=== PATIENT | female | born 1965 | race Caucasian/White ===

== ENCOUNTER 2022-12-24 08:22 | Inpatient (IN) | payer BC, SELFPAY ==
[2022-12-24] VITALS (47 sets, daily range): BP systolic 47–209; BP diastolic 25–117; PULSE 84–132; RESP 16–38; TEMP 36.2–37.5; O2SAT 40–100; BMI 24.2
--- NOTE | ~2022-12-24 | XR_ITS ---
EXAMINATION: XR chest ET placement INDICATION: Respiratory failure TECHNIQUE: Portable AP chest at 1445 hours COMPARISON: 0902 hours FINDINGS: The endotracheal tube ends approximately 3.6 cm above the jerod. A nasogastric tube has be en inserted which is followed as far as the stomach. Its tip is beyond the inferior margin of the rad iograph. Patchy opacities persist throughout all lung zones with slight improvement. No pleural effus ion or pneumothorax. IMPRESSION: 1. Diffuse lung disease with interval improvement, consistent with pneumonia and/or atelectasis and/o r pulmonary edema. 2. Nasogastric tube insertion. Reviewed, dictated and finalized at location A. IMPRESSION: 1. Diffuse lung disease with interval improvement, consistent with pneumonia an d/or atelectasis and/or pulmonary edema. 2. Nasogastric tube insertion.
--- NOTE | ~2022-12-24 | XR_ITS ---
EXAMINATION: XR abdomen/kub 1V DATE: 12/31/2022 08:38 INDICATION: Constipation TECHNIQUE: A supine view of the abdomen on 2 radiographs was obtained. COMPARISON: KUB dated 12/26/[address] dated 12/24/2022 FINDINGS: Left femoral vein central venous catheter with distal tip at the left common iliac vein. Temperature probe projects of the central lower pelvis likely within a Nova catheter. Small amount of gas scatte red throughout the colon and small amount of stool distally at the sigmoid colon. No dilated loops of gas-filled bowel to suggest obstruction. /Portions of the lung bases are clear. Heart size is normal . IMPRESSION: 1. Small amount of stool at the sigmoid colon. No obstruction. Reviewed, dictated and finalized at location A.
--- NOTE | ~2022-12-24 | XR_ITS ---
XR_KUBGTUBINS_CR INDICATION: Evaluate NG tube position. TECHNIQUE: Limited KUB perform for evaluating NG tube . COMPARISON: No prior studies for comparison. FINDINGS: NG tube tip in the stomach. Visualized bowel gas pattern is unremarkable.Right basilar air space disease may represent edema or pneumonia. IMPRESSION: 1: NG tube tip in the stomach. Reviewed, dictated and finalized at location L.
--- NOTE | ~2022-12-24 | XR_ITS ---
EXAMINATION: XR chest ET placement INDICATION: Respiratory failure TECHNIQUE: Portable AP chest at 0902 hours COMPARISON: None available FINDINGS: The endotracheal tube is 2.8 cm above the jerod. There is a diffuse interstitial pattern o f the lungs. No pleural effusion or pneumothorax. The cardiomediastinal silhouette is normal. IMPRESSION: 1. Endotracheal tube 2.8 cm above the jerod. 2. Diffuse interstitial pattern of the lungs, consistent with pulmonary edema and/or pneumonia. Reviewed, dictated and finalized at location A. IMPRESSION: 1. Endotracheal tube 2.8 cm above the jerod. 2. Diffuse interstitial pattern of the lungs, consistent with pulmonary edema a nd/or pneumonia.
--- NOTE | ~2022-12-24 | XR_ITS ---
MODIFIED ESOPHAGRAM HISTORY: Dysphagia. TECHNIQUE: Modified barium esophagram was performed on 12/31/2022. I administered fluoroscopy and perf ormed the exam with speech pathologist. Patient was seated for lateral fluoroscopic imaging for juancho stion of thin liquids, pudding, solids and quantified amounts, followed by thin liquids in uncontroll ed amounts. This was recorded on tape. A single fluoroscopic spot image was also recorded. The DAP fo r this procedure was 1.399 Gycm2. The amount of fluoroscopy time used during this procedure was 1.6 m inutes. FINDINGS: Oral stage: Adequate function. Pharyngeal stage: Single episode of flash laryngeal penetration likely trace amount of contrast with thin liquids which immediately cleared. No aspiration.. Cervical/esophageal stage: Adequate function. IMPRESSION: Single episode of flash laryngeal penetration with trace amount of thin liquid contrast. Otherwise unremarkable study. Please correlate with speech pathologist findings and specific feeding recommendations. Reviewed, dictated and finalized at location A. IMPRESSION: Single episode of flash laryngeal penetration with trace amount of thin liquid contrast. Otherwise unremarkable study. Please correlate with specesario ch pathologist findings and specific feeding recommendations.
--- NOTE | ~2022-12-24 | CT_ITS ---
EXAMINATION: CT brain wo con DATE: 12/24/2022 10:36 INDICATION: Altered mental status TECHNIQUE: Computed tomography (CT) of the abdomen and pelvis was performed without intravenous contr ast. The dose-length product was 756.67 mGy-cm. Automated exposure control and iterative reconstructi on technique were employed. COMPARISON: CT dated 03/31/2015. FINDINGS: Study is extremely limited due to artifact. No ventriculomegaly or midline shift. Normal br ain parenchymal volume. No gross infarction, hemorrhage or mass. Paranasal sinuses and mastoids are p neumatized. No depressed skull fractures. IMPRESSION: 1. Extremely limited study. Cannot exclude subtle intracranial hemorrhage. Consider repeat examinatio n following sedation. Reviewed, dictated and finalized at location L. IMPRESSION: 1. Extremely limited study. Cannot exclude subtle intracranial hemorrhage. Cons ider repeat examination following sedation.
--- NOTE | ~2022-12-24 | CT_ITS ---
EXAMINATION: CTA chest abdomen pelvis DATE: 12/24/2022 11:05 CDT INDICATION: Evaluate dissection. TECHNIQUE: Computed tomographic angiography (CTA) of the chest, abdomen, and pelvis was performed wit hout and with 100 mL Omnipaque-350 intravenous contrast. The dose-length product was 1382.52 mGy-cm. Maximum intensity projection 3D-reconstructions of the aorta and other arteries were constructed by yung almodovar technologist on a separate workstation. COMPARISON: CT dated 06/02/2005. FINDINGS: CHEST CTA: There is atherosclerosis of the aorta and coronary arteries. No evidence for aortic aneurysm or disse ction. Study is technically adequate without evidence for pulmonary embolism. There are moderate pleu ral effusions. Heart size normal. There is extensive patchy bilateral airspace consolidation, consist ent with pneumonia. There is an endotracheal tube tip just above the jerod. There is mild thoracic a nd lumbar spondylosis. No acute osseous abnormality. There is grade 1 degenerative spondylolisthesis at L4-5. ABDOMEN AND PELVIS CTA: There is hepatomegaly. The spleen, pancreas, adrenal glands are unremarkable. There is a 4 mm nonobst ructing left renal stone. There are left renal cysts. No significant hydronephrosis. Gallbladder is p resent. Nonobstructive bowel gas pattern. There is Nova catheter present in the bladder lumen. No fr ee air or free fluid. There is mild mesenteric and retroperitoneal lymphadenopathy, likely reactive. IMPRESSION: 1. Extensive bilateral airspace consolidation, consistent with pneumonia. 2: Moderate pleural effusions. 3: Hepatomegaly. 4: Nonobstructing left nephrolithiasis. Reviewed, dictated and finalized at location L.
--- NOTE | ~2022-12-24 | XR_ITS ---
EXAMINATION: XR chest 1V portable DATE: 12/25/2022 05:42 INDICATION: Pneumonia. TECHNIQUE: A single frontal view of the chest was obtained. COMPARISON: Chest 1 view 12/24/2022, chest CT 12/24/2022 FINDINGS: There are mild airspace opacities in all lung zones bilaterally. No pleural effusion or pne umothorax. The heart size is normal. The endotracheal tube tip is 1.5 cm above the jerod. The nasoga stric tube tip is beyond the inferior margin of the radiograph, but at least to the stomach. IMPRESSION: 1. Diffuse lung disease with interval improvement, consistent with pneumonia. Reviewed, dictated and finalized at location A.
--- NOTE | ~2022-12-24 | US_ITS ---
EXAMINATION: US abdomen limited DATE: 12/28/2022 13:51 INDICATION: Increasing liver function tests TECHNIQUE: Multiple grayscale and Doppler ultrasound images of the abdomen were obtained. COMPARISON: 12/24/2022 FINDINGS: The pancreatic head and body are normal in appearance. The pancreatic tail is not visualized. Visual ized proximal to mid inferior vena cava is normal. Liver has normal echogenicity and contour, with a smooth surface. No liver lesion identified. No intrahepatic biliary duct dilation suspected. Portal v enous flow was seen in the hepatopetal, normal direction and has normal Doppler waveform. There is ed ematous gallbladder wall thickening and trace amount of pericholecystic fluid. There is a small amoun t of echogenic debris within the gallbladder. No shadowing cholelithiasis. Sonographic Farr sign wa s reported as negative by the payroll human resources assistant.Common bile duct measures 4 mm diameter which is normal. Vi sual is portions of the right kidney demonstrates normal contour and echogenicity with no hydronephro sis. There is a right pleural effusion. IMPRESSION: 1. Edematous gallbladder wall thickening and trace amount of pericholecystic fluid but without eviden t cholelithiasis or sonographic Farr's on to suggest acute cholecystitis and differential would als o include sequela of liver disease, congestive heart failure, renal failure or other generalized alisha a forming states. If there is specific elevated clinical concern for acute cholecystitis could consid er HIDA scan for further evaluation. 2. Right pleural effusion. Reviewed, dictated and finalized at location A. IMPRESSION: 1. Edematous gallbladder wall thickening and trace amount of pericholecystic fl uid but without evident cholelithiasis or sonographic Farr's on to suggest ac hughes cholecystitis and differential would also include sequela of liver disease, congestive heart failure, renal failure or other generalized edema forming sta shoshana. If there is specific elevated clinical concern for acute cholecystitis cou ld consider HIDA scan for further evaluation. 2. Right pleural effusion.
--- NOTE | ~2022-12-24 | XR_ITS ---
Portable chest x-ray Comparison: 12/30/2022 Clinical History: Respiratory failure Findings: There is mild right basilar haziness. Left lung essentially clear. Cardiomediastinal silh ouette is stable. Bones and soft tissues are unremarkable. Impression: Mild haziness right lung base. Correlate for pulmonary edema or infection. Reviewed, dictated and finalized at [facility]. Impression: Mild haziness right lung base. Correlate for pulmonary edema or infection.
--- NOTE | ~2022-12-24 | XR_ITS ---
Portable chest x-ray Comparison: 12/29/2022 Clinical History: Tube placement Findings: Endotracheal tube and NG tube are in satisfactory positions. There is minimal bibasilar sloan ziness. Cardiomediastinal silhouette is stable. Bones and soft tissues are unremarkable. Impression: Minimal bibasilar pulmonary edema versus pneumonia. Support tubes, as above. Reviewed, dictated and finalized at location . Impression: Minimal bibasilar pulmonary edema versus pneumonia. Support tubes, as above.
--- NOTE | ~2022-12-24 | XR_ITS ---
XR chest 1V portable DATE: 12/27/2022 05:50 INDICATION: Pneumonia TECHNIQUE: Portable AP chest on 12/27/2022 at 0507 hours COMPARISON: Portable AP chest on 12/26/2022 at 0441 hours FINDINGS: ET and NG tubes in satisfactory position. No central lines. Heart size appears normal. Is aortic calcification. There is a patchy groundglass infiltrate of the lungs, greater on the right, but there has been seria l improvement particularly since 12/20/2022. IMPRESSION: Little interval change since 12/26/2022 Reviewed, dictated and finalized at location A.
--- NOTE | ~2022-12-24 | XR_ITS ---
EXAMINATION: XR chest 1V portable DATE: 12/26/2022 05:22 INDICATION: Pneumonia TECHNIQUE: frontal view of the chest was obtained. COMPARISON: Chest radiograph dated 12/25/2022. And 12/24/2022 FINDINGS: No significant change attending for differences in technique in diffuse subtle patchy airspace opacit ies throughout both lungs which have improved since 12/24/2022. No pleural effusion or pneumothorax. T he cardiomediastinal silhouette is normal. Visualized bones and soft tissues are unremarkable. IMPRESSION: 1. Diffuse bilateral lung disease consistent with pneumonia with no change since 1 day prior but with improvement since the previous day. Reviewed, dictated and finalized at location A. IMPRESSION: 1. Diffuse bilateral lung disease consistent with pneumonia with no change sinc e 1 day prior but with improvement since the previous day.
--- NOTE | ~2022-12-24 | US_ITS ---
EXAMINATION: US venous doppler E DATE: 12/31/2022 15:17 INDICATION: Left upper limb swelling. TECHNIQUE: Grayscale ultrasound images without and with compression and Doppler ultrasound images of the left upper extremity veins were obtained. COMPARISON: None. FINDINGS: The visualized portions of the left internal jugular vein, subclavian vein, axillary vein, brachial v eins, basilic vein, radial vein, and ulnar vein are patent. The cephalic vein was not visualized. IMPRESSION: 1. No deep venous thrombosis. Reviewed, dictated and finalized at location E.
--- NOTE | ~2022-12-24 | CT_ITS ---
EXAMINATION: CT brain wo con INDICATION: Altered mental status COMPARISON: None TECHNIQUE: Standard unenhanced head CT. The dose-length product (DLP) was 605.33 mGy-cm. The mA was a djusted according to patient size. Iterative reconstruction technique was employed. FINDINGS: No intracranial hemorrhage, acute infarction, or abnormal mass lesion. The ventricles are n ormal. No abnormal mass effect or midline shift. The wasserman-white matter differentiation is normal. The basal cisterns are patent. A small amount of intracranial contrast is seen from prior contrast-enhan caity CT. The orbits are normal. There is mild mucosal thickening of the paranasal sinuses. IMPRESSION: 1. No acute intracranial abnormality. Reviewed, dictated and finalized at location A.
--- NOTE | ~2022-12-24 | US_ITS ---
EXAMINATION: US venous doppler UE RT DATE: 12/25/2022 09:38 INDICATION: Swollen right upper extremity veins TECHNIQUE: Hanna scale images with and without compression and Doppler images of the right upper extre mity veins were obtained. COMPARISON: None. FINDINGS: The right internal jugular vein, subclavian vein, axillary vein, brachial veins, basilic vein, radial vein, and ulnar vein are patent. Right cephalic vein not visualized due to arm edema. IMPRESSION: 1. Patent right upper extremity veins. No evidence of deep venous thrombosis. Reviewed, dictated and finalized at location B.
--- NOTE | ~2022-12-24 | XR_ITS ---
Portable chest x-ray Comparison: 12/27/2022 Clinical History: Pneumonia Findings: Endotracheal tube and NG tube are in satisfactory positions. There is perihilar airspace c onsolidation bilaterally. There is more hazy airspace disease and bilateral lower lobes and right mid lung. Cardiomediastinal silhouette is stable. Bones and soft tissues are unremarkable. Impression: Support tubes, as above. Bibasilar and perihilar airspace disease. Correlate for pulmonary edema versus pneumonia. Reviewed, dictated and finalized at location . Impression: Support tubes, as above. Bibasilar and perihilar airspace disease. Correlate for pulmonary edema versus pneumonia.
--- NOTE | ~2022-12-24 | XR_ITS ---
EXAMINATION: XR abdomen/kub 1V DATE: 12/26/2022 11:04 INDICATION: Increased tube feed residuals TECHNIQUE: A supine view of the abdomen on 2 radiographs was obtained. COMPARISON: CT dated 12/24/2022 FINDINGS: Nasogastric tube tip in proximal side port in the body of the stomach. Left femoral central venous ca theter with distal tip in the region of the left common iliac vein. Temperature probe extends through a Nova catheter with distal tip projecting over the expected location of the bladder and the lower pelvis. The tip of the Nova catheter itself appears likely external to the patient. Small amount of gas and stool scattered throughout the colon. No dilated loops of gas-filled bowel to suggest obstruc tion. Visualized portion of the lung bases are clear. IMPRESSION: 1. Nasogastric tube in stomach. 2. Nova catheter appears withdrawn external to the patient but with the tip of the temperature probe likely still within the bladder. Reviewed, dictated and finalized at location A.
--- NOTE | ~2022-12-24 | XR_ITS ---
Portable chest x-ray Comparison: 12/28/2022 Clinical History: Pneumonia Findings: Endotracheal tube and NG tube are in satisfactory positions. There is mild haziness bilate rally, similar to prior exam. No pleural effusion or pneumothorax. Cardiomediastinal silhouette is s table. Bones and soft tissues are unremarkable. Impression: Mild bilateral pulmonary haziness. Correlate for pulmonary edema or infection. Support tubes, as above. Reviewed, dictated and finalized at location . Impression: Mild bilateral pulmonary haziness. Correlate for pulmonary edema or infection. Support tubes, as above.
[2022-12-24] MEDS: ETOMIDATE 20 MG/10 ML AMPUL 30 MG IV PUSH (08:43)
[2022-12-24] MEDS: ROCURONIUM BROMIDE 50 MG/5 ML VIAL 100 MG IV PUSH (08:44)
--- NOTE | 2022-12-24 08:52 | ECG_ITS ---
Measurements Intervals [place] Rate: 129 P: 130 SC: 157 QRS: 97 QRSD: 106 T: -61 QT: 282 QTc: 414 Interpretive Statements SINUS TACHYCARDIA ARM LEADS REVERSED [INVERTED P AND QRS IN I] ABNORMAL RHYTHM ECG NO PREVIOUS ECG AVAILABLE FOR COMPARISON Electronically Signed On 12-24-2022 11:01:15 CDT by Nehemiah Martin M.D.
--- NOTE | 2022-12-24 09:00 | ED.CHESTPAIN ---
HPI - Chest Pain General Chief Complaint: Chest Pain Stated Complaint: stemi Time Seen by Provider: 12/24/22 08:52 Source: patient and EMS Mode of arrival: EMS Limitations: clinical condition History of Present Illness HPI narrative: Patient is a 57-year-old female presented to the emergency department by EMS for chest pain. Patient primarily answering questions with yes or no answers secondary to pain and difficulty breathing. EMS reports patient developed chest pain while driving and pulled over on the side of the road and called EMS, upon EMS arrival patient was experiencing chest pain and appeared diaphoretic and was having tachypnea, they performed an EKG that revealed anterior ST elevation with reciprocal changes in a code STEMI was activated. Patient denies any allergies to medications. Patient admits to a history of Hodgkin's lymphoma, hypertension. Related Data Home Medications Medication Instructions Recorded Confirmed No Home Medications 12/24/22 12/24/22 Allergies Allergy/AdvReac Type Severity Reaction Status Date / Time No Known Allergies Allergy Unverified 06/19/16 10:20 Review of Systems Review of Systems: ROS unobtainable: Yes unobtainable due to medical condition PMFSH Past Medical History Medical History Chest pain Depression Hodgkin lymphoma In the 1990s. Hypothyroidism Surgical History Surgical History No significant past surgical history Family History Family History Other Family history unknown Social History Social History Social History: Surrogate medical decision maker: Jac Pacheco, spouse. Code status: Full code. Smoking status: Unknown if ever smoked Alcohol intake: unknown Substance use: unknown Additional living arrangements comments: however she and her live in separate homes. They have 1 grown daughter who lives in [place]. Daughter is healthy. She has 2 sisters who are healthy. Both parents are from old age. 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 Spiritual care concerns: No Comments At time of signature, I have reviewed and agree with nursing past medical, surgical, social and family history unless otherwise noted. Please see nursing chart for further information. There is no relevant family history pertinent to the presenting complaint. Exam Const: General: alert, diaphoretic and ill appearing HENMT: Head: normal to inspection Mouth: Yes dry mucous membranes Eyes: Conjunctivae: conjunctivae normal Pupils: Equal, round and reactive pupils present Neck: Neck: no meningeal signs Other: No JVD Chest: Chest palpation & inspection: normal inspection of the chest Resp: Effort & Inspection: labored, tachypneic and uses accessory muscles Auscultation: rales diffuse and no wheezes Other: Able to speak in 1-2 word responses Cardio: Rate: tachycardic Rhythm: regular rhythm Heart sounds: no murmurs Peripheral pulses: radial pulses present bilateral 1+ and dorsalis pedis present bilateral 1+ GI: Inspection: non-distended GI Palp: Yes Soft to palpation, No Tenderness to palpation present (GI) and No Pulsatile mass present Skin: General skin exam: no jaundice Rashes: no rashes Neuro: General: moves all extremities Extrem: General: no pedal edema Other: Capillary refill is 3 seconds in all 4 distal extremities. Course Vital Signs Vital signs: Vital Signs Pulse Rate 129 H 12/24/22 08:23 Respiratory Rate 38 H 12/24/22 08:23 Blood Pressure 158/85 H 12/24/22 08:23 Pulse Oximetry 78 L 12/24/22 08:23 Oxygen Delivery Nasal Cannula 12/24/22 08:23 Oxygen Flow Rate 3 12/24/22 08:23 Temperature 98.2 F
[2022-12-24 09:02] LABS: Basophils Absolute Auto 0.1 K/mm3 (0.0-0.1); Eosinophils Absolute Auto 0.6 K/mm3 (0-0.3); Eosinophils Percent Auto 4.9 % (0-4.4); Hematocrit 44.9 % (37.0-47.0); Hemoglobin 14.1 g/dL (12.0-15.0); Immature Granulocyte Absolute 0.08 K/mm3 (0.00-0.031); Immature Granulocyte Percent A 0.7 % (0-0.5); Lymphocytes Absolute Auto 2.63 K/mm3 (0.9-3.2); Lymphocytes Percent Auto 21.5 % (18.3-44.2); Mean Corpuscular HGB Conc 31.4 g/dl (32-36); Mean Corpuscular Hemoglobin 29.1 pg (26-34); Mean Corpuscular Volume 92.8 fl (80-100); Monocytes Absolute Auto 0.8 K/mm3 (0.1-0.6); Monocytes Percent Auto 6.9 % (2.6-8.5); Neutrophils Absolute Auto 7.9 K/mm3 (1.3-6.7); Platelet Count Result 253 k/mm3 (150-375); Red Blood Count 4.84 M/mm3 (4.2-5.4); Red Cell Distribution Width 12.9 % (11.5-14.5); White Blood Count 12.2 K/mm3 (4.5-10.0)
[2022-12-24 09:09] LABS: Lactic Acid Reflex 3.2 mmol/L (0.7-2.0)
[2022-12-24 09:13] LABS: Alanine Aminotransferase 30 U/L (6-35); Albumin Level 3.8 g/dL (3.5-5.1); Alkaline Phosphatase 129 U/L (38-126); Anion Gap 7 mmol/L (8-16); Aspartate Amino Transferase 46 U/L (14-36); Bilirubin,Total 0.5 mg/dL (0.2-1.3); Blood Urea Nitrogen 24 mg/dL (7-17); Calcium 7.8 mg/dL (8.4-10.2); Carbon Dioxide 26 mmol/L (22-30); Chloride 105 mmol/L (98-107); Estimated Glomerular Filt Rate > 60; Glucose 377 mg/dL (65-110); Lipase 142 U/L (23-300); Magnesium 1.8 mg/dL (1.6-2.3); Potassium 3.5 mmol/L (3.4-5.0); Sodium 138 mmol/L (137-145); Troponin I 0.018 ng/mL (0.000-0.034)
[2022-12-24 09:17] LABS: Ethanol < 10 mg/dL (<10)
[2022-12-24 09:23] LABS: NT Pro B Type Natriuretic Pept 1690 pg/mL (19.9-100)
[2022-12-24 09:46] LABS: Alveolar/Arterial O2 Gradient 403.4 mmHg; Base Excess ABG -6.1 mEq/l (+/-2.0); Fractional Inspired Oxygen 100 %; HCO3 ABG 21.2 mEq/l (22.0-26.0); Oxygen Content ABG 19.6 %vol (16.0-22.0); Oxygen Saturation ABG 99.5 % (95.0-100.0); Oxyhemoglobin 97.9 % THb (90.0-100.0); PCO2 ABG 48.9 mmHg (35.0-45.0); PO2 ABG 260.7 mmHg (80.0-100.0); PO2 FiO2 Ratio Arterial Blood 2.61 %; Total Hemoglobin 13.8 g/dL (12.0-18.0)
[2022-12-24 09:47] LABS: Site Drawn RIGHT RADIAL; pH ABG 7.255 (7.350-7.450)
[2022-12-24 09:48] LABS: Arterial Blood Gas Vent Mode CMV; Arterial Blood Gas Ventilator rate 16 /MIN; Device VENTILATOR; Modified Allen's Test Pass
[2022-12-24 09:49] LABS: Arterial Blood Gas PEEP 5 cmH2O; Arterial Blood Gas Tidal Volume 450 ml
[2022-12-24] MEDS: NITROGLYCERIN OINTMENT 1 INCH DOSE TRANSDERM (09:58)
[2022-12-24] MEDS: FUROSEMIDE INJ 40 MG/4 ML VIAL IV PUSH (09:59)
--- NOTE | 2022-12-24 10:55 | PC.NURSE ---
0823-PATIENT ARRIVED VIA EMS. FLORES IN COLOR. HANDS MOTTLED. COOL TO TOUCH. DIAPHORETIC. EMS REPORTS PATIENT WITH ACUTE ONSET OF LEFT CHEST PAIN AND SOB. PATIENT ABLE TO ANSWER ONE WORD QUESTIONS. FOUR BABY ASPIRIN GIVEN ENROUTE. PATIENT NOTED TO HAVE DELAYED CAPILLARY REFILL. 0837-DR. LEACH PREPARING TO INTUBATE PATIENT. DEFIB/PACER PADS APPLIED. 0840-NORMAL SALINE INFUSING AT WIDE OPEN RATE TO LEFT HAND. WAS NOTIFIED BY SIDE LASTER STAPLE.
--- NOTE | 2022-12-24 11:04 | ECG_ITS ---
Measurements Intervals [place] Rate: 130 P: 69 AK: 138 QRS: 80 QRSD: 107 T: -63 QT: 314 QTc: 462 Interpretive Statements SINUS TACHYCARDIA Poor R-wave progression, cannot rule out an old aNTERIOR MYOCARDIAL INFARCTION MODERATE T-WAVE ABNORMALITY, CONSIDER LVH or ischemia COMPARED TO ECG 12/24/2022 08:26:53 NO SIGNIFICANT CHANGES Electronically Signed On 12-24-2022 11:27:03 CDT by Lucretia Grimm M.D.
[2022-12-24 11:05] LABS: Free T4 Free Thyroxine Reflex 1.11 ng/dL (0.78-2.19)
[2022-12-24] MEDS: FENTANYL 2,500MCG/NS250ML(*CRX 2,500 MCG/250 ML BAG IV CONT (11:10)
--- NOTE | 2022-12-24 11:10 | PC.NURSE ---
assuming care of pt. received report from NEERAJ Diego.
--- NOTE | 2022-12-24 11:16 | PC.NURSE ---
0845-7.[address]UBE INSERTED BY DR. LEACH. #22 AT THE LIP. BILATERAL BREATH SOUNDS PRESENT PER DR. LEACH. GOOD CO2 CHANGE ON MONITOR. 0853-VENTILATOR INITIATED BY RESPIRATORY CARE. VENTILATOR SETTINGS: CMV; RATE-16; TIDAL VOLUME-450; FiO2-100%; PEEP-5 #16 PULIDO WITH TEMPERATURE PROBE INSERTED WITH SCANT AMOUNT OF URINE IN PULIDO TUBING.
[2022-12-24 11:21] LABS: CRP < 0.5 mg/dL (<1.0)
--- NOTE | 2022-12-24 11:21 | PC.NURSE ---
0855-PULIDO TEMPERATURE PROBE READING 92.0. WARM BLANKETS X 2 APPLIED. 0900-PORTABLE CHEST X-RAY COMPLETED 905-PULIDO TEMPERATURE PROBE READING 96.3.
--- NOTE | 2022-12-24 11:27 | PC.NURSE ---
0934-ABGS BEING DRAWN.
--- NOTE | 2022-12-24 11:28 | PC.NURSE ---
0952-VENTILATOR SETTINGS CHANGED BY RESPIRATORY CARE. RATE INCREASED TO 18; TIDAL VOLUME DECREASED TO 400; FiO2 DECREASED TO 60% 1008-TO CT SCAN WITH RN AND RESPIRATORY CARE. PATIENT RECEIVED ONE LITER OF NORMAL SALINE. #20 RIGHT AC INFILTRATED DURING CT ADMINISTRATION OF CONTRAST DYE. IV D/C'D BY CT SCAN. HOT MCKINLEY APPLIED TO SITE BY CT SCAN.
--- NOTE | 2022-12-24 11:39 | PC.NURSE ---
1024-PATIENT REMAINS IN CT SCAN. BAGGING CONTINUES. PATIENT NOTED TO HAVE RATTLING RESPIRATIONS WITH BAGGING. 1028-PERIPHERAL IV ATTEMPTED X [address] SCAN WITHOUT SUCCESS. APPROXIMATELY 10 CC OF CLEAR YELLOW URINE IN PULIDO TUBING. 1033-PERIPHERAL IV ACCESS ATTEMPTED FOR THIRD TIME WITHOUT SUCCESS. 1040-#20 ANGIOCATH TO LEFT FOREARM PER NEERAJ HANNAH. 1041-CT IN PROGRESS 1048-RETURN FROM CT SCAN. 1057-SOFT RESTRAINTS APPLIED TO BILATERAL WRISTS.
--- NOTE | 2022-12-24 11:50 | PC.NURSE ---
pt still agitated after titrating Fentanyl drip to 75mcg/hr. EDP Barone made aware. per EDP gave 2mg of Versed IV push. VORB.
[2022-12-24] MEDS: MIDAZOLAM HCL (*CRX) 2 MG/2 ML VIAL IV PUSH ×2 (11:51→14:00)
--- NOTE | 2022-12-24 11:55 | PC.NURSE ---
multiple attempts by multiple RN's to obtain blood cultures, lactic acid, and 3 hour troponin without success. Antibiotics not started yet due to not being able to obtain blood cultures at this time.
[2022-12-24] MEDS: SODIUM CHLORIDE 0.9% IV 1,000 ML 999 ML IV CONT ×2 (12:05→13:15)
[2022-12-24 12:08] LABS: Reflex Lactic Acid Yes or No Add Lactic
[2022-12-24 12:09] LABS: Total Triiodothyronine (T3) 1.13 NG/ML (0.97-1.69)
[2022-12-24 12:13] LABS: Appearance Urine Clear (Clear); Bacteria Urine None Seen /hpf; Bilirubin Urine Negative (Negative); Blood Urine Trace (Negative); Color Urine Yellow (Yellow); Glucose Urine UA Negative (Negative); Ketones Urine Negative (Negative); Leukocyte Esterase Ur 2+ LEU/UL (Negative); Nitrate Urine Negative (Negative); Protein Urine Negative (Negative); RBC Urine 0-2 /hpf (0-2); Specific Grav Ur 1.018 (1.001-1.035); Squamous Epithelial Cell Urine None seen /hpf (Few); Urobilinogen Urine 0.2 mg/dL (<2.0)
[2022-12-24 12:14] LABS: Add Urine Microscopic? YES
--- NOTE | 2022-12-24 12:15 | PC.NURSE ---
after giving the 2mg of Versed pt's BP dropped to 47/25. EDP Abisai made aware. started 1L of normal saline bolus per Dr. Barone. Dr. Barone also administered a push dose of epinephrine IV. pt's BP back up to 107/78.
[2022-12-24 12:24] LABS: Alveolar/Arterial O2 Gradient 244.2 mmHg; Base Excess ABG -2.7 mEq/l (+/-2.0); Carboxyhemoglobin 0.8 % THb (0-2.0); Fractional Inspired Oxygen 60 %; HCO3 ABG 24.4 mEq/l (22.0-26.0); Methemoglobin ABG 0.3 %THb (0-1.5); Oxygen Saturation ABG 98.2 % (95.0-100.0); Oxyhemoglobin 96.8 % THb (90.0-100.0); PCO2 ABG 51.1 mmHg (35.0-45.0); PO2 ABG 127.4 mmHg (80.0-100.0); PO2 FiO2 Ratio Arterial Blood 2.12 %; Reduced Hemoglobin 2.1 %THb (0-5.0); Total Hemoglobin 13.8 g/dL (12.0-18.0)
[2022-12-24 12:26] LABS: Amphetamine Screen Urine Negative (Negative); Barbiturate Screen Urine Negative (Negative); Benzodiazepines Screen Urine Negative (Negative); Cannabinoid Screen Urine Negative (Negative); Cocaine Screen Urine Negative (Negative); Methadone Screen Urine Negative (Negative); Opiate Screen Urine Negative (Negative); Phencyclidine Screen Urine Negative (Negative)
[2022-12-24 12:26] LABS: Device VENTILATOR; Site Drawn LEFT BRACHIAL; pH ABG 7.296 (7.350-7.450)
[2022-12-24 13:11] LABS: Influenza A QL RT-PCR Negative (Negative); Influenza B QL RT-PCR Negative (Negative); SARS-CoV-2 RNA PCR Negative (Negative)
--- NOTE | 2022-12-24 13:15 | PC.NURSE ---
ICU Director Of Medical Staff Services Dr. Mendoza at bedside to assess pt. pt's BP starting to drop again at 60/38. per Dr. Mendoza to give 1L of NS bolus.
--- NOTE | 2022-12-24 13:39 | PC.NURSE ---
ICU oracle application architect at bedside for central line placement.
[2022-12-24 13:51] LABS: Arterial Blood Gas PEEP 5 cmH2O; Arterial Blood Gas Tidal Volume 400 ml; Arterial Blood Gas Vent Mode CMV; Arterial Blood Gas Ventilator rate 18 /MIN
--- NOTE | 2022-12-24 14:00 | PC.NURSE ---
while Dr. Mendoza was attempting central line access pt became agitated. gave another 2mg of Versed per Dr. Mendoza. VORB.
--- NOTE | 2022-12-24 14:04 | PM.IMHP ---
H&P: HPI History of Present Illness Date/Time: 12/24/22 13:30 Chief Complaint: Chest pain and shortness a breath. Narrative: This is a 57-year-old female with hypothyroidism and a remote history of Hodgkin lymphoma who presented to the emergency department via EMS for evaluation of chest pain and shortness of breath. She is intubated and sedated and is unable to provide any history and as such the following is obtained via a review of her EMR and triage nurse and ED physician notes. Her Jac provides additional information. They are and live in different homes. The patient stated with juvenal on Wednesday night and during the middle the night she was awakened from sleep with racing heart which lasted approximately 1.5 hours before she was able to fall back asleep. Aside from sensations of racing heart, she did not complain of any other symptoms to him. He has not seen her since that time and received a phone call from the ED today that she was brought in via EMS. It is my understanding that she was driving to work this morning and called 911 with complaints of severe left-sided chest pain shortness a breath. On EMS arrival she was wasserman, cold to touch, and diaphoretic. On arrival to the ED her vital signs were as follows: blood pressure 158/85, pulse 129, respiratory rate 38, SpO2 78% on 3 L, and temperature 97.1?. ABG showed a pH of 7.255, pCO2 40.9, PO2 260.7, bicarb 21.2. She was speaking in 1 word sentences and she was intubated. CTA of the chest, abdomen, and pelvis showed extensive bilateral airspace consolidation consistent with pneumonia, moderate pleural effusions, hepatomegaly, and nonobstructing left nephrolithiasis. Brain CT showed no acute intracranial abnormality. Labs were significant for a WBC count of 12.2, normal electrolytes, BUN 24, creatinine 0.70, glucose 377, lactic acid 3.2, proBNP 1690. She tested negative for influenza and SARS-CoV-2 by PCR. Urine drug screen was negative. EKG showed sinus tachycardia with poor R-wave progression, cannot rule out old anterior MO, and moderate T-wave abnormalities consider LVH or ischemia. In the ED she received 4 baby aspirin, 1 inch nitroglycerin paste, furosemide 40 mg IV, 2 L lactated Ringer's, 1750 mg vancomycin, 2 g ceftriaxone, and 500 mg azithromycin. She is being admitted to the ICU in this setting for further treatment of septic shock in the setting of pneumonia. Review of Systems Review of Systems: Unable to obtain at this time given clinical condition as above. [facility] Past Medical History Medical History Chest pain Depression Hodgkin lymphoma In the . Hypothyroidism Surgical History Surgical History No significant past surgical history Family History Family History Other Family history unknown Social History Social History Social History: Surrogate medical decision maker: Jac Pacheco, spouse. Code status: Full code. Smoking status: Unknown if ever smoked Alcohol intake: unknown Substance use: unknown Additional living arrangements comments: however she and her live in separate homes. They have 1 grown daughter who lives in [place]. Daughter is healthy. She has 2 sisters who are healthy. Both parents are from old age. 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 Spiritual care concerns: No Meds Home Medications and Allergies Home Medications Medication Instructions Recorded Confirmed Type No Home Medications 12/24/22 12/24/22 History Allergies Allergy/AdvReac Type Severity Reaction Status Date / Time No Known Allergies Allergy Unverified 06/19/16 10:20 Vital Signs Vital Signs - 24 hr 12/24/22 08:23 08
--- NOTE | 2022-12-24 14:05 | ADMGEN ---
This patient, Jose David Pacheco, was admitted to Intensive Care Unit-7. Patient/family oriented to hospital policies and general routines including ID bracelet, bed and alarms, visiting hours, pain management, procedures, bathroom and other care routines, personal items, smoking policy, room service/diet, and visiting hours. Information on how to activate the Rapid Response Team has been discussed. Patient/Family are encouraged to report perceived risks to care and to ask questions if they do not understand what they are told or what they should do.
[2022-12-24] MEDS: MIDAZOLAM 100MG/NS 100ML(*CRX) 100 MG/100 ML BAG IV CONT (14:20)
--- NOTE | 2022-12-24 14:30 | PM.CNCAR ---
Assessment and Plan Assessment and plan (1) Septic shock: Code(s): A41.9 - Sepsis, unspecified organism; R65.21 - Severe sepsis with septic shock Status: Acute Assessment and Plan: Shock with concern for sepsis. Management as per ICU team. Will obtain echocardiogram as well. (2) Acute respiratory failure with hypoxia and hypercarbia: Code(s): J96.01 - Acute respiratory failure with hypoxia; J96.02 - Acute respiratory failure with hypercapnia Status: Acute Assessment and Plan: Currently intubated. CTA of C/A/P shows extensive bilateral airspace consolidation, consistent with pneumonia. No PE. Moderate pleural effusions. On antibiotics per the primary team. Has received IV Lasix with good urine output. Management of ventilator as per ICU team. Would continue with IV Lasix as needed. (3) Chest pain: Code(s): R07.9 - Chest pain, unspecified Status: Acute Assessment and Plan: Reports of chest pain prior to presentation. Noted to be hypertensive initially as well with SBP as high as 200s. No concern for STEMI on EKGs, therefore, STEMI alert canceled. 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 Initial troponin negative. CTA negative for PE and aortic dissection; does show atherosclerosis of the aorta and coronary arteries. Recommend to continue to trend troponins. Will obtain an echocardiogram. Will start ASA 81mg once daily and high intensity statin. If troponins become positive, recommend starting Heparin drip. Plan Recommendations discussed with Drug Abuse Program Coordinator and Hospitalist. History of Present Illness History of Present Illness Consult date/time: 12/24/22 14:30 Requesting physician: Logan Barone DO Consult reason: chest pain Reason For Visit: SEPTIC SHOCK Narrative: This is a 57 year old female who was initially called out as a STEMI in the field. History is limited as patient is intubated and no family at bedside. Patient reported having chest pain earlier this morning. Initial concern for STEMI per EMS, therefore, brought to [place] with catholic priest team on standby. On arrival to the ER here, patient was noted to be quite hypoxic and medical staff report that her skin color was noted to be blue. Upon my arrival to the ER, EKG obtained which I personally reviewed which showed sinus tachycardia, no STEMI. Therefore, STEMI alert was canceled. Patient was intubated as her oxygen saturations were dropping into the 60s. Patient initially was hypertensive, with SBP as high as 200. Later on in the day, prior to patient coming to the ICU, patient dropped her blood pressures. ER workup showed WBC count 12.2. Initial pH of 7.255, pCO2 of 48.9, HCO3 21.2. Lactic acid 3.2. Initial troponin negative at 0.018. BNP elevated at 1690. UDS negative. Alcohol level negative. Influenza panel and COVID panel negative. Head CT negative for acute findings. CXR with diffuse interstitial pattern of the lungs, consistent with pulmonary edema and/or pneumonia. CTA of C/A/P shows extensive bilateral airspace consolidation, consistent with pneumonia. No evidence for aortic aneurysm or dissection. No PE. Moderate pleural effusions. Mild mesenteric and retroperitoneal lymphadenopathy, likely reactive. Review of Systems Review of Systems: ROS unobtainable: Yes unobtainable due to endotracheal tube and unobtainable due to medical condition PMFSH Past Medical History Medical History Chest pain Depression Hodgkin lymphoma In the . Hypothyroidism Surgical History Surgical History No significant past surgical history Family History Family History Other Family history unknown Social History Social History Social History: Surrogate medical decision maker: Jac Vargas
[2022-12-24] MEDS: NOREPINEPHRINE 8 MG/D5W 250 ML 8 MG/250 ML BAG 9.38 MG IV CONT (14:35)
[2022-12-24] MEDS: AZITHROMYCIN 500 MG/NS 250 ML 500 MG/250 ML BAG 250 MG IVPB (14:35)
[2022-12-24] MEDS: cefTRIAXone 2 GM/NS 100 ML 2 GM/100 ML BAG IVPB (14:40)
--- NOTE | 2022-12-24 14:40 | WPDCNINT ---
Assessment and Plan Assessment and plan (1) Acute respiratory failure with hypoxia and hypercarbia: Code(s): J96.01 - Acute respiratory failure with hypoxia; J96.02 - Acute respiratory failure with hypercapnia Status: Acute Assessment and Plan: 12/24: Patient presented with chest pain, shortness of breath was found to be cyanotic and hypoxic, was intubated in the ER on the day of admission. -on CMV mode of ventilation, 60% FiO2 peep of 8 -repeat ABGs pending -continue bronchodilators -sedated with fentanyl and Versed infusion maintain RASS of 0 to -2 -daily sedation vacation -12/24: CTA Chest abdomen and pelvis 1. Extensive bilateral airspace consolidation, consistent with pneumonia. 2: Moderate pleural effusions. 3: Hepatomegaly. 4:? Nonobstructing left nephrolithiasis. (2) Septic shock: Code(s): A41.9 - Sepsis, unspecified organism; R65.21 - Severe sepsis with septic shock Status: Acute Assessment and Plan: Patient dropped her blood pressures ER, be given total of 3 L of IV fluid bolus, started on Levophed in the ICU -likely source pneumonia -will maintain MAP > 65 mmHg for adequate end organ perfusion -elevated lactic acid will repeat -check CRP -urine Legionella and pneumococcal antigens have been ordered and pending -mycoplasma IgM antibody pending -patient was started on azithromycin, ceftriaxone and vancomycin -12/24: Blood culture pending -12/24: Urine culture pending -12/24: MRSA culture pending (3) Multifocal pneumonia: Code(s): J18.9 - Pneumonia, unspecified organism Status: Acute Assessment and Plan: Treatment as above (4) Hyperglycemia: Code(s): R73.9 - Hyperglycemia, unspecified Status: Acute Assessment and Plan: Sliding scale insulin and Accu-Chek -will obtain hemoglobin A1c in the morning (5) Hypothyroidism: Code(s): E03.9 - Hypothyroidism, unspecified Status: Acute Assessment and Plan: TSH is elevated, -check T3 and T4 levels (6) Chest pain: Code(s): R07.9 - Chest pain, unspecified Status: Acute Assessment and Plan: Patient initially presented with chest pain, EKG did not show any ST-elevation FL -troponin x1 negative -cardiology is following the patient -if repeat troponins are negative will start on heparin infusion -patient did receive aspirin in the ER, nitropaste was removed due to but low blood pressures -echocardiogram has been ordered Plan DVT prophylaxis: Lovenox Stress ulcer prophylaxis: Protonix Nutrition: NPO for now Code Status: Full code Critical Care Time Spent: 51 minutes Due to a high probability of clinically significant, life threatening deterioration, the patient required my highest level of preparedness to intervene emergently and I personally spent this critical care time directly and personally managing the patient. This critical care time included obtaining a history; examining the patient; pulse oximetry; ordering and review of studies; arranging urgent treatment with development of a management plan; evaluation of patient's response to treatment; frequent reassessment; and discussions with other providers. It was exclusive of separately billable procedures and treating other patients and teaching time. Please see Assessment and Plan section and the rest of the note for further information on patient assessment and treatment This dictation may have been done utilizing a voice recognition system. Attempts have been made to correct errors. However, there may be uncorrected grammatical, spelling, and recognitions errors present. Real Estate Administrative Assistant Consult Note Consult date: 12/24/22 Reason for consult: Pneumonia, acute respiratory failure, septic shock, lactic acidosis, chest pain, shortness for breath HPI: Jose David Pacheco is a 57 year old female past medical has of Hodgkin's lymphoma around 30 years ago presented the ED on 12/24/2022 with complains of shortne
--- NOTE | 2022-12-24 15:03 | P.PCNBED_ITS ---
Procedures Central Line Placement Left Femoral: Central Line Date: 12/24/22 Central Line Time: 15:03 Consent: I have discussed with the patient and/or surrogate, the non-emergent placement of a central venous catheter, including its clinical necessity/indication and associated potential risks and complications. The patient and/or surrogate understand(s) and acknowledge(s) the need to proceed with central venous catheter insertion as an important element of the patient's clinical management. Time Out Performed: Yes Patient Position: supine Patient placed on monitor/pulse ox: Yes Provider Prep: mask, sterile gown, sterile gloves, Max. sterile barrier precautions, cap and hand hygiene with conventional soap/water or alcohol based hand rub Central line prep: 2% Chlorhexidine scrub Local anesthesia used: lidocaine 1% Amount of anesthesia used (ml): 3 Sterile US Technique with sterile gel/sterile probe covers: Yes Central line lumen inserted: triple Ukrainian: 12 Length (cm): 20 Depth of Insertion (cm): 20 Post Procedure: sutured in place, good blood return, all ports aspirated, flushed, capped, transparent dressing, hemostatic product, antimicrobial product, securement product and aseptic technique maintained throughout procedure Post procedure x-ray: other (Not indicated) Patient tolerated procedure: well and no complications
[2022-12-24 15:15] LABS: Basophils Percent Auto 0.2 % (0.2-1.2); Eosinophils Percent Auto 0.2 % (0-4.4); Hematocrit 41.1 % (37.0-47.0); Hemoglobin 13.2 g/dL (12.0-15.0); Immature Granulocyte Absolute 0.09 K/mm3 (0.00-0.031); Immature Granulocyte Percent A 0.5 % (0-0.5); Lymphocytes Absolute Auto 0.56 K/mm3 (0.9-3.2); Lymphocytes Percent Auto 3.3 % (18.3-44.2); Mean Corpuscular HGB Conc 32.1 g/dl (32-36); Mean Corpuscular Hemoglobin 28.8 pg (26-34); Mean Corpuscular Volume 89.5 fl (80-100); Mean Platelet Volume 10.6 fl (7.4-10.4); Monocytes Absolute Auto 1.1 K/mm3 (0.1-0.6); Monocytes Percent Auto 6.6 % (2.6-8.5); Neutrophils Absolute Auto 15.1 K/mm3 (1.3-6.7); Neutrophils Percent Auto 89.2 % (45.5-73.1); Platelet Count Result 192 k/mm3 (150-375); Red Blood Count 4.59 M/mm3 (4.2-5.4); Red Cell Distribution Width 13.1 % (11.5-14.5)
[2022-12-24 15:26] LABS: Alanine Aminotransferase 30 U/L (6-35); Albumin Level 3.5 g/dL (3.5-5.1); Alkaline Phosphatase 105 U/L (38-126); Anion Gap 5 mmol/L (8-16); Aspartate Amino Transferase 48 U/L (14-36); Bilirubin,Total 0.6 mg/dL (0.2-1.3); Blood Urea Nitrogen 20 mg/dL (7-17); Calcium 7.3 mg/dL (8.4-10.2); Carbon Dioxide 27 mmol/L (22-30); Chloride 107 mmol/L (98-107); Estimated CRCL calculation 62 ml/min; Estimated Glomerular Filt Rate > 60; Glucose 101 mg/dL (65-110); Magnesium 1.4 mg/dL (1.6-2.3); Potassium 3.6 mmol/L (3.4-5.0); Sodium 139 mmol/L (137-145)
[2022-12-24 15:40] LABS: Troponin I 0.489 ng/mL (0.000-0.034)
[2022-12-24 17:18] LABS: Glucose Point of Care 82 mg/dl (65-105)
[2022-12-24] MEDS: HEPARIN SODIUM 5,000 UNITS/ML VIAL 4000 UNITS IV PUSH (17:24)
[2022-12-24] MEDS: MAGNESIUM SULF 2 GM/WATER 50ML 2 GM/50 ML BAG IVPB (17:24)
[2022-12-24] MEDS: CALCIUM GLUC 2,000 MG/NS 100ML 2,000 MG/100 ML BAG 100 MG IVPB (17:25)
[2022-12-24] MEDS: HEPARIN SOD/D5W 100 UNITS/ML 25,000 UNITS/250 ML BAG 8 UNITS IV CONT (17:29)
[2022-12-24] MEDS: CENTRAL LINE FLUSH 10 ML IV PUSH ×2 (17:30→20:34)
[2022-12-24 17:53] LABS: Hemoglobin A1C 5.5 % (<5.7)
[2022-12-24] MEDS: MINERAL OIL/WHITE PETROLATUM OINTMENT 1 APPLIC EACH EYE (20:33)
[2022-12-24] MEDS: LEVALBUTEROL NEB 1.25 MG/3 ML INHALATION (21:45)
[2022-12-24] MEDS: IPRATROPIUM BR 0.02% INH SOLN 0.5 MG/2.5 ML VIAL INHALATION (21:45)
[2022-12-25] VITALS (54 sets, daily range): BP systolic 77–172; BP diastolic 36–90; PULSE 88–110; RESP 17–21; TEMP 36.9–37.9; O2SAT 93–100; BMI 28.9
--- NOTE | 2022-12-25 | ECHO_ITS ---
Patient Info Name: Jose David Pacheco Age: 57 years : 1965 Gender: Female Ht: 66 in Wt: 150 lbs BSA: 1.79 m2 HR: 78 bpm BP: 109 / 56 mmHg Technical Quality: Fair Exam Date: 12/25/2022 2:47 PM Exam Location: [facility] Pulmonary Exam Room: ICU7 Patient Status: Inpatient Admit Date: 12/24/2022 Staff Ordering Physician: Nehemiah Martin MD (chrystal/andrew) Vehicle And Equipment Cleaner: Estrellita Yuen RDCS Attending Provider: Dylan Beasley MD Referring Physician: Mario MORALES; Exam Type: CA echo doppler color flow Study Info Indications - SHOCK RESPIRATORY FAILURS Complete two-dimensional, color flow and Doppler transthoracic echocardiogram is performed. Summary 1. Complete two-dimensional, color flow and Doppler transthoracic echocardiogram is performed. 2. Left ventricular systolic function is normal, estimated at 60-65%. 3. There is mildly increased left ventricular wall thickness. 4. The left ventricular diastolic function is grade II diastolic dysfunction. 5. The aortic valve is trileaflet. 6. There is moderate aortic valve calcification. 7. There is mild aortic valve regurgitation. 8. The mitral valve has calcified annulus. 9. There is mild tricuspid valve regurgitation. 10. No pulmonary hypertension, estimated pulmonary arterial systolic pressure is 47 mmHg. Left Ventricle Left ventricular chamber dimension is normal. Left ventricular systolic function is normal, estimated at 60-65%. There is mildly increased left ventricular wall thickness. Left ventricular septal wall motion is normal. The left ventricular diastolic function is grade II diastolic dysfunction. Right Ventricle Right ventricular chamber dimension is normal. Right ventricular systolic function is normal. Left Atria Left atrial chamber dimension is normal. Right Atria Right atrial chamber dimension is normal. Atrial Septum Intact interatrial septum visualized by color flow imaging. Aortic Valve The aortic valve is trileaflet. There is no aortic valve sclerosis. There is moderate to severe aortic valve stenosis with a peak velocity of 334 cm/s, mean gradient of 29 mmHg, and aortic valve area of 1.0 cm2. There is mild aortic valve regurgitation. There is moderate aortic valve calcification. Pulmonic Valve The pulmonic valve is normal. There is no pulmonic valve stenosis. There is no pulmonic regurgitation. Mitral Valve The mitral valve has calcified annulus. There is no mitral valve stenosis. There is no mitral valve regurgitation. Tricuspid Valve The tricuspid valve leaflets are normal. There is no significant tricuspid valve stenosis. There is mild tricuspid valve regurgitation. No pulmonary hypertension, estimated pulmonary arterial systolic pressure is 47 mmHg. Pericardium/Pleural The pericardium appears normal. There is no pericardial effusion. Inferior Vena Cava Dilated inferior vena cava with <50% collapse upon inspiration consistent with normal right atrial pressure, 15 mmHg. Aorta The aortic root size at the sinus of Valsalva is normal. The prox ascending aorta size is normal. Left Ventricular Outflow Tract Name Value Normal LVOT 2D LVOT Diameter 2.0 cm LVOT Doppler LVOT Peak Gradient
[2022-12-25] MEDS: DEXTROSE 50% 25 GM/50 ML SYRINGE IV PUSH ×6 (00:10→16:36)
[2022-12-25 00:59] LABS: Partial Thromboplastin Time 58.5 SECONDS (22.3-36.8)
[2022-12-25] MEDS: DEXTROSE 10% 1,000 ML 50 ML IV CONT (01:17)
[2022-12-25] MEDS: HEPARIN SODIUM 5,000 UNITS/ML VIAL 2500 UNITS IV PUSH (01:21)
[2022-12-25 01:37] LABS: Glucose Point of Care 86 mg/dl (65-105)
[2022-12-25 01:37] LABS: Glucose Point of Care 66 mg/dl (65-105)
[2022-12-25 01:37] LABS: Glucose Point of Care 48 mg/dl (65-105)
[2022-12-25 01:58] LABS: Glucose Point of Care 147 mg/dl (65-105)
[2022-12-25] MEDS: IPRATROPIUM BR 0.02% INH SOLN 0.5 MG/2.5 ML VIAL INHALATION ×4 (02:15→20:44)
[2022-12-25] MEDS: LEVALBUTEROL NEB 1.25 MG/3 ML INHALATION ×4 (02:15→20:44)
[2022-12-25 03:27] LABS: Glucose Point of Care 128 mg/dl (65-105)
[2022-12-25 04:17] LABS: Glucose Point of Care 130 mg/dl (65-105)
[2022-12-25 05:36] LABS: Alveolar/Arterial O2 Gradient 63.5 mmHg; Base Excess ABG 0.2 mEq/l (+/-2.0); Device VENTILATOR; Fractional Inspired Oxygen 30 %; HCO3 ABG 24.2 mEq/l (22.0-26.0); Modified Allen's Test Unable to perform; Oxygen Content ABG 18.1 %vol (16.0-22.0); Oxyhemoglobin 96.8 % THb (90.0-100.0); PCO2 ABG 37.3 mmHg (35.0-45.0); PO2 ABG 106.6 mmHg (80.0-100.0); PO2 FiO2 Ratio Arterial Blood 3.55 %; Site Drawn LEFT RADIAL; Total Hemoglobin 13.2 g/dL (12.0-18.0)
[2022-12-25 05:37] LABS: Arterial Blood Gas PEEP 8 cmH2O; Arterial Blood Gas Tidal Volume 400 ml; Arterial Blood Gas Vent Mode CMV; Arterial Blood Gas Ventilator rate 20 /MIN
[2022-12-25] MEDS: CENTRAL LINE FLUSH 10 ML IV PUSH ×4 (05:56→22:25)
[2022-12-25 06:05] LABS: Glucose Point of Care 100 mg/dl (65-105)
[2022-12-25 06:10] LABS: Basophils Percent Auto 0.2 % (0.2-1.2); Eosinophils Absolute Auto 0.1 K/mm3 (0-0.3); Eosinophils Percent Auto 0.7 % (0-4.4); Hematocrit 37.1 % (37.0-47.0); Hemoglobin 11.8 g/dL (12.0-15.0); Immature Granulocyte Absolute 0.05 K/mm3 (0.00-0.031); Immature Granulocyte Percent A 0.4 % (0-0.5); Lymphocytes Absolute Auto 0.65 K/mm3 (0.9-3.2); Lymphocytes Percent Auto 4.9 % (18.3-44.2); Mean Corpuscular HGB Conc 31.8 g/dl (32-36); Mean Corpuscular Hemoglobin 28.8 pg (26-34); Mean Corpuscular Volume 90.5 fl (80-100); Mean Platelet Volume 10.8 fl (7.4-10.4); Monocytes Absolute Auto 1.1 K/mm3 (0.1-0.6); Monocytes Percent Auto 8.6 % (2.6-8.5); Neutrophils Absolute Auto 11.3 K/mm3 (1.3-6.7); Neutrophils Percent Auto 85.2 % (45.5-73.1); Platelet Count Result 187 k/mm3 (150-375); Red Cell Distribution Width 13.2 % (11.5-14.5); White Blood Count 13.2 K/mm3 (4.5-10.0)
[2022-12-25 06:21] LABS: Lactic Acid Reflex 1.8 mmol/L (0.7-2.0)
[2022-12-25 06:25] LABS: Alanine Aminotransferase 24 U/L (6-35); Albumin Level 3.1 g/dL (3.5-5.1); Alkaline Phosphatase 77 U/L (38-126); Anion Gap 4 mmol/L (8-16); Aspartate Amino Transferase 28 U/L (14-36); Bilirubin,Total 0.7 mg/dL (0.2-1.3); Blood Urea Nitrogen 20 mg/dL (7-17); CRP 1.6 mg/dL (<1.0); Calcium 7.9 mg/dL (8.4-10.2); Carbon Dioxide 26 mmol/L (22-30); Chloride 104 mmol/L (98-107); Estimated CRCL calculation 53 ml/min; Estimated Glomerular Filt Rate 51; Glucose 132 mg/dL (65-110); Magnesium 1.9 mg/dL (1.6-2.3); Phosphorus 3.5 mg/dL (2.5-4.5); Sodium 134 mmol/L (137-145)
[2022-12-25 06:39] LABS: Creatine Kinase 83 U/L (30-135)
[2022-12-25 08:03] LABS: Troponin I 0.301 ng/mL (0.000-0.034)
--- NOTE | 2022-12-25 08:22 | WPDINTPN ---
Progress Note: A&P Assessment and Plan (1) Acute respiratory failure with hypoxia and hypercarbia: Code(s): J96.01 - Acute respiratory failure with hypoxia; J96.02 - Acute respiratory failure with hypercapnia Status: Acute Assessment and Plan: 12/24: Patient presented with chest pain, shortness of breath was found to be cyanotic and hypoxic, was intubated in the ER on the day of admission. -chest x-ray this morning: Diffuse lung disease with interval improvement, consistent with pneumonia. -ABGs look good, will decrease PEEP to 5. Patient already on 30% FiO2 -continue bronchodilators -sedated with fentanyl and Versed infusion maintain RASS of 0 to -2 -daily sedation vacation -12/24: CTA Chest abdomen and pelvis 1. Extensive bilateral airspace consolidation, consistent with pneumonia. 2: Moderate pleural effusions. 3: Hepatomegaly. 4:? Nonobstructing left nephrolithiasis. (2) Septic shock: Code(s): A41.9 - Sepsis, unspecified organism; R65.21 - Severe sepsis with septic shock Status: Acute Assessment and Plan: Patient dropped her blood pressures ER, be given total of 3 L of IV fluid bolus, started on Levophed in the ICU -likely source pneumonia -patient has been on and off Levophed -will maintain MAP > 65 mmHg for adequate end organ perfusion -lactic acid has normalized -CRP of 1.6 -continue azithromycin, ceftriaxone and vancomycin (12/24) -12/24: Blood culture pending -12/24: Urine culture pending -12/24: MRSA culture pending (3) Multifocal pneumonia: Code(s): J18.9 - Pneumonia, unspecified organism Status: Acute Assessment and Plan: Antibiotics as above -12/24: urine Legionella and pneumococcal antigens have been ordered and pending -12/24: mycoplasma IgM antibody pending (4) Hyperglycemia: Code(s): R73.9 - Hyperglycemia, unspecified Status: Acute Assessment and Plan: Sliding scale insulin and Accu-Chek -patient has been hypoglycemic required 2 amps of D50 overnight, was started on D10 infusion at 50 mL/hour -start tube feeds today (5) Hypothyroidism: Code(s): E03.9 - Hypothyroidism, unspecified Status: Acute Assessment and Plan: TSH is elevated, -T3 and T4 levels are normal (6) Chest pain: Code(s): R07.9 - Chest pain, unspecified Status: Acute Assessment and Plan: Patient initially presented with chest pain, EKG did not show any ST-elevation KS -troponin 0.018-->0.0489-->0.301 -could be related to ACS and or ischemic demand due to severe pneumonia and hypoxia on arrival to the ED -cardiology is following the patient -started patient on heparin infusion -echocardiogram has been ordered Plan DVT prophylaxis: Lovenox Stress ulcer prophylaxis: Protonix Nutrition: Will start tube feeds Code Status: Full code Critical Care Time Spent: 35 minutes Discussed with patient's spouse, updated with patient's condition and plan of care. I answered all questions Due to a high probability of clinically significant, life threatening deterioration, the patient required my highest level of preparedness to intervene emergently and I personally spent this critical care time directly and personally managing the patient. This critical care time included obtaining a history; examining the patient; pulse oximetry; ordering and review of studies; arranging urgent treatment with development of a management plan; evaluation of patient's response to treatment; frequent reassessment; and discussions with other providers. It was exclusive of separately billable procedures and treating other patients and teaching time. Please see Assessment and Plan section and the rest of the note for further information on patient assessment and treatment This dictation may have been done utilizing a voice recognition system. Attempts have been made to correct errors. However, there may be uncorrected grammatical, spelling, and recogniti
[2022-12-25] MEDS: ATORVASTATIN 40 MG TABLET 80 MG PO (09:04)
[2022-12-25] MEDS: POTASSIUM CHLORIDE 20 MEQ PACKET (FOR LIQUID) 40 MEQ FEED TUBE (09:05)
[2022-12-25] MEDS: PANTOPRAZOLE SODIUM IV 40 MG VIAL IV PUSH (09:05)
[2022-12-25] MEDS: ASPIRIN 81 MG ENTERIC TABLET PO (09:05)
[2022-12-25] MEDS: cefTRIAXone 2 GM/NS 100 ML 2 GM/100 ML BAG IVPB (09:06)
[2022-12-25] MEDS: AZITHROMYCIN 500 MG/NS 250 ML 500 MG/250 ML BAG 250 MG IVPB (09:06)
[2022-12-25] MEDS: KCL 40 MEQ/WATER 100 ML 100 ML 25 ML IVPB (09:11)
[2022-12-25] MEDS: MAGNESIUM SULF 2 GM/WATER 50ML 2 GM/50 ML BAG IVPB (09:11)
[2022-12-25] MEDS: VANCOMYCIN 1,000 MG/NS 250 ML 1,000 MG/250 ML BAG 250 MG IVPB (09:12)
--- NOTE | 2022-12-25 09:13 | PM.PNCARD ---
Progress Note: A&P Assessment and Plan (1) Septic shock: Code(s): A41.9 - Sepsis, unspecified organism; R65.21 - Severe sepsis with septic shock Status: Acute Assessment and Plan: Shock with concern for sepsis. Management as per ICU team. Echo ordered. (2) Acute respiratory failure with hypoxia and hypercarbia: Code(s): J96.01 - Acute respiratory failure with hypoxia; J96.02 - Acute respiratory failure with hypercapnia Status: Acute Assessment and Plan: Currently intubated. CTA of C/A/P showed extensive bilateral airspace consolidation, consistent with pneumonia. No PE. Moderate pleural effusions. On antibiotics per the primary team. Has received IV Lasix with good urine output. Management of ventilator as per ICU team. Would continue with IV Lasix as needed. (3) Chest pain: Code(s): R07.9 - Chest pain, unspecified Status: Acute Assessment and Plan: Reports of chest pain prior to presentation. Noted to be hypertensive initially as well with SBP as high as 200s. No concern for STEMI on EKGs, therefore, STEMI alert canceled. 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 Initial troponin negative. CTA negative for PE and aortic dissection; does show atherosclerosis of the aorta and coronary arteries. Recommend to continue to trend troponins. Echo is pending. Started ASA 81mg once daily and high intensity statin. Troponins became positive yesterday afternoon, so heparin drip started. Would continue for 48 hours. Denies any chest pain today. Subjective Date/time seen: 12/25/22 09:13 Interval history: Cardiology follow up for chest pain, CHF Remains intubated but is responsive and able to answer yes and no questions. Denies any chest pain. Review of Systems Review of Systems: ROS unobtainable: Yes unobtainable due to endotracheal tube and unobtainable due to medical condition Exam Const: Other: Intubated HENMT: Other: OETT in place, NG tube in place Resp: Auscultation: diminished lung sounds Other: On mechanical ventilation via OETT Cardio: Rate: tachycardic Rhythm: regular rhythm Heart sounds: Murmur heart sound present systolic Skin: General skin exam: normal color Neuro: Other: Unable to assess due to sedation Psych: Other: Difficult to assess because she is intubated. Answers yes and no questions appropriately Objective Data Vital Signs Vital Signs: Vital Signs - 24 hr 12/24/22 10:48 12/24/22 10:53 12/24/22 09:16 Temperature 36.2 C L Pulse Rate 127 H 123 H Respiratory Rate 18 16 Blood Pressure 209/117 H 199/117 H Pulse Oximetry 100 100 100 Oxygen Delivery Mechanical Ventilation Fraction of Inspired Oxygen 12/24/22 09:44 12/24/22 10:33 12/24/22 11:30 Temperature Pulse Rate 114 H 117 H 109 H Respiratory Rate 16 16 16 Blood Pressure 186/104 H 174/96 H Pulse Oximetry 99 100 96 Oxygen Delivery Fraction of Inspired Oxygen 12/24/22 11:49 12/24/22 09:50 12/24/22 11:00 Temperature 36.6 C Pulse Rate 118 H 132 H Respiratory Rate 24 H Blood Pressure 161/98 H Pulse Oximetry 100 97 Oxygen Delivery Mechanical Ventilation Mechanical Ventilation Fraction of Inspired Oxygen 60 60 12/24/22 11:10 12/24/22 11:30 12/24/22 11:45 Temperature Pulse Rate 95 88 92 Respiratory Rate 20 19 20 Blood Pressure Pulse Oximetry Oxygen Delivery Fraction of Inspired Oxygen 12/24/22 14:20 12/24/22 12:00 12/24/22 12:15 Temperature 36.7 C Pulse Rate 99 101 H 103 H Respiratory Rate 18 20 Blood Pressure 47/25 L 107/78 Pulse Oximetry 100 99 99 Oxygen Delivery Mechanical Ventilation Fraction of Inspired Oxygen 50 12/24/22 13:00 12/24/22 13:30 12/24/22 13:16 Temperature 36.6 C 36.6 C Pulse Rate 99 99 84 Respiratory Rate 20 22 H 20 Blood Pressure 103/60 138/82 60/38 L Pulse Oximetry 100 100 100 Oxygen Delivery Fractio
[2022-12-25] MEDS: MINERAL OIL/WHITE PETROLATUM OINTMENT 1 APPLIC EACH EYE ×2 (09:14→20:13)
[2022-12-25 11:31] LABS: Glucose Point of Care 56 mg/dl (65-105)
[2022-12-25 11:43] LABS: Partial Thromboplastin Time 77.1 SECONDS (22.3-36.8)
[2022-12-25 11:55] LABS: Glucose Point of Care 88 mg/dl (65-105)
[2022-12-25 16:36] LABS: Glucose Point of Care 54 mg/dl (65-105)
[2022-12-25 17:09] LABS: Glucose Point of Care 93 mg/dl (65-105)
[2022-12-25] MEDS: FENTANYL 2,500MCG/NS250ML(*CRX 2,500 MCG/250 ML BAG 7.5 MCG IV CONT (20:04)
[2022-12-25] MEDS: MIDAZOLAM 100MG/NS 100ML(*CRX) 100 MG/100 ML BAG IV CONT (20:08)
[2022-12-25 20:26] LABS: Glucose Point of Care 94 mg/dl (65-105)
[2022-12-25] MEDS: HEPARIN SOD/D5W 100 UNITS/ML 25,000 UNITS/250 ML BAG 9 UNITS IV CONT (22:24)
[2022-12-25] MEDS: GLUCAGON FOR INJ 1 MG VIAL IM (23:50)
[2022-12-26] VITALS (53 sets, daily range): BP systolic 78–168; BP diastolic 39–135; PULSE 84–136; RESP 18–24; TEMP 36.6–37.3; O2SAT 95–99
[2022-12-26 00:06] LABS: Glucose Point of Care 79 mg/dl (65-105)
[2022-12-26 00:46] LABS: Glucose Point of Care 75 mg/dl (65-105)
[2022-12-26] MEDS: DEXTROSE 50% 25 GM/50 ML SYRINGE IV PUSH (01:11)
[2022-12-26 02:10] LABS: Glucose Point of Care 147 mg/dl (65-105)
[2022-12-26] MEDS: IPRATROPIUM BR 0.02% INH SOLN 0.5 MG/2.5 ML VIAL INHALATION ×4 (02:30→20:09)
[2022-12-26] MEDS: LEVALBUTEROL NEB 1.25 MG/3 ML INHALATION ×4 (02:30→20:09)
[2022-12-26 03:08] LABS: Vancomycin Trough 9.4 ug/mL (10.0-20.0)
[2022-12-26 03:31] LABS: Glucose Point of Care 160 mg/dl (65-105)
[2022-12-26] MEDS: VANCOMYCIN 1,250 MG/NS 250 ML 1,250 MG/250 ML BAG 166.67 MG IVPB (03:40)
[2022-12-26 05:07] LABS: Alveolar/Arterial O2 Gradient 59.8 mmHg; Base Excess ABG -1.4 mEq/l (+/-2.0); Fractional Inspired Oxygen 30 %; HCO3 ABG 23.6 mEq/l (22.0-26.0); Oxygen Content ABG 16.4 %vol (16.0-22.0); Oxygen Saturation ABG 97.8 % (95.0-100.0); Oxyhemoglobin 96.6 % THb (90.0-100.0); PCO2 ABG 40.5 mmHg (35.0-45.0); PO2 ABG 106.5 mmHg (80.0-100.0); PO2 FiO2 Ratio Arterial Blood 3.55 %; pH ABG 7.383 (7.350-7.450)
[2022-12-26 05:10] LABS: Arterial Blood Gas Ventilator rate 20 /MIN; Device VENTILATOR; Modified Allen's Test Pass; Site Drawn LEFT RADIAL
[2022-12-26 05:11] LABS: Arterial Blood Gas PEEP 5 cmH2O; Arterial Blood Gas Tidal Volume 400 ml; Arterial Blood Gas Vent Mode CMV
[2022-12-26] MEDS: CENTRAL LINE FLUSH 10 ML IV PUSH ×4 (05:21→22:17)
[2022-12-26 05:31] LABS: Glucose Point of Care 118 mg/dl (65-105)
[2022-12-26 05:39] LABS: Basophils Percent Auto 0.3 % (0.2-1.2); Eosinophils Absolute Auto 0.3 K/mm3 (0-0.3); Hematocrit 34.4 % (37.0-47.0); Immature Granulocyte Absolute 0.04 K/mm3 (0.00-0.031); Immature Granulocyte Percent A 0.3 % (0-0.5); Lymphocytes Percent Auto 7.5 % (18.3-44.2); Mean Corpuscular Hemoglobin 29.2 pg (26-34); Mean Corpuscular Volume 91.2 fl (80-100); Mean Platelet Volume 10.8 fl (7.4-10.4); Monocytes Absolute Auto 1.3 K/mm3 (0.1-0.6); Monocytes Percent Auto 9.4 % (2.6-8.5); Neutrophils Absolute Auto 10.8 K/mm3 (1.3-6.7); Neutrophils Percent Auto 80.5 % (45.5-73.1); Platelet Count Result 153 k/mm3 (150-375); Red Blood Count 3.77 M/mm3 (4.2-5.4); Red Cell Distribution Width 13.3 % (11.5-14.5); White Blood Count 13.4 K/mm3 (4.5-10.0)
[2022-12-26 05:55] LABS: Alanine Aminotransferase 19 U/L (6-35); Alkaline Phosphatase 71 U/L (38-126); Anion Gap -1 mmol/L (8-16); Aspartate Amino Transferase 21 U/L (14-36); Bilirubin,Total 0.5 mg/dL (0.2-1.3); Blood Urea Nitrogen 21 mg/dL (7-17); Calcium 7.8 mg/dL (8.4-10.2); Carbon Dioxide 25 mmol/L (22-30); Chloride 104 mmol/L (98-107); Estimated CRCL calculation 93 ml/min; Estimated Glomerular Filt Rate > 60; Glucose 126 mg/dL (65-110); Phosphorus 2.9 mg/dL (2.5-4.5); Potassium 3.4 mmol/L (3.4-5.0); Sodium 128 mmol/L (137-145)
[2022-12-26 05:58] LABS: Lactic Acid Reflex 0.7 mmol/L (0.7-2.0)
[2022-12-26] MEDS: HEPARIN SODIUM 5,000 UNITS/ML VIAL 2500 UNITS IV PUSH ×2 (06:10→20:59)
[2022-12-26 06:41] LABS: Cortisol Random 6.56 ug/dL
[2022-12-26] MEDS: PANTOPRAZOLE SODIUM IV 40 MG VIAL IV PUSH (08:42)
[2022-12-26] MEDS: SODIUM CHLORIDE 1 GM TABLET PO ×2 (08:42→16:36)
[2022-12-26] MEDS: ATORVASTATIN 40 MG TABLET 80 MG PO (08:42)
[2022-12-26] MEDS: MINERAL OIL/WHITE PETROLATUM OINTMENT 1 APPLIC EACH EYE ×2 (08:42→20:23)
[2022-12-26] MEDS: HYDROCORTISONE SODIUM SUCCINATE 100 MG/2 ML VIAL IV PUSH ×3 (08:43→23:54)
[2022-12-26] MEDS: KCL 40 MEQ/WATER 100 ML 100 ML 25 ML IVPB (08:43)
[2022-12-26] MEDS: POTASSIUM CHLORIDE 20 MEQ PACKET (FOR LIQUID) 40 MEQ FEED TUBE (08:43)
[2022-12-26] MEDS: ASPIRIN 81 MG ENTERIC TABLET PO (08:43)
--- NOTE | 2022-12-26 09:40 | P.PNIM_ITS ---
Progress Note: A&P Assessment and Plan (1) Acute respiratory failure with hypoxia and hypercarbia: Code(s): J96.01 - Acute respiratory failure with hypoxia; J96.02 - Acute respiratory failure with hypercapnia Status: Acute Assessment and Plan: 12/24: Patient presented with chest pain, shortness of breath was found to be cyanotic and hypoxic, was intubated in the ER on the day of admission. -chest x-ray this morning: Diffuse lung disease with interval improvement, consistent with pneumonia. -ABGs look good, will decrease PEEP to 5. Patient already on 30% FiO2 -continue bronchodilators -sedated with fentanyl and Versed infusion maintain RASS of 0 to -2 -daily sedation vacation -12/24: CTA Chest abdomen and pelvis 1. Extensive bilateral airspace consolidation, consistent with pneumonia. 2: Moderate pleural effusions. 3: Hepatomegaly. 4:? Nonobstructing left nephrolithiasis. (2) Septic shock: Code(s): A41.9 - Sepsis, unspecified organism; R65.21 - Severe sepsis with septic shock Status: Acute Assessment and Plan: Patient dropped her blood pressures ER, be given total of 3 L of IV fluid bolus, started on Levophed in the ICU -likely source pneumonia -patient has been on and off Levophed -will maintain MAP > 65 mmHg for adequate end organ perfusion -lactic acid has normalized -CRP of 1.6 -continue azithromycin, ceftriaxone and vancomycin (12/24) -12/24: Blood culture pending -12/24: Urine culture pending -12/24: MRSA culture pending (3) Multifocal pneumonia: Code(s): J18.9 - Pneumonia, unspecified organism Status: Acute Assessment and Plan: Antibiotics as above -12/24: urine Legionella and pneumococcal antigens have been ordered and pending -12/24: mycoplasma IgM antibody pending (4) Hyperglycemia: Code(s): R73.9 - Hyperglycemia, unspecified Status: Acute Assessment and Plan: Sliding scale insulin and Accu-Chek -patient has been hypoglycemic required 2 amps of D50 overnight, was started on D10 infusion at 50 mL/hour -start tube feeds today (5) Hypothyroidism: Code(s): E03.9 - Hypothyroidism, unspecified Status: Acute Assessment and Plan: TSH is elevated, -T3 and T4 levels are normal (6) Chest pain: Code(s): R07.9 - Chest pain, unspecified Status: Acute Assessment and Plan: Patient initially presented with chest pain, EKG did not show any ST-elevation [place] -troponin 0.018-->0.0489-->0.301 -could be related to ACS and or ischemic demand due to severe pneumonia and hypoxia on arrival to the ED -cardiology is following the patient -started patient on heparin infusion -echocardiogram has been ordered Plan DVT prophylaxis: Lovenox Stress ulcer prophylaxis: Protonix Nutrition: Will start tube feeds Code Status: Full code Critical Care Time Spent: 35 minutes Discussed with patient's spouse, updated with patient's condition and plan of care. I answered all questions Due to a high probability of clinically significant, life threatening deterioration, the patient required my highest level of preparedness to inte rvene emergently and I personally spent this critical care time directly and personally managing the patient. This critical care time included obtaining a history; examining the patient; pulse oximetry; ordering and review of studies; arranging urgent treatment with development of a management plan; evaluation of patient's response to treatment; frequent reassessment; and discussions with other providers. It was exclusive
--- NOTE | 2022-12-26 10:13 | PM.PNCARD ---
Progress Note: A&P Assessment and Plan (1) Septic shock: Code(s): A41.9 - Sepsis, unspecified organism; R65.21 - Severe sepsis with septic shock Status: Acute Assessment and Plan: Shock with concern for sepsis. Management as per ICU team. Echo ordered. White cell count is elevated. On antibiotics (2) Acute respiratory failure with hypoxia and hypercarbia: Code(s): J96.01 - Acute respiratory failure with hypoxia; J96.02 - Acute respiratory failure with hypercapnia Status: Acute Assessment and Plan: Currently intubated. CTA of C/A/P showed extensive bilateral airspace consolidation, consistent with pneumonia. No PE. Moderate pleural effusions. On antibiotics per the primary team. Has received IV Lasix with good urine output. Management of ventilator as per ICU team. Would continue with IV Lasix as needed.3 Chest x-ray that was done today revealed analyze myself shows stable bilateral consolidation. (3) Chest pain: Code(s): R07.9 - Chest pain, unspecified Status: Acute Assessment and Plan: Reports of chest pain prior to presentation. Noted to be hypertensive initially as well with SBP as high as 200s. No concern for STEMI on EKGs, therefore, STEMI alert canceled. 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 Initial troponin negative. CTA negative for PE and aortic dissection; does show atherosclerosis of the aorta and coronary arteries. Recommend to continue to trend troponins. Echo is pending. Started ASA 81mg once daily and high intensity statin. Troponins became positive yesterday afternoon, so heparin drip started. Would continue for 48 hours. Denies any chest pain today. Stable on the heparin drip. Physical examination there is systolic murmur with some degree possibly of aortic stenosis. Will await the echo. Subjective Date/time seen: Date of service 12/26/22 10:13 Interval history: Cardiology follow up for chest pain, CHF Remains intubated but is responsive and able to answer yes and no questions. Denies any chest pain. 12/26/2022-remains intubated, ventilated. No significant arrhythmias overnight. Review of Systems Review of Systems: ROS unobtainable: Yes unobtainable due to endotracheal tube and unobtainable due to medical condition Exam Const: Other: Intubated HENMT: Other: OETT in place, NG tube in place Resp: Auscultation: diminished lung sounds Other: On mechanical ventilation via OETT Cardio: Rate: tachycardic Rhythm: regular rhythm Heart sounds: Murmur heart sound present systolic Skin: General skin exam: normal color Neuro: Other: Unable to assess due to sedation Psych: Other: Difficult to assess because she is intubated. Answers yes and no questions appropriately Objective Data Vital Signs Vital Signs: Vital Signs - 24 hr 12/25/22 12:00 12/25/22 12:00 12/25/22 12:00 Temperature Pulse Rate 101 H 101 H 101 H Respiratory Rate 20 17 Blood Pressure Pulse Oximetry Oxygen Delivery Fraction of Inspired Oxygen 12/25/22 12:00 12/25/22 12:00 12/25/22 12:00 Temperature 36.9 C Pulse Rate 101 H 101 H Respiratory Rate 17 17 Blood Pressure 122/66 Pulse Oximetry 100 100 Oxygen Delivery Mechanical Ventilation Fraction of Inspired Oxygen 30 30 12/25/22 12:21 12/25/22 13:49 12/25/22 13:49 Temperature Pulse Rate 102 H 93 93 Respiratory Rate 20 Blood Pressure Pulse Oximetry 100 94 Oxygen Delivery Mechanical Ventilation Mechanical Ventilation Fraction of Inspired Oxygen 30 30 12/25/22 14:00 12/25/22 14:00 12/25/22 14:00 Temperature 37.1 C Pulse Rate 93 93 94 Respiratory Rate 20 20 Blood Pressure 106/53 L Pulse Oximetry 94 Oxygen Delivery Fraction of Inspired Oxygen 12/25/22 14:10 12/25/22 16:00 12/25/22 16:00 Temperature Pulse Rate 92 91 91 Respiratory Rate 20 20 Blood Pressure Pulse
--- NOTE | 2022-12-26 11:25 | WPDINTPN ---
Progress Note: A&P Assessment and Plan (1) Acute respiratory failure with hypoxia and hypercarbia: Code(s): J96.01 - Acute respiratory failure with hypoxia; J96.02 - Acute respiratory failure with hypercapnia Status: Acute Assessment and Plan: 12/24: Patient presented with chest pain, shortness of breath was found to be cyanotic and hypoxic, was intubated in the ER on the day of admission. -chest x-ray this morning: Diffuse bilateral lung disease consistent with pneumonia with no change since 1 day prior but with improvement since the previous day.. -ABGs look good, currently on CMV mode of ventilation, peep of 5 in 30% FiO2 -continue bronchodilators -sedated with fentanyl and Versed infusion maintain RASS of 0 to -2 -daily sedation vacation -12/24: CTA Chest abdomen and pelvis 1. Extensive bilateral airspace consolidation, consistent with pneumonia. 2: Moderate pleural effusions. 3: Hepatomegaly. 4:? Nonobstructing left nephrolithiasis. (2) Septic shock: Code(s): A41.9 - Sepsis, unspecified organism; R65.21 - Severe sepsis with septic shock Status: Acute Assessment and Plan: Patient dropped her blood pressures ER, be given total of 3 L of IV fluid bolus, started on Levophed in the ICU -likely source pneumonia -patient has been on and off Levophed -OFF LEVOPHED, will maintain MAP > 65 mmHg at all times for adequate end organ perfusion -lactic acid has normalized -CRP of 1.6 -continue azithromycin, ceftriaxone and vancomycin (12/24) -12/24: Blood culture no growth x2 -12/24: Urine growing Proteus mirabilis (pansensitive -12/24: MRSA culture negative 12/24: Sputum culture: Oropharyngeal peggy (3) Multifocal pneumonia: Code(s): J18.9 - Pneumonia, unspecified organism Status: Acute Assessment and Plan: Antibiotics as above -12/24: urine Legionella and pneumococcal antigens have been ordered and pending -12/24: mycoplasma IgM antibody pending (4) Hyperglycemia: Code(s): R73.9 - Hyperglycemia, unspecified Status: Acute Assessment and Plan: Sliding scale insulin and Accu-Chek -patient has been hypoglycemic , currently on D20 infusion at 50 mL/hour -low cortisols level, started stress dose steroids -patient was not tolerating tube feeds -KUB did not show any obstruction, ileus, OG tube in place (5) Hypothyroidism: Code(s): E03.9 - Hypothyroidism, unspecified Status: Acute Assessment and Plan: TSH is elevated, -T3 and T4 levels are normal (6) Chest pain: Code(s): R07.9 - Chest pain, unspecified Status: Acute Assessment and Plan: Patient initially presented with chest pain, EKG did not show any ST-elevation [place] -troponin 0.018-->0.0489-->0.301 -could be related to ACS and or ischemic demand due to severe pneumonia and hypoxia on arrival to the ED -cardiology is following the patient -continue heparin infusion for 48 hours -aspirin 81 mg and atorvastatin -12/24: echocardiogram: EF 60-65%, grade 2 diastolic dysfunction, moderate aortic valve calcification, mild aortic valve regurgitation, mild tricuspid valve regurgitation, no pulmonary hypertension Plan DVT prophylaxis: Lovenox Stress ulcer prophylaxis: Protonix Nutrition: Continue tube feeds Code Status: Full code Critical Care Time Spent: 33 minutes Discussed with patient's spouse, updated with patient's condition and plan of care. I answered all questions Due to a high probability of clinically significant, life threatening deterioration, the patient required my highest level of preparedness to intervene emergently and I personally spent this critical care time directly and personally managing the patient. This critical care time included obtaining a history; examining the patient; pulse oximetry; ordering and review of studies; arranging urgent treatment with development of a management plan; evaluation of patient's response to treatment; frequen
[2022-12-26] MEDS: AZITHROMYCIN 500 MG/NS 250 ML 500 MG/250 ML BAG 250 MG IVPB (11:28)
[2022-12-26] MEDS: cefTRIAXone 2 GM/NS 100 ML 2 GM/100 ML BAG IVPB (11:28)
[2022-12-26 11:54] LABS: Glucose Point of Care 155 mg/dl (65-105)
[2022-12-26 11:56] LABS: Partial Thromboplastin Time 79.8 SECONDS (22.3-36.8)
[2022-12-26] MEDS: VANCOMYCIN 1,250 MG/NS 250 ML 1,250 MG/250 ML BAG 166 MG IVPB (16:36)
[2022-12-26 17:32] LABS: Glucose Point of Care 124 mg/dl (65-105)
[2022-12-26 19:21] LABS: Partial Thromboplastin Time 41.1 SECONDS (22.3-36.8)
[2022-12-26 20:38] LABS: Partial Thromboplastin Time 57.9 SECONDS (22.3-36.8)
[2022-12-26 21:11] LABS: Glucose Point of Care 152 mg/dl (65-105)
[2022-12-26] MEDS: FENTANYL 2,500MCG/NS250ML(*CRX 2,500 MCG/250 ML BAG 10 MCG IV CONT (22:35)
[2022-12-26] MEDS: MIDAZOLAM 100MG/NS 100ML(*CRX) 100 MG/100 ML BAG IV CONT (22:44)
[2022-12-27] VITALS (49 sets, daily range): BP systolic 90–131; BP diastolic 50–78; PULSE 76–142; RESP 18–20; TEMP 36.1–37.7; O2SAT 90–98
[2022-12-27] MEDS: HEPARIN SOD/D5W 100 UNITS/ML 25,000 UNITS/250 ML BAG 11 UNITS IV CONT (00:48)
[2022-12-27 00:56] LABS: Glucose Point of Care 175 mg/dl (65-105)
[2022-12-27] MEDS: IPRATROPIUM BR 0.02% INH SOLN 0.5 MG/2.5 ML VIAL INHALATION ×4 (02:03→19:32)
[2022-12-27] MEDS: LEVALBUTEROL NEB 1.25 MG/3 ML INHALATION ×4 (02:03→19:33)
[2022-12-27] MEDS: VANCOMYCIN 1,250 MG/NS 250 ML 1,250 MG/250 ML BAG 166 MG IVPB ×2 (05:10→16:34)
[2022-12-27] MEDS: CENTRAL LINE FLUSH 10 ML IV PUSH ×3 (05:17→21:09)
[2022-12-27 05:29] LABS: Glucose Point of Care 154 mg/dl (65-105)
[2022-12-27 05:34] LABS: Hematocrit 30.9 % (37.0-47.0); Hemoglobin 10.1 g/dL (12.0-15.0); Immature Granulocyte Absolute 0.05 K/mm3 (0.00-0.031); Immature Granulocyte Percent A 0.6 % (0-0.5); Lymphocytes Absolute Auto 0.36 K/mm3 (0.9-3.2); Lymphocytes Percent Auto 4.2 % (18.3-44.2); Mean Corpuscular HGB Conc 32.7 g/dl (32-36); Mean Corpuscular Hemoglobin 29.2 pg (26-34); Mean Corpuscular Volume 89.3 fl (80-100); Mean Platelet Volume 10.7 fl (7.4-10.4); Monocytes Absolute Auto 0.2 K/mm3 (0.1-0.6); Monocytes Percent Auto 2.7 % (2.6-8.5); Neutrophils Percent Auto 92.5 % (45.5-73.1); Platelet Count Result 123 k/mm3 (150-375); Red Blood Count 3.46 M/mm3 (4.2-5.4); Red Cell Distribution Width 12.8 % (11.5-14.5); White Blood Count 8.6 K/mm3 (4.5-10.0)
[2022-12-27 05:42] LABS: Base Excess ABG 0.8 mEq/l (+/-2.0); Fractional Inspired Oxygen 30 %; HCO3 ABG 23.7 mEq/l (22.0-26.0); Oxygen Content ABG 15.2 %vol (16.0-22.0); Oxygen Saturation ABG 96.4 % (95.0-100.0); Oxyhemoglobin 95.4 % THb (90.0-100.0); PCO2 ABG 32.1 mmHg (35.0-45.0); PO2 ABG 77.2 mmHg (80.0-100.0); PO2 FiO2 Ratio Arterial Blood 2.57 %; Total Hemoglobin 11.3 g/dL (12.0-18.0); pH ABG 7.486 (7.350-7.450)
[2022-12-27 05:44] LABS: Alanine Aminotransferase 20 U/L (6-35); Albumin Level 2.9 g/dL (3.5-5.1); Alkaline Phosphatase 67 U/L (38-126); Anion Gap 5 mmol/L (8-16); Aspartate Amino Transferase 19 U/L (14-36); Bilirubin,Total 0.4 mg/dL (0.2-1.3); Blood Urea Nitrogen 18 mg/dL (7-17); Calcium 8.1 mg/dL (8.4-10.2); Carbon Dioxide 25 mmol/L (22-30); Chloride 105 mmol/L (98-107); Estimated CRCL calculation 112 ml/min; Estimated Glomerular Filt Rate > 60; Glucose 193 mg/dL (65-110); Magnesium 1.9 mg/dL (1.6-2.3); Potassium 3.7 mmol/L (3.4-5.0); Sodium 135 mmol/L (137-145)
[2022-12-27 05:45] LABS: Lactic Acid Reflex 1.9 mmol/L (0.7-2.0)
[2022-12-27 05:45] LABS: Arterial Blood Gas PEEP 5 cmH2O; Arterial Blood Gas Vent Mode CMV; Arterial Blood Gas Ventilator rate 20 /MIN; Device VENTILATOR; Modified Allen's Test Pass; Site Drawn LEFT RADIAL
[2022-12-27 05:46] LABS: Arterial Blood Gas Tidal Volume 400 ml
[2022-12-27 05:48] LABS: Partial Thromboplastin Time 85.7 SECONDS (22.3-36.8)
--- NOTE | 2022-12-27 07:16 | PM.IMPN ---
Progress Note: A&P Assessment and Plan (1) Acute respiratory failure with hypoxia and hypercarbia: Code(s): J96.01 - Acute respiratory failure with hypoxia; J96.02 - Acute respiratory failure with hypercapnia Status: Acute Assessment and Plan: 12/24: Patient presented with chest pain, shortness of breath was found to be cyanotic and hypoxic, was intubated in the ER on the day of admission. -chest x-ray this morning: There is a patchy ground glass infiltrate of the lungs, greater on the right, but there has been serial improvement particularly since 12/20/2022 -ABGs look good, currently on CMV mode of ventilation, peep of 5 in 30% FiO2 will decrease respiratory rate -continue bronchodilators -sedated with fentanyl and Versed infusion maintain RASS of 0 to -2 -daily sedation vacation (2) Septic shock: Code(s): A41.9 - Sepsis, unspecified organism; R65.21 - Severe sepsis with septic shock Status: Acute Assessment and Plan: Patient dropped her blood pressures in the ER ER, was given a total of 3 L of IV fluid bolus, started on Levophed in the ICU -likely source pneumonia -currently off Levophed -continue to maintain MAP > 65 mmHg at all times for adequate end organ perfusion -lactic acid has normalized -CRP of 1.6 -continue azithromycin, ceftriaxone and vancomycin (12/24) -12/24: Blood culture no growth x2 -12/24: Urine growing Proteus mirabilis (pansensitive) -12/24: MRSA culture negative 12/24: Sputum culture: Oropharyngeal peggy (3) Multifocal pneumonia: Code(s): J18.9 - Pneumonia, unspecified organism Status: Acute Assessment and Plan: Antibiotics as above -12/24: urine Legionella and pneumococcal antigens have been ordered and pending -12/24: mycoplasma IgM antibody pending (4) Hyperglycemia: Code(s): R73.9 - Hyperglycemia, unspecified Status: Acute Assessment and Plan: Sliding scale insulin and Accu-Chek -patient has been hypoglycemic , currently on D20 infusion at 50 mL/hour -blood sugars have improved as patient tolerating her tube feeds an on stress dose steroids -will decrease and discontinue D20 infusion -low cortisols level, continue stress dose steroids -12/26: KUB did not show any bowel obstruction or ileus, OG tube in place (5) Hypothyroidism: Code(s): E03.9 - Hypothyroidism, unspecified Status: Acute Assessment and Plan: TSH is elevated, -T3 and T4 levels are normal (6) Chest pain: Code(s): R07.9 - Chest pain, unspecified Status: Acute Assessment and Plan: Patient initially presented with chest pain, EKG did not show any ST-elevation [place] -troponin 0.018-->0.0489-->0.301 -could be related to ACS and or ischemic demand due to severe pneumonia and hypoxia on arrival to the ED -cardiology is following the patient -continue heparin infusion for 48 hours -continue aspirin 81 mg and atorvastatin -12/24: echocardiogram: EF 60-65%, grade 2 diastolic dysfunction, moderate aortic valve calcification, mild aortic valve regurgitation, mild tricuspid valve regurgitation, no pulmonary hypertension Plan DVT prophylaxis: Heparin Stress ulcer prophylaxis: Protonix Nutrition: Continue tube feeds Code Status: Full code Subjective Date/time seen: 12/27/22 07:16 Interval history: 57-year-old female with history of hypothyroidism, lymphoma presenting with chest pain and shortness of breath, acute respiratory failure requiring intubation on 12/24, pneumonia, septic shock, lactic acidosis, elevated troponin. Remains intubated/sedated. Patient does open her eyes, follows simple commands in all extremities and nods to questions.? Remains off Levophed.? Patient has been tolerating the tube feeds, blood sugars have improved and D 20% infusion was decreased.? Urine output has been good.?No fevers or overnight events noted. Review of Systems Review of Systems: ROS unobtainable: Yes [place]
--- NOTE | 2022-12-27 08:16 | WPDINTPN ---
Progress Note: A&P Assessment and Plan (1) Acute respiratory failure with hypoxia and hypercarbia: Code(s): J96.01 - Acute respiratory failure with hypoxia; J96.02 - Acute respiratory failure with hypercapnia Status: Acute Assessment and Plan: 12/24: Patient presented with chest pain, shortness of breath was found to be cyanotic and hypoxic, was intubated in the ER on the day of admission. -chest x-ray this morning: There is a patchy ground glass infiltrate of the lungs, greater on the right, but there has been serial improvement particularly since 12/20/2022 -ABGs look good, currently on CMV mode of ventilation, peep of 5 in 30% FiO2 will decrease respiratory rate -continue bronchodilators -sedated with fentanyl and Versed infusion maintain RASS of 0 to -2 -daily sedation vacation -12/24: CTA Chest abdomen and pelvis 1. Extensive bilateral airspace consolidation, consistent with pneumonia. 2: Moderate pleural effusions. 3: Hepatomegaly. 4:? Nonobstructing left nephrolithiasis. (2) Septic shock: Code(s): A41.9 - Sepsis, unspecified organism; R65.21 - Severe sepsis with septic shock Status: Acute Assessment and Plan: Patient dropped her blood pressures in the ER ER, was given a total of 3 L of IV fluid bolus, started on Levophed in the ICU -likely source pneumonia -currently off Levophed -continue to maintain MAP > 65 mmHg at all times for adequate end organ perfusion -lactic acid has normalized -CRP of 1.6 -continue azithromycin, ceftriaxone and vancomycin (12/24) -12/24: Blood culture no growth x2 -12/24: Urine growing Proteus mirabilis (pansensitive) -12/24: MRSA culture negative 12/24: Sputum culture: Oropharyngeal peggy (3) Multifocal pneumonia: Code(s): J18.9 - Pneumonia, unspecified organism Status: Acute Assessment and Plan: Antibiotics as above -12/24: urine Legionella and pneumococcal antigens have been ordered and pending -12/24: mycoplasma IgM antibody pending (4) Hyperglycemia: Code(s): R73.9 - Hyperglycemia, unspecified Status: Acute Assessment and Plan: Sliding scale insulin and Accu-Chek -patient has been hypoglycemic , currently on D20 infusion at 50 mL/hour -blood sugars have improved as patient tolerating her tube feeds an on stress dose steroids -will decrease and discontinue D20 infusion -low cortisols level, continue stress dose steroids -12/26: KUB did not show any bowel obstruction or ileus, OG tube in place (5) Hypothyroidism: Code(s): E03.9 - Hypothyroidism, unspecified Status: Acute Assessment and Plan: TSH is elevated, -T3 and T4 levels are normal (6) Chest pain: Code(s): R07.9 - Chest pain, unspecified Status: Acute Assessment and Plan: Patient initially presented with chest pain, EKG did not show any ST-elevation [place] -troponin 0.018-->0.0489-->0.301 -could be related to ACS and or ischemic demand due to severe pneumonia and hypoxia on arrival to the ED -cardiology is following the patient -continue heparin infusion for 48 hours -continue aspirin 81 mg and atorvastatin -12/24: echocardiogram: EF 60-65%, grade 2 diastolic dysfunction, moderate aortic valve calcification, mild aortic valve regurgitation, mild tricuspid valve regurgitation, no pulmonary hypertension Plan DVT prophylaxis: Heparin infusion Stress ulcer prophylaxis: Protonix Nutrition: Continue tube feeds Code Status: Full code Critical Care Time Spent: 34 minutes Discussed with patient's spouse, updated with patient's condition and plan of care. I answered all questions Due to a high probability of clinically significant, life threatening deterioration, the patient required my highest level of preparedness to intervene emergently and I personally spent this critical care time directly and personally managing the patient. This critical care time included obtaining a history; examining the patient; pul
[2022-12-27] MEDS: ASPIRIN 81 MG ENTERIC TABLET PO (08:41)
[2022-12-27] MEDS: SODIUM CHLORIDE 1 GM TABLET PO ×2 (08:41→16:35)
[2022-12-27] MEDS: MINERAL OIL/WHITE PETROLATUM OINTMENT 1 APPLIC EACH EYE ×2 (08:41→20:01)
[2022-12-27] MEDS: ALBUMIN HUMAN 25% 25 GM/100 ML 100 ML IVPB ×3 (08:41→17:23)
[2022-12-27] MEDS: ATORVASTATIN 40 MG TABLET 80 MG PO (08:41)
[2022-12-27] MEDS: PANTOPRAZOLE SODIUM IV 40 MG VIAL IV PUSH (08:42)
[2022-12-27] MEDS: HYDROCORTISONE SODIUM SUCCINATE 100 MG/2 ML VIAL IV PUSH ×2 (09:00→16:27)
[2022-12-27] MEDS: cefTRIAXone 2 GM/NS 100 ML 2 GM/100 ML BAG IVPB (09:22)
[2022-12-27] MEDS: AZITHROMYCIN 500 MG/NS 250 ML 500 MG/250 ML BAG 250 MG IVPB (09:28)
[2022-12-27 09:36] LABS: Glucose Point of Care 158 mg/dl (65-105)
--- NOTE | 2022-12-27 09:53 | PM.PNCARD ---
Progress Note: A&P Assessment and Plan (1) Septic shock: Code(s): A41.9 - Sepsis, unspecified organism; R65.21 - Severe sepsis with septic shock Status: Acute Assessment and Plan: Shock with concern for sepsis. Management as per ICU team. Echo ordered. White cell count normalized to 6.6 today. On antibiotics (2) Acute respiratory failure with hypoxia and hypercarbia: Code(s): J96.01 - Acute respiratory failure with hypoxia; J96.02 - Acute respiratory failure with hypercapnia Status: Acute Assessment and Plan: Currently intubated. CTA of C/A/P showed extensive bilateral airspace consolidation, consistent with pneumonia. No PE. Moderate pleural effusions. On antibiotics per the primary team. Has received IV Lasix with good urine output. Management of ventilator as per ICU team. Would continue with IV Lasix as needed.3 Chest x-ray that was done today revealed analyze myself shows stable bilateral consolidation. (3) Chest pain: Code(s): R07.9 - Chest pain, unspecified Status: Acute Assessment and Plan: Reports of chest pain prior to presentation. Noted to be hypertensive initially as well with SBP as high as 200s. No concern for STEMI on EKGs, therefore, STEMI alert canceled. 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 Initial troponin negative. CTA negative for PE and aortic dissection; does show atherosclerosis of the aorta and coronary arteries. Recommend to continue to trend troponins. Echo is pending. Started ASA 81mg once daily and high intensity statin. Troponins became yesterday afternoon, so heparin drip started. Denies any chest pain today. Echocardiogram shows moderate to severe aortic valve stenosis. Suspect chest pain and troponin elevation secondary to demand ischemia from underlying severe . Platelet counts are dropping and therefore I would recommend to discontinue IV heparin. Continue aspirin alone. Subjective Date/time seen: Date of service 12/27/22 09:53 Interval history: Cardiology follow up for chest pain, CHF Remains intubated but is responsive and able to answer yes and no questions. Denies any chest pain. 12/26/2022-remains intubated, ventilated. No significant arrhythmias overnight. 12/27/2022-remains intubated. Echo yesterday shows moderate to severe aortic stenosis . no significant events overnight. Exam Const: Other: Intubated HENMT: Other: OETT in place, NG tube in place Resp: Auscultation: diminished lung sounds Other: On mechanical ventilation via OETT Cardio: Rate: tachycardic Rhythm: regular rhythm Heart sounds: Murmur heart sound present systolic Skin: General skin exam: normal color Neuro: Other: Unable to assess due to sedation Psych: Other: Difficult to assess because she is intubated. Answers yes and no questions appropriately Objective Data Vital Signs Vital Signs: Vital Signs - 24 hr 12/26/22 10:20 12/26/22 13:11 12/26/22 13:17 Temperature Pulse Rate 104 H 120 H 92 Respiratory Rate 22 H Blood Pressure 78/48 L Pulse Oximetry 98 Oxygen Delivery Mechanical Ventilation Fraction of Inspired Oxygen 30 12/26/22 10:00 12/26/22 13:00 12/26/22 13:00 Temperature 37.2 C Pulse Rate 99 101 H 101 H Respiratory Rate 20 20 Blood Pressure 110/57 L Pulse Oximetry 98 98 Oxygen Delivery Mechanical Ventilation Fraction of Inspired Oxygen 30 12/26/22 13:10 12/26/22 10:00 12/26/22 12:00 Temperature Pulse Rate 103 H 99 106 H Respiratory Rate 20 Blood Pressure Pulse Oximetry Oxygen Delivery Fraction of Inspired Oxygen 12/26/22 14:00 12/26/22 12:00 12/26/22 14:00 Temperature 37.3 C 37.1 C Pulse Rate 86 132 H 86 Respiratory Rate 22 H 20 Blood Pressure 101/52 L 120/58 L Pulse Oximetry 97 97 Oxygen Delivery Fraction of Inspired Oxygen 12/26/22 12:00 12/26/22 12:00 12/26/22 16:00
[2022-12-27 11:56] LABS: Glucose Point of Care 144 mg/dl (65-105)
[2022-12-27 15:39] LABS: Pneumococcal Antigen Urine Not Detected (Not Detected)
[2022-12-27 15:43] LABS: Vancomycin Trough 17.1 ug/mL (10.0-20.0)
[2022-12-27 17:45] LABS: Glucose Point of Care 138 mg/dl (65-105)
[2022-12-27] MEDS: DORNASE ALFA INH SOLN 1 MG/ML 2.5 ML AMP 2.5 MG INHALATION (20:57)
[2022-12-27] MEDS: hetaSTARCH 6%/NACL 500 ML 250 ML IV CONT (21:01)
[2022-12-27] MEDS: MIDAZOLAM 100MG/NS 100ML(*CRX) 100 MG/100 ML BAG IV CONT (22:18)
[2022-12-27] MEDS: FENTANYL 2,500MCG/NS250ML(*CRX 2,500 MCG/250 ML BAG 12.5 MCG IV CONT (22:26)
[2022-12-28] VITALS (41 sets, daily range): BP systolic 101–157; BP diastolic 59–82; PULSE 87–137; RESP 18; TEMP 36.5–37.7; O2SAT 96–98
[2022-12-28] MEDS: HYDROCORTISONE SODIUM SUCCINATE 100 MG/2 ML VIAL IV PUSH (00:23)
[2022-12-28] MEDS: ALBUMIN HUMAN 25% 25 GM/100 ML 100 ML IVPB (00:27)
[2022-12-28 00:41] LABS: Glucose Point of Care 156 mg/dl (65-105)
[2022-12-28] MEDS: LEVALBUTEROL NEB 1.25 MG/3 ML INHALATION ×4 (01:34→20:12)
[2022-12-28] MEDS: IPRATROPIUM BR 0.02% INH SOLN 0.5 MG/2.5 ML VIAL INHALATION ×4 (01:34→20:12)
[2022-12-28 04:42] LABS: Alveolar/Arterial O2 Gradient 196.4 mmHg; Base Excess ABG -0.1 mEq/l (+/-2.0); Fractional Inspired Oxygen 40 %; HCO3 ABG 24.4 mEq/l (22.0-26.0); Oxygen Content ABG 11.6 %vol (16.0-22.0); PCO2 ABG 39.4 mmHg (35.0-45.0); PO2 FiO2 Ratio Arterial Blood 1.09 %; Total Hemoglobin 10.3 g/dL (12.0-18.0)
[2022-12-28] MEDS: VANCOMYCIN 1,250 MG/NS 250 ML 1,250 MG/250 ML BAG 166 MG IVPB ×2 (04:51→16:31)
[2022-12-28 04:54] LABS: Alveolar/Arterial O2 Gradient 156.3 mmHg; Base Excess ABG -1.1 mEq/l (+/-2.0); Fractional Inspired Oxygen 40 %; HCO3 ABG 22.9 mEq/l (22.0-26.0); Oxygen Content ABG 13.8 %vol (16.0-22.0); Oxyhemoglobin 95.3 % THb (90.0-100.0); PCO2 ABG 35.5 mmHg (35.0-45.0); PO2 ABG 88.1 mmHg (80.0-100.0); Total Hemoglobin 10.2 g/dL (12.0-18.0); pH ABG 7.427 (7.350-7.450)
[2022-12-28 04:56] LABS: Arterial Blood Gas Ventilator rate 18 /MIN; Device VENTILATOR; Modified Allen's Test Pass; Site Drawn LEFT RADIAL
[2022-12-28 04:57] LABS: Arterial Blood Gas PEEP 8 cmH2O; Arterial Blood Gas Tidal Volume 400 ml; Arterial Blood Gas Vent Mode CMV
[2022-12-28 05:07] LABS: Hematocrit 28.9 % (37.0-47.0); Hemoglobin 9.4 g/dL (12.0-15.0); Immature Granulocyte Absolute 0.06 K/mm3 (0.00-0.031); Immature Granulocyte Percent A 0.8 % (0-0.5); Lymphocytes Absolute Auto 0.34 K/mm3 (0.9-3.2); Lymphocytes Percent Auto 4.4 % (18.3-44.2); Mean Corpuscular HGB Conc 32.5 g/dl (32-36); Mean Corpuscular Hemoglobin 29.7 pg (26-34); Mean Corpuscular Volume 91.5 fl (80-100); Mean Platelet Volume 11.1 fl (7.4-10.4); Monocytes Absolute Auto 0.3 K/mm3 (0.1-0.6); Monocytes Percent Auto 3.5 % (2.6-8.5); Neutrophils Absolute Auto 7.1 K/mm3 (1.3-6.7); Neutrophils Percent Auto 91.3 % (45.5-73.1); Platelet Count Result 125 k/mm3 (150-375); Red Blood Count 3.16 M/mm3 (4.2-5.4); Red Cell Distribution Width 13.4 % (11.5-14.5); White Blood Count 7.8 K/mm3 (4.5-10.0)
[2022-12-28] MEDS: CENTRAL LINE FLUSH 10 ML IV PUSH ×4 (05:14→20:48)
[2022-12-28 05:21] LABS: Alanine Aminotransferase 91 U/L (6-35); Albumin Level 3.5 g/dL (3.5-5.1); Alkaline Phosphatase 66 U/L (38-126); Anion Gap 7 mmol/L (8-16); Aspartate Amino Transferase 134 U/L (14-36); Bilirubin,Total 0.4 mg/dL (0.2-1.3); Blood Urea Nitrogen 32 mg/dL (7-17); Calcium 8.4 mg/dL (8.4-10.2); Carbon Dioxide 24 mmol/L (22-30); Chloride 106 mmol/L (98-107); Estimated CRCL calculation 97 ml/min; Estimated Glomerular Filt Rate > 60; Glucose 139 mg/dL (65-110); Magnesium 1.9 mg/dL (1.6-2.3); Phosphorus 2.9 mg/dL (2.5-4.5); Potassium 4.1 mmol/L (3.4-5.0); Sodium 137 mmol/L (137-145)
[2022-12-28 07:21] LABS: Glucose Point of Care 143 mg/dl (65-105)
--- NOTE | 2022-12-28 07:41 | WPDINTPN ---
Progress Note: A&P Assessment and Plan (1) Acute respiratory failure with hypoxia and hypercarbia: Code(s): J96.01 - Acute respiratory failure with hypoxia; J96.02 - Acute respiratory failure with hypercapnia Status: Acute Assessment and Plan: 12/24: Patient presented with chest pain, shortness of breath was found to be cyanotic and hypoxic, was intubated in the ER on the day of admission. -chest x-ray this morning: Bibasilar and perihilar airspace disease. Correlate for pulmonary edema versus pneumonia. -12/27: Patient dropped her O2 sats between 88-91%. Rescue cath was done and large mucus plug was suctioned out. Peep was increased to 8 and FiO2 to 40%. -currently on CMV mode of ventilation, peep of 8 and 40% FiO2 with good O2 sats -continue bronchodilators -continue Pulmozyme -sedated with fentanyl and Versed infusion maintain RASS of 0 to -2 -daily sedation vacation -12/24: CTA Chest abdomen and pelvis 1. Extensive bilateral airspace consolidation, consistent with pneumonia. No evidence of pulmonary embolism 2: Moderate pleural effusions. 3: Hepatomegaly. 4:? Nonobstructing left nephrolithiasis. (2) Septic shock: Code(s): A41.9 - Sepsis, unspecified organism; R65.21 - Severe sepsis with septic shock Status: Acute Assessment and Plan: Patient dropped her blood pressures in the ER ER, was given a total of 3 L of IV fluid bolus, started on Levophed in the ICU -likely source pneumonia -currently off Levophed -continue to maintain MAP > 65 mmHg at all times for adequate end organ perfusion -lactic acid has normalized -CRP of 1.6 -continue azithromycin, ceftriaxone and vancomycin (12/24) -12/24: Blood culture no growth x2 -12/24: Urine growing Proteus mirabilis (pansensitive) -12/24: MRSA culture negative 12/24: Sputum culture: Oropharyngeal peggy (3) Multifocal pneumonia: Code(s): J18.9 - Pneumonia, unspecified organism Status: Acute Assessment and Plan: Antibiotics as above -12/24: urine Legionella continue pending -12/24: Urine pneumococcal antigens negative -12/24: mycoplasma IgM antibody pending (4) Hyperglycemia: Code(s): R73.9 - Hyperglycemia, unspecified Status: Acute Assessment and Plan: Sliding scale insulin and Accu-Chek -patient has been hypoglycemic , status post D20 infusion -blood sugars have improved as patient tolerating her tube feeds -low cortisols level, weaning stress dose steroids -12/26: KUB did not show any bowel obstruction or ileus, OG tube in place (5) Hypothyroidism: Code(s): E03.9 - Hypothyroidism, unspecified Status: Acute Assessment and Plan: TSH is elevated, -T3 and T4 levels are normal (6) Chest pain: Code(s): R07.9 - Chest pain, unspecified Status: Acute Assessment and Plan: Patient initially presented with chest pain, EKG did not show any ST-elevation [place] -troponin 0.018-->0.0489-->0.301 -could be related to ACS and or ischemic demand due to severe pneumonia and hypoxia on arrival to the ED -cardiology is following the patient -continue heparin infusion for 48 hours -continue aspirin 81 mg and atorvastatin -12/24: echocardiogram: EF 60-65%, grade 2 diastolic dysfunction, moderate aortic valve calcification, moderate to severe aortic stenosis, mean gradient of 29 mmHg and aortic valve area of 1.0 cm2, mild aortic valve regurgitation, mild tricuspid valve regurgitation, no pulmonary hypertension (7) Aortic stenosis: Code(s): I35.0 - Nonrheumatic aortic (valve) stenosis Status: Acute Assessment and Plan: 12/25/2022 echocardiogram revealed moderate- severe aortic valve stenosis with mean gradient of 29 mmHg and aortic valve area of 1.0 cm2 -cardiology following the patient, elevation in likely related to ischemic demand from underlying moderate to severe - (8) Anemia: Code(s): D64.9 - Anemia, unspecified Status: Acute
--- NOTE | 2022-12-28 07:58 | PM.IMPN ---
Progress Note: A&P Assessment and Plan (1) Acute respiratory failure with hypoxia and hypercarbia: Code(s): J96.01 - Acute respiratory failure with hypoxia; J96.02 - Acute respiratory failure with hypercapnia Status: Acute Assessment and Plan: 12/24: Patient presented with chest pain, shortness of breath was found to be cyanotic and hypoxic, was intubated in the ER on the day of admission. -chest x-ray this morning: Bibasilar and perihilar airspace disease. Correlate for pulmonary edema versus pneumonia. -12/27: Patient dropped her O2 sats between 88-91%. Rescue cath was done and large mucus plug was suctioned out. Peep was increased to 8 and FiO2 to 40%. -currently on CMV mode of ventilation, peep of 8 and 40% FiO2 with good O2 sats -continue bronchodilators -continue Pulmozyme -sedated with fentanyl and Versed infusion maintain RASS of 0 to -2 -daily sedation vacation -12/24: CTA Chest abdomen and pelvis 1. Extensive bilateral airspace consolidation, consistent with pneumonia. No evidence of pulmonary embolism 2: Moderate pleural effusions. 3: Hepatomegaly. 4:? Nonobstructing left nephrolithiasis. 12/28: pulmozyme added overnight for mucus plugging (2) Septic shock: Code(s): A41.9 - Sepsis, unspecified organism; R65.21 - Severe sepsis with septic shock Status: Acute Assessment and Plan: Patient dropped her blood pressures in the ER ER, was given a total of 3 L of IV fluid bolus, started on Levophed in the ICU -likely source pneumonia -currently off Levophed -continue to maintain MAP > 65 mmHg at all times for adequate end organ perfusion -lactic acid has normalized -CRP of 1.6 -continue azithromycin, ceftriaxone and vancomycin (12/24) -12/24: Blood culture no growth x2 -12/24: Urine growing Proteus mirabilis (pansensitive) -12/24: MRSA culture negative 12/24: Sputum culture: Oropharyngeal peggy (3) Multifocal pneumonia: Code(s): J18.9 - Pneumonia, unspecified organism Status: Acute Assessment and Plan: Antibiotics as above -12/24: urine Legionella continue pending -12/24: Urine pneumococcal antigens negative -12/24: mycoplasma IgM antibody pending (4) Hyperglycemia: Code(s): R73.9 - Hyperglycemia, unspecified Status: Acute Assessment and Plan: Sliding scale insulin and Accu-Chek -patient has been hypoglycemic , status post D20 infusion -blood sugars have improved as patient tolerating her tube feeds -low cortisols level, weaning stress dose steroids -12/26: KUB did not show any bowel obstruction or ileus, OG tube in place (5) Hypothyroidism: Code(s): E03.9 - Hypothyroidism, unspecified Status: Acute Assessment and Plan: TSH is elevated, -T3 and T4 levels are normal (6) Chest pain: Code(s): R07.9 - Chest pain, unspecified Status: Acute Assessment and Plan: Patient initially presented with chest pain, EKG did not show any ST-elevation [place] -troponin 0.018-->0.0489-->0.301 -could be related to ACS and or ischemic demand due to severe pneumonia and hypoxia on arrival to the ED -cardiology is following the patient -continue heparin infusion for 48 hours -continue aspirin 81 mg and atorvastatin -12/24: echocardiogram: EF 60-65%, grade 2 diastolic dysfunction, moderate aortic valve calcification, moderate to severe aortic stenosis, mean gradient of 29 mmHg and aortic valve area of 1.0 cm2, mild aortic valve regurgitation, mild tricuspid valve regurgitation, no pulmonary hypertension (7) Aortic stenosis: Code(s): I35.0 - Nonrheumatic aortic (valve) stenosis Status: Acute Assessment and Plan: 12/25/2022 echocardiogram revealed moderate- severe aortic valve stenosis with mean gradient of 29 mmHg and aortic valve area of 1.0 cm2 -cardiology following the patient, elevation in likely related to ischemic demand from underlying moderate to severe (8) Anemia:
[2022-12-28 08:29] LABS: Hepatitis B Surface Antigen Negative (Negative)
[2022-12-28] MEDS: HYDROCORTISONE SODIUM SUCCINATE 100 MG/2 ML VIAL 50 MG IV PUSH ×2 (08:29→20:20)
[2022-12-28] MEDS: ATORVASTATIN 40 MG TABLET 80 MG PO (08:30)
[2022-12-28] MEDS: MINERAL OIL/WHITE PETROLATUM OINTMENT 1 APPLIC EACH EYE ×2 (08:30→20:24)
[2022-12-28] MEDS: ASPIRIN 81 MG ENTERIC TABLET PO (08:30)
[2022-12-28] MEDS: ENOXAPARIN 40 MG/0.4 ML SYRINGE SUB-Q (08:30)
[2022-12-28] MEDS: PANTOPRAZOLE SODIUM IV 40 MG VIAL IV PUSH ×2 (08:32→20:23)
[2022-12-28 08:35] LABS: HAV RESULT Negative (Negative); Hepatitis B Core IgM Result Negative (Negative)
[2022-12-28] MEDS: DORNASE ALFA INH SOLN 1 MG/ML 2.5 ML AMP 2.5 MG INHALATION ×2 (08:38→20:11)
[2022-12-28 08:44] LABS: Iron 65 ug/dL (37-170)
[2022-12-28 08:47] LABS: Hepatitis C Virus Antibody Negative (Negative)
[2022-12-28 08:55] LABS: Percent Iron Saturation 30 % (20-50)
[2022-12-28] MEDS: cefTRIAXone 2 GM/NS 100 ML 2 GM/100 ML BAG IVPB (10:39)
[2022-12-28] MEDS: AZITHROMYCIN 500 MG/NS 250 ML 500 MG/250 ML BAG 250 MG IVPB (10:39)
[2022-12-28 10:53] LABS: Glucose Point of Care 125 mg/dl (65-105)
--- NOTE | 2022-12-28 10:58 | PCFNICU ---
ICU Rounding Note: Pt current nutrition is Vital AF 1.2 at 50 ml/hr. Last recorded weight is 88 kg, up from 81.4 kg on admit. Bowel Motility:No BM reported-Miralax added today. Labs Reviewed:Glu 139, Cr 0.6,BUN 32 Meds Noted:Miralax, Versed, Fentanyl, Vancomycin, Rocephin. Skin: WNL Additional Notes: Patient remains on mechanical vent and tube feedings of Vital AF 1.2. Tube feedings on hold at this time for procedure with plans to restart. Tube feedings are being tolerated. Protein Modular given BID for additional protein needs due to tube feedings at 70% of caloric needs. Will advance goal rate after day 5. Flush 30 ml q 4 hours. Agree with diet orders. Following daily in ICU rounds. Reassess Wednesday and Fridays.
[2022-12-28 13:32] LABS: Glucose Point of Care 122 mg/dl (65-105)
[2022-12-28 16:50] LABS: Glucose Point of Care 120 mg/dl (65-105)
[2022-12-28] MEDS: FENTANYL 2,500MCG/NS250ML(*CRX 2,500 MCG/250 ML BAG 10 MCG IV CONT (21:54)
[2022-12-29] VITALS (47 sets, daily range): BP systolic 140–179; BP diastolic 67–93; PULSE 88–147; RESP 14–25; TEMP 37.3–37.8; O2SAT 96–99
[2022-12-29 00:26] LABS: Glucose Point of Care 142 mg/dl (65-105)
[2022-12-29] MEDS: IPRATROPIUM BR 0.02% INH SOLN 0.5 MG/2.5 ML VIAL INHALATION ×4 (02:21→19:27)
[2022-12-29] MEDS: LEVALBUTEROL NEB 1.25 MG/3 ML INHALATION ×4 (02:21→19:27)
[2022-12-29] MEDS: MIDAZOLAM 100MG/NS 100ML(*CRX) 100 MG/100 ML BAG IV CONT (03:54)
[2022-12-29] MEDS: VANCOMYCIN 1,250 MG/NS 250 ML 1,250 MG/250 ML BAG 166 MG IVPB (03:59)
[2022-12-29 04:55] LABS: Basophils Percent Auto 0.2 % (0.2-1.2); Eosinophils Percent Auto 0.1 % (0-4.4); Hemoglobin 11.2 g/dL (12.0-15.0); Immature Granulocyte Absolute 0.12 K/mm3 (0.00-0.031); Lymphocytes Absolute Auto 0.65 K/mm3 (0.9-3.2); Lymphocytes Percent Auto 5.2 % (18.3-44.2); Mean Corpuscular Hemoglobin 29.1 pg (26-34); Mean Corpuscular Volume 90.9 fl (80-100); Mean Platelet Volume 10.7 fl (7.4-10.4); Monocytes Absolute Auto 0.9 K/mm3 (0.1-0.6); Monocytes Percent Auto 7.2 % (2.6-8.5); Neutrophils Absolute Auto 10.7 K/mm3 (1.3-6.7); Neutrophils Percent Auto 86.3 % (45.5-73.1); Platelet Count Result 185 k/mm3 (150-375); Red Blood Count 3.85 M/mm3 (4.2-5.4); Red Cell Distribution Width 13.8 % (11.5-14.5); White Blood Count 12.4 K/mm3 (4.5-10.0)
[2022-12-29 05:11] LABS: Base Excess ABG -1.1 mEq/l (+/-2.0); Carboxyhemoglobin 0.2 % THb (0-2.0); Fractional Inspired Oxygen 40 %; HCO3 ABG 22.7 mEq/l (22.0-26.0); Methemoglobin ABG 0.3 %THb (0-1.5); Oxygen Saturation ABG 98.1 % (95.0-100.0); Oxyhemoglobin 96.7 % THb (90.0-100.0); PCO2 ABG 35.3 mmHg (35.0-45.0); PO2 ABG 108.6 mmHg (80.0-100.0); PO2 FiO2 Ratio Arterial Blood 2.71 %; Reduced Hemoglobin 2.8 %THb (0-5.0); Total Hemoglobin 12.4 g/dL (12.0-18.0); pH ABG 7.427 (7.350-7.450)
[2022-12-29 05:12] LABS: Arterial Blood Gas PEEP 8 cmH2O; Arterial Blood Gas Tidal Volume 400 ml; Arterial Blood Gas Vent Mode CMV; Arterial Blood Gas Ventilator rate 18 /MIN; Device VENTILATOR; Modified Allen's Test Pass; Site Drawn RIGHT RADIAL
[2022-12-29 05:16] LABS: Alanine Aminotransferase 85 U/L (6-35); Albumin Level 3.4 g/dL (3.5-5.1); Alkaline Phosphatase 87 U/L (38-126); Anion Gap 7 mmol/L (8-16); Aspartate Amino Transferase 72 U/L (14-36); Bilirubin,Total 0.4 mg/dL (0.2-1.3); Blood Urea Nitrogen 43 mg/dL (7-17); Calcium 8.4 mg/dL (8.4-10.2); Carbon Dioxide 27 mmol/L (22-30); Chloride 107 mmol/L (98-107); Estimated CRCL calculation 74 ml/min; Estimated Glomerular Filt Rate > 60; Glucose 121 mg/dL (65-110); Phosphorus 2.9 mg/dL (2.5-4.5); Potassium 3.9 mmol/L (3.4-5.0); Sodium 141 mmol/L (137-145)
[2022-12-29] MEDS: CENTRAL LINE FLUSH 10 ML IV PUSH ×4 (05:46→20:11)
--- NOTE | 2022-12-29 07:46 | PM.IMPN ---
Progress Note: A&P Assessment and Plan (1) Acute respiratory failure with hypoxia and hypercarbia: Code(s): J96.01 - Acute respiratory failure with hypoxia; J96.02 - Acute respiratory failure with hypercapnia Status: Acute Assessment and Plan: 12/24: Patient presented with chest pain, shortness of breath was found to be cyanotic and hypoxic, was intubated in the ER on the day of admission. -chest x-ray this morning: Bibasilar and perihilar airspace disease. Correlate for pulmonary edema versus pneumonia. -12/27: Patient dropped her O2 sats between 88-91%. Rescue cath was done and large mucus plug was suctioned out. Peep was increased to 8 and FiO2 to 40%. -currently on CMV mode of ventilation, peep of 8 and 40% FiO2 with good O2 sats -continue bronchodilators -continue Pulmozyme -sedated with fentanyl and Versed infusion maintain RASS of 0 to -2 -daily sedation vacation -12/24: CTA Chest abdomen and pelvis 1. Extensive bilateral airspace consolidation, consistent with pneumonia. No evidence of pulmonary embolism 2: Moderate pleural effusions. 3: Hepatomegaly. 4:?Nonobstructing left nephrolithiasis. 12/28: pulmozyme added overnight for mucus plugging 12/29: still febrile overnight (2) Septic shock: Code(s): A41.9 - Sepsis, unspecified organism; R65.21 - Severe sepsis with septic shock Status: Acute Assessment and Plan: Patient dropped her blood pressures in the ER ER, was given a total of 3 L of IV fluid bolus, started on Levophed in the ICU -likely source pneumonia -currently off Levophed -continue to maintain MAP > 65 mmHg at all times for adequate end organ perfusion -lactic acid has normalized -CRP of 1.6 -continue azithromycin, ceftriaxone and vancomycin (12/24) -12/24: Blood culture no growth x2 -12/24: Urine growing Proteus mirabilis (pansensitive) -12/24: MRSA culture negative 12/24: Sputum culture: Oropharyngeal peggy (3) Multifocal pneumonia: Code(s): J18.9 - Pneumonia, unspecified organism Status: Acute Assessment and Plan: Antibiotics as above -12/24: urine Legionella continue pending -12/24: Urine pneumococcal antigens negative -12/24: mycoplasma IgM antibody pending (4) Hyperglycemia: Code(s): R73.9 - Hyperglycemia, unspecified Status: Acute Assessment and Plan: Sliding scale insulin and Accu-Chek -patient has been hypoglycemic , status post D20 infusion -blood sugars have improved as patient tolerating her tube feeds -low cortisols level, weaning stress dose steroids -12/26: KUB did not show any bowel obstruction or ileus, OG tube in place (5) Hypothyroidism: Code(s): E03.9 - Hypothyroidism, unspecified Status: Acute Assessment and Plan: TSH is elevated, -T3 and T4 levels are normal (6) Chest pain: Code(s): R07.9 - Chest pain, unspecified Status: Acute Assessment and Plan: Patient initially presented with chest pain, EKG did not show any ST-elevation [place] -troponin 0.018-->0.0489-->0.301 -could be related to ACS and or ischemic demand due to severe pneumonia and hypoxia on arrival to the ED -cardiology is following the patient -continue heparin infusion for 48 hours -continue aspirin 81 mg and atorvastatin -12/24: echocardiogram: EF 60-65%, grade 2 diastolic dysfunction, moderate aortic valve calcification, moderate to severe aortic stenosis, mean gradient of 29 mmHg and aortic valve area of 1.0 cm2, mild aortic valve regurgitation, mild tricuspid valve regurgitation, no pulmonary hypertension (7) Aortic stenosis: Code(s): I35.0 - Nonrheumatic aortic (valve) stenosis Status: Acute Assessment and Plan: 12/25/2022 echocardiogram revealed moderate- severe aortic valve stenosis with mean gradient of 29 mmHg and aortic valve area of 1.0 cm2 -cardiology following the patient, elevation in likely related to ischemic demand from underlying moderate
--- NOTE | 2022-12-29 07:48 | WPDINTPN ---
Progress Note: A&P Assessment and Plan (1) Acute respiratory failure with hypoxia and hypercarbia: Code(s): J96.01 - Acute respiratory failure with hypoxia; J96.02 - Acute respiratory failure with hypercapnia Status: Acute Assessment and Plan: 12/24: Patient presented with chest pain, shortness of breath was found to be cyanotic and hypoxic, was intubated in the ER on the day of admission. -12/27: Patient dropped her O2 sats between 88-91%. Rescue cath was done and large mucus plug was suctioned out. Peep was increased to 8 and FiO2 to 40%. -currently on CMV mode of ventilation, peep of 8 and 40% FiO2 with good O2 sats -chest x-ray and ABG reviewed -continue bronchodilators -Lasix IV today -sedated with fentanyl and Versed infusion maintain RASS of 0 to -2 -will perform sedation vacation and evaluate for weaning trial -12/24: CTA Chest abdomen and pelvis 1. Extensive bilateral airspace consolidation, consistent with pneumonia. No evidence of pulmonary embolism 2: Moderate pleural effusions. 3: Hepatomegaly. 4:? Nonobstructing left nephrolithiasis. (2) Septic shock: Code(s): A41.9 - Sepsis, unspecified organism; R65.21 - Severe sepsis with septic shock Status: Acute Assessment and Plan: Patient dropped her blood pressures in the ER ER, was given a total of 3 L of IV fluid bolus, started on Levophed in the ICU -likely source pneumonia -currently off Levophed -continue to maintain MAP > 65 mmHg at all times for adequate end organ perfusion -lactic acid has normalized -12/24: Blood culture no growth x2 -12/24: Urine growing Proteus mirabilis (pansensitive) -12/24: MRSA culture negative 12/24: Sputum culture: Oropharyngeal peggy -continue azithromycin, ceftriaxone (12/24) -DC vancomycin -DC hydrocortisone (3) Multifocal pneumonia: Code(s): J18.9 - Pneumonia, unspecified organism Status: Acute Assessment and Plan: Antibiotics as above -12/24: urine Legionella continue pending -12/24: Urine pneumococcal antigens negative -12/24: mycoplasma IgM antibody pending (4) Hyperglycemia: Code(s): R73.9 - Hyperglycemia, unspecified Status: Acute Assessment and Plan: Sliding scale insulin and Accu-Chek -patient was initially hypoglycemic and was on D20 infusion but now off -blood sugars have improved as patient tolerating her tube feeds -low cortisols level, weaning stress dose steroids -12/26: KUB did not show any bowel obstruction or ileus, OG tube in place (5) Hypothyroidism: Code(s): E03.9 - Hypothyroidism, unspecified Status: Acute Assessment and Plan: TSH is elevated, -T3 and T4 levels are normal -subclinical hypothyroidism versus euthyroid sick syndrome (6) Chest pain: Code(s): R07.9 - Chest pain, unspecified Status: Acute Assessment and Plan: Patient initially presented with chest pain, EKG did not show any ST-elevation [place] -troponin 0.018-->0.0489-->0.301 -could be related to ACS and or ischemic demand due to severe pneumonia and hypoxia on arrival to the ED -cardiology is following the patient -off heparin infusion now -continue aspirin 81 mg and atorvastatin -12/24: echocardiogram: EF 60-65%, grade 2 diastolic dysfunction, moderate aortic valve calcification, moderate to severe aortic stenosis, mean gradient of 29 mmHg and aortic valve area of 1.0 cm2, mild aortic valve regurgitation, mild tricuspid valve regurgitation, no pulmonary hypertension (7) Aortic stenosis: Code(s): I35.0 - Nonrheumatic aortic (valve) stenosis Status: Acute Assessment and Plan: 12/25/2022 echocardiogram revealed moderate- severe aortic valve stenosis with mean gradient of 29 mmHg and aortic valve area of 1.0 cm2 -cardiology following the patient, elevation in likely related to ischemic demand from underlying moderate to severe (8) Anemia: Code(s): D64.9 - Anemia, unspecified Status: A
[2022-12-29] MEDS: ENOXAPARIN 40 MG/0.4 ML SYRINGE SUB-Q (08:00)
[2022-12-29] MEDS: polyethylene glycoL 3350 17 GM POWD.PACK PO (08:00)
[2022-12-29] MEDS: PANTOPRAZOLE SODIUM IV 40 MG VIAL IV PUSH ×2 (08:00→20:11)
[2022-12-29] MEDS: MINERAL OIL/WHITE PETROLATUM OINTMENT 1 APPLIC EACH EYE ×2 (08:04→20:07)
[2022-12-29] MEDS: ATORVASTATIN 40 MG TABLET 80 MG PO (08:04)
[2022-12-29] MEDS: ASPIRIN 81 MG ENTERIC TABLET PO (08:04)
[2022-12-29] MEDS: FUROSEMIDE INJ 40 MG/4 ML VIAL IV PUSH ×2 (08:10→20:11)
[2022-12-29] MEDS: PROPOFOL IV EMULSION 100 ML 2.6 MG IV CONT (08:15)
[2022-12-29] MEDS: cefTRIAXone 2 GM/NS 100 ML 2 GM/100 ML BAG IVPB (09:12)
[2022-12-29 12:06] LABS: Glucose Point of Care 102 mg/dl (65-105)
--- NOTE | 2022-12-29 12:06 | PCNFU ---
Nutrition Follow-Up Complete: Inadequate energy needs related to sepsis, mechanical ventilation as evidenced by need for full tube feeding plus protein modulars. Goal: Meet estimated protein energy needs tolerate tube feedings at goal Patient will remain with current goal. Approaching goal. Pt current nutrition is Vital AF 1.2. Last recorded weight is 86.8 kg, up from 81.4 kg on admit Bowel Motility:No BM reported. Labs Reviewed:Glu 121, BUN 43, ALb 3.4,Hgb 11.2, Hct 35.0 Meds Noted:Protonix, Miralax, Propofol at 30 dxcg=832 kcals, Fentanyl Skin: WNL Additional Notes: Patient remains on mechanical vent. Tube feedings being tolerated of Vital AF 1.2 at 50 ml/hr. Protein Modular of [employer] of additional 160 kcals and 40 gms protein. Propofol at 30 mcgs providing an additional 412 kcals. Total Nutrition at this time: 1947 kcals at 24 kcal/kg 123 gms protein at 1.4-1.6 gm/kg and 892 ml water. Flush 30 ml q 4 hours. Agree with diet orders at this time. Following daily in ICU rounds. Reassess Wednesday and Fridays.
[2022-12-29] MEDS: PROPOFOL IV EMULSION 100 ML 15.62 MG IV CONT (15:12)
[2022-12-29 15:24] LABS: Anion Gap 4 mmol/L (8-16); Blood Urea Nitrogen 48 mg/dL (7-17); Calcium 8.4 mg/dL (8.4-10.2); Carbon Dioxide 30 mmol/L (22-30); Chloride 106 mmol/L (98-107); Estimated CRCL calculation 74 ml/min; Estimated Glomerular Filt Rate > 60; Glucose 106 mg/dL (65-110); Potassium 3.2 mmol/L (3.4-5.0); Sodium 140 mmol/L (137-145)
[2022-12-29] MEDS: KCL 40 MEQ/WATER 100 ML 100 ML 25 ML IVPB (16:34)
[2022-12-29] MEDS: POTASSIUM CHLORIDE 20 MEQ PACKET (FOR LIQUID) 40 MEQ FEED TUBE (16:34)
[2022-12-29 18:24] LABS: Glucose Point of Care 84 mg/dl (65-105)
[2022-12-29] MEDS: PROPOFOL IV EMULSION 100 ML 26.04 MG IV CONT (21:45)
[2022-12-29 23:11] LABS: Glucose Point of Care 94 mg/dl (65-105)
[2022-12-29] MEDS: FENTANYL 2,500MCG/NS250ML(*CRX 2,500 MCG/250 ML BAG IV CONT (23:24)
[2022-12-30] VITALS (37 sets, daily range): BP systolic 73–169; BP diastolic 50–94; PULSE 92–129; RESP 12–23; TEMP 37.1–38.1; O2SAT 94–98
[2022-12-30] MEDS: LABETALOL HCL INJ 100 MG/20 ML VIAL 20 MG IV PUSH (01:13)
[2022-12-30] MEDS: PROPOFOL IV EMULSION 100 ML 13.02 MG IV CONT (01:54)
[2022-12-30] MEDS: IPRATROPIUM BR 0.02% INH SOLN 0.5 MG/2.5 ML VIAL INHALATION ×4 (02:06→20:24)
[2022-12-30] MEDS: LEVALBUTEROL NEB 1.25 MG/3 ML INHALATION ×4 (02:06→20:24)
[2022-12-30 04:24] LABS: Legionella pneumophila Ag Ur Not Detected (Not Detected)
[2022-12-30] MEDS: CENTRAL LINE FLUSH 10 ML IV PUSH ×4 (05:06→20:38)
[2022-12-30 05:27] LABS: Hematocrit 32.5 % (37.0-47.0); Hemoglobin 10.3 g/dL (12.0-15.0); Mean Corpuscular HGB Conc 31.7 g/dl (32-36); Mean Corpuscular Hemoglobin 28.8 pg (26-34); Mean Corpuscular Volume 90.8 fl (80-100); Mean Platelet Volume 10.8 fl (7.4-10.4); Platelet Count Result 173 k/mm3 (150-375); Red Blood Count 3.58 M/mm3 (4.2-5.4); Red Cell Distribution Width 13.9 % (11.5-14.5); White Blood Count 9.5 K/mm3 (4.5-10.0)
[2022-12-30 05:36] LABS: Alanine Aminotransferase 61 U/L (6-35); Alkaline Phosphatase 74 U/L (38-126); Anion Gap 5 mmol/L (8-16); Aspartate Amino Transferase 40 U/L (14-36); Bilirubin,Total 0.4 mg/dL (0.2-1.3); Blood Urea Nitrogen 53 mg/dL (7-17); Calcium 8.3 mg/dL (8.4-10.2); Carbon Dioxide 31 mmol/L (22-30); Chloride 104 mmol/L (98-107); Estimated CRCL calculation 67 ml/min; Estimated Glomerular Filt Rate > 60; Glucose 112 mg/dL (65-110); Potassium 3.7 mmol/L (3.4-5.0); Sodium 140 mmol/L (137-145)
--- NOTE | 2022-12-30 08:24 | WPDINTPN ---
Progress Note: A&P Assessment and Plan (1) Acute respiratory failure with hypoxia and hypercarbia: Code(s): J96.01 - Acute respiratory failure with hypoxia; J96.02 - Acute respiratory failure with hypercapnia Status: Acute Assessment and Plan: 12/24: Patient presented with chest pain, shortness of breath was found to be cyanotic and hypoxic, was intubated in the ER on the day of admission. -12/27: Patient dropped her O2 sats between 88-91%. Rescue cath was done and large mucus plug was suctioned out. Peep was increased to 8 and FiO2 to 40%. - 12/29 failed PSV weaning trial due to tachycardia and tachypnea -currently on CMV mode of ventilation, peep of 8 and 30% FiO2 with good O2 sats -chest x-ray reviewed and shows improvement - ABG reviewed -continue bronchodilators --good response to Lasix. Will continue today -sedated with propofol and fentanyl infusion maintain RASS of 0 to -2 -will perform sedation vacation and evaluate for weaning trial again today -12/24: CTA Chest abdomen and pelvis 1. Extensive bilateral airspace consolidation, consistent with pneumonia. No evidence of pulmonary embolism 2: Moderate pleural effusions. 3: Hepatomegaly. 4:? Nonobstructing left nephrolithiasis. (2) Septic shock: Code(s): A41.9 - Sepsis, unspecified organism; R65.21 - Severe sepsis with septic shock Status: Acute Assessment and Plan: Patient dropped her blood pressures in the ER ER, was given a total of 3 L of IV fluid bolus, started on Levophed in the ICU -likely source pneumonia -currently off Levophed -continue to maintain MAP > 65 mmHg at all times for adequate end organ perfusion -lactic acid has normalized -12/24: Blood culture no growth x2 -12/24: Urine growing Proteus mirabilis (pansensitive) -12/24: MRSA culture negative 12/24: Sputum culture: Oropharyngeal peggy -continue ceftriaxone (12/24). Completed course of azithromycin -12/29 DC vancomycin -DC hydrocortisone - 12/30 low-grade fevers, normal WBC. Replace Nova. If persist, will repeat cultures (3) Multifocal pneumonia: Code(s): J18.9 - Pneumonia, unspecified organism Status: Acute Assessment and Plan: Antibiotics as above -12/24: urine Legionella negative -12/24: Urine pneumococcal antigens negative -12/24: mycoplasma IgM antibody pending (4) Hyperglycemia: Code(s): R73.9 - Hyperglycemia, unspecified Status: Acute Assessment and Plan: Sliding scale insulin and Accu-Chek -patient was initially hypoglycemic and was on D20 infusion but now off -blood sugars have improved as patient tolerating her tube feeds -low cortisols level, weaning stress dose steroids -12/26: KUB did not show any bowel obstruction or ileus, OG tube in place (5) Hypothyroidism: Code(s): E03.9 - Hypothyroidism, unspecified Status: Acute Assessment and Plan: TSH is elevated, -T3 and T4 levels are normal -subclinical hypothyroidism versus euthyroid sick syndrome (6) Chest pain: Code(s): R07.9 - Chest pain, unspecified Status: Acute Assessment and Plan: Patient initially presented with chest pain, EKG did not show any ST-elevation [place] -troponin 0.018-->0.0489-->0.301 -could be related to ACS and or ischemic demand due to severe pneumonia and hypoxia on arrival to the ED -cardiology is following the patient -off heparin infusion now -continue aspirin 81 mg and atorvastatin -12/24: echocardiogram: EF 60-65%, grade 2 diastolic dysfunction, moderate aortic valve calcification, moderate to severe aortic stenosis, mean gradient of 29 mmHg and aortic valve area of 1.0 cm2, mild aortic valve regurgitation, mild tricuspid valve regurgitation, no pulmonary hypertension (7) Aortic stenosis: Code(s): I35.0 - Nonrheumatic aortic (valve) stenosis Status: Acute Assessment and Plan: 12/25/2022 echocardiogram revealed moderate- severe aortic valve stenosis with mean gr
[2022-12-30] MEDS: POTASSIUM CHLORIDE 20 MEQ PACKET (FOR LIQUID) 40 MEQ FEED TUBE (08:28)
[2022-12-30] MEDS: polyethylene glycoL 3350 17 GM POWD.PACK PO (08:28)
[2022-12-30] MEDS: PANTOPRAZOLE SODIUM IV 40 MG VIAL IV PUSH ×2 (08:28→20:37)
[2022-12-30] MEDS: ATORVASTATIN 40 MG TABLET 80 MG PO (08:28)
[2022-12-30] MEDS: ENOXAPARIN 40 MG/0.4 ML SYRINGE SUB-Q (08:28)
[2022-12-30] MEDS: FUROSEMIDE INJ 40 MG/4 ML VIAL IV PUSH (08:28)
[2022-12-30] MEDS: ASPIRIN 81 MG ENTERIC TABLET PO (08:28)
[2022-12-30] MEDS: MINERAL OIL/WHITE PETROLATUM OINTMENT 1 APPLIC EACH EYE (08:29)
[2022-12-30] MEDS: ALBUMIN HUMAN 25% 25 GM/100 ML 100 ML IVPB (08:36)
--- NOTE | 2022-12-30 09:06 | PM.PNCARD ---
Progress Note: A&P Assessment and Plan (1) Septic shock: Code(s): A41.9 - Sepsis, unspecified organism; R65.21 - Severe sepsis with septic shock Status: Acute Assessment and Plan: Shock with concern for sepsis from pneumonia. Management as per ICU team. White cell count normalized to 6.6 today. On antibiotics (2) Acute respiratory failure with hypoxia and hypercarbia: Code(s): J96.01 - Acute respiratory failure with hypoxia; J96.02 - Acute respiratory failure with hypercapnia Status: Acute Assessment and Plan: Currently intubated. CTA of C/A/P showed extensive bilateral airspace consolidation, consistent with pneumonia. No PE. Moderate pleural effusions. On antibiotics per the primary team. Management of ventilator as per ICU team. (3) Chest pain: Code(s): R07.9 - Chest pain, unspecified Status: Acute Assessment and Plan: None at present (4) Aortic stenosis: Code(s): I35.0 - Nonrheumatic aortic (valve) stenosis Status: Acute Assessment and Plan: Moderate to severe. Will need outpatient follow-up. Subjective Date/time seen: 12/30/22 09:06 Interval history: Cardiology follow up for chest pain, CHF Remains intubated but is responsive and able to answer yes and no questions. Denies any chest pain. 12/26/2022-remains intubated, ventilated. No significant arrhythmias overnight. 12/27/2022-remains intubated. Echo yesterday shows moderate to severe aortic stenosis . no significant events overnight. Date of service 12/30/2022: Still intubated but undergoing trials at present. BP is labile. No complaints of chest pain Review of Systems Constitutional: Constitutional: Denies body ache(s) Cardiovascular: Cardiovascular: Denies chest pain Respiratory: Respiratory: Denies hemoptysis Exam Const: Other: Intubated HENMT: Other: OETT in place, NG tube in place Resp: Auscultation: diminished lung sounds Other: On mechanical ventilation via OETT Cardio: Rate: regular rate and tachycardic Rhythm: regular rhythm Heart sounds: Murmur heart sound present systolic GI: Inspection: non-distended Skin: General skin exam: normal color Neuro: Other: Unable to assess due to sedation Psych: Other: Difficult to assess because she is intubated. Answers yes and no questions appropriately Objective Data Vital Signs Vital Signs: Vital Signs - 24 hr 12/29/22 11:09 12/29/22 10:00 12/29/22 12:01 Temperature Pulse Rate 131 H 116 H 140 H Respiratory Rate 18 22 H Blood Pressure Pulse Oximetry 98 Oxygen Delivery Mechanical Ventilation Fraction of Inspired Oxygen 40 12/29/22 11:00 12/29/22 12:00 12/29/22 10:00 Temperature Pulse Rate 125 H 107 H 116 H Respiratory Rate 18 18 Blood Pressure Pulse Oximetry 98 Oxygen Delivery Mechanical Ventilation Fraction of Inspired Oxygen 40 12/29/22 10:00 12/29/22 12:00 12/29/22 12:00 Temperature 37.3 C 37.4 C Pulse Rate 116 H 107 H 107 H Respiratory Rate 18 18 Blood Pressure 140/67 171/91 H Pulse Oximetry 98 98 Oxygen Delivery Fraction of Inspired Oxygen 12/29/22 12:00 12/29/22 13:53 12/29/22 13:53 Temperature Pulse Rate 118 H 118 H Respiratory Rate 18 Blood Pressure Pulse Oximetry 98 Oxygen Delivery Mechanical Ventilation Fraction of Inspired Oxygen 40 40 12/29/22 14:05 12/29/22 14:00 12/29/22 14:00 Temperature 37.6 C Pulse Rate 111 H 113 H 113 H Respiratory Rate 18 18 Blood Pressure 149/75 H Pulse Oximetry 98 Oxygen Delivery Fraction of Inspired Oxygen 12/29/22 16:20 12/29/22 16:00 12/29/22 16:00 Temperature Pulse Rate 128 H 127 H Respiratory Rate Blood Pressure Pulse Oximetry 97 Oxygen Delivery Mechanical Ventilation Fraction of Inspired Oxygen 30 40 12/29/22 16:00 12/29/22 16:00 12/29/22 18:00 Temperature 37.3 C Pulse Rate 127
[2022-12-30] MEDS: cefTRIAXone 2 GM/NS 100 ML 2 GM/100 ML BAG IVPB (09:36)
[2022-12-30 11:31] LABS: Alveolar/Arterial O2 Gradient 63.7 mmHg; Base Excess ABG 5.7 mEq/l (+/-2.0); Fractional Inspired Oxygen 30 %; HCO3 ABG 30.4 mEq/l (22.0-26.0); Oxygen Content ABG 16.4 %vol (16.0-22.0); Oxygen Saturation ABG 97.6 % (95.0-100.0); Oxyhemoglobin 96.2 % THb (90.0-100.0); PCO2 ABG 44.7 mmHg (35.0-45.0); PO2 ABG 97.7 mmHg (80.0-100.0); PO2 FiO2 Ratio Arterial Blood 3.26 %
[2022-12-30 11:32] LABS: Device VENTILATOR; Modified Allen's Test Pass; Site Drawn LEFT RADIAL
[2022-12-30 11:40] LABS: Arterial Blood Gas PEEP 8 cmH2O; Arterial Blood Gas Vent Mode SPONTANEOUS
[2022-12-30 11:41] LABS: Arterial Blood Gas Pressure Support 5 cmH2O
--- NOTE | 2022-12-30 12:02 | PCFNICU ---
ICU Rounding Note: Pt current nutrition is Vital AF 1.2 at 50 ml/hr. Nutrition recommendation: will continue with current recommendations. Last recorded weight is 88 kg, up from 81.4 kg on admit. Bowel Motility: No BM, spoke with Beam Doffer today Dulcolax Suppository ordered. Labs Reviewed:Glu 112, BUN 53, Alb 3.0,Hct 32.5,Hgb 10.3 Meds Noted:Dulcolax Suppository, Miralax, Rocephin, Lovenox, Atrovent. Skin: WNL Additional Notes: Patient is currently off of Propofol and Fentanyl at this time. Patient failed breathing trail yesterday. Tolerating tube feedings of Vital AF 1.2 at 50 ml/hr with Prosource BID. Will continue with currently tube feedings rate today. Following daily in ICU rounds. Reassess Wednesday and Fridays.
[2022-12-30 12:10] LABS: Glucose Point of Care 124 mg/dl (65-105)
--- NOTE | 2022-12-30 12:33 | PM.IMPN ---
Progress Note: A&P Assessment and Plan (1) Acute respiratory failure with hypoxia and hypercarbia: Code(s): J96.01 - Acute respiratory failure with hypoxia; J96.02 - Acute respiratory failure with hypercapnia Status: Acute Assessment and Plan: 12/24: Patient presented with chest pain, shortness of breath was found to be cyanotic and hypoxic, was intubated in the ER on the day of admission. -12/27: Patient dropped her O2 sats between 88-91%. Rescue cath was done and large mucus plug was suctioned out. Peep was increased to 8 and FiO2 to 40%. - 12/29 failed PSV weaning trial due to tachycardia and tachypnea -currently on CMV mode of ventilation, peep of 8 and 30% FiO2 with good O2 sats (2) Septic shock: Code(s): A41.9 - Sepsis, unspecified organism; R65.21 - Severe sepsis with septic shock Status: Acute Assessment and Plan: Patient dropped her blood pressures in the ER ER, was given a total of 3 L of IV fluid bolus, started on Levophed in the ICU -likely source pneumonia -currently off Levophed -continue to maintain MAP > 65 mmHg at all times for adequate end organ perfusion -lactic acid has normalized (3) Multifocal pneumonia: Code(s): J18.9 - Pneumonia, unspecified organism Status: Acute Assessment and Plan: Antibiotics as above -12/24: urine Legionella negative -12/24: Urine pneumococcal antigens negative -12/24: mycoplasma IgM antibody pending (4) Hyperglycemia: Code(s): R73.9 - Hyperglycemia, unspecified Status: Acute Assessment and Plan: Sliding scale insulin and Accu-Chek -patient was initially hypoglycemic and was on D20 infusion but now off -blood sugars have improved as patient tolerating her tube feeds -low cortisols level, weaning stress dose steroids -12/26: KUB did not show any bowel obstruction or ileus, OG tube in place (5) Hypothyroidism: Code(s): E03.9 - Hypothyroidism, unspecified Status: Acute Assessment and Plan: TSH is elevated, -T3 and T4 levels are normal -subclinical hypothyroidism versus euthyroid sick syndrome (6) Chest pain: Code(s): R07.9 - Chest pain, unspecified Status: Acute Assessment and Plan: Patient initially presented with chest pain, EKG did not show any ST-elevation [place] -troponin 0.018-->0.0489-->0.301 -could be related to ACS and or ischemic demand due to severe pneumonia and hypoxia on arrival to the ED -cardiology is following the patient -off heparin infusion now -continue aspirin 81 mg and atorvastatin -12/24: echocardiogram: EF 60-65%, grade 2 diastolic dysfunction, moderate aortic valve calcification, moderate to severe aortic stenosis, mean gradient of 29 mmHg and aortic valve area of 1.0 cm2, mild aortic valve regurgitation, mild tricuspid valve regurgitation, no pulmonary hypertension (7) Aortic stenosis: Code(s): I35.0 - Nonrheumatic aortic (valve) stenosis Status: Acute Assessment and Plan: 12/25/2022 echocardiogram revealed moderate- severe aortic valve stenosis with mean gradient of 29 mmHg and aortic valve area of 1.0 cm2 -cardiology following the patient, elevation in likely related to ischemic demand from underlying moderate to severe (8) Anemia: Code(s): D64.9 - Anemia, unspecified Status: Acute Assessment and Plan: Hemoglobin stable lately Pending stool for Hemoccult Iron panel suggest anemia of chronic disease. Normal folic acid and vitamin B12 levels -patient currently on Protonix IV q.12 hours (9) Elevated LFTs: Code(s): R79.89 - Other specified abnormal findings of blood chemistry Status: Acute Assessment and Plan: 12/28: Elevated LFTs Hepatitis panel negative RUQ US IMPRESSION: 1. Edematous gallbladder wall thickening and trace amount of pericholecystic fluid but without evident cholelithiasis or sonographic Farr's on to suggest acute cholecystitis and differential would a
[2022-12-30 13:16] LABS: Mycoplasma IgM Antibody Titer 40 U/mL (<770)
[2022-12-30 13:49] LABS: Anion Gap 7 mmol/L (8-16); Blood Urea Nitrogen 51 mg/dL (7-17); Calcium 8.5 mg/dL (8.4-10.2); Carbon Dioxide 35 mmol/L (22-30); Chloride 99 mmol/L (98-107); Estimated CRCL calculation 84 ml/min; Estimated Glomerular Filt Rate > 60; Glucose 103 mg/dL (65-110); Sodium 141 mmol/L (137-145)
[2022-12-30 18:17] LABS: Glucose Point of Care 97 mg/dl (65-105)
[2022-12-30 23:38] LABS: Glucose Point of Care 104 mg/dl (65-105)
[2022-12-31] VITALS (20 sets, daily range): BP systolic 98–146; BP diastolic 59–87; PULSE 96–108; RESP 12–22; TEMP 37.3–38; O2SAT 95–100
[2022-12-31] MEDS: IPRATROPIUM BR 0.02% INH SOLN 0.5 MG/2.5 ML VIAL INHALATION ×4 (02:23→20:16)
[2022-12-31] MEDS: LEVALBUTEROL NEB 1.25 MG/3 ML INHALATION ×4 (02:26→20:16)
[2022-12-31] MEDS: CENTRAL LINE FLUSH 10 ML IV PUSH ×2 (05:14→15:08)
[2022-12-31 05:30] LABS: Alveolar/Arterial O2 Gradient 27.6 mmHg; Base Excess ABG 9.7 mEq/l (+/-2.0); Carboxyhemoglobin 0.3 % THb (0-2.0); Fractional Inspired Oxygen 24 %; HCO3 ABG 35.3 mEq/l (22.0-26.0); Methemoglobin ABG 0.2 %THb (0-1.5); Oxygen Content ABG 15.4 %vol (16.0-22.0); Oxygen Saturation ABG 96.2 % (95.0-100.0); Oxyhemoglobin 94.9 % THb (90.0-100.0); PCO2 ABG 52.6 mmHg (35.0-45.0); PO2 ABG 80.9 mmHg (80.0-100.0); PO2 FiO2 Ratio Arterial Blood 3.37 %; Reduced Hemoglobin 4.6 %THb (0-5.0); Total Hemoglobin 11.5 g/dL (12.0-18.0); pH ABG 7.445 (7.350-7.450)
[2022-12-31 05:31] LABS: Modified Allen's Test Pass; Site Drawn LEFT RADIAL
[2022-12-31 05:32] LABS: Device NASAL CANNULA
[2022-12-31 05:34] LABS: Hematocrit 31.6 % (37.0-47.0); Hemoglobin 10.1 g/dL (12.0-15.0); Mean Corpuscular Hemoglobin 29.5 pg (26-34); Mean Corpuscular Volume 92.4 fl (80-100); Mean Platelet Volume 10.2 fl (7.4-10.4); Platelet Count Result 140 k/mm3 (150-375); Red Blood Count 3.42 M/mm3 (4.2-5.4); Red Cell Distribution Width 13.4 % (11.5-14.5); White Blood Count 8.1 K/mm3 (4.5-10.0)
[2022-12-31 05:50] LABS: Alanine Aminotransferase 49 U/L (6-35); Albumin Level 3.4 g/dL (3.5-5.1); Alkaline Phosphatase 66 U/L (38-126); Anion Gap 3 mmol/L (8-16); Aspartate Amino Transferase 26 U/L (14-36); Bilirubin,Total 0.6 mg/dL (0.2-1.3); Blood Urea Nitrogen 39 mg/dL (7-17); Calcium 8.6 mg/dL (8.4-10.2); Carbon Dioxide 38 mmol/L (22-30); Chloride 100 mmol/L (98-107); Estimated CRCL calculation 81 ml/min; Estimated Glomerular Filt Rate > 60; Glucose 96 mg/dL (65-110); Potassium 3.9 mmol/L (3.4-5.0); Sodium 141 mmol/L (137-145)
[2022-12-31] MEDS: ONDANSETRON INJ 4 MG/2 ML VIAL IV PUSH ×3 (08:07→20:42)
--- NOTE | 2022-12-31 08:39 | WPDINTPN ---
Progress Note: A&P Assessment and Plan (1) Acute respiratory failure with hypoxia and hypercarbia: Code(s): J96.01 - Acute respiratory failure with hypoxia; J96.02 - Acute respiratory failure with hypercapnia Status: Acute Assessment and Plan: 12/24: Patient presented with chest pain, shortness of breath was found to be cyanotic and hypoxic, was intubated in the ER on the day of admission. -12/27: Patient dropped her O2 sats between 88-91%. Rescue cath was done and large mucus plug was suctioned out. Peep was increased to 8 and FiO2 to 40%. - 12/29 failed PSV weaning trial due to tachycardia and tachypnea -12/30 extubated after a successful weaning trial 12/31 on 1 L nasal cannula. Add incentive spirometry -chest x-ray reviewed -continue bronchodilators -hold diuretics today -12/24: CTA Chest abdomen and pelvis 1. Extensive bilateral airspace consolidation, consistent with pneumonia. No evidence of pulmonary embolism 2: Moderate pleural effusions. 3: Hepatomegaly. 4:? Nonobstructing left nephrolithiasis. (2) Septic shock: Code(s): A41.9 - Sepsis, unspecified organism; R65.21 - Severe sepsis with septic shock Status: Acute Assessment and Plan: Patient dropped her blood pressures in the ER ER, was given a total of 3 L of IV fluid bolus, started on Levophed in the ICU -likely source pneumonia -currently off Levophed -continue to maintain MAP > 65 mmHg at all times for adequate end organ perfusion -lactic acid has normalized -12/24: Blood culture no growth x2 -12/24: Urine growing Proteus mirabilis (pansensitive) -12/24: MRSA culture negative 12/24: Sputum culture: Oropharyngeal peggy -continue ceftriaxone (12/24) for 10 days. Completed course of azithromycin -12/29 DC vancomycin -DC hydrocortisone - 12/30 low-grade fevers, normal WBC. Replaced Nova. Afebrile and clinically improving (3) Multifocal pneumonia: Code(s): J18.9 - Pneumonia, unspecified organism Status: Acute Assessment and Plan: Antibiotics as above -12/24: urine Legionella negative -12/24: Urine pneumococcal antigens negative -12/24: mycoplasma IgM antibody low (4) Hyperglycemia: Code(s): R73.9 - Hyperglycemia, unspecified Status: Acute Assessment and Plan: Sliding scale insulin and Accu-Chek -patient was initially hypoglycemic and was on D20 infusion but now off -blood sugars have improved as patient tolerating her tube feeds -low cortisols level, weaning stress dose steroids -12/26: KUB did not show any bowel obstruction or ileus, OG tube in place (5) Hypothyroidism: Code(s): E03.9 - Hypothyroidism, unspecified Status: Acute Assessment and Plan: TSH is elevated, -T3 and T4 levels are normal -subclinical hypothyroidism versus euthyroid sick syndrome (6) Chest pain: Code(s): R07.9 - Chest pain, unspecified Status: Acute Assessment and Plan: Patient initially presented with chest pain, EKG did not show any ST-elevation [place] -troponin 0.018-->0.0489-->0.301 -could be related to ACS and or ischemic demand due to severe pneumonia and hypoxia on arrival to the ED -cardiology is following the patient -off heparin infusion now -continue aspirin 81 mg and atorvastatin -12/24: echocardiogram: EF 60-65%, grade 2 diastolic dysfunction, moderate aortic valve calcification, moderate to severe aortic stenosis, mean gradient of 29 mmHg and aortic valve area of 1.0 cm2, mild aortic valve regurgitation, mild tricuspid valve regurgitation, no pulmonary hypertension (7) Aortic stenosis: Code(s): I35.0 - Nonrheumatic aortic (valve) stenosis Status: Acute Assessment and Plan: 12/25/2022 echocardiogram revealed moderate- severe aortic valve stenosis with mean gradient of 29 mmHg and aortic valve area of 1.0 cm2 -cardiology following the patient, elevation in likely related to ischemic demand from underlying moderate to severe (8)
[2022-12-31] MEDS: ENOXAPARIN 40 MG/0.4 ML SYRINGE SUB-Q (09:18)
[2022-12-31] MEDS: PANTOPRAZOLE SODIUM IV 40 MG VIAL IV PUSH ×2 (09:18→20:42)
--- NOTE | 2022-12-31 09:50 | PM.IMPN ---
Progress Note: A&P Assessment and Plan (1) Acute respiratory failure with hypoxia and hypercarbia: Code(s): J96.01 - Acute respiratory failure with hypoxia; J96.02 - Acute respiratory failure with hypercapnia Status: Acute Assessment and Plan: -12/30 extubated after a successful weaning trial 12/31 on 1 L nasal cannula. Add incentive spirometry -chest x-ray reviewed -continue bronchodilators -hold diuretics today -12/24: CTA Chest abdomen and pelvis 1. Extensive bilateral airspace consolidation, consistent with pneumonia. No evidence of pulmonary embolism 2: Moderate pleural effusions. 3: Hepatomegaly. 4:? Nonobstructing left nephrolithiasis. (2) Septic shock: Code(s): A41.9 - Sepsis, unspecified organism; R65.21 - Severe sepsis with septic shock Status: Acute Assessment and Plan: Off pressors now -12/24: Blood culture no growth x2 -12/24: Urine growing Proteus mirabilis (pansensitive) -12/24: MRSA culture negative 12/24: Sputum culture: Oropharyngeal peggy -continue ceftriaxone (12/24) for 10 days. Completed course of azithromycin -12/29 DC vancomycin -DC hydrocortisone - 12/30 low-grade fevers, normal WBC. Replaced Nova. Afebrile and clinically improving (3) Multifocal pneumonia: Code(s): J18.9 - Pneumonia, unspecified organism Status: Acute Assessment and Plan: Antibiotics as above -12/24: urine Legionella negative -12/24: Urine pneumococcal antigens negative -12/24: mycoplasma IgM antibody low (4) Hypothyroidism: Code(s): E03.9 - Hypothyroidism, unspecified Status: Acute Assessment and Plan: TSH is elevated, -T3 and T4 levels are normal -subclinical hypothyroidism versus euthyroid sick syndrome (5) Chest pain: Code(s): R07.9 - Chest pain, unspecified Status: Acute Assessment and Plan: Patient initially presented with chest pain, EKG did not show any ST-elevation [place] -troponin 0.018-->0.0489-->0.301 -could be related to ACS and or ischemic demand due to severe pneumonia and hypoxia on arrival to the ED -cardiology is following the patient -off heparin infusion now -continue aspirin 81 mg and atorvastatin -12/24: echocardiogram: EF 60-65%, grade 2 diastolic dysfunction, moderate aortic valve calcification, moderate to severe aortic stenosis, mean gradient of 29 mmHg and aortic valve area of 1.0 cm2, mild aortic valve regurgitation, mild tricuspid valve regurgitation, no pulmonary hypertension (6) Aortic stenosis: Code(s): I35.0 - Nonrheumatic aortic (valve) stenosis Status: Acute Assessment and Plan: 12/25/2022 echocardiogram revealed moderate- severe aortic valve stenosis with mean gradient of 29 mmHg and aortic valve area of 1.0 cm2 (7) Anemia: Code(s): D64.9 - Anemia, unspecified Status: Acute Assessment and Plan: Hemoglobin stable lately Pending stool for Hemoccult Iron panel suggest anemia of chronic disease. Normal folic acid and vitamin B12 levels -patient currently on Protonix IV q.12 hours (8) Elevated LFTs: Code(s): R79.89 - Other specified abnormal findings of blood chemistry Status: Acute Assessment and Plan: 12/28: Elevated LFTs Hepatitis panel negative RUQ US IMPRESSION: 1. Edematous gallbladder wall thickening and trace amount of pericholecystic fluid but without evident cholelithiasis or sonographic Farr's on to suggest acute cholecystitis and differential would also include sequela of liver disease, congestive heart failure, renal failure or other generalized edema forming states. If there is specific elevated clinical concern for acute cholecystitis could consider HIDA scan for further evaluation. 2. Right pleural effusion. Monitor Subjective Date/time seen: 12/31/22 09:50 Interval history: Patient is extubated. She is on 1 L oxygen by nasal cannula Review of Systems Review of Systems: All systems reviewed & are
[2022-12-31] MEDS: cefTRIAXone 2 GM/NS 100 ML 2 GM/100 ML BAG IVPB (10:14)
[2022-12-31] MEDS: NEOMYCIN/POLYMYXIN/BACITRACIN OINTMENT PACKET 1 PACKET (10:43)
--- NOTE | 2022-12-31 10:43 | PM.PNCARD ---
Progress Note: A&P Assessment and Plan (1) Septic shock: Code(s): A41.9 - Sepsis, unspecified organism; R65.21 - Severe sepsis with septic shock Status: Acute Assessment and Plan: Initially presented with shock with concern for sepsis from pneumonia. Improving. Management per primary team. (2) Acute respiratory failure with hypoxia and hypercarbia: Code(s): J96.01 - Acute respiratory failure with hypoxia; J96.02 - Acute respiratory failure with hypercapnia Status: Acute Assessment and Plan: Extubated. CTA of C/A/P showed extensive bilateral airspace consolidation, consistent with pneumonia. No PE. Moderate pleural effusions. On antibiotics per the primary team. (3) Chest pain: Code(s): R07.9 - Chest pain, unspecified Status: Acute Assessment and Plan: None at present (4) Aortic stenosis: Code(s): I35.0 - Nonrheumatic aortic (valve) stenosis Status: Acute Assessment and Plan: Moderate to severe. Will need outpatient follow-up which will be arranged with Dr. Martin Plan Cardiology will sign off. Please call with questions. Subjective Date/time seen: 12/31/22 10:43 Interval history: Cardiology follow up visit She is extubated and alert but only responds to questions by shaking head yes or no. Denies having any chest pain or shortness of breath. Review of Systems Review of Systems: ROS unobtainable: Yes unobtainable due to endotracheal tube and unobtainable due to medical condition Constitutional: Constitutional: Denies body ache(s) Cardiovascular: Cardiovascular: Denies chest pain Respiratory: Respiratory: Denies hemoptysis Exam Const: General: comfortable and no acute distress HENMT: Head: normal to inspection Eyes: General: appearance normal, both eyes and all related structures Resp: Auscultation: diminished lung sounds Cardio: Rate: regular rate and tachycardic Rhythm: regular rhythm Heart sounds: Murmur heart sound present systolic GI: Inspection: non-distended Skin: General skin exam: normal color Extrem: General: normal to inspection and no edema Objective Data Vital Signs Vital Signs: Vital Signs - 24 hr 12/30/22 11:20 12/30/22 12:00 12/30/22 12:00 Temperature Pulse Rate 96 106 H 106 H Respiratory Rate 16 Blood Pressure Pulse Oximetry 94 98 Oxygen Delivery Mechanical Ventilation Nasal Cannula Oxygen Flow Rate 2 Fraction of Inspired Oxygen 30 12/30/22 12:00 12/30/22 14:00 12/30/22 14:00 Temperature 37.7 C H 37.5 C Pulse Rate 106 H 105 H 105 H Respiratory Rate 16 14 Blood Pressure 117/68 106/65 Pulse Oximetry 98 97 Oxygen Delivery Oxygen Flow Rate Fraction of Inspired Oxygen 12/30/22 12:00 12/30/22 14:34 12/30/22 14:25 Temperature Pulse Rate 105 H 105 H 109 H Respiratory Rate 18 18 Blood Pressure Pulse Oximetry 98 Oxygen Delivery Oxygen Flow Rate Fraction of Inspired Oxygen 12/30/22 16:00 12/30/22 16:00 12/30/22 16:00 Temperature 37.1 C Pulse Rate 108 H 108 H 108 H Respiratory Rate 20 20 Blood Pressure 137/73 Pulse Oximetry 97 97 Oxygen Delivery Nasal Cannula Oxygen Flow Rate 2 Fraction of Inspired Oxygen 12/30/22 18:00 12/30/22 18:00 12/30/22 20:24 Temperature 37.3 C Pulse Rate 107 H 107 H 107 H Respiratory Rate 14 14 Blood Pressure 129/84 Pulse Oximetry 97 Oxygen Delivery Oxygen Flow Rate Fraction of Inspired Oxygen 12/30/22 20:34 12/30/22 20:39 12/30/22 20:00 Temperature 37.3 C Pulse Rate 111 H 111 H 107 H Respiratory Rate 15 14 17 Blood Pressure 156/78 H Pulse Oximetry 98 95 Oxygen Delivery Nasal Cannula Oxygen Flow Rate 1 Fraction of Inspired Oxygen 12/30/22 20:00 12/30/22 20:00 12/30/22 22:00 Temperature Pulse Rate 102 H 105 H Respiratory Rate Blood Pressure Pulse Oximetry 95 Oxygen Delivery Nasal Cannula Oxygen Flow Rate 1 Fr
--- NOTE | 2022-12-31 11:32 | PCFNICU ---
ICU Rounding Note: Pt current nutrition is Minced and Moist, Level 5 with Moderately Thick Liquids, Level 3. Last recorded weight is 81.4 kg, no new weight to report. Bowel Motility:No BM this admit. KUB today showing small amount of stool at the sigmoid colon. Labs Reviewed:Glu 112, BUN 53, Alb 3.0,Hgb 32.5,Hct 10.3 Meds Noted:Protonix, Miralax, Rocephin. Skin:WNL Additional Notes: Patient was extubated on 12/30. Bedside swallow study today recommending diet advancement to Minced and Moist, Level 5 and Moderately, Thick liquids, Level 3. Agree with diet orders. Following daily in ICU rounds. Monitoring tube feeding tolerance, weights, labs, plan of care every 3 days.
--- NOTE | 2022-12-31 11:58 | PCSTNOTE ---
Please refer to the Bedside Swallow Evaluation in the EMR. Please note, silent aspiration cannot be ruled out at bedside.
[2022-12-31 11:59] LABS: Glucose Point of Care 117 mg/dl (65-105)
--- NOTE | 2022-12-31 14:51 | REHSTMBS ---
Assessment and note entered by Teresita Moore, MIL[employer]MENT SPECIALIST Modified Barium Swallow Evaluation Feeding Type Recommended Oral Food Consistency Minced and Moist, Level 5 Liquid Consistency Mildly Thick (2) ST Clinical Summary MODIFIED BARIUM SWALLOW STUDY This 57-year-old patient was seen today for a modified barium swallow study (MBS) on this date. She was admitted 12/24 with diagnoses of acute respiratory failure with hypoxia and hypercarbia, septic shock and pneumonia and was intubated until yesterday. She has a past medical history of non- Hodgkins lymphoma and hypothyroidism. Chest/ abdomen CT scan 12/24 revealed: Extensive bilateral airspace consolidation, consistent with pneumonia and Moderate pleural effusions. She participated in trials of thin liquid via spoon, uncontrolled thin liquid via straw, mixed consistency via spoon, pureed consistency via spoon, and solid hand-fed. Most of her trials were within normal limits, however flash laryngeal penetration was noted one time during uncontrolled thin liquids via straw. Due to the inconsistency of pt's penetration, it is recommended that she be put on a modified of minced and moist food ( level 5) and mildly thick liquids (level 2). No other speech therapy services are recommended at this time. Thank you for this referral.
--- NOTE | 2022-12-31 15:51 | PCSTNOTE ---
Please refer to the Modified Barium Swallow Evaluation in the EMR.
[2022-12-31 23:48] LABS: Glucose Point of Care 94 mg/dl (65-105)
[2023-01-01] VITALS (22 sets, daily range): BP systolic 110–134; BP diastolic 59–73; PULSE 89–105; RESP 11–17; TEMP 36.3–37.8; O2SAT 90–100; BMI 10.0
[2023-01-01] MEDS: LEVALBUTEROL NEB 1.25 MG/3 ML INHALATION ×4 (01:54→21:04)
[2023-01-01] MEDS: IPRATROPIUM BR 0.02% INH SOLN 0.5 MG/2.5 ML VIAL INHALATION ×4 (01:54→21:04)
[2023-01-01 04:44] LABS: Hematocrit 31.5 % (37.0-47.0); Hemoglobin 9.9 g/dL (12.0-15.0); Mean Corpuscular HGB Conc 31.4 g/dl (32-36); Mean Corpuscular Hemoglobin 28.9 pg (26-34); Mean Corpuscular Volume 91.8 fl (80-100); Mean Platelet Volume 10.8 fl (7.4-10.4); Platelet Count Result 157 k/mm3 (150-375); Red Blood Count 3.43 M/mm3 (4.2-5.4); White Blood Count 8.5 K/mm3 (4.5-10.0)
[2023-01-01 05:15] LABS: Alanine Aminotransferase 40 U/L (6-35); Albumin Level 3.4 g/dL (3.5-5.1); Alkaline Phosphatase 61 U/L (38-126); Anion Gap 4 mmol/L (8-16); Aspartate Amino Transferase 24 U/L (14-36); Bilirubin,Total 0.7 mg/dL (0.2-1.3); Blood Urea Nitrogen 36 mg/dL (7-17); Calcium 8.8 mg/dL (8.4-10.2); Carbon Dioxide 38 mmol/L (22-30); Chloride 98 mmol/L (98-107); Estimated CRCL calculation 82 ml/min; Estimated Glomerular Filt Rate > 60; Glucose 89 mg/dL (65-110); Magnesium 2.2 mg/dL (1.6-2.3); Potassium 4.2 mmol/L (3.4-5.0); Sodium 140 mmol/L (137-145)
[2023-01-01] MEDS: ASPIRIN 81 MG ENTERIC TABLET PO (08:57)
[2023-01-01] MEDS: ENOXAPARIN 40 MG/0.4 ML SYRINGE SUB-Q (08:57)
[2023-01-01] MEDS: ATORVASTATIN 40 MG TABLET 80 MG PO (08:57)
[2023-01-01] MEDS: PANTOPRAZOLE SODIUM IV 40 MG VIAL IV PUSH ×2 (08:57→21:05)
[2023-01-01] MEDS: cefTRIAXone 2 GM/NS 100 ML 2 GM/100 ML BAG IVPB (09:00)
--- NOTE | 2023-01-01 10:22 | PM.IMPN ---
Progress Note: A&P Assessment and Plan (1) Acute respiratory failure with hypoxia and hypercarbia: Code(s): J96.01 - Acute respiratory failure with hypoxia; J96.02 - Acute respiratory failure with hypercapnia Status: Acute Assessment and Plan: -12/30 extubated after a successful weaning trial 12/31 on 1 L nasal cannula. Add incentive spirometry -chest x-ray reviewed -continue bronchodilators -continue antibiotics (2) Septic shock: Code(s): A41.9 - Sepsis, unspecified organism; R65.21 - Severe sepsis with septic shock Status: Acute Assessment and Plan: Resolved Afebrile and clinically improving (3) Multifocal pneumonia: Code(s): J18.9 - Pneumonia, unspecified organism Status: Acute Assessment and Plan: Antibiotics as above -12/24: urine Legionella negative -12/24: Urine pneumococcal antigens negative -12/24: mycoplasma IgM antibody low (4) Hypothyroidism: Code(s): E03.9 - Hypothyroidism, unspecified Status: Acute Assessment and Plan: TSH is elevated, -T3 and T4 levels are normal -subclinical hypothyroidism versus euthyroid sick syndrome (5) Chest pain: Code(s): R07.9 - Chest pain, unspecified Status: Acute Assessment and Plan: -could be related to ACS and or ischemic demand due to severe pneumonia and hypoxia on arrival to the ED -cardiology is following the patient -continue aspirin 81 mg and atorvastatin -12/24: echocardiogram: EF 60-65%, grade 2 diastolic dysfunction, moderate aortic valve calcification, moderate to severe aortic stenosis, mean gradient of 29 mmHg and aortic valve area of 1.0 cm2, mild aortic valve regurgitation, mild tricuspid valve regurgitation, no pulmonary hypertension (6) Aortic stenosis: Code(s): I35.0 - Nonrheumatic aortic (valve) stenosis Status: Acute Assessment and Plan: 12/25/2022 echocardiogram revealed moderate- severe aortic valve stenosis with mean gradient of 29 mmHg and aortic valve area of 1.0 cm2 (7) Elevated LFTs: Code(s): R79.89 - Other specified abnormal findings of blood chemistry Status: Acute Assessment and Plan: 12/28: Elevated LFTs Hepatitis panel negative RUQ US IMPRESSION: 1. Edematous gallbladder wall thickening and trace amount of pericholecystic fluid but without evident cholelithiasis or sonographic Farr's on to suggest acute cholecystitis and differential would also include sequela of liver disease, congestive heart failure, renal failure or other generalized edema forming states. If there is specific elevated clinical concern for acute cholecystitis could consider HIDA scan for further evaluation. 2. Right pleural effusion. Monitor Plan PT and OT Subjective Date/time seen: 01/01/23 10:22 Interval history: Patient has significant generalized weakness Review of Systems Review of Systems: All systems reviewed & are unremarkable except as noted in HPI and below (HPI) Exam Narrative: General: Patient is alert awake and in no acute distress HEENT:? Pupils are equal and reactive, sclera is clear, Neck:? Supple, no lymphadenopathy Respiratory:? Bilateral coarse breath sounds, decreased at bases, adequate air entry, no wheezing noted Cardiac:? Sinus tachycardia , S1-S2 is normal, 2/6 ejection systolic murmur of aortic stenosis at the right upper sternal border Abdomen:? Soft, nontender, nondistended, bowel sounds are normal present Extremities:? Left upper extremity edema, bilateral lower extremity has improved, palpable pedal pulses Neuro:? AO x3, follows commands, moves all extremities Skin:? Warm and dry Psych:? Normal speech and affect Objective Data Vital Signs Vital Signs: Vital Signs - 24 hr 12/31/22 12:00 12/31/22 12:00 12/31/22 12:00 Temperature 99.6 F Pulse Rate 103 H 103 H 103 H Respiratory Rate 12 12 Blood Pressure 98/62 L Pulse Oximetry 96 96 Oxygen Delivery Nasal Cannula Oxygen
--- NOTE | 2023-01-01 11:13 | PC.NURSE ---
This patient, Jose David Pacheco, was transferred to [ [phone]] on 01/01/23 at 1100. Personal belongings sent with patient. Report given to [ NEERAJ Fraire @ [phone]]. Appropriate documentation sent with patient.
--- NOTE | 2023-01-01 12:07 | PCNFU ---
Nutrition Follow-Up Complete: Inadequate energy needs related to sepsis, mechanical ventilation as evidenced by need for full tube feeding plus protein modulars. Goal: Meet estimated protein energy needs patient is progressing towards goal.We will continue current goal. Pt current nutrition is Minced and Moist, Level 5 with Mild Thick Level, 2. Nutrition recommendation: Ensure compact BID. Last recorded weight is 84.1 kg. Bowel Motility:+BM reported 12/31 Labs Reviewed:Glu 112, BUN 53, Alb 3.0 Meds Noted:Lipitor, Atrovent, Lovenox Skin:WNL Additional Notes: Patient is transferred from ICU. Tolerating liquids-applesauce and apple juice today. Recommend addition of Ensure Compact BID for additional 220 kcals and 9 gms protein. Agree with diet orders. Monitoring: weights, labs, plan of care every 5 days.
[2023-01-01 17:11] LABS: Glucose Point of Care 85 mg/dl (65-105)
[2023-01-01 21:03] LABS: Glucose Point of Care 84 mg/dl (65-105)
[2023-01-02] VITALS (11 sets, daily range): BP systolic 118–122; BP diastolic 55–66; PULSE 90–102; RESP 16–20; TEMP 36.3–36.9; O2SAT 92–99
[2023-01-02] MEDS: IPRATROPIUM BR 0.02% INH SOLN 0.5 MG/2.5 ML VIAL INHALATION ×3 (02:15→13:05)
[2023-01-02] MEDS: LEVALBUTEROL NEB 1.25 MG/3 ML INHALATION ×3 (02:15→13:05)
[2023-01-02 06:57] LABS: Hematocrit 31.8 % (37.0-47.0); Hemoglobin 9.8 g/dL (12.0-15.0); Mean Corpuscular HGB Conc 30.8 g/dl (32-36); Mean Corpuscular Hemoglobin 28.7 pg (26-34); Mean Platelet Volume 10.6 fl (7.4-10.4); Platelet Count Result 173 k/mm3 (150-375); Red Blood Count 3.42 M/mm3 (4.2-5.4); Red Cell Distribution Width 12.8 % (11.5-14.5); White Blood Count 7.1 K/mm3 (4.5-10.0)
[2023-01-02 07:08] LABS: Alanine Aminotransferase 30 U/L (6-35); Albumin Level 3.3 g/dL (3.5-5.1); Alkaline Phosphatase 60 U/L (38-126); Anion Gap 4 mmol/L (8-16); Aspartate Amino Transferase 17 U/L (14-36); Bilirubin,Total 0.7 mg/dL (0.2-1.3); Blood Urea Nitrogen 34 mg/dL (7-17); Calcium 8.7 mg/dL (8.4-10.2); Carbon Dioxide 37 mmol/L (22-30); Chloride 96 mmol/L (98-107); Estimated CRCL calculation 82 ml/min; Estimated Glomerular Filt Rate > 60; Glucose 95 mg/dL (65-110); Magnesium 2.2 mg/dL (1.6-2.3); Potassium 3.9 mmol/L (3.4-5.0); Sodium 137 mmol/L (137-145)
[2023-01-02 07:34] LABS: Glucose Point of Care 105 mg/dl (65-105)
[2023-01-02] MEDS: polyethylene glycoL 3350 17 GM POWD.PACK PO (08:43)
[2023-01-02] MEDS: ATORVASTATIN 40 MG TABLET 80 MG PO (08:43)
[2023-01-02] MEDS: ENOXAPARIN 40 MG/0.4 ML SYRINGE SUB-Q (08:43)
[2023-01-02] MEDS: PANTOPRAZOLE SODIUM IV 40 MG VIAL IV PUSH ×2 (08:43→22:18)
[2023-01-02] MEDS: ASPIRIN 81 MG ENTERIC TABLET PO (08:49)
[2023-01-02] MEDS: cefTRIAXone 2 GM/NS 100 ML 2 GM/100 ML BAG IVPB (10:00)
--- NOTE | 2023-01-02 11:13 | PM.IMPN ---
Progress Note: A&P Assessment and Plan (1) Acute respiratory failure with hypoxia and hypercarbia: Code(s): J96.01 - Acute respiratory failure with hypoxia; J96.02 - Acute respiratory failure with hypercapnia Status: Acute Assessment and Plan: Extubated. Now on 1 L oxygen by nasal cannula -continue bronchodilators -continue antibiotics (2) Septic shock: Code(s): A41.9 - Sepsis, unspecified organism; R65.21 - Severe sepsis with septic shock Status: Acute Assessment and Plan: Resolved Afebrile and clinically improving (3) Multifocal pneumonia: Code(s): J18.9 - Pneumonia, unspecified organism Status: Acute Assessment and Plan: Antibiotics as above -12/24: urine Legionella negative -12/24: Urine pneumococcal antigens negative -12/24: mycoplasma IgM antibody low (4) Hypothyroidism: Code(s): E03.9 - Hypothyroidism, unspecified Status: Acute Assessment and Plan: TSH is elevated, -T3 and T4 levels are normal -subclinical hypothyroidism versus euthyroid sick syndrome (5) Chest pain: Code(s): R07.9 - Chest pain, unspecified Status: Acute Assessment and Plan: -could be related to ACS and or ischemic demand due to severe pneumonia and hypoxia on arrival to the ED -cardiology is following the patient -continue aspirin 81 mg and atorvastatin -12/24: echocardiogram: EF 60-65%, grade 2 diastolic dysfunction, moderate aortic valve calcification, moderate to severe aortic stenosis, mean gradient of 29 mmHg and aortic valve area of 1.0 cm2, mild aortic valve regurgitation, mild tricuspid valve regurgitation, no pulmonary hypertension (6) Aortic stenosis: Code(s): I35.0 - Nonrheumatic aortic (valve) stenosis Status: Acute Assessment and Plan: 12/25/2022 echocardiogram revealed moderate- severe aortic valve stenosis with mean gradient of 29 mmHg and aortic valve area of 1.0 cm2 (7) Elevated LFTs: Code(s): R79.89 - Other specified abnormal findings of blood chemistry Status: Acute Assessment and Plan: 12/28: Elevated LFTs Hepatitis panel negative RUQ US IMPRESSION: 1. Edematous gallbladder wall thickening and trace amount of pericholecystic fluid but without evident cholelithiasis or sonographic Farr's on to suggest acute cholecystitis and differential would also include sequela of liver disease, congestive heart failure, renal failure or other generalized edema forming states. If there is specific elevated clinical concern for acute cholecystitis could consider HIDA scan for further evaluation. 2. Right pleural effusion. Monitor Plan PT and OT Will likely need rehab Subjective Date/time seen: 01/02/23 11:13 Interval history: Significant weakness Review of Systems Review of Systems: All systems reviewed & are unremarkable except as noted in HPI and below (HPI) Exam Narrative: General: Patient is alert awake and in no acute distress HEENT:? Pupils are equal and reactive, sclera is clear, Neck:? Supple, no lymphadenopathy Respiratory:? Bilateral coarse breath sounds, decreased at bases, adequate air entry, no wheezing noted Cardiac:? Sinus tachycardia , S1-S2 is normal, 2/6 ejection systolic murmur of aortic stenosis at the right upper sternal border Abdomen:? Soft, nontender, nondistended, bowel sounds are normal present Extremities:? Left upper extremity edema, bilateral lower extremity has improved, palpable pedal pulses Neuro:? AO x3, follows commands, moves all extremities Skin:? Warm and dry Psych:? Normal speech and affect Objective Data Vital Signs Vital Signs: Vital Signs - 24 hr 01/01/23 12:00 01/01/23 11:45 01/01/23 14:00 Temperature 97.6 F 97.3 F L Pulse Rate 105 H 97 100 Respiratory Rate 16 16 Blood Pressure 114/63 120/67 Pulse Oximetry 90 100 Oxygen Delivery Fraction of Inspired Oxygen 01/01/23 14:53 01/01/23 15:11 01/01/23 16:00 Temp
[2023-01-02 11:54] LABS: Glucose Point of Care 106 mg/dl (65-105)
[2023-01-02 16:34] LABS: Glucose Point of Care 95 mg/dl (65-105)
[2023-01-02 22:26] LABS: Glucose Point of Care 116 mg/dl (65-105)
[2023-01-03] VITALS (11 sets, daily range): BP systolic 103–146; BP diastolic 43–76; PULSE 89–98; RESP 18–20; TEMP 36.7–37.1; O2SAT 95–100
[2023-01-03 06:55] LABS: Hematocrit 34.1 % (37.0-47.0); Hemoglobin 10.7 g/dL (12.0-15.0); Mean Corpuscular HGB Conc 31.4 g/dl (32-36); Mean Corpuscular Hemoglobin 28.5 pg (26-34); Mean Corpuscular Volume 90.7 fl (80-100); Mean Platelet Volume 10.8 fl (7.4-10.4); Platelet Count Result 186 k/mm3 (150-375); Red Blood Count 3.76 M/mm3 (4.2-5.4); Red Cell Distribution Width 12.5 % (11.5-14.5); White Blood Count 7.8 K/mm3 (4.5-10.0)
[2023-01-03 07:07] LABS: Alanine Aminotransferase 26 U/L (6-35); Albumin Level 3.5 g/dL (3.5-5.1); Alkaline Phosphatase 61 U/L (38-126); Anion Gap 6 mmol/L (8-16); Aspartate Amino Transferase 18 U/L (14-36); Bilirubin,Total 0.7 mg/dL (0.2-1.3); Blood Urea Nitrogen 31 mg/dL (7-17); Calcium 8.9 mg/dL (8.4-10.2); Carbon Dioxide 35 mmol/L (22-30); Chloride 97 mmol/L (98-107); Estimated CRCL calculation 81 ml/min; Estimated Glomerular Filt Rate > 60; Glucose 88 mg/dL (65-110); Magnesium 2.2 mg/dL (1.6-2.3); Potassium 3.6 mmol/L (3.4-5.0); Sodium 138 mmol/L (137-145)
--- NOTE | 2023-01-03 07:55 | PCRCNOTE ---
Pt refused 0800 neb tx due to being nauseous, Pt's SpO2 was 95% on room air with clear breathsounds, RN informed.
[2023-01-03 07:58] LABS: Glucose Point of Care 96 mg/dl (65-105)
[2023-01-03] MEDS: ASPIRIN 81 MG ENTERIC TABLET PO (08:03)
[2023-01-03] MEDS: ATORVASTATIN 40 MG TABLET 80 MG PO (08:03)
[2023-01-03] MEDS: polyethylene glycoL 3350 17 GM POWD.PACK PO (08:03)
[2023-01-03] MEDS: ENOXAPARIN 40 MG/0.4 ML SYRINGE SUB-Q (08:03)
[2023-01-03] MEDS: PANTOPRAZOLE SODIUM IV 40 MG VIAL IV PUSH (08:03)
[2023-01-03] MEDS: ONDANSETRON INJ 4 MG/2 ML VIAL IV PUSH (08:03)
--- NOTE | 2023-01-03 10:20 | PM.IMPN ---
Progress Note: A&P Assessment and Plan (1) Acute respiratory failure with hypoxia and hypercarbia: Code(s): J96.01 - Acute respiratory failure with hypoxia; J96.02 - Acute respiratory failure with hypercapnia Status: Acute Assessment and Plan: Extubated. -continue bronchodilators -finished antibiotics (2) Septic shock: Code(s): A41.9 - Sepsis, unspecified organism; R65.21 - Severe sepsis with septic shock Status: Acute Assessment and Plan: Resolved Afebrile and clinically improving Finished antibiotic (3) Multifocal pneumonia: Code(s): J18.9 - Pneumonia, unspecified organism Status: Acute Assessment and Plan: Finished antibiotic -12/24: urine Legionella negative -12/24: Urine pneumococcal antigens negative -12/24: mycoplasma IgM antibody low (4) Hypothyroidism: Code(s): E03.9 - Hypothyroidism, unspecified Status: Acute Assessment and Plan: TSH is elevated, -T3 and T4 levels are normal -subclinical hypothyroidism versus euthyroid sick syndrome (5) Chest pain: Code(s): R07.9 - Chest pain, unspecified Status: Acute Assessment and Plan: -could be related to ACS and or ischemic demand due to severe pneumonia and hypoxia on arrival to the ED -cardiology is following the patient -continue aspirin 81 mg and atorvastatin -12/24: echocardiogram: EF 60-65%, grade 2 diastolic dysfunction, moderate aortic valve calcification, moderate to severe aortic stenosis, mean gradient of 29 mmHg and aortic valve area of 1.0 cm2, mild aortic valve regurgitation, mild tricuspid valve regurgitation, no pulmonary hypertension (6) Aortic stenosis: Code(s): I35.0 - Nonrheumatic aortic (valve) stenosis Status: Acute Assessment and Plan: 12/25/2022 echocardiogram revealed moderate- severe aortic valve stenosis with mean gradient of 29 mmHg and aortic valve area of 1.0 cm2 (7) Elevated LFTs: Code(s): R79.89 - Other specified abnormal findings of blood chemistry Status: Acute Assessment and Plan: 12/28: Elevated LFTs Hepatitis panel negative RUQ US IMPRESSION: 1. Edematous gallbladder wall thickening and trace amount of pericholecystic fluid but without evident cholelithiasis or sonographic Farr's on to suggest acute cholecystitis and differential would also include sequela of liver disease, congestive heart failure, renal failure or other generalized edema forming states. If there is specific elevated clinical concern for acute cholecystitis could consider HIDA scan for further evaluation. 2. Right pleural effusion. Monitor Plan PT and OT Will likely need rehab Subjective Date/time seen: 01/03/23 10:20 Interval history: Patient sitting in chair. Looks much better today Review of Systems Review of Systems: All systems reviewed & are unremarkable except as noted in HPI and below (HPI) Exam Narrative: General: Patient is alert awake and in no acute distress HEENT:? Pupils are equal and reactive, sclera is clear, Neck:? Supple, no lymphadenopathy Respiratory:? Bilateral coarse breath sounds, decreased at bases, adequate air entry, no wheezing noted Cardiac:? Sinus tachycardia , S1-S2 is normal, 2/6 ejection systolic murmur of aortic stenosis at the right upper sternal border Abdomen:? Soft, nontender, nondistended, bowel sounds are normal present Extremities:? Left upper extremity edema, bilateral lower extremity has improved, palpable pedal pulses Neuro:? AO x3, follows commands, moves all extremities Skin:? Warm and dry Psych:? Normal speech and affect Objective Data Vital Signs Vital Signs: Vital Signs - 24 hr 01/02/23 12:00 01/02/23 13:05 01/02/23 14:00 Temperature 97.4 F L Pulse Rate 102 H 94 95 Respiratory Rate 18 20 Blood Pressure 122/58 L Pulse Oximetry 94 Oxygen Delivery 01/02/23 22:00 01/02/23 20:45 01/03/23 00:00 Temperature 98.4 F Pulse Rate 93 9
[2023-01-03] MEDS: lisinopriL 10 MG TABLET PO (10:41)
[2023-01-03 11:29] LABS: Glucose Point of Care 129 mg/dl (65-105)
--- NOTE | 2023-01-03 14:03 | PCRCNOTE ---
Pt refused 1400 tootie self, RN informed, Called MD to changed neb txs to PRN.
[2023-01-03 16:35] LABS: Glucose Point of Care 91 mg/dl (65-105)
[2023-01-03 23:23] LABS: Glucose Point of Care 95 mg/dl (65-105)
[2023-01-04] VITALS (9 sets, daily range): BP systolic 105–131; BP diastolic 53–65; PULSE 88–95; RESP 18–20; TEMP 36.6–36.7; O2SAT 98
[2023-01-04 07:19] LABS: Hematocrit 34.3 % (37.0-47.0); Hemoglobin 10.9 g/dL (12.0-15.0); Mean Corpuscular HGB Conc 31.8 g/dl (32-36); Mean Corpuscular Hemoglobin 28.8 pg (26-34); Mean Corpuscular Volume 90.7 fl (80-100); Mean Platelet Volume 10.7 fl (7.4-10.4); Platelet Count Result 189 k/mm3 (150-375); Red Blood Count 3.78 M/mm3 (4.2-5.4); Red Cell Distribution Width 12.6 % (11.5-14.5); White Blood Count 7.8 K/mm3 (4.5-10.0)
[2023-01-04 07:33] LABS: Alanine Aminotransferase 23 U/L (6-35); Albumin Level 3.3 g/dL (3.5-5.1); Alkaline Phosphatase 61 U/L (38-126); Anion Gap 6 mmol/L (8-16); Aspartate Amino Transferase 19 U/L (14-36); Bilirubin,Total 0.8 mg/dL (0.2-1.3); Blood Urea Nitrogen 28 mg/dL (7-17); Calcium 9.1 mg/dL (8.4-10.2); Carbon Dioxide 33 mmol/L (22-30); Chloride 98 mmol/L (98-107); Estimated CRCL calculation 94 ml/min; Estimated Glomerular Filt Rate > 60; Glucose 86 mg/dL (65-110); Magnesium 1.9 mg/dL (1.6-2.3); Potassium 3.7 mmol/L (3.4-5.0); Sodium 137 mmol/L (137-145)
[2023-01-04 07:43] LABS: Glucose Point of Care 116 mg/dl (65-105)
[2023-01-04] MEDS: polyethylene glycoL 3350 17 GM POWD.PACK PO (09:06)
[2023-01-04] MEDS: ENOXAPARIN 40 MG/0.4 ML SYRINGE SUB-Q (09:06)
[2023-01-04] MEDS: ATORVASTATIN 40 MG TABLET 80 MG PO (09:06)
[2023-01-04] MEDS: lisinopriL 10 MG TABLET PO (09:06)
[2023-01-04] MEDS: ASPIRIN 81 MG ENTERIC TABLET PO (09:06)
[2023-01-04] MEDS: ONDANSETRON INJ 4 MG/2 ML VIAL IV PUSH (10:52)
--- NOTE | 2023-01-04 11:14 | PM.IMPN ---
Progress Note: A&P Assessment and Plan (1) Acute respiratory failure with hypoxia and hypercarbia: Code(s): J96.01 - Acute respiratory failure with hypoxia; J96.02 - Acute respiratory failure with hypercapnia Status: Acute Assessment and Plan: Extubated. On oxygen -continue bronchodilators -finished antibiotics (2) Septic shock: Code(s): A41.9 - Sepsis, unspecified organism; R65.21 - Severe sepsis with septic shock Status: Acute Assessment and Plan: Resolved Finished antibiotic (3) Multifocal pneumonia: Code(s): J18.9 - Pneumonia, unspecified organism Status: Acute Assessment and Plan: Finished antibiotic -12/24: urine Legionella negative -12/24: Urine pneumococcal antigens negative -12/24: mycoplasma IgM antibody low (4) Hypothyroidism: Code(s): E03.9 - Hypothyroidism, unspecified Status: Acute Assessment and Plan: TSH is elevated, -T3 and T4 levels are normal -subclinical hypothyroidism versus euthyroid sick syndrome (5) Chest pain: Code(s): R07.9 - Chest pain, unspecified Status: Acute Assessment and Plan: -could be related to ACS and or ischemic demand due to severe pneumonia and hypoxia on arrival to the ED -cardiology is following the patient -continue aspirin 81 mg and atorvastatin -12/24: echocardiogram: EF 60-65%, grade 2 diastolic dysfunction, moderate aortic valve calcification, moderate to severe aortic stenosis, mean gradient of 29 mmHg and aortic valve area of 1.0 cm2, mild aortic valve regurgitation, mild tricuspid valve regurgitation, no pulmonary hypertension (6) Aortic stenosis: Code(s): I35.0 - Nonrheumatic aortic (valve) stenosis Status: Acute Assessment and Plan: 12/25/2022 echocardiogram revealed moderate- severe aortic valve stenosis with mean gradient of 29 mmHg and aortic valve area of 1.0 cm2 (7) Elevated LFTs: Code(s): R79.89 - Other specified abnormal findings of blood chemistry Status: Acute Assessment and Plan: 12/28: Elevated LFTs Hepatitis panel negative RUQ US IMPRESSION: 1. Edematous gallbladder wall thickening and trace amount of pericholecystic fluid but without evident cholelithiasis or sonographic Farr's on to suggest acute cholecystitis and differential would also include sequela of liver disease, congestive heart failure, renal failure or other generalized edema forming states. If there is specific elevated clinical concern for acute cholecystitis could consider HIDA scan for further evaluation. 2. Right pleural effusion. Monitor Plan PT and OT Will likely need rehab Pending placement Subjective Date/time seen: 01/04/23 11:14 Interval history: Stable. No new issues overnight Review of Systems Review of Systems: All systems reviewed & are unremarkable except as noted in HPI and below (HPI) Exam Narrative: General: Patient is alert awake and in no acute distress HEENT:? Pupils are equal and reactive, sclera is clear, Neck:? Supple, no lymphadenopathy Respiratory:? Bilateral coarse breath sounds, decreased at bases, adequate air entry, no wheezing noted Cardiac:? Sinus tachycardia , S1-S2 is normal, 2/6 ejection systolic murmur of aortic stenosis at the right upper sternal border Abdomen:? Soft, nontender, nondistended, bowel sounds are normal present Extremities:? Left upper extremity edema, bilateral lower extremity has improved, palpable pedal pulses Neuro:? AO x3, follows commands, moves all extremities Skin:? Warm and dry Psych:? Normal speech and affect Objective Data Vital Signs Vital Signs: Vital Signs - 24 hr 01/03/23 13:54 01/03/23 12:00 01/03/23 16:00 Temperature 98.0 F Pulse Rate 89 95 90 Respiratory Rate 18 Blood Pressure 103/43 L Pulse Oximetry 100 Oxygen Delivery Fraction of Inspired Oxygen 01/03/23 20:00 01/03/23 22:00 01/03/23 20:00 Temperature 98.7 F Pulse Rate 90
[2023-01-04 12:01] LABS: Glucose Point of Care 97 mg/dl (65-105)
[2023-01-04 16:26] LABS: Glucose Point of Care 112 mg/dl (65-105)
[2023-01-04 20:25] LABS: Glucose Point of Care 101 mg/dl (65-105)
[2023-01-05] VITALS (9 sets, daily range): BP systolic 90–146; BP diastolic 47–71; PULSE 89–98; RESP 16–20; TEMP 36.1–36.8; O2SAT 97–98
[2023-01-05 07:49] LABS: Glucose Point of Care 93 mg/dl (65-105)
[2023-01-05] MEDS: ATORVASTATIN 40 MG TABLET 80 MG PO (08:18)
[2023-01-05] MEDS: ASPIRIN 81 MG ENTERIC TABLET PO (08:18)
[2023-01-05] MEDS: polyethylene glycoL 3350 17 GM POWD.PACK PO (08:18)
[2023-01-05] MEDS: ENOXAPARIN 40 MG/0.4 ML SYRINGE SUB-Q (08:18)
[2023-01-05] MEDS: lisinopriL 10 MG TABLET PO (08:18)
--- NOTE | 2023-01-05 10:37 | PM.IMPN ---
Progress Note: A&P Assessment and Plan (1) Acute respiratory failure with hypoxia and hypercarbia: Code(s): J96.01 - Acute respiratory failure with hypoxia; J96.02 - Acute respiratory failure with hypercapnia Status: Acute Assessment and Plan: On room air now -continue bronchodilators -finished antibiotics (2) Septic shock: Code(s): A41.9 - Sepsis, unspecified organism; R65.21 - Severe sepsis with septic shock Status: Acute Assessment and Plan: Resolved Finished antibiotic (3) Multifocal pneumonia: Code(s): J18.9 - Pneumonia, unspecified organism Status: Acute Assessment and Plan: Finished antibiotic -12/24: urine Legionella negative -12/24: Urine pneumococcal antigens negative -12/24: mycoplasma IgM antibody low (4) Hypothyroidism: Code(s): E03.9 - Hypothyroidism, unspecified Status: Acute Assessment and Plan: TSH is elevated, -T3 and T4 levels are normal -subclinical hypothyroidism versus euthyroid sick syndrome (5) Chest pain: Code(s): R07.9 - Chest pain, unspecified Status: Acute Assessment and Plan: -could be related to ACS and or ischemic demand due to severe pneumonia and hypoxia on arrival to the ED -cardiology is following the patient -continue aspirin 81 mg and atorvastatin -12/24: echocardiogram: EF 60-65%, grade 2 diastolic dysfunction, moderate aortic valve calcification, moderate to severe aortic stenosis, mean gradient of 29 mmHg and aortic valve area of 1.0 cm2, mild aortic valve regurgitation, mild tricuspid valve regurgitation, no pulmonary hypertension (6) Aortic stenosis: Code(s): I35.0 - Nonrheumatic aortic (valve) stenosis Status: Acute Assessment and Plan: 12/25/2022 echocardiogram revealed moderate- severe aortic valve stenosis with mean gradient of 29 mmHg and aortic valve area of 1.0 cm2 (7) Elevated LFTs: Code(s): R79.89 - Other specified abnormal findings of blood chemistry Status: Acute Assessment and Plan: 12/28: Elevated LFTs Hepatitis panel negative RUQ US IMPRESSION: 1. Edematous gallbladder wall thickening and trace amount of pericholecystic fluid but without evident cholelithiasis or sonographic Farr's on to suggest acute cholecystitis and differential would also include sequela of liver disease, congestive heart failure, renal failure or other generalized edema forming states. If there is specific elevated clinical concern for acute cholecystitis could consider HIDA scan for further evaluation. 2. Right pleural effusion. Monitor Plan PT and OT Will likely need rehab Pending placement Subjective Date/time seen: 01/05/23 10:37 Interval history: Stable Review of Systems Review of Systems: All systems reviewed & are unremarkable except as noted in HPI and below (HPI) Exam Narrative: General: Patient is alert awake and in no acute distress HEENT:? Pupils are equal and reactive, sclera is clear, Neck:? Supple, no lymphadenopathy Respiratory:? Bilateral coarse breath sounds, decreased at bases, adequate air entry, no wheezing noted Cardiac:? Sinus tachycardia , S1-S2 is normal, 2/6 ejection systolic murmur of aortic stenosis at the right upper sternal border Abdomen:? Soft, nontender, nondistended, bowel sounds are normal present Extremities:? Left upper extremity edema, bilateral lower extremity has improved, palpable pedal pulses Neuro:? AO x3, follows commands, moves all extremities Skin:? Warm and dry Psych:? Normal speech and affect Objective Data Vital Signs Vital Signs: Vital Signs - 24 hr 01/04/23 14:00 01/04/23 12:00 01/04/23 16:00 Temperature 98.0 F Pulse Rate 92 91 88 Respiratory Rate 20 Blood Pressure 112/54 L Pulse Oximetry 98 Oxygen Delivery Fraction of Inspired Oxygen 01/04/23 20:27 01/04/23 20:00 01/04/23 20:00 Temperature 98.0 F Pulse Rate 93 93 95 Respiratory Rate 18 18 B
[2023-01-05 11:53] LABS: Glucose Point of Care 110 mg/dl (65-105)
--- NOTE | 2023-01-05 15:40 | PCSTNOTE ---
Please refer to the Bedside Swallow Evaluation in the EMR. Please note, silent aspiration cannot be ruled out at bedside.
--- NOTE | 2023-01-05 15:42 | PCSTNOTE ---
Please refer to the Bedside Swallow Evaluation in the EMR. Please note, silent aspiration cannot be ruled out at bedside.
[2023-01-05 16:14] LABS: Glucose Point of Care 79 mg/dl (65-105)
[2023-01-05 21:42] LABS: Glucose Point of Care 106 mg/dl (65-105)
[2023-01-06] VITALS (8 sets, daily range): BP systolic 110–122; BP diastolic 53–59; PULSE 84–99; RESP 14–16; TEMP 36.5–36.9; O2SAT 99–100
[2023-01-06 08:16] LABS: Glucose Point of Care 87 mg/dl (65-105)
[2023-01-06] MEDS: lisinopriL 10 MG TABLET PO (09:22)
[2023-01-06] MEDS: ASPIRIN 81 MG ENTERIC TABLET PO (09:22)
[2023-01-06] MEDS: ENOXAPARIN 40 MG/0.4 ML SYRINGE SUB-Q (09:26)
[2023-01-06] MEDS: ATORVASTATIN 40 MG TABLET 80 MG PO (09:26)
[2023-01-06 10:26] LABS: Mean Corpuscular HGB Conc 32.4 g/dl (32-36); Mean Corpuscular Hemoglobin 29.2 pg (26-34); Mean Corpuscular Volume 90.2 fl (80-100); Mean Platelet Volume 10.3 fl (7.4-10.4); Platelet Count Result 204 k/mm3 (150-375); Red Blood Count 3.77 M/mm3 (4.2-5.4); Red Cell Distribution Width 12.5 % (11.5-14.5); White Blood Count 9.8 K/mm3 (4.5-10.0)
[2023-01-06 11:35] LABS: Glucose Point of Care 82 mg/dl (65-105)
--- NOTE | 2023-01-06 13:37 | PM.IMPN ---
Progress Note: A&P Assessment and Plan (1) Acute respiratory failure with hypoxia and hypercarbia: Code(s): J96.01 - Acute respiratory failure with hypoxia; J96.02 - Acute respiratory failure with hypercapnia Status: Acute Assessment and Plan: On room air now -continue bronchodilators -finished antibiotics (2) Septic shock: Code(s): A41.9 - Sepsis, unspecified organism; R65.21 - Severe sepsis with septic shock Status: Acute Assessment and Plan: Resolved Finished antibiotic (3) Multifocal pneumonia: Code(s): J18.9 - Pneumonia, unspecified organism Status: Acute Assessment and Plan: Finished antibiotic -12/24: urine Legionella negative -12/24: Urine pneumococcal antigens negative -12/24: mycoplasma IgM antibody low (4) Hypothyroidism: Code(s): E03.9 - Hypothyroidism, unspecified Status: Acute Assessment and Plan: TSH is elevated, -T3 and T4 levels are normal -subclinical hypothyroidism versus euthyroid sick syndrome (5) Chest pain: Code(s): R07.9 - Chest pain, unspecified Status: Acute Assessment and Plan: -could be related to ACS and or ischemic demand due to severe pneumonia and hypoxia on arrival to the ED -cardiology is following the patient -continue aspirin 81 mg and atorvastatin -12/24: echocardiogram: EF 60-65%, grade 2 diastolic dysfunction, moderate aortic valve calcification, moderate to severe aortic stenosis, mean gradient of 29 mmHg and aortic valve area of 1.0 cm2, mild aortic valve regurgitation, mild tricuspid valve regurgitation, no pulmonary hypertension (6) Aortic stenosis: Code(s): I35.0 - Nonrheumatic aortic (valve) stenosis Status: Acute Assessment and Plan: 12/25/2022 echocardiogram revealed moderate- severe aortic valve stenosis with mean gradient of 29 mmHg and aortic valve area of 1.0 cm2 (7) Elevated LFTs: Code(s): R79.89 - Other specified abnormal findings of blood chemistry Status: Acute Assessment and Plan: 12/28: Elevated LFTs Hepatitis panel negative RUQ US IMPRESSION: 1. Edematous gallbladder wall thickening and trace amount of pericholecystic fluid but without evident cholelithiasis or sonographic Farr's on to suggest acute cholecystitis and differential would also include sequela of liver disease, congestive heart failure, renal failure or other generalized edema forming states. If there is specific elevated clinical concern for acute cholecystitis could consider HIDA scan for further evaluation. 2. Right pleural effusion. Monitor Plan PT and OT Will likely need rehab dc hansen dc tele medically stable awaiting placement Subjective Date/time seen: 01/06/23 13:37 Interval history: 57-year-old female with hypothyroidism and a remote history of Hodgkin lymphoma who presented to the emergency department via EMS for evaluation of chest pain and shortness of breath. She is intubated and sedated and is unable to provide any history and as such the following is obtained via a review of her EMR and triage nurse and ED physician notes. Her Jac provides additional information. Pt is much improved transferred out of icu roughly two weeks ago. Today dc hansen dc tele continue PT Dc home with SNF v rehab placement Review of Systems Review of Systems: No specific complaints Exam Narrative: General: Patient is alert awake and in no acute distress HEENT:? Pupils are equal and reactive, sclera is clear, Neck:? Supple, no lymphadenopathy Respiratory:? Bilateral coarse breath sounds, decreased at bases, adequate air entry, no wheezing noted Cardiac:? Sinus tachycardia , S1-S2 is normal, 2/6 ejection systolic murmur of aortic stenosis at the right upper sternal border Abdomen:? Soft, nontender, nondistended, bowel sounds are normal present Extremities:? Left upper extremity edema, bilateral lower extremity has improved, palpable p
--- NOTE | 2023-01-06 14:11 | PCNFU ---
Nutrition Follow-Up Complete: Inadequate energy needs related to sepsis, mechanical ventilation as evidenced by need for full tube feeding plus protein modulars. Meet estimated protein energy needs - Meeting goal PO with improved intakes Goal: Pt current nutrition is Regular diet. Declines supplements. Nutrition recommendation: Continue regular diet. Agree with orders. Last recorded weight is 81 kg. Bowel Motility: Bowel movements not recorded Labs Reviewed: Labs from today are still pending Meds Noted: Ish, miralax Skin: Deep tissue non blanchable noted to BL heels on 12/31/22 Additional Notes: Intakes have improved since pt was advanced to regular diet. Today she is saying she wants to get up and walk. Discharge planning to SNF. Pt does not want any supplements. Monitoring tube feeding tolerance, weights, labs, plan of care Following daily in ICU rounds. Reassess Wednesday and Fridays.
[2023-01-06 15:03] LABS: Anion Gap 7 mmol/L (8-16); Blood Urea Nitrogen 24 mg/dL (7-17); Carbon Dioxide 30 mmol/L (22-30); Chloride 98 mmol/L (98-107); Estimated CRCL calculation 93 ml/min; Estimated Glomerular Filt Rate > 60; Glucose 88 mg/dL (65-110); Potassium 3.9 mmol/L (3.4-5.0); Sodium 135 mmol/L (137-145)
--- NOTE | 2023-01-06 15:32 | PC.NURSE ---
Patient hansen catheter removed, pt tolerated well, pt ambulated to bathroom and voided after removal, pt sitting up in the chair with call light in reach, safety precautions in place.
[2023-01-06 16:46] LABS: Glucose Point of Care 72 mg/dl (65-105)
[2023-01-06 20:41] LABS: Glucose Point of Care 113 mg/dl (65-105)
[2023-01-07 06:00] VITALS: BP 111/63; PULSE 88; RESP 16; TEMP 36.7; O2SAT 98
[2023-01-07 08:18] LABS: Glucose Point of Care 89 mg/dl (65-105)
[2023-01-07] MEDS: ENOXAPARIN 40 MG/0.4 ML SYRINGE SUB-Q (09:25)
[2023-01-07] MEDS: ASPIRIN 81 MG ENTERIC TABLET PO (09:26)
[2023-01-07] MEDS: lisinopriL 10 MG TABLET PO (09:26)
[2023-01-07] MEDS: polyethylene glycoL 3350 17 GM POWD.PACK PO (09:26)
[2023-01-07] MEDS: ATORVASTATIN 40 MG TABLET 80 MG PO (09:26)
[2023-01-07 11:46] LABS: Glucose Point of Care 94 mg/dl (65-105)
[2023-01-07 14:00] VITALS: BP 121/46; PULSE 92; RESP 18; TEMP 36.5; O2SAT 100
--- NOTE | 2023-01-07 15:12 | PM.IMPN ---
Progress Note: A&P Assessment and Plan (1) Acute respiratory failure with hypoxia and hypercarbia: Code(s): J96.01 - Acute respiratory failure with hypoxia; J96.02 - Acute respiratory failure with hypercapnia Status: Acute (2) Septic shock: Code(s): A41.9 - Sepsis, unspecified organism; R65.21 - Severe sepsis with septic shock Status: Acute (3) Multifocal pneumonia: Code(s): J18.9 - Pneumonia, unspecified organism Status: Acute (4) Hypothyroidism: Code(s): E03.9 - Hypothyroidism, unspecified Status: Acute (5) Chest pain: Code(s): R07.9 - Chest pain, unspecified Status: Acute (6) Aortic stenosis: Code(s): I35.0 - Nonrheumatic aortic (valve) stenosis Status: Acute (7) Elevated LFTs: Code(s): R79.89 - Other specified abnormal findings of blood chemistry Status: Acute Plan 57-year-old female with hypothyroidism and a remote history of Hodgkin lymphoma who presented to the emergency department via EMS for evaluation of chest pain and shortness of breath. On arrival of EMS she was noted to be wasserman cold to touch and diaphoretic. On arrival to the ED she was tachycardic and 129 respiratory rate 30 eats a sputum to 78% on 3 L. ABG showed 7.25/40/260/21. She was in respiratory distress and was emergently intubated. CTA of the chest abdomen pelvis showed extensive bilateral airspace consolidation consistent with pneumonia, moderate pleural effusions, hepatomegaly and nonobstructing left nephrolithiasis. CT head showed no acute abnormality. She was started on broad-spectrum antibiotics for pneumonia. COVID and influenza test was negative. Lactate is elevated at 3.2 proBNP 1690. UDS was negative. She was treated in the ICU for her acute respiratory failure and sepsis he subsequently developed hypotension needing IV pressors indicating septic shock. She was subsequently extubated on 12/30/2022 3 after successful weaning trial head was placed on oxygen supplementation via nasal cannula. Workup throughout the hospital stay also revealed moderate to severe aortic stenosis on her echocardiogram. She will need to follow up with Cardiology as an outpatient basis for continued workup and evaluation. She is off oxygen. Work with PT and OT. Generalized weakness persist. Subjective Date/time seen: 01/07/23 15:12 Interval history: 57-year-old female with hypothyroidism and a remote history of Hodgkin lymphoma who presented to the emergency department via EMS for evaluation of chest pain and shortness of breath. On arrival of EMS she was noted to be wasserman cold to touch and diaphoretic. On arrival to the ED she was tachycardic and 129 respiratory rate 30 eats a sputum to 78% on 3 L. ABG showed 7.25/40/260/21. She was in respiratory distress and was emergently intubated. CTA of the chest abdomen pelvis showed extensive bilateral airspace consolidation consistent with pneumonia, moderate pleural effusions, hepatomegaly and nonobstructing left nephrolithiasis. CT head showed no acute abnormality. She was started on broad-spectrum antibiotics for pneumonia. COVID and influenza test was negative. Lactate is elevated at 3.2 proBNP 1690. UDS was negative. She was treated in the ICU for her acute respiratory failure and sepsis he subsequently developed hypotension needing IV pressors indicating septic shock. She was subsequently extubated on 12/30/2022 3 after successful weaning trial head was placed on oxygen supplementation via nasal cannula. Workup throughout the hospital stay also revealed moderate to severe aortic stenosis on her echocardiogram. She will need to follow up with Cardiology as an outpatient basis for continued workup and evaluation. She is off oxygen. Work with PT and OT. Generalized weakness persist. Review of Systems Review of Systems: All systems reviewed & are unremarkable except as noted in HPI and below (HPI) Exam Narrative: General:
[2023-01-07 16:47] LABS: Glucose Point of Care 77 mg/dl (65-105)
[2023-01-07 22:00] VITALS: BP 139/65; PULSE 94; RESP 18; TEMP 36.4; O2SAT 99
[2023-01-07 22:57] LABS: Glucose Point of Care 96 mg/dl (65-105)
[2023-01-08 06:00] VITALS: BP 141/63; PULSE 92; RESP 16; TEMP 36.7; O2SAT 99
[2023-01-08 06:14] LABS: Basophils Absolute Auto 0.1 K/mm3 (0.0-0.1); Basophils Percent Auto 0.6 % (0.2-1.2); Eosinophils Absolute Auto 0.3 K/mm3 (0-0.3); Eosinophils Percent Auto 3.5 % (0-4.4); Hematocrit 33.2 % (37.0-47.0); Hemoglobin 10.7 g/dL (12.0-15.0); Immature Granulocyte Absolute 0.03 K/mm3 (0.00-0.031); Immature Granulocyte Percent A 0.4 % (0-0.5); Lymphocytes Absolute Auto 1.01 K/mm3 (0.9-3.2); Lymphocytes Percent Auto 12.6 % (18.3-44.2); Mean Corpuscular HGB Conc 32.2 g/dl (32-36); Mean Corpuscular Hemoglobin 28.9 pg (26-34); Mean Corpuscular Volume 89.7 fl (80-100); Mean Platelet Volume 10.4 fl (7.4-10.4); Monocytes Absolute Auto 0.6 K/mm3 (0.1-0.6); Monocytes Percent Auto 7.3 % (2.6-8.5); Neutrophils Percent Auto 75.6 % (45.5-73.1); Platelet Count Result 199 k/mm3 (150-375); Red Cell Distribution Width 12.5 % (11.5-14.5)
[2023-01-08 06:26] LABS: Alanine Aminotransferase 24 U/L (6-35); Albumin Level 3.6 g/dL (3.5-5.1); Alkaline Phosphatase 75 U/L (38-126); Anion Gap 6 mmol/L (8-16); Aspartate Amino Transferase 27 U/L (14-36); Bilirubin,Total 0.9 mg/dL (0.2-1.3); Blood Urea Nitrogen 18 mg/dL (7-17); Calcium 8.8 mg/dL (8.4-10.2); Carbon Dioxide 28 mmol/L (22-30); Chloride 101 mmol/L (98-107); Estimated CRCL calculation 94 ml/min; Estimated Glomerular Filt Rate > 60; Glucose 90 mg/dL (65-110); Magnesium 1.9 mg/dL (1.6-2.3); Potassium 3.5 mmol/L (3.4-5.0); Sodium 135 mmol/L (137-145)
[2023-01-08 07:45] LABS: Glucose Point of Care 92 mg/dl (65-105)
[2023-01-08] MEDS: ATORVASTATIN 40 MG TABLET 80 MG PO (08:34)
[2023-01-08] MEDS: ENOXAPARIN 40 MG/0.4 ML SYRINGE SUB-Q (08:34)
[2023-01-08] MEDS: ASPIRIN 81 MG ENTERIC TABLET PO (08:35)
[2023-01-08] MEDS: lisinopriL 10 MG TABLET PO (08:35)
--- NOTE | 2023-01-08 11:34 | PM.DS ---
DS: Admitting Diagnosis Discharge Date 01/09/2020 Admitting Diagnosis Septic shock DS: Discharge Diagnosis Discharge Diagnosis (1) Acute respiratory failure with hypoxia and hypercarbia: Code(s): J96.01 - Acute respiratory failure with hypoxia; J96.02 - Acute respiratory failure with hypercapnia Status: Acute (2) Septic shock: Code(s): A41.9 - Sepsis, unspecified organism; R65.21 - Severe sepsis with septic shock Status: Acute (3) Multifocal pneumonia: Code(s): J18.9 - Pneumonia, unspecified organism Status: Acute (4) Hypothyroidism: Code(s): E03.9 - Hypothyroidism, unspecified Status: Acute (5) Chest pain: Code(s): R07.9 - Chest pain, unspecified Status: Acute (6) Aortic stenosis: Code(s): I35.0 - Nonrheumatic aortic (valve) stenosis Status: Acute (7) Elevated LFTs: Code(s): R79.89 - Other specified abnormal findings of blood chemistry Status: Acute DS: Summary Hospital Course Hospital Course: 57-year-old female with hypothyroidism and a remote history of Hodgkin lymphoma who presented to the emergency department via EMS for evaluation of chest pain and shortness of breath.? On arrival of EMS she was noted to be wasserman cold to touch and diaphoretic.? On arrival to the ED she was tachycardic and 129 respiratory rate 30 eats a sputum to 78% on 3 L.? ABG showed 7.25/40/260/21.? She was in respiratory distress and was emergently intubated.? CTA of the chest abdomen pelvis showed extensive bilateral airspace consolidation consistent with pneumonia, moderate pleural effusions, hepatomegaly and nonobstructing left nephrolithiasis.? CT head showed no acute abnormality.? She was started on broad-spectrum antibiotics for pneumonia.? COVID and influenza test was negative.? Lactate is elevated at 3.2 proBNP 1690.? UDS was negative.? She was treated in the ICU for her acute respiratory failure and sepsis he subsequently developed hypotension needing IV pressors indicating septic shock.? She was subsequently extubated on 12/30/2022 3 after successful weaning trial head was placed on oxygen supplementation via nasal cannula.? Workup throughout the hospital stay also revealed moderate to severe aortic stenosis on her echocardiogram.? She will need to follow up with Cardiology as an outpatient basis for continued workup and evaluation.? She is off oxygen.? Work with PT and OT.? Generalized weakness persist. But improving will do outpatient PT OT. Time Spent with Patient Time attestation: Total time spent providing and/or coordinating discharge services: 35 minutes Exam Narrative: General: Patient is alert awake and in no acute distress HEENT:? Pupils are equal and reactive, sclera is clear, Neck:? Supple, no lymphadenopathy Respiratory:? Bilateral coarse breath sounds, decreased at bases, adequate air entry, no wheezing noted Cardiac:? Sinus tachycardia , S1-S2 is normal, 2/6 ejection systolic murmur of aortic stenosis at the right upper sternal border Abdomen:? Soft, nontender, nondistended, bowel sounds are normal present Extremities:? No edema cyanosis or clubbing Neuro:? AO x3, follows commands, moves all extremities Skin:? Warm and dry Psych:? Normal speech and affect DS: Data Data Completed and Pending Completed studies during hospitalization: Exam Type: ? ? CA echo doppler color flow Study Info Indications ?? ? - SHOCK RESPIRATORY FAILURS Complete two-dimensional, color flow and Doppler transthoracic echocardiogram is performed. Account #: ? ? [id number] Summary ? 1. Complete two-dimensional, color flow and Doppler transthoracic echocardiogram is performed. ? 2. Left ventricular systolic function is normal, estimated at 60-65%. ? 3. There is mildly increased left ventricular wall thickness. ? 4. The left ventricular diastolic function is grade II diastolic dysfunction. ? 5. The aortic valve is trileaflet. ? 6. There is moderate aor
[2023-01-08 11:44] LABS: Glucose Point of Care 112 mg/dl (65-105)
== END 2023-01-08 13:50 | disposition home or self-care (01) | DRG 870 ==
LOC: ANHED 13:44 → ANHICU 14:29 → ANH3MEDSUR 01-01 11:11
PROVIDERS: Family Medicine; Internal Medicine; Physician Assistant; Admitting Provider Internal Medicine; Emergency Provider Student in an Organized Health Care Education/Training Program; Visit Provider Hospitalist
DX: A41.9 Sepsis, unspecified organism (principal); J96.01 Acute respiratory failure with hypoxia; J18.9 Pneumonia, unspecified organism; R65.21 Severe sepsis with septic shock; J96.02 Acute respiratory failure with hypercapnia; T17.990A Other foreign object in respiratory tract, part unspecified in causing asphyxiation, initial encounter; I35.0 Nonrheumatic aortic (valve) stenosis; N20.0 Calculus of kidney; E03.9 Hypothyroidism, unspecified; D63.8 Anemia in other chronic diseases classified elsewhere; E16.2 Hypoglycemia, unspecified; R79.89 Other specified abnormal findings of blood chemistry; R73.9 Hyperglycemia, unspecified; F32.A Depression, unspecified; Z20.822 Contact with and (suspected) exposure to COVID-19; Z85.71 Personal history of Hodgkin lymphoma
CPT/HCPCS: 31500; 36415; 36600; 70450; 71045; 71275; 74018; 74174; 76705; 80048; 80053; 80074; 80202; 80307; 81001; 81025; 82375; 82533; 82550; 82607; 82746; 82805; 82948; 83036; 83050; 83540; 83550; 83605; 83690; 83735; 83880; 84100; 84439; 84443; 84480; 84484; 85025; 85027; 85610; 85730; 86140; 86738; 87040; 87070; 87077; 87081; 87086; 87088; 87186; 87205; 87449; 87636; 87899; 92610; 92611; 93005; 93306; 93971; 94003; 94640; 96374; 96375; 97110; 97112; 97116; 97161; 97166; 97530; 97535; 99291; A9270; C1751; C9113; J0171; J0456; J0613; J0696; J1610; J1644; J1650; J1720; J1940; J2250; J2405; J2704; J3010; J3370; J3475; J3480; J7030; J7040; P9047; Q9967

== ENCOUNTER 2023-03-03 16:00 | Outpatient (CLI) | payer BC, SELFPAY ==
[2023-03-03 17:09] LABS: Free T4 Free Thyroxine 1.32 ng/mL (0.78-2.19)
== END 2023-03-03 16:01 | disposition home or self-care (01) ==
LOC: ANHLAB 16:01
PROVIDERS: PCP Family Medicine; Visit Provider Family Medicine
DX: E03.9 Hypothyroidism, unspecified (principal)
CPT/HCPCS: 36415; 84439; 84443

== ENCOUNTER 2023-06-24 00:55 | Day surgery (SDC) | payer BC, SELFPAY ==
[2023-06-02 13:36] VITALS: BMI 26.6
--- NOTE | 2023-06-22 09:14 | SUR.PREOP ---
Patient called regarding upcoming procedure. Voicemail left regarding appointment times.
--- NOTE | 2023-06-23 17:48 | PM.HPGS ---
History of Present Illness History of Present Illness Consent: Risks, benefits, and alternatives have been discussed and questions answered. Patient agrees to proceed with procedure. Chief complaint: hx colon polyps Narrative: Jose David Pacheco is a 57 year old female Referred for colon cancer screening. She has a history of polyps. At the time of her last colonoscopy I removed 4 polyps. Review of Systems Review of Systems: All systems reviewed & are unremarkable except as noted in HPI and below PMFSH Past Medical History Medical History Chest pain Depression HLD (hyperlipidemia) Hodgkin lymphoma In the 1990s. Hypothyroidism Surgical History Surgical History No significant past surgical history Family History Family History Father Hypertension Diabetes mellitus Sibling Hypertension Other Family history unknown Social History Social History Social History: Surrogate medical decision maker: Jac Pacheco, spouse. Code status: Full code. Smoking status: Never smoker Alcohol intake: current Alcohol use details: occasional Substance use: never Substance use type: does not use Living arrangements: with family Additional living arrangements comments: however she and her live in separate homes. They have 1 grown daughter who lives in [place]. Daughter is healthy. She has 2 sisters who are healthy. Both parents are from old age. 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 Spiritual care concerns: No Meds Home Medications and Allergies Home Medications Medication Instructions Recorded Confirmed Type aspirin 81 mg tablet,delayed 81 mg PO QAM #30 tabs 01/08/23 06/02/23 Rx release atorvastatin 40 mg tablet 80 mg PO DAILY #30 tabs 01/08/23 06/02/23 Rx ergocalciferol (vitamin D2) 1,250 50,000 unit PO WEEKLY 06/18/23 06/18/23 History mcg (50,000 unit) capsule Allergies Allergy/AdvReac Type Severity Reaction Status Date / Time No Known Allergies Allergy Verified 06/24/23 08:53 Exam Resp: Auscultation: clear to auscultation bilaterally Cardio: Rate: regular rate Rhythm: regular rhythm GI: GI Palp: Yes Soft to palpation and No Tenderness to palpation present (GI) Assessment and Plan Assessment and plan (1) Colon cancer screening: Code(s): Z12.11 - Encounter for screening for malignant neoplasm of colon Status: Acute Assessment and Plan: Colonoscopy with possible biopsy or polypectomy or cautery or injection of substances.
[2023-06-24 08:54] VITALS: BP 146/80; PULSE 98; RESP 18; TEMP 36.2; O2SAT 98
[2023-06-24] MEDS: LACTATED RINGERS 1,000 ML 150 ML IV CONT (09:16)
[2023-06-24 10:03] VITALS: BP 103/47; PULSE 92; RESP 20; O2SAT 100
[2023-06-24 10:13] VITALS: BP 123/64; PULSE 90; RESP 19; O2SAT 100
[2023-06-24 10:23] VITALS: BP 138/64; PULSE 91; RESP 17; O2SAT 100
--- NOTE | 2023-06-25 15:32 | P.PNAN_ITS ---
Anes - Initial Pre Proc Eval Procedure: Operation Date: 06/24/23 10:00 Proposed Procedures p Colonoscopy - Shahid Rodriguez MD Date/Time: 06/25/23 15:32 Surgeon: Shahid Rodriguez MD Pre Op Diagnosis: hx colon polyps Patient Data Age: 57 Gender: F Height: 1.68 m Weight: 74.6 kg Last Vital Signs Temp 97.1 F L 06/24/23 08:54 Pulse 91 06/24/23 10:23 Resp 17 06/24/23 10:23 BP 138/64 06/24/23 10:23 Pulse Ox 100 06/24/23 10:23 O2 Del Method Room Air 06/24/23 10:23 Allergies Allergy/AdvReac Type Severity Reaction Status Date / Time No Known Allergies Allergy Verified 06/24/23 08:53 Home Medications Medication Instructions Recorded Confirmed Type aspirin 81 mg tablet,delayed 81 mg PO QAM #30 tabs 01/08/23 06/02/23 Rx release atorvastatin 40 mg tablet 80 mg PO DAILY #30 tabs 01/08/23 06/02/23 Rx ergocalciferol (vitamin D2) 1,250 50,000 unit PO WEEKLY 06/18/23 06/18/23 History mcg (50,000 unit) capsule Patient hx anesthesia problems: none Family hx anesthesia problems: none Results Review: All pre-operative results and documents have been reviewed as part of the pre- operative evaluation. [facility] Past Medical History Medical History Chest pain Depression HLD (hyperlipidemia) Hodgkin lymphoma In the . Hypothyroidism Surgical History Surgical History No significant past surgical history Family History Family History Father Hypertension Diabetes mellitus Sibling Hypertension Other Family history unknown Social History Social History Social History: Surrogate medical decision maker: Jac Pacheco, spouse. Code status: Full code. Smoking status: Never smoker Alcohol intake: current Alcohol use details: occasional Substance use: never Substance use type: does not use Living arrangements: with family Additional living arrangements comments: however she and her live in separate homes. They have 1 grown daughter who lives in [place]. Daughter is healthy. She has 2 sisters who are healthy. Both parents are from old age. 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 Spiritual care concerns: No Anes - Eval Final PreProcedure Day of Procedure 06/25/23 15:32 Patient weight: normal Heart: regular rate and rhythm Lungs: clear to auscultation Airway: Mallampati scale class II Neurological: alert and oriented Last oral intake: >/= 8 hours ASA classification: III Emergent: no Anesthetic plan: proceed Anesthesia type and monitoring: general GIVS and standard monitoring Results Review: All pre-operative results and documents have been reviewed as part of the pre- operative evaluation. Informed Consent: The patient's anesthetic plan and its attendant risks and benefits were discussed with the patient/family/POA. Questions were solicited and answers provided to the satisfaction of the patient/family/POA.
== END 2023-06-24 10:33 | disposition home or self-care (01) ==
PROVIDERS: PCP Family Medicine; Referring Provider Nurse Practitioner Obstetrics & Gynecology; Visit Provider Internal Medicine Gastroenterology
PROC: 0DJD8ZZ Inspection of Lower Intestinal Tract, Via Natural or Artificial Opening Endoscopic (ICD-10-PCS; CPT 45378; principal; 2023-06-24 10:00)
DX: Z12.11 Encounter for screening for malignant neoplasm of colon (principal); D12.2 Benign neoplasm of ascending colon; D12.5 Benign neoplasm of sigmoid colon; E78.5 Hyperlipidemia, unspecified; E03.9 Hypothyroidism, unspecified; Z85.72 Personal history of non-Hodgkin lymphomas
CPT/HCPCS: 45380; 88305; J7120

== ENCOUNTER 2023-09-06 06:32 | Outpatient (CLI) | payer BC, SELFPAY ==
--- NOTE | ~2023-09-06 | MR_ITS ---
EXAMINATION: MR brain/brain stem wo con DATE: 09/06/2023 07:35 INDICATION: Headache, unspecified. TECHNIQUE: Magnetic resonance imaging (MRI) of the brain and brainstem was performed without intraven ous contrast. COMPARISON: None. FINDINGS: There are scattered areas of nonspecific increased T2-weighted signal intensity in the cere bral white matter. There is no intracranial hemorrhage, acute infarction, or abnormal intracranial ma ss lesion. The ventricles are normal in size. There is mild mucosal thickening in the paranasal sinus es. The orbits are normal. There are trace bilateral mastoid effusions. IMPRESSION: 1. Mild nonspecific cerebral white matter disease, which likely represents chronic small vessel ische isaac disease. Reviewed, dictated and finalized at location A. IMPRESSION: 1. Mild nonspecific cerebral white matter disease, which likely represents plug sorter galen small vessel ischemic disease.
== END 2023-09-06 06:33 | disposition home or self-care (01) ==
PROVIDERS: PCP Family Medicine; Visit Provider Physician Assistant
DX: R90.82 White matter disease, unspecified (principal)
CPT/HCPCS: 70551

== ENCOUNTER 2023-09-21 10:26 | Outpatient (CLI) | payer BC, SELFPAY ==
--- NOTE | ~2023-09-21 | CT_ITS ---
Clinical Indication: Dyspnea CT Scan of the Chest with Contrast: Technique: Contiguous sections were acquired throughout the chest after intravenous administration of 100 cc of Omnipaque 350. Dose reduction technique was used on this scan by utilizing automated expos ure control and iterative reconstruction technique. The dose-length product (DLP) was 362.44 mGy-cm. COMPARISON: 12/24/2022 Findings: There is no evidence of any significant mediastinal, hilar or axillary lymphadenopathy. There is no f illing defect in the pulmonary arterial tree to suggest pulmonary embolus. There is no evidence of ao rtic dissection or aneurysm. There is no evidence of pleural or pericardial effusion. Probable very subtle mosaic attenuation pattern of the lungs. No suspicious pulmonary nodule or conso lidation seen. Images through the upper abdomen reveal no abnormalities. Impression: No evidence of pulmonary embolus, aortic dissection, or aortic aneurysm. Probable very mild mosaic attenuation pattern of the lungs. Correlate for bronchiolitis, asthma, hype rsensitivity pneumonitis, chronic interstitial disease. Reviewed, dictated and finalized at [facility]. Impression: No evidence of pulmonary embolus, aortic dissection, or aortic aneurysm. Probable very mild mosaic attenuation pattern of the lungs. Correlate for bronc hiolitis, asthma, hypersensitivity pneumonitis, chronic interstitial disease.
[2023-09-21 11:27] LABS: Estimated Glomerular Filt Rate 57
== END 2023-09-21 10:27 | disposition home or self-care (01) ==
LOC: ANHIMG 10:30
PROVIDERS: PCP Family Medicine; Visit Provider Internal Medicine Cardiovascular Disease
DX: R06.09 Other forms of dyspnea (principal); R91.8 Other nonspecific abnormal finding of lung field
CPT/HCPCS: 71275; Q9967

== ENCOUNTER 2023-10-02 12:50 | Outpatient (CLI) | payer BC, SELFPAY ==
[2023-10-02 14:11] LABS: Free T4 Free Thyroxine 1.04 ng/mL (0.78-2.19)
== END 2023-10-02 12:51 | disposition home or self-care (01) ==
LOC: ANHLAB 12:52
PROVIDERS: PCP Family Medicine; Visit Provider Physician Assistant
DX: R79.89 Other specified abnormal findings of blood chemistry (principal)
CPT/HCPCS: 36415; 84439; 84443

== ENCOUNTER 2023-10-13 09:39 | Outpatient (CLI) | payer BC, SELFPAY ==
--- NOTE | 2023-10-31 19:40 | WPDSLEEPSTUD ---
Sleep Study Date of Study: 10/13/23 Ordering Provider: Florentin Milner DO Interpreting Physician: Yasmeen Claudio MD Sleep Study Type: Split Polysomnogram Height: 1.68 m Weight: 72.575 kg Body Mass Index: 25.8 Neck Circumference (inches): 12 [place]: 3 Reason for Sleep Study Feels tired going to bed, cannot sleep, lies awake for hours, Sleep History Jose David Pacheco is a 58-year-old woman with difficulty falling asleep and staying asleep. She describes going to bed late when she is tired but then will lie awake for hours. She used to get up every hour and half to 2 hours to walk around after breaking her ankle and not havingowcp then agreed to surgery. She broke her ankle in 2008 but walked on it for 3 weeks before it was set in a cast. She has had daily pain since 2009. Since being released from the hospital in January of 2023. She thinks she may have PTSD/anxiety related to breathing. She never awakens from sleep feeling short of breath. She rarely wakes at night with heartburn, belching or coughing.??She occasionally snores, rarely snores loudly enough that others complain. She rarely has trouble sleeping when she has a cold. She never wakes up gasping for breath during the night. She never has breathing problems at night. She rarely sweats excessively at night. She rarely notices her heart pounding or beating irregularly during the night. She rarely falls asleep during the day. She never falls asleep involuntarily, never falls asleep while driving. She never experiences loss of muscle tone with strong emotion. She never feels paralyzed on waking or falling asleep. She never experiences vivid dreams upon waking or falling asleep. She rarely feels afraid of going to sleep. She rarely has nightmares. She occasionally recalls her dreams. She frequently has thoughts racing through her mind. She rarely feels sad or depressed. She frequently feels anxiety. She never notices parts of her body jerk. She never kicks during the night. She never feels crawling or aching feelings in her legs. She never feels leg pain at night. She never has morning jaw pain, nor does she grind her teeth at night. She occasionally feels bothered by pain during the day, is occasionally awakened by pain during the night. She never wakes up feeling stiff in the morning, never wakes feeling sore or achy in the morning. She never awakens with pain in her neck, spine, or joints. She has memory problems and concentration difficulties. 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 Normal bedtime is 2:00 a.m., falling asleep within 1-2 hours, waking once during the night. While awake, she goes to the bathroom then walks around. She may be able to return to sleep within a 1/2 hour. She wakes at 10:00 a.m., reports getting 6 hours hours of sleep per night. She keeps the same schedule on weekends. She does not take naps in the afternoon or evening. A short nap lasting 10-15 minutes may be refreshing. She feels better in the afternoon compared to other times of day. Habits:??Tobacco: none Caffeine:none Alcohol:none Recreational substances: none PMFSH Past Medical History Medical History Chest pain Depression HLD (hyperlipidemia) Hodgkin lymphoma In the . Hypothyroidism Surgical History Surgical History No significant past surgical history Family History Family History Father Hypertension Diabetes mellitus Sibling Hypertension Other Family history unknown Social History Social History Social History: Surrogate medical decision maker: Jac Pacheco, spouse. Code status: Full code. Smoking status: Never smoker Alcohol intake: current Alcohol use details: occ
[2023-11-01 11:48] VITALS: BMI 25.8
== END 2023-10-14 06:53 | disposition hospice, home (50) ==
LOC: ANHCSM 09:40
PROVIDERS: PCP Family Medicine; Visit Provider Internal Medicine Cardiovascular Disease
DX: G47.10 Hypersomnia, unspecified (principal)
CPT/HCPCS: 95811

== ENCOUNTER 2023-11-02 08:21 | Outpatient (CLI) | payer BC, SELFPAY ==
--- NOTE | 2023-11-02 08:24 | EST_ITS ---
Patient Info Name: Jose David Pacheco Age: 58 years : 1965 Gender: Female Ht: 66 in Wt: 160 lbs BSA: 1.85 m2 HR: 104 bpm BP: 192 / 98 mmHg Heart Rhythm: Sinus Rhythm Exam Date: 11/02/2023 10:11 AM Exam Location: Echo Lab Patient Status: Outpatient Admit Date: 11/02/2023 Staff Ordering Physician: Florentin Milner DO Attending Provider: Florentin Milner DO Exercise Technologist: Brandie Bellamy CT Exercise Physician: Florentin Milner DO Exam Type: CA stress test treadmill Study Info Indications R07.89 - Other chest pain R06.09 - Other forms of dyspnea A treadmill exercise stress test was performed. Summary 1. 1. Negative Barber exercise stress test for ischemic ST changes by ECG criteria. 2. 2. Good functional capacity, achieving 7 NETs of workload. 3. 3. Appropriate HR response to exercise. 4. 4. Appropriate HR recovery at 1 minute post exercise. 5. 5. No imaging with stress testing. 6. 6. Patient informed of the above results. Protocol: Barber Stress ECG Details Stage: REST Duration (min): 0 min : 46 sec Speed (mph): 0.0 Grade (%): 0 HR (bpm): 109 SBP (mmHg): --- DBP (mmHg): --- METS: --- Stage: STAGE 1 Duration (min): 1 min : 0 sec Speed (mph): 1.7 Grade (%): 10 HR (bpm): 128 SBP (mmHg): --- DBP (mmHg): --- METS: --- Stage: STAGE 1 Duration (min): 2 min : 0 sec Speed (mph): 1.7 Grade (%): 10 HR (bpm): 135 SBP (mmHg): --- DBP (mmHg): --- METS: --- Stage: STAGE 1 Duration (min): 3 min : 0 sec Speed (mph): 1.7 Grade (%): 10 HR (bpm): 143 SBP (mmHg): --- DBP (mmHg): --- METS: --- Stage: STAGE 2 Duration (min): 1 min : 0 sec Speed (mph): 2.5 Grade (%): 12 HR (bpm): 148 SBP (mmHg): 176 DBP (mmHg): 76 METS: --- Stage: STAGE 2 Duration (min): 2 min : 0 sec Speed (mph): 2.5 Grade (%): 12 HR (bpm): 150 SBP (mmHg): 168 DBP (mmHg): 70 METS: --- Stage: STAGE 2 Duration (min): 3 min : 0 sec Speed (mph): 2.5 Grade (%): 12 HR (bpm): 152 SBP (mmHg): 168 DBP (mmHg): 70 METS: --- Stage: RECOVERY Duration (min): 0 min : 59 sec Speed (mph): 0.0 Grade (%): 0 HR (bpm): 138 SBP (mmHg): 170 DBP (mmHg): 73 METS: --- Stage: RECOVERY Duration (min): 1 min : 59 sec Speed (mph): 0.0 Grade (%): 0 HR (bpm): 123 SBP (mmHg): 170 DBP (mmHg): 73 METS: --- Stage: RECOVERY Duration (min): 2 min : 48 sec Speed (mph): 0.0 Grade (%): 0 HR (bpm): 117 SBP (mmHg): 187 DBP (mmHg): 87 METS: --- Rest HR: 109 bpm Peak HR: 153 bpm Rest Sys BP: 130 mmHg Peak Sys BP: 187 mmHg Max Pred HR: 161 bpm % Max Pred HR: 95 % Target HR: 137 bpm Max RPP: 28,611 bpm*mmHg Piña Score: -10 Termination Reason: Reached target heart rate or workload Cardiac Symptoms: Shortness of breath Max ST Seg Deviation: -3.30 mm Total Time: 6 min : 0 sec Rest Enciso BP: 70 mmHg Peak Enciso BP: 87 mmHg Angina Score: None Total METS: 7.1 Resting ECG Sinus rhythm, LVH with ST-T change. Stress ECG Borderl
--- NOTE | 2023-11-02 08:24 | ECHO_ITS ---
Patient Info Name: Jose David Pacheco Age: 58 years : 1965 Gender: Female Ht: 66 in Wt: 160 lbs BSA: 1.85 m2 HR: 95 bpm BP: 150 / 87 mmHg Technical Quality: Good Exam Date: 11/02/2023 8:58 AM Exam Location: Echo Lab Patient Status: Outpatient Admit Date: 11/02/2023 Staff Ordering Physician: Florentin Milner DO Greenhouse Superintendent: Shashi Condon RDCS Attending Provider: Florentin Milner DO Referring Physician: Alf YOUNG; Exam Type: CA echo doppler color flow Study Info Indications R06.09 - Other forms of dyspnea Complete two-dimensional, color flow and Doppler transthoracic echocardiogram is performed. Summary 1. Complete two-dimensional, color flow and Doppler transthoracic echocardiogram is performed. 2. Left ventricular chamber dimension is normal. 3. Left ventricular systolic function is normal, estimated at 60-65%. 4. There is mild concentric increased left ventricular wall thickness. 5. The left ventricular diastolic function is grade I diastolic dysfunction. 6. E/e' 15 is elevated. 7. Left atrial chamber dimension is mildly enlarged. 8. There is severe aortic valve sclerosis. 9. There is moderate aortic valve stenosis with a peak velocity of 339 cm/s, mean gradient of 28 mmHg, and aortic valve area of 1.0 cm2. 10. There is moderate aortic valve regurgitation. 11. The mitral valve has moderately calcified annulus. 12. There is mild to moderate mitral valve regurgitation. 13. There is mild tricuspid valve regurgitation. 14. Mild pulmonary hypertension, estimated pulmonary arterial systolic pressure is 48 mmHg. 15. There is trace pulmonic regurgitation. Left Ventricle E/e' 15 is elevated. Left ventricular chamber dimension is normal. Left ventricular systolic function is normal, estimated at 60-65%. There is mild concentric increased left ventricular wall thickness. The left ventricular diastolic function is grade I diastolic dysfunction. Right Ventricle Right ventricular systolic function is normal and with normal TAPSE 1.9 cm. Right ventricular chamber dimension is normal. Left Atria Left atrial chamber dimension is mildly enlarged. Right Atria Right atrial chamber dimension is normal. Aortic Valve The aortic valve is trileaflet. There is severe aortic valve sclerosis. There is moderate aortic valve stenosis with a peak velocity of 339 cm/s, mean gradient of 28 mmHg, and aortic valve area of 1.0 cm2. There is moderate aortic valve regurgitation. Pulmonic Valve There is trace pulmonic regurgitation. Mitral Valve The mitral valve has moderately calcified annulus. There is no mitral valve stenosis. There is mild to moderate mitral valve regurgitation. Tricuspid Valve There is mild tricuspid valve regurgitation. Mild pulmonary hypertension, estimated pulmonary arterial systolic pressure is 48 mmHg. Pericardium/Pleural There is no pericardial effusion. Inferior Vena Cava Normal inferior vena cava with >50% collapse upon inspiration consistent with normal right atrial pressure, 5 mmHg. Aorta The aortic root size at the sinus of Valsalva is normal. Left Ventricular Outflow Tract Name Value Normal LVOT 2D LVOT Diameter 1.9 cm LVOT Doppler LVOT Peak Gradient 6 mmHg
== END 2023-11-02 08:22 | disposition home or self-care (01) ==
LOC: ANHCARD 08:23
PROVIDERS: PCP Family Medicine; Visit Provider Internal Medicine Cardiovascular Disease
DX: R07.9 Chest pain, unspecified (principal); I08.3 Combined rheumatic disorders of mitral, aortic and tricuspid valves
CPT/HCPCS: 93017; 93306

== ENCOUNTER 2023-11-17 16:40 | Outpatient (CLI) | payer BC, SELFPAY ==
[2023-11-17 17:58] LABS: Free T4 Free Thyroxine 1.19 ng/mL (0.78-2.19)
== END 2023-11-17 16:41 | disposition home or self-care (01) ==
LOC: ANHLAB 16:41
PROVIDERS: PCP Family Medicine; Visit Provider Physician Assistant
DX: E03.8 Other specified hypothyroidism (principal)
CPT/HCPCS: 36415; 84439; 84443

== ENCOUNTER 2024-01-25 08:08 | Outpatient (CLI) | payer BC, SELFPAY ==
[2024-01-25 08:43] LABS: Add Urine Microscopic? YES; Appearance Urine Clear (Clear); Bacteria Urine 1+ /hpf; Bilirubin Urine Negative (Negative); Blood Urine 1+ (Negative); Color Urine Yellow (Yellow); Glucose Urine UA Negative (Negative); Ketones Urine Negative (Negative); Leukocyte Esterase Ur 2+ LEU/UL (Negative); Nitrate Urine Negative (Negative); Protein Urine Negative (Negative); Specific Grav Ur 1.023 (1.001-1.035); Squamous Epithelial Cell Urine Few /hpf (Few); WBC Urine 21-50 /hpf (0-3)
[2024-01-25 08:46] LABS: Hematocrit 36.8 % (37.0-47.0); Hemoglobin 12.1 g/dL (12.0-15.0); Mean Corpuscular HGB Conc 32.9 g/dl (32-36); Mean Corpuscular Hemoglobin 29.7 pg (26-34); Mean Corpuscular Volume 90.2 fl (80-100); Mean Platelet Volume 10.7 fl (7.4-10.4); Platelet Count Result 145 k/mm3 (150-375); Red Blood Count 4.08 M/mm3 (4.2-5.4); White Blood Count 5.1 K/mm3 (4.5-10.0)
[2024-01-25 08:59] LABS: Alanine Aminotransferase 19 U/L (6-35); Albumin Level 4.5 g/dL (3.5-5.1); Alkaline Phosphatase 92 U/L (38-126); Anion Gap 5 mmol/L (4-12); Aspartate Amino Transferase 33 U/L (14-36); Bilirubin,Total 0.8 mg/dL (0.2-1.3); Blood Urea Nitrogen 30 mg/dL (7-17); Carbon Dioxide 27 mmol/L (22-30); Chloride 100 mmol/L (98-107); Cholesterol 141 mg/dL (0-200); Estimated Glomerular Filt Rate > 60; Glucose 88 mg/dL (65-110); HDL Direct 58 mg/dL; Potassium 4.3 mmol/L (3.4-5.0); Sodium 132 mmol/L (137-145); Triglycerides 97 mg/dL (<150)
[2024-01-25 09:03] LABS: LDL Cholesterol Direct 57 mg/dL
[2024-01-25 09:43] LABS: Hemoglobin A1C 5.5 % (<5.7)
== END 2024-01-25 08:09 | disposition home or self-care (01) ==
PROVIDERS: PCP Family Medicine; Visit Provider Physician Assistant
DX: Z00.00 Encounter for general adult medical examination without abnormal findings (principal); D64.9 Anemia, unspecified; E03.9 Hypothyroidism, unspecified; E78.5 Hyperlipidemia, unspecified; R73.01 Impaired fasting glucose; R73.9 Hyperglycemia, unspecified
CPT/HCPCS: 36415; 80053; 80061; 81001; 83036; 84443; 85027

== ENCOUNTER 2024-03-07 10:29 | Outpatient (CLI) | payer BC, SELFPAY | END 2024-03-07 10:30 | disposition home or self-care (01) | LOC: ANHLAB 10:30 | PROVIDERS: PCP Family Medicine; Visit Provider Family Medicine | DX: E03.9 Hypothyroidism, unspecified (principal) | CPT/HCPCS: 36415; 84443 ==

== ENCOUNTER 2024-09-08 20:27 | Inpatient (IN) | payer BC, SELFPAY ==
--- NOTE | ~2024-09-08 | XR_ITS ---
EXAMINATION: XR chest 1V portable DATE: 09/09/2024 04:44 INDICATION: Approximately. Decompensation. TECHNIQUE: frontal view of the chest was obtained. COMPARISON: Chest radiograph dated 09/08/2024 at 8:49 PM FINDINGS: Increasing patchy airspace opacities throughout the left mid and lower lung zone consistent with mult ifocal pneumonia. Right lung is clear. No pleural effusion or pneumothorax. The cardiomediastinal narciso houette is normal. Right breast biopsy marker. Visualized bones and soft tissues are unremarkable. IMPRESSION: 1. Multifocal pneumonia in the left lung. Reviewed, dictated and finalized at location A.
--- NOTE | ~2024-09-08 | CT_ITS ---
EXAMINATION: CTA chest PE protocol DATE: 09/09/2024 00:12 INDICATION: Dyspnea. Elevated d-dimer. TECHNIQUE: Computed tomography (CT) pulmonary angiogram of the chest was performed with 200 mL Omnipa que-350 intravenous contrast. Additional 3D reconstructions utilizing coronal maximum intensity proje ction (MIP) were performed. Automated exposure control and iterative reconstruction technique were em ployed. The dose-length product was 611.91 mGy-cm. COMPARISON: 09/21/2023 FINDINGS: No pulmonary embolism. There is airspace opacities throughout the left lung most prominent in the ant erobasilar left lower lobe consistent with multifocal pneumonia. There is chronic paramediastinal con solidation with volume loss in the suprahilar right upper lobe and in the peripheral left upper lobe. Small left pleural effusion. No pulmonary edema and right pleural effusion. Heart size is normal. Th ere appears be left ventricular hypertrophy. Atherosclerotic coronary artery calcification. Aortic va lve calcification. Small pericardial effusion. Thoracic aorta is normal in caliber with no dissection . No pathologically enlarged thoracic lymphadenopathy. Small sliding-type hiatal hernia. 1.4 cm left renal cyst. Mild thoracic spondylosis. IMPRESSION: 1. Multifocal pneumonia in the left lung with small left pleural effusion. 2. Small pericardial effusion. Suggestion of left ventricular hypertrophy. Reviewed, dictated and finalized at location A.
--- NOTE | ~2024-09-08 | XR_ITS ---
CHEST RADIOGRAPH, PA AND LATERAL CLINICAL HISTORY: palpitations/ sob . COMPARISON: 12/31/2022 TECHNIQUE: PA and lateral views of the chest. FINDINGS The cardiomediastinal silhouette is unremarkable. Left upper lobe consolidation. The remainder the lungs are clear. IMPRESSION: Left upper lobe infiltrate. Reviewed, dictated and finalized at location A. IMPRESSION: Left upper lobe infiltrate.
[2024-09-08 20:29] VITALS: BP 140/73; PULSE 132; RESP 20; TEMP 36.6; O2SAT 95
--- NOTE | 2024-09-08 20:29 | ECG_ITS ---
Test Date: 2024-09-08 20:33:15 Measurements Intervals [place] Rate: 126 P: 73 DE: 142 QRS: 52 QRSD: 104 T: 18 QT: 279 QTc: 404 Interpretive Statements SINUS TACHYCARDIA NONSPECIFIC ST & T-WAVE ABNORMALITY ABNORMAL RHYTHM ECG No previous ECG available for comparison Electronically Signed On 09-08-2024 21:55:33 CDT by Viry Gavin M.D.
--- OUTSIDE RECORDS SUMMARY | 2024-09-08 20:29 | XMS_ITS | Encounter Summary ---
Author Organization [facility] Address [address] [place] [address] Care Team Providers Care Mechanical Systems Control Engineer Name Role Phone Lynette Michaud NP Primary Care Provider Unavail able Encounter Details Date Type Department Care Team (Latest Contact Info) Description 10/22/[address] 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
--- OUTSIDE RECORDS SUMMARY | 2024-09-08 20:29 | XMS_ITS | Referral Summary ---
Author Organization [facility] [address] Address [address] [place] [address] Care Team Providers Care Plush Brusher Name Role Phone Alen Nava MD Primary Care Provider Allergies No known active allergies Medications aspirin 81 mg enteric coated tablet Take 1 tablet (81 mg total) by mouth daily Active atorvastatin (LIPITOR) 80 mg tablet Take 1 tablet (80 mg total) by mouth daily 90 tablet 3 01/29/2023 Active Active Problems Problem Noted Date Diagnosed Date Aortic valve stenosis 01/29/2023 Coronary artery calcification seen on CAT scan 0 01/29/2023 Hypertension 01/29/2023 Social History Tobacco Use Types Packs/Day Years Used Date Smoking Tobacco: Never Smokeless Tobacco: Never Tobacco Cessation:Counseling Given: Not Answered AUDIT-C Answer Date Recorded Q1: How often do you have a drink containing alcohol? Never 01/29/2023 Q2: How many drinks containi ng alcohol do you have on a typical day when you are drinking? Patient does not drink Q3: How often do you have si x or more drinks on one occasion? Never 01/29/2023 Personal Safety Answer Date Recorded Getting School Help Needed Not on file 05/07 Comments Unknown Sex and Gender Information Value Date Recorded Sex Assigned at Not on file Legal Sex Female 2:14 AM CHANGE ROOM ATTENDANT Gender Identity Not on file Sexual Orientation Not on file Last Filed Vital Signs Vital Sign Reading Time Taken Comments Blood Pressure 165/97 06/07/2023 3:08 PM CHANGE ROOM ATTENDANT Pulse 100 05/07/2023 8:45 AM CHANGE ROOM ATTENDANT Temperature - - Respiratory Rate - - Oxygen Saturation 99% 05/07/2023 8:45 AM CHANGE ROOM ATTENDANT Inhaled Oxygen Concentration - - Weight 73.9 kg (163 lb) 05/07/2023 8:45 AM CHANGE ROOM ATTENDANT Height 167.6 cm (5' 6 ) 05/07/2023 8:45 AM CHANGE ROOM ATTENDANT Body Mass Index 26.31 05/07/2023 8:45 AM CHANGE ROOM ATTENDANT Plan of Treatment Not on file Insurance [facility] FEDERAL Care Teams Plush Brusher Relationship Specialty Start Date End Date Alen Nava MD [address] [facility] [address] [place] [address] PCP - General Family Medicine 01/29/23
--- OUTSIDE RECORDS SUMMARY | 2024-09-08 20:29 | XMS_ITS | Encounter Summary ---
Author Organization [facility] Address [address] [place] [address] Care Team Providers Care Information Systems Security Manager Name Role Phone Lynette Michaud NP Primary Care Provider Unavail able Encounter Details Date Type Department Care Team (Latest Contact Info) Description 10/21/1999 Outpatient Historical HIS [facility] [place] [address] [place] [address] Hodgkin's disease, nodular sclerosis, unspecified site, extranodal and solid organ sites (CMS/HCC) (Primary Dx) Social History Tobacco Use Types Packs/Day Years Used Date Smoking Tobacco: Never Assessed Comments Unknown Sex and Gender Information Value Date Recorded Sex Assigned at Not on file 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
--- OUTSIDE RECORDS SUMMARY | 2024-09-08 20:29 | XMS_ITS | Clinical Summary ---
Author Organization 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 Active Active Problems Patient Care Coordination No te Formatting of this note migh t be different from the original. Primary Care: Annika Ojeda MD Referring Provider: Marielos Hugo MD [address] [place] [address] Other: Dr Keely Huff Problem Noted Date Diagnosed Date Nonrheumatic aortic valve stenosis 05/17/2019 Mild mitral regurgitation 05/17/2019 At high risk for breast cancer 09/29/2018 Hypothyroidism Hodgkin's disease Resolved Problems Problem Noted Date Diagnosed Date Resolved Date Abnormal mammogram, unspecified 01/12/2012 03/11/2015 Encounters Date Type Department Care Team Description 07/10/2024 External Device Data ST[facility] ABSTRACTION Provider, Abstract 06/21/2024 External Device Data [facility] ABSTRACTION Provider, Abstract 06/21/2024 External Device Data [facility] ABSTRACTION Provider, Abstract from Last 3 Months Family History Medical History Relation Name Comments Diabetes Father Breast Cancer Neg Hx Ovarian Cancer Neg Hx Uterine Cancer Neg Hx Relation Name Status Comments Father Social History Tobacco Use Types Packs/Day Years Used Date Smoking Tobacco: Never Smokeless Tobacco: Never Tobacco Cessation:Counseling Given: No Alcohol Use Standard Drinks/Week Comments Yes 0 (1 standard drink = 0.6 oz pur e alcohol) Comments No Sex and Gender Information Value Date Recorded Sex Assigned at Not on file Legal Sex Female 2:50 AM FIELD OBSERVER Gender Identity Not on file Sexual Orientation Not on file Occupation Industry Job Start Date Job End Date Not on file Not on file Not on file Not on file Last Filed Vital Signs Vital Sign Reading Time Taken Comments Blood Pressure 148/84 05/17/2019 12:56 PM FIELD OBSERVER Pulse 101 05/17/2019 12:56 PM FIELD OBSERVER Temperature - - Respiratory Rate - - Oxygen Saturation 95% 05/17/2019 12:56 PM FIELD OBSERVER Inhaled Oxygen Concentration - - Weight 86.2 kg (190 lb) 05/17/2019 12:56 PM FIELD OBSERVER Height 167.6 cm (5' 6 ) 05/17/2019 12:56 PM FIELD OBSERVER Body Mass Index 30.67 05/17/2019 12:56 PM FIELD OBSERVER Plan of Treatment Health Maintenance Due Date Last Done Comments DTAP/TDAP/TD VACCINES (1 - Tdap) 09/06/1983 HEPATITIS B VACCINES (1 of 3 - 19+ 3-dose series) 09/06/1983 ZOSTER VACCINE (1 of 2) 09/06/1983 HPV/Cotest (21-29) 1985 HPV/Cotest (30-65) 1994 CERVICAL CANCER SCREENING 05/03/2001 PAP SMEAR 05/03/2001 05/03/1998 COLORECTAL SCREENING 2009 Colorectal Cancer Screening 2009 FIT-DNA Q 3 years 2009 FIT/FOBT Q 1 year 2009 Flex Sig/CT Colonography Q 5 years 2009 INFLUENZA VACCINE (#1) 2023 BREAST CANCER SCREENING 09/14/2024 09/15/19 24, 10/14/2022, 10/14/2022, Additional history exists Procedures Procedure Name Priority Date/Time Associated Diagnosis Comments MAMMO 3D YODIT SCREEN BILAT W OR WO CAD Routine 09/15/2023 11:04 AM CDT Visit for screening mammogram from Last 3 Months or Most Recently Relevant to Health Maintenance Results * MAMMO 3D YODIT SCREEN BILAT W OR WO CAD (09/15/2023 11:04 AM CDT) Anatomical Region Laterality Modality Breast Bilateral Mammography 09/15/2023 11:0 4 AM CDT Impressions 09/15/2023 12:05 PM CDT IMPRESSION: Negative bilateral screening mammogram. Recommend routine followup. OVERALL FINAL ASSESSMENT: BI-RADS CATEGORY 1 - Negative. DICTATION LOCATION: [facility] 09/15/2023 12:05 PM CDT BILATERAL SCREENING DIGITAL MAMMOGRAMS WITH COMPUTER ASSISTED DIAGNOSIS WITH TOMOGRAPHY DATE: 09/15/2023 11:04 AM HISTORY: Visit for screening mammogram. COMPARISON: 10/14/2022 and 05/26/2021. TECHNIQUE: A bilateral screening mammogram was performed. Low-dose full-field digital breast tomosynthesis examination was performed with 2D and 3D acquisitions. Examination is read in conjunction with computer aided detection. BREAST COMPOSITION: There are scattered areas of fibroglandular density. FINDINGS: No new masses, suspicious calcifications, or areas of asymmetry or distortion are identified. The images were reviewed using the CAD system. Procedure Note Sanjuana Gusman MD - 09/15/2023 BILATERAL SCREENING DIGITAL MAMMOGRAMS WITH COMPUTER ASSISTED DIAGNOSIS WITH TOMOGRAPHY DATE: 09/15/2023 11:04 AM HISTORY: Visit for screening mammogram. COMPARISON: 10/14/2022 and 05/26/2021. TECHNIQUE: A bilateral screening mammogram was performed. Low-dose full-field digital breast tomosynthesis examination was performed with 2D and 3D acquisitions. Examination is read in conjunction with computer aided detection. BREAST COMPOSITION: There are scattered areas of fibroglandular density. FINDINGS: No new masses, suspicious calcifications, or areas of asymmetry or distortion are identified. The images were reviewed using the CAD system. IMPRESSION: Negative bilateral screening mammogram. Recommend routine followup. OVERALL FINAL ASSESSMENT: BI-RADS CATEGORY 1 - Negative. DICTATION LOCATION: [facility] Alen Nava MD MAMMO ORDERABLES Final Result from Last 3 Months or Most Recently Relevant to Health Maintenance [place] [address] [place] [address] FEDERAL Care Teams Clerical Proofreader Relationship Specialty Start Date End Date Lynette Michaud NP PCP - General NURSE PRACTITIONER 03/23/19
--- OUTSIDE RECORDS SUMMARY | 2024-09-08 20:29 | XMS_ITS | Clinical Summary ---
Author Organization [facility] [address] Address [address] [place] [address] Care Team Providers Care Visual Presentation Manager Name Role Phone Alen Nava MD Primary [...] on CAT scan 0 01/29/2023 Hypertension 01/29/2023 Surgical History Surgery Date Site/Laterality Comments BREAST BIOPSY 07/21/2011 Right Social History Tobacco Use Types Packs/Day Years [...] on file Legal Sex Female 2:14 AM RADIOLOGY PHYSICIAN Gender Identity Not on file Sexual Orientation Not on file Obstetrics History Last Filed Vital Signs Vital Sign Reading Time Taken Comments Blood Pressure 165/97 06/07/2023 3:08 PM RADIOLOGY PHYSICIAN Pulse 100 05/07/2023 8:45 AM RADIOLOGY PHYSICIAN Temperature - - Respiratory Rate - - Oxygen Saturation 99% 05/07/2023 8:45 AM RADIOLOGY PHYSICIAN Inhaled Oxygen Concentration - - Weight 73.9 kg (163 lb) 05/07/2023 8:45 AM RADIOLOGY PHYSICIAN Height 167.6 cm (5' 6 ) 05/07/2023 8:45 AM RADIOLOGY PHYSICIAN Body Mass Index 26.31 05/07/2023 8:45 AM RADIOLOGY PHYSICIAN Plan of Treatment Health Maintenance Due Date Last Done Comments Cervical Cancer Screening 1965 Colon Cancer Screening-Colonoscopy 1965 Depression Screening 1965 Hepatitis C Screening 1965 DTaP/Tdap/Td Vaccine (1 - Tdap) 09/06/1975 Hepatitis B Screening 1982 Regular Well Visit/Exam 18-64 1982 Pneumococcal vaccine <65 (1 of 2 - PCV) 09/06/1983 Zoster Vaccine (1 of 2) 09/06/1983 Breast Cancer Screening-Mammogram 10/15/2023 10/14/2022, 10/14/2022, 05/26/2021, Additional history exists Influenza Vaccine (#1) 2024 Insurance [facility] [employer] [facility] [employer] Care Teams Visual Presentation Manager Relationship Specialty Start Date End Date Alen Nava MD [address] [place] [address] PCP - General Family Medicine 01/29/23
--- OUTSIDE RECORDS SUMMARY | 2024-09-08 20:29 | XMS_ITS | Encounter Summary ---
Author Organization [facility] Address [address] [place] [address] Care Team Providers Care Actuarial Consultant Name Role Phone Lynette Michaud NP Primary Care Provider Unavail able Encounter Details Date Type Department Care Team (Latest Contact Info) Description 09/10/1998 Outpatient Historical HIS 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
--- OUTSIDE RECORDS SUMMARY | 2024-09-08 20:29 | XMS_ITS | Encounter Summary ---
Author Organization [facility] Address [address] [place] [address] Care Team Providers Care Vice President Residential Solar Sales Name Role Phone Lynette Michaud NP Primary Care Provider Unavail able Encounter Details Date Type Department Care Team (Latest Contact Info) Description 10/12/2001 Outpatient Historical HIS [facility] [place] Ring, [place] [address] [place] [address] HODGKINS NOS UNSP XTRNODL/SOLID ORG (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)- Primary Hodgkin's disease, unspecified documented in this encounter Care Teams Vice President Residential Solar Sales Relationship Specialty Start Date End Date Lynette Michaud NP PCP - General NURSE PRACTITIONER 03/23/19 documented as of this encounter
[2024-09-08 20:48] LABS: Basophils Percent Auto 0.3 % (0.2-1.2); Eosinophils Percent Auto 0.1 % (0-4.4); Hematocrit 41.3 % (37.0-47.0); Hemoglobin 13.1 g/dL (12.0-15.0); Immature Granulocyte Absolute 0.06 K/mm3 (0.00-0.031); Immature Granulocyte Percent A 0.5 % (0-0.5); Immature Platelet Fraction Pct 4.9 % (0.9-11.2); Lymphocytes Absolute Auto 0.44 K/mm3 (0.9-3.2); Lymphocytes Percent Auto 3.5 % (18.3-44.2); Mean Corpuscular HGB Conc 31.7 g/dl (32-36); Mean Corpuscular Hemoglobin 28.3 pg (26-34); Mean Corpuscular Volume 89.2 fl (80-100); Mean Platelet Volume 11.2 fl (7.4-10.4); Monocytes Absolute Auto 0.9 K/mm3 (0.1-0.6); Monocytes Percent Auto 7.2 % (2.6-8.5); Neutrophils Absolute Auto 11.1 K/mm3 (1.3-6.7); Neutrophils Percent Auto 88.4 % (45.5-73.1); Platelet Count Result 125 k/mm3 (150-375); Red Blood Count 4.63 M/mm3 (4.2-5.4); Red Cell Distribution Width 12.7 % (11.5-14.5); White Blood Count 12.5 K/mm3 (4.5-10.0)
[2024-09-08 20:59] LABS: Alanine Aminotransferase 20 U/L (6-35); Albumin Level 4.5 g/dL (3.5-5.1); Alkaline Phosphatase 103 U/L (38-126); Anion Gap 14 mmol/L (4-12); Aspartate Amino Transferase 35 U/L (14-36); Bilirubin,Total 1.8 mg/dL (0.2-1.3); Blood Urea Nitrogen 19 mg/dL (7-17); Calcium 9.1 mg/dL (8.4-10.2); Carbon Dioxide 22 mmol/L (22-30); Chloride 100 mmol/L (98-107); Estimated CRCL calculation 73 ml/min; Estimated Glomerular Filt Rate > 60; Glucose 101 mg/dL (65-110); INR 1.2; Lipase 56 U/L (23-300); Potassium 3.8 mmol/L (3.4-5.0); Prothrombin Time 15.4 Seconds (11.1-14.7); Sodium 136 mmol/L (137-145)
[2024-09-08 21:00] LABS: Partial Thromboplastin Time 29.5 Seconds (22.3-36.8)
[2024-09-08 21:07] LABS: Platelet Clumps Present; Platelet Estimate Slightly Decreased (Adequate); Schistocytes None Seen
[2024-09-08 21:12] VITALS: BP 131/71; PULSE 117; RESP 20; O2SAT 98
[2024-09-08 21:13] LABS: Troponin I 0.153 ng/mL (0.000-0.034)
[2024-09-08 21:22] LABS: Influenza A QL RT-PCR Negative (Negative); Influenza B QL RT-PCR Negative (Negative); RSV RNA, RT-PCR Negative (Negative); SARS-CoV-2 RNA PCR Negative (Negative)
--- OUTSIDE RECORDS SUMMARY | 2024-09-08 21:45 | XMS_ITS | Encounter Summary ---
Author Organization [facility] Address [address] [place] [address] Care Team Providers Care Residential Concierge Name Role Phone Lynette Michaud NP Primary Care Provider Unavail able Encounter Details Date Type Department Care Team (Latest Contact Info) Description 09/10/1998 Outpatient Historical HIS [facility] [place] Ring, [place] [address] [place] [address] Hodgkin's disease, unspecified(201.90) (CMS/[facility]) (Primary Dx) Social History Tobacco Use Types Packs/Day Years Used Date Smoking Tobacco: Never Assessed Comments Unknown Sex and Gender Information Value Date Recorded Sex Assigned at Not on file 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
--- OUTSIDE RECORDS SUMMARY | 2024-09-08 21:45 | XMS_ITS | Encounter Summary ---
Author Organization [facility] Address [address] [place] [address] Care Team Providers Care Jail Keeper Name Role Phone Lynette Michaud NP Primary Care Provider Unavail able Encounter Details Date Type Department Care Team (Latest Contact Info) Description 10/22/2003 Outpatient Historical HIS [facility] [place] Ring, [place] [address] [place] [address] HODGKINS NOS UNSP XTRNODL/SOLID ORG ([facility]) (Primary Dx) Social History Tobacco Use Types Packs/Day Years Used Date Smoking Tobacco: Never Assessed Comments Unknown Sex and Gender Information Value Date Recorded Sex Assigned at Not on file 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
--- OUTSIDE RECORDS SUMMARY | 2024-09-08 21:45 | XMS_ITS | Encounter Summary ---
Author Organization [facility] Address [address] [place] [address] Care Team Providers Care Gas Main And Line Fitter Name Role Phone Lynette Michaud NP Primary Care Provider Unavail able Encounter Details Date Type Department Care Team (Latest Contact Info) Description 10/12/2001 Outpatient Historical HIS [facility] [place] Ring, [place] [address] [place] [address] HODGKINS NOS UNSP XTRNODL/SOLID ORG ([facility]) (Primary Dx) Social History Tobacco Use Types Packs/Day Years Used Date Smoking Tobacco: Never Assessed Comments Unknown Sex and Gender Information Value Date Recorded Sex Assigned at Not on file 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
--- OUTSIDE RECORDS SUMMARY | 2024-09-08 21:45 | XMS_ITS | Encounter Summary ---
Author Organization [facility] Address [address] [place] [address] Care Team Providers Care Timber Cruiser Name Role Phone Lynette Michaud NP Primary Care Provider Unavail able Encounter Details Date Type Department Care Team (Latest Contact Info) Description 10/21/1999 Outpatient Historical HIS [facility] [place] [address] [place] [address] Hodgkin's disease, nodular sclerosis, unspecified site, extranodal and solid organ sites (CMS/HCC) (Primary Dx) Social History Tobacco Use Types Packs/Day Years Used Date Smoking Tobacco: Never Assessed Comments Unknown Sex and Gender Information Value Date Recorded Sex Assigned at Not on file 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
--- OUTSIDE RECORDS SUMMARY | 2024-09-08 21:45 | XMS_ITS | Clinical Summary ---
Author Organization [facility] Address [address] [place] [address] Phone Care Team Providers Care Energy Project Manager Name Role Phone Lynette Michaud NP Primary Care Provider Unavail able Allergies No known active allergies Medications metroNIDAZOLE (METROGEL) 0.75 % vaginal gel 03/08/2015 Activ e VITAMIN D2 50,000 unit capsule 09/21/2018 Active levothyroxine 75 mcg tablet Take 75 mcg by mouth daily supervisor veneer. Active Active Problems Patient Care Coordination No te Formatting of this note migh t be different from the original. Primary Care: Annika Ojeda MD Referring Provider: Marielos Hugo MD [address] [place] [address] Other: Dr Keely Huff Problem Noted Date [...] on file Legal Sex Female 2:50 AM UNCRATER Gender Identity Not on file Sexual Orientation Not on file Occupation Industry Job Start Date Job End Date Not on file Not on file Not on file Not on file Last Filed Vital Signs Vital Sign Reading Time Taken Comments Blood Pressure 148/84 05/17/2019 12:56 PM UNCRATER Pulse 101 05/17/2019 12:56 PM UNCRATER Temperature - - Respiratory Rate - - Oxygen Saturation 95% 05/17/2019 12:56 PM UNCRATER Inhaled Oxygen Concentration - - Weight 86.2 kg (190 lb) 05/17/2019 12:56 PM UNCRATER Height 167.6 cm (5' 6 ) 05/17/2019 12:56 PM UNCRATER Body Mass Index 30.67 05/17/2019 12:56 PM UNCRATER Plan of Treatment Health Maintenance Due Date [...] BI-RADS CATEGORY 1 - Negative. DICTATION LOCATION: [facility] 09/15/2023 12:05 PM CDT BILATERAL SCREENING DIGITAL [...] BI-RADS CATEGORY 1 - Negative. DICTATION LOCATION: [facility] Alen Nava MD MAMMO ORDERABLES Final Result from Last 3 Months or Most Recently Relevant to Health Maintenance [place] [address] [place] [address] [employer] Care Teams Energy Project Manager Relationship Specialty Start Date End Date Lynette Michaud NP PCP - General NURSE PRACTITIONER 03/23/19
[2024-09-08 21:47] VITALS: BP 134/77; PULSE 117; RESP 18; O2SAT 100
[2024-09-08 22:00] VITALS: O2SAT 98
[2024-09-08 22:28] LABS: NT Pro B Type Natriuretic Pept 4520 pg/mL (19.9-100)
[2024-09-08] MEDS: ASPIRIN 81 MG CHEWABLE TABLET 324 MG PO (22:51)
[2024-09-08] MEDS: LACTATED RINGERS 1,000 ML 999 ML IV CONT (23:00)
[2024-09-08] MEDS: LACTATED RINGERS 400 ML 999 ML IV CONT (23:00)
--- NOTE | 2024-09-08 23:42 | ECG_ITS ---
Test Date: 2024-09-08 23:50:40 Measurements Intervals [place] Rate: 112 P: 68 UT: 147 QRS: 67 QRSD: 98 T: 37 QT: 324 QTc: 443 Interpretive Statements SINUS TACHYCARDIA NONSPECIFIC ST & T-WAVE ABNORMALITY ABNORMAL RHYTHM ECG Compared to ECG 09/08/2024 20:33:15 No significant changes Electronically Signed On 09-09-2024 15:39:45 CDT by Viry Gavin M.D.
[2024-09-09] VITALS (27 sets, daily range): BP systolic 91–212; BP diastolic 44–123; PULSE 109–147; RESP 16–38; TEMP 36.8–37.5; O2SAT 92–100; BMI 28.7
--- NOTE | 2024-09-09 | ECHO_ITS ---
Patient Info Name: Jose David Pacheco Age: 59 years : 1965 Gender: Female Ht: 66 in Wt: 170 lbs BSA: 1.91 m2 HR: 114 bpm BP: 112 / 65 mmHg Heart Rhythm: Atrial Fibrillation Technical Quality: Fair Exam Date: 09/09/2024 8:13 AM Exam Location: Echo Lab Patient Status: Inpatient Admit Date: 09/09/2024 Staff Ordering Physician: Krystal Chavez DO Superintendent [employer]: Violeta Lundberg RDCS Attending Provider: Krystal Chavez DO Referring Physician: Kathy MENDES; Exam Type: CA echo doppler color flow Study Info Indications - Flash pulmonary edema Complete two-dimensional, color flow and Doppler transthoracic echocardiogram is performed. Summary 1. Complete two-dimensional, color flow and Doppler transthoracic echocardiogram is performed. 2. Left ventricular systolic function is normal, estimated at 65-70%. 3. There is moderately increased left ventricular wall thickness. 4. There is severe aortic valve stenosis with a peak velocity of 410 cm/s, mean gradient of 42 mmHg, and aortic valve area of 0.8 cm2. 5. There is mild aortic valve regurgitation. 6. There is moderate aortic valve calcification. 7. There is mild tricuspid valve regurgitation. 8. Mild pulmonary hypertension, estimated pulmonary arterial systolic pressure is 38 mmHg. Left Ventricle Left ventricular chamber dimension is normal. Left ventricular systolic function is normal, estimated at 65-70%. There is moderately increased left ventricular wall thickness. Left ventricular septal wall motion is normal. The left ventricular diastolic function is abnormal. Right Ventricle Right ventricular chamber dimension is normal. Right ventricular systolic function is normal. Left Atria Left atrial chamber dimension is normal. Right Atria Right atrial chamber dimension is normal. Aortic Valve The aortic valve is trileaflet. There is no aortic valve sclerosis. There is severe aortic valve stenosis with a peak velocity of 410 cm/s, mean gradient of 42 mmHg, and aortic valve area of 0.8 cm2. There is mild aortic valve regurgitation. There is moderate aortic valve calcification. Pulmonic Valve The pulmonic valve is normal. There is no pulmonic valve stenosis. There is no pulmonic regurgitation. Mitral Valve The mitral valve has normal leaflets. There is no mitral valve stenosis. There is no mitral valve regurgitation. Tricuspid Valve The tricuspid valve leaflets are normal. There is no significant tricuspid valve stenosis. There is mild tricuspid valve regurgitation. Mild pulmonary hypertension, estimated pulmonary arterial systolic pressure is 38 mmHg. Pericardium/Pleural The pericardium appears normal. There is no pericardial effusion. Inferior Vena Cava Normal inferior vena cava with >50% collapse upon inspiration consistent with Empty right atrial pressure, 5 mmHg. Aorta The aortic root size at the sinus of Valsalva is normal. The prox ascending aorta size is normal. Left Ventricular Outflow Tract Name Value Normal LVOT 2D LVOT Diameter 1.9 cm LVOT Doppler LVOT Peak Gradient 6 mmHg LVOT Mean Gradient 3 mmHg LVOT VTI 20 cm LVOT VTI/AV VTI Ratio 0.3 LVOT Stroke Volume 55 ml LVOT CO 6.2 l/min LVOT CI 3.2 l/min/m2 Pulmonic Valve Name Value Normal RVOT Doppler RVOT Peak Gradient 3 mmHg PV Doppler PV Peak Gradient 5 mmHg PV Regurgitation Doppler CA Peak End Diastolic Velocity 134 cm/s Mitral Valve Name Value Normal MV Doppler MV Peak Gradient 12 mmHg MV Mean Gradient 6 mmHg MV Decel [place] 1,321 cm/s2 MV PHT 26 ms MV Area (PHT) 8.5 cm2 4.0-5.0 MV Area (Cont Eq VTI) 2.4 cm2 MV Diastolic Function MV E Peak Velocity 118 cm/s MV A Peak Velocity 1 cm/s MV E/A 155.6 MV Decel Time 90 ms MV Annular TDI MV E/e' (Septal) 16.5 <=8.0 MV E/e' (Lateral) 12.3 <=8.0 MV E/e' (Average) 14.4 Tricuspid Valve Name Value Normal TV Regurgitation Doppler TR Peak Velocity 288 cm/s TR Peak Gradient 33 mmHg Estimated PAP/RSVP RA Pressure 5 mmHg <=5 PA Systolic Pressure 38 mmHg <36 RV Systolic Pressure 38 mmHg <36 Aortic Valve Name Value Normal AV Doppler AV Peak Velocity 410 cm/s AV Peak Gradient 62 mmHg AV Mean Gradient 42 mmHg AV VTI 73 cm AV Area (Cont Eq VTI) 0.8 cm2 >=3.0 AV Area (Cont Eq [place]) 0.9 cm2 AV Regurgitation 2D LVOT Area 2.8 cm2 AV Regurgitation Doppler AR Decel Time 1,031 ms AR Decel [place] 411 cm/s2 AR PHT 299 ms Ventricles Name Value Normal LV Dimensions 2D/MM IVS Diastolic Thickness (2D) 1.1 cm 0.6-1.0 LVID Diastole (2D) 3.6 cm 3.8-5.2 LVIW Diastolic Thickness (2D) 1.1 cm 0.6-0.9 LVID Systole (2D) 2.4 cm 2.2-3.5 LVOT Diameter 1.9 cm LV Mass (2D Cubed) 119.51 g 67.00-162.00 LV Mass Index (2D Cubed) 62 g/m2 43-95 Relative Wall Thickness (2D) 0.60 LV Fractional Shortening/Ejection Fraction 2D/MM LV Fractional Shortening (2D) 33 % 27-45 LV EF (2D Teicholz) 62 % 54-74 LV Diastolic Volume (4C MOD) 111 ml LV EF (4C MOD) 64 % LV Diastolic Volume (2C MOD) 111 ml LV EF (2C MOD) 66 % LV Diastolic Volume (BP MOD) 117 ml 46-106 LV Diastolic Volume Index (BP MOD) 61 ml/m2 29-61 LV Systolic Volume (BP MOD) 39 ml 14-42 LV Systolic Volume Index (BP MOD) 21 ml/m2 8-24 LV EF (BP MOD) 67 % 54-74 LV Diastolic Length (4C) 7.4 cm LV Systolic Length (4C) 5.7 cm LV Stroke Volume (4C MOD) 71 ml Atria Name Value Normal LA Dimensions LA Volume (4C A-L) 57 ml LA Volume (BP A-L) 53 ml RA Dimensions RA Area (4C) 15.2 cm2 <=18.0 Report Signatures
[2024-09-09 00:39] LABS: Troponin I 0.152 ng/mL (0.000-0.034)
[2024-09-09] MEDS: DOXYCYCLINE 100 MG/NS 100 ML 100 MG/100 ML BAG IVPB ×3 (01:43→23:16)
--- NOTE | 2024-09-09 02:22 | ED_ITS ---
HPI - General Adult General Chief complaint: Arrhythmia/Palpitations Stated complaint: shortness of breath/ palpitations Time Seen by Provider: 09/08/24 21:27 History of Present Illness HPI narrative: This is a 59-year-old female presenting ED with chief complaint of shortness of breath and palpitations. For last 2 days she has felt like her heart is racing. She has been fatigued has not wanted to get out of bed. She has had a pressure in the center area of her chest that is nonradiating. She denies fevers chills abdominal pain or diarrhea. She has had nausea without vomiting. Patient has history of pneumonia with sepsis. Related Data Allergies Allergy/AdvReac Type Severity Reaction Status Date / Time No Known Allergies Allergy Verified 09/08/24 20:33 PMFSH Past Medical History Medical History HLD (hyperlipidemia) Depression Hodgkin lymphoma In the . Hypothyroidism Chest pain Surgical History Surgical History No significant past surgical history Family History Family History Father Hypertension Diabetes mellitus Sibling Hypertension Other Family history unknown Social History Social History Social History: Surrogate medical decision maker: Jac Pacheco, spouse. Code status: Full code. Smoking status: Never smoker Alcohol intake: current Alcohol use details: occasional Substance use: never Substance use type: does not use Do You Feel Safe in your Home?: Yes Lack of Transportation: No Lack of Food: Never True Current Housing: I Have Housing Concerned About Future Housing: No Difficulty Paying Gas/Electric Bills: No Difficulty Paying for Meds: No Currently Unemployed: No Education: Don't Know Difficulty w/ Childcare or Family Care: No Living arrangements: with family Additional living arrangements comments: however she and her live in separate homes. They have 1 grown daughter who lives in [place]. Daughter is healthy. She has 2 sisters who are healthy. Both parents are from old age. 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 Spiritual care concerns: No Exam 2 Narrative: APPEARANCE: No apparent distress. Head: atraumatic. EYES: EOMI, NOSE: Atraumatic NECK: Trachea midline RESPIRATORY: No increased rate of breathing clear to auscultation CARDIOVASCULAR: Tachycardic, no peripheral edema ABDOMINAL: Non-distended soft nontender MUSCULOSKELETAl: No obvious deformities NEURO: Alert. Moving 4/4 extremities SKIN:: Warm, dry. Normal color PSYCHIATRIC: Normal affect Course Vital Signs Vital signs: Vital Signs Temperature 97.8 F 09/08/24 20:29 Pulse Rate 132 H 09/08/24 20:29 Respiratory Rate 20 09/08/24 20:29 Blood Pressure 140/73 09/08/24 20:29 Pulse Oximetry 95 09/08/24 20:29 Oxygen Delivery Room Air 09/08/24 20:29 Temperature 97.8 F 09/08/24 20:29 Pulse Rate 118 H 09/09/24 02:32 Respiratory Rate 19 09/09/24 02:32 Blood Pressure 140/79 09/09/24 02:32 Pulse Oximetry 95 09/09/24 02:32 Oxygen Delivery Room Air 09/08/24 22:[address] [facility] Narrative Medical decision making narrative: -Course: This is a 59-year-old female presenting for 2 days of palpitations with shortness of breath. On arrival she was tachycardic in the 120s. EKG showed Sinus tach w/ non specific st changes. Sepsis workup obtained. Care delayed due to difficult IV access. CT PE negative for PE but showed left-sided pneumonia. White count 12.5. Patient started on ceftriaxone and doxycycline. Given 30 cc/kilogram bolus. ECHO from October 2020 significant for EF 65%, grade 1 diastolic dysfunction. Moderate aortic valve stenosis with peak velocity of 339cm/s, AO valve area 1.0 cm2. Patient's troponins elevated and flat at 0.152. BNP elevated 4500 clinically she is not fluid overloaded and her heart rate actually improved w/ fluids. Patient will be admitted the hospital for further management for sepsis/pneumonia. -DDX includes but is not limited to: CHF COPD PE aortic stenosis pneumonia viral syndrome Vital Signs Vital Signs: Vital Signs Temperature 97.8 F 09/08/24 20:29 Pulse Rate 132 H 09/08/24 20:29 Respiratory Rate 20 09/08/24 20:29 Blood Pressure 140/73 09/08/24 20:29 Pulse Oximetry 95 09/08/24 20:29 Oxygen Delivery Room Air 09/08/24 20:29 Temperature 97.8 F 09/08/24 20:29 Pulse Rate 118 H 09/09/24 02:32 Respiratory Rate 19 09/09/24 02:32 Blood Pressure 140/79 09/09/24 02:32 Pulse Oximetry 95 09/09/24 02:32 Oxygen Delivery Room Air 09/08/24 22:00 Lab Data 09/08/24 20:41 09/08/24 20:41 Labs: Lab Results 09/08/24 09/09/24 Range/Units 20:41 00:03 WBC 12.5 H (4.5-10.0) K/mm3 RBC 4.63 (4.2-5.4) M/mm3 Hgb 13.1 (12.0-15.0) g/dL Hct 41.3 (37.0-47.0) % MCV 89.2 (80-100) fl MCH 28.3 (26-34) pg MCHC 31.7 L (32-36) g/dl RDW 12.7 (11.5-14.5) % Plt Count 125 L (150-375) k/mm3 MPV 11.2 H (7.4-10.4) fl Immature Gran % (Auto) 0.5 (0-0.5) % Neut % (Auto) 88.4 H (45.5-73.1) % Lymph % (Auto) 3.5 L (18.3-44.2) % Taylor % (Auto) 7.2 (2.6-8.5) % Eos % (Auto) 0.1 (0-4.4) % Baso % (Auto) 0.3 (0.2-1.2) % Lymph # (Auto) 0.44 L (0.9-3.2) K/mm3 Taylor # (Auto) 0.9 H (0.1-0.6) K/mm3 Eos # (Auto) 0.0 (0-0.3) K/mm3 Baso # (Auto) 0.0 (0.0-0.1) K/mm3 Abs Immat Gran (auto) 0.06 H (0.00-0.031) K/mm3 Absolute Neuts (auto) 11.1 H (1.3-6.7) K/mm3 Absolute Nucleated RBC 0.000 (0.0-0.012) K/mm3 Band Neutrophils % Not Reportable Nucleated RBC % 0.0 (0.0-0.2) % Platelet Estimate Slightly decreased (Adequate) Clumped Platelets Present % Immature Plt Fraction 4.9 (0.9-11.2) % Schistocytes None seen PT 15.4 H (11.1-14.7) Seconds INR 1.2 APTT 29.5 (22.3-36.8) Seconds D-Dimer 2.00 H (<0.48) ug/mL Sodium 136 L (137-145) mmol/L Potassium 3.8 (3.4-5.0) mmol/L Chloride 100 (98-107) mmol/L Carbon Dioxide 22 (22-30) mmol/L Anion Gap 14 H (4-12) mmol/L BUN 19 H D (7-17) mg/dL Creatinine 0.74 (0.7-1.0) mg/dL Estim Creat Clear Calc 73 ml/min Estimated GFR > 60 (59 - ) Glucose 101 (65-110) mg/dL Calcium 9.1 (8.4-10.2) mg/dL Total Bilirubin 1.8 H (0.2-1.3) mg/dL AST 35 (14-36) U/L ALT 20 (6-35) U/L Alkaline Phosphatase 103 (38-126) U/L Troponin I 0.153 H* 0.152 H* (0.000-0.034) ng/mL NT-Pro-B Natriuret Pep 4520 H (19.9-100) pg/mL Total Protein 8.0 (6.3-8.2) g/dL Albumin 4.5 (3.5-5.1) g/dL Lipase 56 (23-300) U/L TSH (Reflex) 1.850 (0.465-4.68) uIU/mL Influenza A (RT-PCR) Negative (Negative) Influenza B (RT-PCR) Negative (Negative) RSV (RT-PCR) Negative (Negative) SARS-CoV-2 RNA (RT-PCR) Negative (Negative) Discharge Plan Discharge Clinical Impression: Pneumonia, Sepsis, Elevated troponin Patient Disposition: Still a Patient Condition: Stable Patient Language: Frisian Prescriptions: No Action cholecalciferol (vitamin D3) 125 mcg (5,000 unit) capsule 125 mcg PO DAILY Qty: 30 0RF aspirin 81 mg Tablet,Delayed Release (Dr/Ec) 81 mg PO QAM Qty: 30 0RF levothyroxine 50 mcg tablet 50 mcg PO DAILY Qty: 30 3RF atorvastatin 80 mg tablet 80 mg PO DAILY Qty: 90 1RF losartan 25 mg tablet See Rx Instructions .ROUTE .COMPLEX Qty: 30 5RF Dose Instruction: TAKE ONE TABLET (25MG) BY MOUTH DAILY Rx Instructions: TAKE ONE TABLET (25MG) BY MOUTH DAILY Follow-up/Referrals: Alen Nava MD [Primary Care Provider] -
[2024-09-09] MEDS: LACTATED RINGERS 1,000 ML 999 ML IV CONT (02:40)
--- NOTE | 2024-09-09 04:24 | PC.NURSE ---
This RN attempted to call report on patient when patient hit call light stating she cannot breathe. Patient had just ambulated back from bathroom where she vomited. EDP Dr. Spicer made aware. Patient's heart rate in the 150s, audible crackles, increased work of breathing. APPLICATION SPECIALIST called to place patient on BiPAP.
--- NOTE | 2024-09-09 05:27 | P.HP_ITS ---
H&P: HPI History of Present Illness Date/Time: 09/09/24 05:27 Chief Complaint: Increased shortness of breath and chest discomfort Narrative: 59-year-old female with a past medical history of moderate aortic stenosis, dyslipidemia, essential hypertension, severe obstructive sleep apnea, prior r hospitalization for respiratory failure December 2022 requiring intubation and distant history of Hodgkin's lymphoma who presented to the ER with shortness of breath and mild chest discomfort. She has had sensation of her heart racing for the last 2 days and is felt extremely fatigued. She stated that she went to work but had to leave work after 45 minutes due to her fatigue. She has been having associated mild nonproductive cough. She has had some nausea but no vomiting. She denies any changes in bowel habits. The patient checked her oxygen saturations at home and found her O2 sats to be down to 82%. When she arrived to the ER her oxygen saturations were 95% on room air and she initially did not have any oxygen requirement. Head she underwent her routine evaluation and was found to have leukocytosis with white count of 12.5, and elevated D- dimer and a BNP of 4520. Initial troponin was elevated 0.153 but repeat troponin was exactly the same and unchanged. CTA chest demonstrated multifocal pneumonia left lung with small left pleural effusion and small pericardial effusion with left ventricular hypertrophy. The patient is sepsis criteria with white count, pneumonia, tachycardia and tachypnea. She had blood cultures obtained was started on empiric antibiotic therapy with Rocephin and doxycycline. She received the 30 mL/kilos fluid bolus which she initially seemed to tolerate. However after fluid bolus patient reports she got up to ambulate to the bathroom and when she was in the bathroom she suddenly developed severe sudden retching and vomiting. She subsequently became acutely short of breath and had some chest discomfort that was substernal. Chest discomfort was minimal. The ER provider report the patient had a acute extremis and her was placed on BiPAP. A nitroglycerin drip was ordered but before nitroglycerin infusion was initiated patient stabilized clinically. At the time my evaluation the patient reports she has felt almost back to her baseline. She was on BiPAP 16/7 with a rate of 12 when I arrived to the bedside the patient had a leak of over 100 and was pulling tidal volumes between 800 and a 1000. I adjusted the patient's mask to to decrease her leak in she was still pulling extremely large tidal volumes of 6-800. Subsequently made changes to BiPAP to 10/5 the patient was pulling more appropriate tidal volumes of 450-500. She actually is eager to get the BiPAP but I have encouraged her to use it for short time to help with afterload reduction. She denies any recent ill contacts. She has had a dry cough for 3 days. She denies any fevers or chills. She states that she followed with Dr. Milner regarding her moderate mitral valve stenosis. She states she is supposed to have a repeat echocardiogram in October to re-evaluate her valvular status. Review of Systems 2 Review of Systems: 12 systems were reviewed with pertinent positives and negatives per HPI. Except as documented in the HPI, all other systems were reviewed and are negative. [facility] Past Medical History Medical History (Updated 09/09/24 @ 08:18 by Krystal Chavez DO) Aortic stenosis Diastolic dysfunction Vitamin D deficiency HLD (hyperlipidemia) Depression Hodgkin lymphoma In the . Hypothyroidism Chest pain Surgical History Surgical History No significant past surgical history Family History Family History (Updated 09/09/24 @ 08:07 by Krystal Chavez DO) Father Hypertension Diabetes mellitus Sibling Hypertension Social History Social History (Updated 09/09/24 @ 08:08 by Krystal Chavez DO) Social History: Surrogate medical decision maker: Jac Pacheco, spouse. Code status: Full code. Smoking status: Never smoker Alcohol intake: current Alcohol use details: occasional Substance use: never Substance use type: does not use Do You Feel Safe in your Home?: Yes Lack of Transportation: No Lack of Food: Never True Current Housing: I Have Housing Concerned About Future Housing: No Difficulty Paying Gas/Electric Bills: No Difficulty Paying for Meds: No Currently Unemployed: No Education: Don't Know Difficulty w/ Childcare or Family Care: No Living arrangements: with family Additional living arrangements comments: She is . They have 1 grown daughter who lives in [place]. Daughter is healthy. She has 2 sisters who are healthy. Both parents are from old age. 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 Spiritual care concerns: No Meds Home Medications and Allergies Home Medications Medication Instructions Recorded Confirmed Type aspirin 81 mg tablet,delayed 81 mg PO QAM #30 tabs 01/08/23 06/06/24 Rx release cholecalciferol (vitamin D3) 125 125 mcg PO DAILY #30 caps 09/06/23 06/06/24 Rx mcg (5,000 unit) capsule levothyroxine 50 mcg tablet 50 mcg PO DAILY #30 tabs 02/21/24 06/06/24 Rx atorvastatin 80 mg tablet 80 mg PO DAILY #90 tabs 06/26/24 Rx losartan 25 mg tablet See Rx Instructions .Route 06/26/24 Rx .COMPLEX #30 tabs Allergies Allergy/AdvReac Type Severity Reaction Status Date / Time No Known Allergies Allergy Verified 09/08/24 20:33 Vital Signs Vital Signs - 24 hr 09/08/24 20:29 09/08/24 21:12 09/08/24 21:47 Temperature 97.8 F Pulse Rate 132 H 117 H 117 H Respiratory Rate 20 20 18 Blood Pressure 140/73 131/71 134/77 Pulse Oximetry 95 98 100 Oxygen Delivery Room Air 09/08/24 22:00 09/09/24 02:32 09/09/24 03:02 Temperature Pulse Rate 118 H 116 H Respiratory Rate 19 23 H Blood Pressure 140/79 144/72 H Pulse Oximetry 98 95 100 Oxygen Delivery Room Air 09/09/24 03:32 09/09/24 03:45 09/09/24 04:01 Temperature Pulse Rate 127 H 124 H Respiratory Rate 23 H 24 H Blood Pressure 139/98 H 135/73 Pulse Oximetry 93 Oxygen Delivery 09/09/24 04:20 09/09/24 04:44 09/09/24 04:47 Temperature Pulse Rate 147 H 144 H 142 H Respiratory Rate 33 H 38 H 35 H Blood Pressure 212/123 H 167/65 H Pulse Oximetry 95 100 100 Oxygen Delivery BiPAP 09/09/24 05:15 Temperature Pulse Rate 124 H Respiratory Rate 28 H Blood Pressure 113/62 Pulse Oximetry 100 Oxygen Delivery Exam 2 Narrative: Weight 77.2 kg BMI 27.5 Const: Other: No acute distress, sitting up in the ER stretcher with the head of bed completely upright, BiPAP in place, height and weight proportionate HENMT: Other: Mucous membranes are tacky, oral exam limited due to BiPAP, no scleral icterus, mild conjunctival pallor Eyes: Other: See above Neck: Other: No lymphadenopathy, no JVD although exam not ideal due to patient positioning Resp: Other: Crackles at the left lung base, no increased work of breathing Cardio: Other: 3 to 4/6 systolic murmur is had a right and left upper sternal borders heard best at the left upper sternal border radiating towards carotid, sinus tachycardia, 2+ bilateral radial pedal pulses, no JVD GI: Other: Soft, nontender, nondistended, positive bowel sounds Skin: Other: No jaundice, no pallor Neuro: Other: Alert oriented x4, speech is clear, no facial asymmetry, moves all extremities equally, no localizing neurologic deficits noted during the course of conversation Extrem: Other: No clubbing, cyanosis or edema Psych: Other: Appropriate mood and affect, cooperative, judgment and insight intact H&P: Results Labs Labs: Laboratory Tests 09/08/24 20:41 09/08/24 20:41 09/08/24 09/09/24 09/09/24 20:41 00:03 03:30 WBC 12.5 H RBC 4.63 Hgb 13.1 Hct 41.3 MCV 89.2 MCH 28.3 MCHC 31.7 L RDW 12.7 Plt Count 125 L MPV 11.2 H Immature Gran % (Auto) 0.5 Neut % (Auto) 88.4 H Lymph % (Auto) 3.5 L [place] % (Auto) 7.2 Eos % (Auto) 0.1 Baso % (Auto) 0.3 Lymph # (Auto) 0.44 L [place] # (Auto) 0.9 H Eos # (Auto) 0.0 Baso # (Auto) 0.0 Abs Immat Gran (auto) 0.06 H Absolute Neuts (auto) 11.1 H Absolute Nucleated RBC 0.000 Band Neutrophils % Not Reportable Nucleated RBC % 0.0 Platelet Estimate Slightly decreased Clumped Platelets Present % Immature Plt Fraction 4.9 Schistocytes None seen PT 15.4 H INR 1.2 APTT 29.5 D-Dimer 2.00 H Sodium 136 L Potassium 3.8 Chloride 100 Carbon Dioxide 22 Anion Gap 14 H BUN 19 H D Creatinine 0.74 Estim Creat Clear Calc 73 Estimated GFR > 60 Glucose 101 Calcium 9.1 Total Bilirubin 1.8 H AST 35 ALT 20 Alkaline Phosphatase 103 Troponin I 0.153 H* 0.152 H* Pending NT-Pro-B Natriuret Pep 4520 H Total Protein 8.0 Albumin 4.5 Lipase 56 TSH (Reflex) 1.850 Influenza A (RT-PCR) Negative Influenza B (RT-PCR) Negative RSV (RT-PCR) Negative SARS-CoV-2 RNA (RT-PCR) Negative Impressions Chest X-Ray 09/08/24 20:59 IMPRESSION: Left upper lobe infiltrate. Assessment and Plan Assessment and plan (1) Pneumonia: Qualifiers: Laterality: left Lung location: lower lobe of lung Pneumonia type: due to unspecified organism Qualified Code(s): J18.9 - Pneumonia, unspecified organism Code(s): J18.9 - Pneumonia, unspecified organism Status: Acute Assessment and Plan: Community-acquired pneumonia due to unspecified organism. Empiric antibiotic therapy with Rocephin and doxycycline. Continue respiratory support. Obtain urine Legionella and urine pneumococcal antigen in check mycoplasma titer. (2) Sepsis: Qualifiers: Acute respiratory failure type: with hypoxia Sepsis acute organ dysfunction status: with acute organ dysfunction Sepsis type: sepsis due to unspecified organism Severe sepsis acute organ dysfunction type: acute respiratory failure Severe sepsis shock status: without septic shock Qualified Code(s): A41.9 - Sepsis, unspecified organism; R65.20 - Severe sepsis without septic shock; J96.01 - Acute respiratory failure with hypoxia Code(s): A41.9 - Sepsis, unspecified organism Status: Acute Assessment and Plan: The patient met sepsis criteria with tachycardia, tachypnea leukocytosis in the setting left left lung pneumonia. Initially patient did not have acute respiratory failure. Patient may have developed acute respiratory failure due to acute worsening pneumonia but given patient's history of aortic stenosis and acute Valium resuscitation with associated hypertensive response I am less suspicious of flash pulmonary edema due to overload. Will continue BiPAP support as needed. Blood cultures have been obtained and are pending. Will continue empiric antibiotic therapy with Rocephin and doxycycline. (3) Aortic stenosis: Qualifiers: Cardiac valve disease etiology: nonrheumatic Qualified Code(s): I35.0 - Nonrheumatic aortic (valve) stenosis Code(s): I35.0 - Nonrheumatic aortic (valve) stenosis Status: Acute Assessment and Plan: Echocardiogram last year demonstrated moderate stenosis. Will repeat echocardiogram to further evaluate cardiac structure and function. I suspect patient went into pulmonary edema due to 30 mL/kilos fluid bolus which was likely slightly too much amount of acute fluid resuscitation for patient's heart and a with her aortic stenosis. Will monitor strict I&O's and daily weights. Cardiology has been consulted. (4) Elevated troponin: Code(s): R79.89 - Other specified abnormal findings of blood chemistry Status: Acute Assessment and Plan: Completely flat troponin without evidence of elevation no indication of acute ischemia (5) Hypertension: Qualifiers: Hypertension type: primary hypertension Qualified Code(s): I10 - Essential (primary) hypertension Code(s): I10 - Essential (primary) hypertension Status: Acute Assessment and Plan: The patient has essential hypertension but did develop acute elevation in hypertension with acute respiratory distress. Likely secondary to acute pulmonary edema resulting in decompensation and hypertensive crisis. Blood pressures have improved with BiPAP support. Blood pressures have back down to baseline. Will resume home losartan. (6) Obstructive sleep apnea: Code(s): G47.33 - Obstructive sleep apnea (adult) (pediatric) Status: Acute Assessment and Plan: Patient has history of severe obstructive sleep apnea. Will continue p.r.n. BiPAP at night. Plan The patient was seen and evaluated in the ER. Patient's home med rec is not yet available for my review. 45 minute spent in critical care activities. Due to a high probability of clinically significant, life threatening deterioration, the patient required my highest level of preparedness to intervene emergently and I personally spent this critical care time directly and personally managing the patient. This critical care time included obtaining a history; examining the patient; pulse oximetry; ordering and review of studies; arranging urgent treatment with development of a management plan; evaluation of patient's response to treatment; frequent reassessment; and discussions with other providers. It was exclusive of separately billable procedures and treating other patients and teaching time. Please see Assessment and Plan section and the rest of the note for further information on patient assessment and treatment. Quality VTE Prophylaxis VTE prophylaxis: pharmacologic ordered (Lovenox 40 mg subQ daily) Hospitalist [facility] Advance Care Plan I have confirmed that the patient's Advanced Care Plan is present, code status is documented, or surrogate decision maker is listed in patient medical record.: Yes Medication Reconciliation I have utilized all available resources to obtain, update and review the patients current medications (includes all prescriptions, OTC, herbals, cannabis, and nutritional supplements).: Yes
--- NOTE | 2024-09-09 07:21 | PC.NURSE ---
pt already given IV doxycycline. blood cultures were then ordered. per caustic cresylate shift superintendent report, multiple people tried getting blood cultures including phlebotomy with no succuss. this RN will be hanging the Rocephin to not postpone patient care
--- NOTE | 2024-09-09 07:26 | PC.NURSE ---
this RN noticed the 6hr trop was drawn at 0330 and still pending. this RN called at this time to ask lab if the result was done and was notified that the trop was rejected at 0341. this RN will be drawing the trop at this time and obtaining the EKG as well
--- NOTE | 2024-09-09 07:30 | ECG_ITS ---
Test Date: 2024-09-09 07:40:07 Measurements Intervals [place] Rate: 112 P: 72 LA: 144 QRS: 58 QRSD: 102 T: 52 QT: 342 QTc: 468 Interpretive Statements SINUS TACHYCARDIA NONSPECIFIC ST & T-WAVE ABNORMALITY ABNORMAL RHYTHM ECG Compared to ECG 09/08/2024 23:50:40 No significant changes Electronically Signed On 09-09-2024 15:37:40 CDT by Viry Gavin M.D.
--- NOTE | 2024-09-09 09:59 | PM.IMPN ---
Progress Note: A&P Assessment and Plan (1) Pneumonia: Qualifiers: Laterality: left Lung location: lower lobe of lung Pneumonia type: due to unspecified organism Qualified Code(s): J18.9 - Pneumonia, unspecified organism Code(s): J18.9 - Pneumonia, unspecified organism Status: Acute Assessment and Plan: Vital signs stable RSV COVID flu negative Started on ceftriaxone and doxycycline monitor cultures Nasal MRSA pending Obtain urine Legionella and urine pneumococcal antigen in check mycoplasma titer. (2) Sepsis: Qualifiers: Acute respiratory failure type: with hypoxia Sepsis acute organ dysfunction status: with acute organ dysfunction Sepsis type: sepsis due to unspecified organism Severe sepsis acute organ dysfunction type: acute respiratory failure Severe sepsis shock status: without septic shock Qualified Code(s): A41.9 - Sepsis, unspecified organism; R65.20 - Severe sepsis without septic shock; J96.01 - Acute respiratory failure with hypoxia Code(s): A41.9 - Sepsis, unspecified organism Status: Acute Assessment and Plan: The patient met sepsis criteria with tachycardia, tachypnea leukocytosis in the setting left left lung pneumonia. Will continue empiric antibiotic therapy with Rocephin and doxycycline. (3) Aortic stenosis: Qualifiers: Cardiac valve disease etiology: nonrheumatic Qualified Code(s): I35.0 - Nonrheumatic aortic (valve) stenosis Code(s): I35.0 - Nonrheumatic aortic (valve) stenosis Status: Acute Assessment and Plan: Repeat echo shows Left ventricular systolic function is normal, estimated at 65-70%. Severe aortic valve stenosis Discussed with . She believes the ongoing symptoms possibly due to underlying coronary artery disease versus severe aortic stenosis. Patient will be started on heparin drip and treated as NSTEMI and troponin tomorrow a.m.. Since the patient follows with ,the nut sorter wants him to be part of care when he is back on Wednesday and decide between transfer vs cath but if there is rise in troponin in the morning she may consider urgent cath. (4) Elevated troponin: Code(s): R79.89 - Other specified abnormal findings of blood chemistry Status: Acute Assessment and Plan: Mentioned as above (5) Hypertension: Qualifiers: Hypertension type: primary hypertension Qualified Code(s): I10 - Essential (primary) hypertension Code(s): I10 - Essential (primary) hypertension Status: Acute Assessment and Plan: Will resume home losartan. (6) Obstructive sleep apnea: Code(s): G47.33 - Obstructive sleep apnea (adult) (pediatric) Status: Acute Assessment and Plan: Patient has history of severe obstructive sleep apnea. Will continue p.r.n. BiPAP at night. Subjective Date/time seen: 09/09/24 09:59 Interval history: Patient was evaluated at bedside. Patient denies any chest pain, palpitation or shortness of breath but extreme weakness. Consider Cardiology due to up trending troponin. Discussed with . She believes the ongoing symptoms possibly due to underlying coronary artery disease versus severe aortic stenosis. Patient will be started on heparin drip and treated as NSTEMI and troponin tomorrow a.m.. Since the patient follows with ,the nut sorter wants him to be part of care when he is back on Wednesday and decide between transfer vs cath but if there is rise in troponin in the morning she may consider urgent cath. Review of Systems Review of Systems: 12 systems were reviewed with pertinent positives and negatives per HPI. Except as documented in the HPI, all other systems were reviewed and are negative. Exam Narrative: Weight 77.2 kg BMI 27.5 Const: Other: No acute distress, sitting up in the ER stretcher with the head of bed completely upright, BiPAP in place, height and weight proportionate HENMT: Other: Mucous membranes are tacky, oral exam limited due to BiPAP, no scleral icterus, mild conjunctival pallor Eyes: Other: See above Neck: Other: No lymphadenopathy, no JVD although exam not ideal due to patient positioning Resp: Other: Crackles at the left lung base, no increased work of breathing Cardio: Other: 3 to 4/6 systolic murmur is had a right and left upper sternal borders heard best at the left upper sternal border radiating towards carotid, sinus tachycardia, 2+ bilateral radial pedal pulses, no JVD GI: Other: Soft, nontender, nondistended, positive bowel sounds Skin: Other: No jaundice, no pallor Neuro: Other: Alert oriented x4, speech is clear, no facial asymmetry, moves all extremities equally, no localizing neurologic deficits noted during the course of conversation Extrem: Other: No clubbing, cyanosis or edema Psych: Other: Appropriate mood and affect, cooperative, judgment and insight intact Objective Data Vital Signs Vital Signs: Vital Signs - 24 hr 09/08/24 20:29 09/08/24 21:12 09/08/24 21:47 Temperature 97.8 F Pulse Rate 132 H 117 H 117 H Respiratory Rate 20 20 18 Blood Pressure 140/73 131/71 134/77 Pulse Oximetry 95 98 100 Oxygen Delivery Room Air 09/08/24 22:00 09/09/24 02:32 09/09/24 03:02 Temperature Pulse Rate 118 H 116 H Respiratory Rate 19 23 H Blood Pressure 140/79 144/72 H Pulse Oximetry 98 95 100 Oxygen Delivery Room Air 09/09/24 03:32 09/09/24 03:45 09/09/24 04:01 Temperature Pulse Rate 127 H 124 H Respiratory Rate 23 H 24 H Blood Pressure 139/98 H 135/73 Pulse Oximetry 93 Oxygen Delivery 09/09/24 04:20 09/09/24 04:44 09/09/24 04:47 Temperature Pulse Rate 147 H 144 H 142 H Respiratory Rate 33 H 38 H 35 H Blood Pressure 212/123 H 167/65 H Pulse Oximetry 95 100 100 Oxygen Delivery BiPAP 09/09/24 05:15 09/09/24 05:57 09/09/24 07:00 Temperature Pulse Rate 124 H 124 H 109 H Respiratory Rate 28 H 27 H 17 Blood Pressure 113/62 112/65 112/65 Pulse Oximetry 100 100 100 Oxygen Delivery 09/09/24 07:05 09/09/24 07:15 09/09/24 07:18 Temperature Pulse Rate 116 H 111 H 109 H Respiratory Rate 28 H 20 Blood Pressure 113/65 Pulse Oximetry 100 100 Oxygen Delivery BiPAP 09/09/24 09:28 09/09/24 09:30 Temperature 98.2 F Pulse Rate 111 H 117 H Respiratory Rate 26 H 26 H Blood Pressure 143/63 H Pulse Oximetry 100 100 Oxygen Delivery BiPAP Intake/Output Intake/Output: Intake & Output 09/06/24 09/07/24 09/08/24 09/09/24 23:59 23:59 23:59 23:59 Intake Total 2550 Balance 2550 Meds/Results Medications: Active Medications Generic Name Dose Route Start Last Admin Trade Name Freq PRN Reason Stop Dose Admin Enoxaparin Sodium 40 mg 09/09/24 09:00 Enoxaparin 40 Mg/0.4 Ml Syringe SUB-Q DAILY [facility] Ceftriaxone Sodium 1 gm in 50 mls @ 100 mls/hr 09/10/24 08:00 Rocephin 1 Gm/Ns 50 Ml IVPB Q24H MARK Doxycycline Hyclate 100 mg in 100 mls @ 100 mls/hr 09/09/24 12:00 Vibramycin 100 Mg/Ns 100 Ml IVPB Q12HR [facility] Perflutren Lipid Microsphere 0 ml 09/09/24 06:45 Perflutren Lipid Microspheres 1.5 Ml Vial Diluted To 10 Ml Total Volume IV PUSH 09/12/24 06:45 ONCE PRN adequate visualization Protocol Radiology Results: ITS Impressions Chest X-Ray 09/09/24 06:27 IMPRESSION: 1. Multifocal pneumonia in the left lung. Chest CTA 09/09/24 07:01 IMPRESSION: 1. Multifocal pneumonia in the left lung with small left pleural effusion. 2. Small pericardial effusion. Suggestion of left ventricular hypertrophy. Labs Labs: Laboratory Results - last 24 hr 09/08/24 09/09/24 09/09/24 20:41 00:03 07:36 WBC 12.5 H RBC 4.63 Hgb 13.1 Hct 41.3 MCV 89.2 MCH 28.3 MCHC 31.7 L RDW 12.7 Plt Count 125 L MPV 11.2 H Immature Gran % (Auto) 0.5 Neut % (Auto) 88.4 H Lymph % (Auto) 3.5 L Kane % (Auto) 7.2 Eos % (Auto) 0.1 Baso % (Auto) 0.3 Lymph # (Auto) 0.44 L Kane # (Auto) 0.9 H Eos # (Auto) 0.0 Baso # (Auto) 0.0 Abs Immat Gran (auto) 0.06 H Absolute Neuts (auto) 11.1 H Absolute Nucleated RBC 0.000 Band Neutrophils % Not Reportable Nucleated RBC % 0.0 Platelet Estimate Slightly decreased Clumped Platelets Present % Immature Plt Fraction 4.9 Schistocytes None seen PT 15.4 H INR 1.2 APTT 29.5 D-Dimer 2.00 H Sodium 136 L Potassium 3.8 Chloride 100 Carbon Dioxide 22 Anion Gap 14 H BUN 19 H D Creatinine 0.74 Estim Creat Clear Calc 73 Estimated GFR > 60 Glucose 101 Calcium 9.1 Total Bilirubin 1.8 H AST 35 ALT 20 Alkaline Phosphatase 103 Troponin I 0.153 H* 0.152 H* 0.450 H* D NT-Pro-B Natriuret Pep 4520 H Total Protein 8.0 Albumin 4.5 Lipase 56 TSH (Reflex) 1.850 Influenza A (RT-PCR) Negative Influenza B (RT-PCR) Negative RSV (RT-PCR) Negative SARS-CoV-2 RNA (RT-PCR) Negative Quality VTE Prophylaxis VTE prophylaxis: pharmacologic ordered (Lovenox 40 mg subQ daily) Hospitalist [facility] Advance Care Plan I have confirmed that the patient's Advanced Care Plan is present, code status is documented, or surrogate decision maker is listed in patient medical record.: Yes Medication Reconciliation I have utilized all available resources to obtain, update and review the patients current medications (includes all prescriptions, OTC, herbals, cannabis, and nutritional supplements).: Yes
--- NOTE | 2024-09-09 10:25 | PC.NURSE ---
Patient arrived from ER. Nurse Ann settled patient in and applied telemetry. Admission completed.
[2024-09-09] MEDS: ENOXAPARIN 40 MG/0.4 ML SYRINGE SUB-Q (11:14)
[2024-09-09] MEDS: LEVOTHYROXINE SODIUM 50 MCG TABLET PO (12:13)
[2024-09-09] MEDS: CHOLECALCIFEROL 1,000 UNITS TABLET 5000 UNITS PO (12:13)
[2024-09-09] MEDS: ATORVASTATIN 40 MG TABLET 80 MG PO (12:14)
[2024-09-09] MEDS: LOSARTAN POTASSIUM 25 MG TABLET PO (12:14)
[2024-09-09] MEDS: ASPIRIN 81 MG ENTERIC TABLET PO (12:14)
--- NOTE | 2024-09-09 14:23 | PM.CNCAR ---
Assessment and Plan Assessment and plan (1) Severe aortic stenosis: Code(s): I35.0 - Nonrheumatic aortic (valve) stenosis Status: Acute (2) Hypertension: Qualifiers: Hypertension type: primary hypertension Qualified Code(s): I10 - Essential (primary) hypertension Code(s): I10 - Essential (primary) hypertension Status: Acute (3) Diastolic dysfunction: Code(s): I51.89 - Other ill-defined heart diseases Status: Acute (4) Elevated troponin: Code(s): R79.89 - Other specified abnormal findings of blood chemistry Status: Acute (5) HLD (hyperlipidemia): Code(s): E78.5 - Hyperlipidemia, unspecified Status: Acute (6) MOONEY (dyspnea on exertion): Code(s): R06.09 - Other forms of dyspnea Status: Acute Plan Problem list: Severe aortic stenosis NSTEMI-differential includes plaque rupture versus type 2 [place] secondary to acute on chronic diastolic heart failure and/or worsening aortic stenosis --chest discomfort and elevated troponin Hypertension Hyperlipidemia Acute on chronic diastolic heart failure --shortness of breath --elevated BNP --LVEF 65-70% by echo Sepsis secondary to pneumonia on IV antibiotics Plan: -Aortic stenosis is now severe with aortic valve area of 0.8 cm2. She is clearly symptomatic with fatigue, shortness of breath, chest discomfort. -She needs aortic valve replacement. Given she is less than 65 years old she would be a candidate for SAVR. Recommend CT surgery consult for further evaluation for SAVR -Trend troponin to peak -Recommend medical management for NSTEMI at the present time given patient is septic. Recommend cardiac catheterization to evaluate coronaries after she is treated for her sepsis -Start heparin drip -Continue aspirin 81 mg daily -Continue statin -Continue losartan -Give Lasix 40 mg IV once today. Reassess volume status tomorrow and dose Lasix -Check weight, in and out, renal function daily -Check and replace electrolytes to keep potassium greater than 4 and magnesium greater than 2 History of Present Illness History of Present Illness Consult date/time: 09/09/24 14:23 Reason For Visit: pna,sepsis Narrative: 59-year-old female with history of hyperlipidemia, hypertension, aortic stenosis, chronic diastolic dysfunction, severe obstructive sleep apnea, hospitalization in December 2022 for respiratory failure requiring intubation,, vitamin-D deficiency, depression, Hodgkin's lymphoma, hypothyroidism presents with chief complaints of fatigue. Patient states that she went to work on and felt extremely fatigued. She could only work for 45 minutes and then to cough. She felt similarly fatigued on Wednesday and asked her to bring her to the ER on Wednesday night. She reports symptoms of shortness of breath, chest discomfort, racing heart for few days. She reports nausea but no vomiting. She has a mild nonproductive cough. In the ER she had a CTA chest which showed multifocal pneumonia in the left lung. She was started on IV antibiotics. An echo was done which showed severe aortic stenosis with aortic valve area of 0.8 cm2. Cardiology is consulted for further recommendations. Workup: WBC: 12.5 TSH: Within normal limits Troponin: 0.153--0.152--0.450 BNP: 4520 EKG: Sinus tachycardia with heart rate of 112, nonspecific ST T wave changes TTE: Normal LVEF of 65-70% common severe aortic stenosis with peak velocity of 4.1 centimeters/second, mean gradient 42 mm Hg, aortic valve area of 0.8 cm2, mild aortic regurgitation, mild tricuspid regurgitation, mild pulmonary hypertension with PASP of 38 mm Hg Chest x-ray: Multifocal pneumonia and left lung CTA chest: Multifocal pneumonia in the left lung with small left pleural effusion, small pericardial effusion Review of Systems Review of Systems: Complete review of systems was performed and negative other than those mentioned HPI [facility] Past Medical History Medical History (Updated 09/09/24 @ 14:28 by Loli Garber MD) Aortic stenosis Diastolic dysfunction Vitamin D deficiency HLD (hyperlipidemia) Depression Hodgkin lymphoma In the . Hypothyroidism Chest pain Surgical History Surgical History No significant past surgical history Family History Family History (Updated 09/09/24 @ 10:14 by Clover Vasquez RN) Father Diabetes mellitus Hypertension Sibling Hypertension Mother Stomach cancer Social History Social History (Updated 09/09/24 @ 08:08 by Krystal Chavez DO) Social History: Surrogate medical decision maker: Jac Pacheco, spouse. Code status: Full code. Smoking status: Never smoker Alcohol intake: never Drinks per week: 0 Alcohol use details: occasional Substance use: never Substance use type: does not use Do You Feel Safe in your Home?: Yes Lack of Transportation: No Lack of Food: Never True Current Housing: I Have Housing Concerned About Future Housing: No Difficulty Paying Gas/Electric Bills: No Difficulty Paying for Meds: No Currently Unemployed: No Education: Master's Degree or Higher Difficulty w/ Childcare or Family Care: No Living arrangements: with family Additional living arrangements comments: She is . They have 1 grown daughter who lives in [place]. Daughter is healthy. She has 2 sisters who are healthy. Both parents are from old age. 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 Spiritual care concerns: No Meds Home Medications and Allergies Home Medications Medication Instructions Recorded Confirmed Type aspirin 81 mg tablet,delayed 81 mg PO QAM #30 tabs 01/08/23 09/09/24 Rx release cholecalciferol (vitamin D3) 125 125 mcg PO DAILY #30 caps 09/06/23 09/09/24 Rx mcg (5,000 unit) capsule levothyroxine 50 mcg tablet 50 mcg PO DAILY #30 tabs 02/21/24 09/09/24 Rx atorvastatin 80 mg tablet 80 mg PO DAILY #90 tabs 06/26/24 09/09/24 Rx losartan 25 mg tablet See Rx Instructions .Route 06/26/24 09/09/24 Rx .COMPLEX #30 tabs Allergies Allergy/AdvReac Type Severity Reaction Status Date / Time No Known Allergies Allergy Verified 09/09/24 10:00 Vital Signs Vital Signs - 24 hr 09/08/24 20:29 09/08/24 21:12 09/08/24 21:47 Temperature 36.6 C Pulse Rate 132 H 117 H 117 H Respiratory Rate 20 20 18 Blood Pressure 140/73 131/71 134/77 Pulse Oximetry 95 98 100 Oxygen Delivery Room Air 09/08/24 22:00 09/09/24 02:32 09/09/24 03:02 Temperature Pulse Rate 118 H 116 H Respiratory Rate 19 23 H Blood Pressure 140/79 144/72 H Pulse Oximetry 98 95 100 Oxygen Delivery Room Air 09/09/24 03:32 09/09/24 03:45 09/09/24 04:01 Temperature Pulse Rate 127 H 124 H Respiratory Rate 23 H 24 H Blood Pressure 139/98 H 135/73 Pulse Oximetry 93 Oxygen Delivery 09/09/24 04:20 09/09/24 04:44 09/09/24 04:47 Temperature Pulse Rate 147 H 144 H 142 H Respiratory Rate 33 H 38 H 35 H Blood Pressure 212/123 H 167/65 H Pulse Oximetry 95 100 100 Oxygen Delivery BiPAP 09/09/24 05:15 09/09/24 05:57 09/09/24 07:00 Temperature Pulse Rate 124 H 124 H 109 H Respiratory Rate 28 H 27 H 17 Blood Pressure 113/62 112/65 112/65 Pulse Oximetry 100 100 100 Oxygen Delivery 09/09/24 07:05 09/09/24 07:15 09/09/24 07:18 Temperature Pulse Rate 116 H 111 H 109 H Respiratory Rate 28 H 20 Blood Pressure 113/65 Pulse Oximetry 100 100 Oxygen Delivery BiPAP 09/09/24 09:28 09/09/24 09:30 09/09/24 10:30 Temperature 36.8 C Pulse Rate 111 H 117 H Respiratory Rate 26 H 26 H Blood Pressure 143/63 H Pulse Oximetry 100 100 100 Oxygen Delivery BiPAP Room Air 09/09/24 11:47 09/09/24 12:00 Temperature 37.0 C Pulse Rate 117 H 117 H Respiratory Rate 18 Blood Pressure 96/52 L Pulse Oximetry 95 Oxygen Delivery Exam Narrative: General: Alert oriented x3, she is short of breath while talking to me Neck: Supple, no JVD Chest: Bilaterally clear to auscultation, no rales or rhonchi Cardiac: S1, S2 +, regular rate, regular rhythm, systolic murmur grade 3 x 6 best heard at right upper sternal border Extremities: No pedal edema, no skin rash Neurologic: Alert and oriented x3, no focal neurological deficits Results Labs and Meds 09/08/24 20:41 09/08/24 20:41 Lab results: Cardiac Enzymes 09/08/24 09/09/24 09/09/24 Range/Units 20:41 00:03 07:36 AST 35 (14-36) U/L Troponin I 0.153 H* 0.152 H* 0.450 H* D (0.000-0.034) ng/mL Coagulation 09/08/24 Range/Units 20:41 PT 15.4 H (11.1-14.7) Seconds APTT 29.5 (22.3-36.8) Seconds CBC 09/08/24 Range/Units 20:41 WBC 12.5 H (4.5-10.0) K/mm3 RBC 4.63 (4.2-5.4) M/mm3 Hgb 13.1 (12.0-15.0) g/dL Hct 41.3 (37.0-47.0) % Plt Count 125 L (150-375) k/mm3 Lymph # (Auto) 0.44 L (0.9-3.2) K/mm3 Evangeline # (Auto) 0.9 H (0.1-0.6) K/mm3 Eos # (Auto) 0.0 (0-0.3) K/mm3 Baso # (Auto) 0.0 (0.0-0.1) K/mm3 Comprehensive Metabolic Panel 09/08/24 Range/Units 20:41 Sodium 136 L (137-145) mmol/L Potassium 3.8 (3.4-5.0) mmol/L Chloride 100 (98-107) mmol/L Carbon Dioxide 22 (22-30) mmol/L BUN 19 H D (7-17) mg/dL Creatinine 0.74 (0.7-1.0) mg/dL Glucose 101 (65-110) mg/dL Calcium 9.1 (8.4-10.2) mg/dL AST 35 (14-36) U/L ALT 20 (6-35) U/L Alkaline Phosphatase 103 (38-126) U/L Total Protein 8.0 (6.3-8.2) g/dL Albumin 4.5 (3.5-5.1) g/dL Intake and Output 09/08/24 09/09/24 09/09/24 23:59 07:59 15:59 Intake Total 2500 50 Balance 2500 50 Intake: IV 2500 50 Lactated Ringers 1,000 ml @ 999 2400 mls/hr IV CONT .Q1H1M STA Rx#: [id number] Doxycycline 100 mg/Ns 100 ml 100 100 mg In 100 ml @ 100 mls/hr IVPB ONCE ONE Rx#:[id number] cefTRIAXone 1 GM/NS 50 ML 1 gm 50 In 50 ml @ 100 mls/hr IVPB ONCE STA Rx#:[id number] Patient Weight 09/09/24 23:59 Weight 80.7 kg
[2024-09-09 18:18] LABS: Basophils Percent Auto 0.3 % (0.2-1.2); Eosinophils Absolute Auto 0.1 K/mm3 (0-0.3); Eosinophils Percent Auto 1.3 % (0-4.4); Hematocrit 33.4 % (37.0-47.0); Hemoglobin 10.7 g/dL (12.0-15.0); Immature Granulocyte Absolute 0.04 K/mm3 (0.00-0.031); Immature Granulocyte Percent A 0.5 % (0-0.5); Immature Platelet Fraction Pct 5.1 % (0.9-11.2); Lymphocytes Percent Auto 8.2 % (18.3-44.2); Mean Corpuscular Hemoglobin 28.3 pg (26-34); Mean Corpuscular Volume 88.4 fl (80-100); Mean Platelet Volume 10.9 fl (7.4-10.4); Monocytes Absolute Auto 1.1 K/mm3 (0.1-0.6); Monocytes Percent Auto 12.6 % (2.6-8.5); Neutrophils Absolute Auto 6.6 K/mm3 (1.3-6.7); Neutrophils Percent Auto 77.1 % (45.5-73.1); Platelet Count Result 131 k/mm3 (150-375); Red Blood Count 3.78 M/mm3 (4.2-5.4); Red Cell Distribution Width 12.9 % (11.5-14.5); White Blood Count 8.6 K/mm3 (4.5-10.0)
[2024-09-09 18:26] LABS: Alanine Aminotransferase 16 U/L (6-35); Albumin Level 3.4 g/dL (3.5-5.1); Alkaline Phosphatase 89 U/L (38-126); Anion Gap 7 mmol/L (4-12); Aspartate Amino Transferase 26 U/L (14-36); Bilirubin,Total 1.3 mg/dL (0.2-1.3); Blood Urea Nitrogen 22 mg/dL (7-17); Calcium 8.6 mg/dL (8.4-10.2); Carbon Dioxide 25 mmol/L (22-30); Chloride 103 mmol/L (98-107); Estimated CRCL calculation 66 ml/min; Estimated Glomerular Filt Rate > 60; Glucose 111 mg/dL (65-110); Lactic Acid Reflex 0.9 mmol/L (0.7-2.0); Potassium 3.4 mmol/L (3.4-5.0); Sodium 135 mmol/L (137-145)
[2024-09-09 18:27] LABS: INR 1.2; Prothrombin Time 16.1 Seconds (11.1-14.7)
[2024-09-09 18:28] LABS: Partial Thromboplastin Time 38.5 Seconds (22.3-36.8)
[2024-09-09] MEDS: HEPARIN SOD/D5W 100 UNITS/ML 25,000 UNITS/250 ML BAG 8 UNITS IV CONT (18:36)
[2024-09-09] MEDS: HEPARIN SODIUM 5,000 UNITS/ML VIAL 4000 UNITS IV PUSH (18:38)
[2024-09-09 21:23] LABS: MRSA (PCR) NOT DETECTED (NOT DETECTE)
[2024-09-10] VITALS (16 sets, daily range): BP systolic 123–143; BP diastolic 61–70; PULSE 105–118; RESP 14–20; TEMP 36.7–37.4; O2SAT 93–97
[2024-09-10 01:19] LABS: Partial Thromboplastin Time 124.3 Seconds (22.3-36.8)
[2024-09-10 04:35] LABS: Hematocrit 35.4 % (37.0-47.0); Hemoglobin 10.7 g/dL (12.0-15.0); Immature Platelet Fraction Pct 5.5 % (0.9-11.2); Mean Corpuscular HGB Conc 30.2 g/dl (32-36); Mean Corpuscular Hemoglobin 28.3 pg (26-34); Mean Corpuscular Volume 93.7 fl (80-100); Mean Platelet Volume 11.6 fl (7.4-10.4); Platelet Count Result 127 k/mm3 (150-375); Red Blood Count 3.78 M/mm3 (4.2-5.4); Red Cell Distribution Width 12.9 % (11.5-14.5); White Blood Count 6.7 K/mm3 (4.5-10.0)
[2024-09-10 04:55] LABS: Alanine Aminotransferase 14 U/L (6-35); Albumin Level 3.1 g/dL (3.5-5.1); Alkaline Phosphatase 93 U/L (38-126); Anion Gap 10 mmol/L (4-12); Aspartate Amino Transferase 25 U/L (14-36); Blood Urea Nitrogen 19 mg/dL (7-17); Calcium 8.4 mg/dL (8.4-10.2); Carbon Dioxide 25 mmol/L (22-30); Chloride 103 mmol/L (98-107); Estimated CRCL calculation 91 ml/min; Estimated Glomerular Filt Rate > 60; Glucose 89 mg/dL (65-110); Potassium 3.4 mmol/L (3.4-5.0); Sodium 138 mmol/L (137-145)
[2024-09-10] MEDS: LEVOTHYROXINE SODIUM 50 MCG TABLET PO (06:19)
[2024-09-10 08:23] LABS: Partial Thromboplastin Time 49.6 Seconds (22.3-36.8)
[2024-09-10] MEDS: HEPARIN SODIUM 5,000 UNITS/ML VIAL 4000 UNITS IV PUSH ×2 (08:35→20:47)
[2024-09-10] MEDS: HEPARIN SOD/D5W 100 UNITS/ML 25,000 UNITS/250 ML BAG 10 UNITS IV CONT (08:35)
[2024-09-10] MEDS: DOXYCYCLINE 100 MG/NS 100 ML 100 MG/100 ML BAG IVPB ×2 (08:36→20:48)
[2024-09-10] MEDS: CHOLECALCIFEROL 1,000 UNITS TABLET 5000 UNITS PO (08:36)
[2024-09-10] MEDS: ATORVASTATIN 40 MG TABLET 80 MG PO (08:37)
[2024-09-10] MEDS: LOSARTAN POTASSIUM 25 MG TABLET PO (08:37)
[2024-09-10] MEDS: ASPIRIN 81 MG ENTERIC TABLET PO (08:37)
--- NOTE | 2024-09-10 10:43 | PM.IMPN ---
Progress Note: A&P Assessment and Plan (1) Pneumonia: Qualifiers: Laterality: left Lung location: lower lobe of lung Pneumonia type: due to unspecified organism Qualified Code(s): J18.9 - Pneumonia, unspecified organism Code(s): J18.9 - Pneumonia, unspecified organism Status: Acute Assessment and Plan: Vital signs stable RSV COVID flu negative Started on ceftriaxone and doxycycline monitor cultures Nasal MRSA negative Obtain urine Legionella and urine pneumococcal antigen (2) Sepsis: Qualifiers: Acute respiratory failure type: with hypoxia Sepsis acute organ dysfunction status: with acute organ dysfunction Sepsis type: sepsis due to unspecified organism Severe sepsis acute organ dysfunction type: acute respiratory failure Severe sepsis shock status: without septic shock Qualified Code(s): A41.9 - Sepsis, unspecified organism; R65.20 - Severe sepsis without septic shock; J96.01 - Acute respiratory failure with hypoxia Code(s): A41.9 - Sepsis, unspecified organism Status: Acute Assessment and Plan: Will continue empiric antibiotic therapy with Rocephin and doxycycline. (3) Aortic stenosis: Qualifiers: Cardiac valve disease etiology: nonrheumatic Qualified Code(s): I35.0 - Nonrheumatic aortic (valve) stenosis Code(s): I35.0 - Nonrheumatic aortic (valve) stenosis Status: Acute Assessment and Plan: On heparin drip Repeat echo shows Left ventricular systolic function is normal, estimated at 65-70%. Severe aortic valve stenosis Discussed with . She believes the ongoing symptoms possibly due to underlying coronary artery disease versus severe aortic stenosis. Patient will be started on heparin drip and treated as NSTEMI and troponin tomorrow a.m.. Since the patient follows with ,the [employer] operator wants him to be part of care when he is back on Wednesday and decide between transfer vs cath but if there is rise in troponin in the morning she may consider urgent cath. (4) Elevated troponin: Code(s): R79.89 - Other specified abnormal findings of blood chemistry Status: Acute Assessment and Plan: On heparin drip. Mentioned as above (5) Hypertension: Qualifiers: Hypertension type: primary hypertension Qualified Code(s): I10 - Essential (primary) hypertension Code(s): I10 - Essential (primary) hypertension Status: Acute Assessment and Plan: Will resume home losartan. (6) Obstructive sleep apnea: Code(s): G47.33 - Obstructive sleep apnea (adult) (pediatric) Status: Acute Assessment and Plan: Patient has history of severe obstructive sleep apnea. Will continue p.r.n. BiPAP at night. Subjective Date/time seen: 09/10/24 10:43 Interval history: Pending evaluation from Dr. Milner to decide between cardiac catheterization (underlying CAD) versus transfer to tertiary care center for severe aortic stenosis. Review of Systems Review of Systems: 12 systems were reviewed with pertinent positives and negatives per HPI. Except as documented in the HPI, all other systems were reviewed and are negative. Exam Narrative: Weight 77.2 kg BMI 27.5 Const: Other: No acute distress, sitting up in the ER stretcher with the head of bed completely upright, BiPAP in place, height and weight proportionate HENMT: Other: Mucous membranes are tacky, oral exam limited due to BiPAP, no scleral icterus, mild conjunctival pallor Eyes: Other: See above Neck: Other: No lymphadenopathy, no JVD although exam not ideal due to patient positioning Resp: Other: Crackles at the left lung base, no increased work of breathing Cardio: Other: 3 to 4/6 systolic murmur is had a right and left upper sternal borders heard best at the left upper sternal border radiating towards carotid, sinus tachycardia, 2+ bilateral radial pedal pulses, no JVD GI: Other: Soft, nontender, nondistended, positive bowel sounds Skin: Other: No jaundice, no pallor Neuro: Other: Alert oriented x4, speech is clear, no facial asymmetry, moves all extremities equally, no localizing neurologic deficits noted during the course of conversation Extrem: Other: No clubbing, cyanosis or edema Psych: Other: Appropriate mood and affect, cooperative, judgment and insight intact Objective Data Vital Signs Vital Signs: Vital Signs - 24 hr 09/09/24 11:47 09/09/24 12:00 09/09/24 14:00 Temperature 98.6 F Pulse Rate 117 H 117 H 110 H Respiratory Rate 18 Blood Pressure 96/52 L Pulse Oximetry 95 Oxygen Delivery 09/09/24 15:47 09/09/24 16:00 09/09/24 18:00 Temperature 99.5 F Pulse Rate 111 H 111 H 115 H Respiratory Rate 18 Blood Pressure 112/63 Pulse Oximetry 97 Oxygen Delivery 09/09/24 19:40 09/09/24 20:00 09/09/24 20:00 Temperature 98.7 F Pulse Rate 114 H 111 H Respiratory Rate 18 Blood Pressure 91/44 L Pulse Oximetry 96 Oxygen Delivery Room Air 09/09/24 22:00 09/09/24 23:31 09/09/24 23:33 Temperature 99.3 F Pulse Rate 110 H 109 H Respiratory Rate 16 Blood Pressure 124/63 Pulse Oximetry 92 Oxygen Delivery Room Air 09/10/24 00:00 09/10/24 02:00 09/10/24 03:37 Temperature 99.1 F Pulse Rate 109 H 110 H 110 H Respiratory Rate 18 Blood Pressure 143/70 H Pulse Oximetry 96 Oxygen Delivery 09/10/24 03:52 09/10/24 04:00 09/10/24 06:00 Temperature Pulse Rate 108 H 118 H Respiratory Rate Blood Pressure Pulse Oximetry Oxygen Delivery Room Air 09/10/24 07:46 Temperature 99.4 F Pulse Rate 108 H Respiratory Rate 20 Blood Pressure 128/66 Pulse Oximetry 93 Oxygen Delivery Intake/Output Intake/Output: Intake & Output 09/07/24 09/08/24 09/09/24 09/10/24 23:59 23:59 23:59 23:59 Intake Total 3530 354.7 Output Total 300 300 Balance 3230 54.7 Meds/Results Medications: Active Medications Generic Name Dose Route Start Last Admin Trade Name Freq PRN Reason Stop Dose Admin Aspirin 81 mg 09/09/24 11:50 09/10/24 08:37 Aspirin 81 Mg Enteric Tablet PO 81 mg QAM [facility] Administration Atorvastatin Calcium 80 mg 09/09/24 11:50 09/10/24 08:37 Atorvastatin 40 Mg Tablet PO 80 mg DAILY MARK Administration Enoxaparin Sodium 40 mg 09/09/24 09:00 09/10/24 08:37 Enoxaparin 40 Mg/0.4 Ml Syringe SUB-Q Not Given DAILY [facility] Heparin Sodium (Porcine) 4,000 units 09/09/24 17:38 09/10/24 08:35 Heparin Sodium 5,000 Units/Ml Vial IV PUSH 4,000 units PRN PRN Administration aPTT less than 55 seconds Heparin Sodium (Porcine) 2,500 units 09/09/24 17:38 Heparin Sodium 5,000 Units/Ml Vial IV PUSH PRN PRN aPTT 55 - 70 seconds Ceftriaxone Sodium 1 gm in 50 mls @ 100 mls/hr 09/10/24 08:00 09/10/24 08:36 Rocephin 1 Gm/Ns 50 Ml IVPB 100 mls/hr Q24H MARK Administration Doxycycline Hyclate 100 mg in 100 mls @ 100 mls/hr 09/09/24 12:00 09/10/24 08:36 Vibramycin 100 Mg/Ns 100 Ml IVPB 100 mls/hr Q12HR MARK Administration Heparin Sodium/Dextrose 25,000 units in 250 mls @ 10 mls/hr 09/09/24 17:50 09/10/24 08:35 Heparin Sodium/D5w 100 Units/Ml IV CONT 1,000 units/hr .Q24H MARK 10 mls/hr Administration Protocol 1,000 UNITS/HR Levothyroxine Sodium 50 mcg 09/09/24 11:50 09/10/24 06:19 Levothyroxine Sodium 50 Mcg Tablet PO 50 mcg DAILY@0630 MARK Administration Losartan Potassium 25 mg 09/09/24 11:50 09/10/24 08:37 Losartan Potassium 25 Mg Tablet PO 25 mg QAM MARK Administration Perflutren Lipid Microsphere 0 ml 09/09/24 06:45 Perflutren Lipid Microspheres 1.5 Ml Vial Diluted To 10 Ml Total Volume IV PUSH 09/12/24 06:45 ONCE PRN adequate visualization Protocol Vitamin D 5,000 units 09/09/24 11:50 09/10/24 08:36 Cholecalciferol 1,000 Units Tablet PO 5,000 units DAILY MARK Administration Radiology Results: ITS Impressions Chest X-Ray 09/09/24 06:27 IMPRESSION: 1. Multifocal pneumonia in the left lung. Chest CTA 09/09/24 07:01 IMPRESSION: 1. Multifocal pneumonia in the left lung with small left pleural effusion. 2. Small pericardial effusion. Suggestion of left ventricular hypertrophy. Labs Labs: Laboratory Results - last 24 hr 09/09/24 09/09/24 09/09/24 14:15 18:11 18:12 WBC 8.6 RBC 3.78 L Hgb 10.7 L Hct 33.4 L MCV 88.4 MCH 28.3 MCHC 32.0 RDW 12.9 Plt Count 131 L MPV 10.9 H Immature Gran % (Auto) 0.5 Neut % (Auto) 77.1 H Lymph % (Auto) 8.2 L [place] % (Auto) 12.6 H Eos % (Auto) 1.3 Baso % (Auto) 0.3 Lymph # (Auto) 0.70 L [place] # (Auto) 1.1 H Eos # (Auto) 0.1 Baso # (Auto) 0.0 Abs Immat Gran (auto) 0.04 H Absolute Neuts (auto) 6.6 Absolute Nucleated RBC 0.000 Nucleated RBC % 0.0 % Immature Plt Fraction 5.1 PT 16.1 H INR 1.2 APTT 38.5 H Sodium 135 L Potassium 3.4 Chloride 103 Carbon Dioxide 25 Anion Gap 7 BUN 22 H Creatinine 0.85 Estim Creat Clear Calc 66 Estimated GFR > 60 Glucose 111 H Lactic Acid 0.9 Calcium 8.6 Total Bilirubin 1.3 AST 26 ALT 16 Alkaline Phosphatase 89 Troponin I Total Protein 6.0 L Albumin 3.4 L Nasal MRSA (PCR) Not detected 09/10/24 09/10/24 09/10/24 00:45 03:53 07:35 WBC 6.7 RBC 3.78 L Hgb 10.7 L Hct 35.4 L MCV 93.7 D MCH 28.3 MCHC 30.2 L RDW 12.9 Plt Count 127 L MPV 11.6 H Immature Gran % (Auto) Neut % (Auto) Lymph % (Auto) [place] % (Auto) Eos % (Auto) Baso % (Auto) Lymph # (Auto) [place] # (Auto) Eos # (Auto) Baso # (Auto) Abs Immat Gran (auto) Absolute Neuts (auto) Absolute Nucleated RBC Nucleated RBC % % Immature Plt Fraction 5.5 PT INR APTT 124.3 H 49.6 H Sodium 138 Potassium 3.4 Chloride 103 Carbon Dioxide 25 Anion Gap 10 BUN 19 H Creatinine 0.60 L Estim Creat Clear Calc 91 Estimated GFR > 60 Glucose 89 Lactic Acid Calcium 8.4 Total Bilirubin 1.0 AST 25 ALT 14 Alkaline Phosphatase 93 Troponin I 0.180 H* Total Protein 6.0 L Albumin 3.1 L Nasal MRSA (PCR) Quality VTE Prophylaxis VTE prophylaxis: pharmacologic ordered (Lovenox 40 mg subQ daily) Hospitalist MIPS Advance Care Plan I have confirmed that the patient's Advanced Care Plan is present, code status is documented, or surrogate decision maker is listed in patient medical record.: Yes Medication Reconciliation I have utilized all available resources to obtain, update and review the patients current medications (includes all prescriptions, OTC, herbals, cannabis, and nutritional supplements).: Yes
--- NOTE | 2024-09-10 10:54 | P.PNCA_ITS ---
Progress Note: A&P Assessment and Plan (1) Severe aortic stenosis: Code(s): I35.0 - Nonrheumatic aortic (valve) stenosis Status: Acute (2) NSTEMI (non-ST elevated myocardial infarction): Code(s): I21.4 - Non-ST elevation (NSTEMI) myocardial infarction Status: Acute (3) Hypertension: Qualifiers: Hypertension type: primary hypertension Qualified Code(s): I10 - Essential (primary) hypertension Code(s): I10 - Essential (primary) hypertension Status: Acute (4) Acute on chronic diastolic heart failure: Code(s): I50.33 - Acute on chronic diastolic (congestive) heart failure Status: Acute (5) HLD (hyperlipidemia): Code(s): E78.5 - Hyperlipidemia, unspecified Status: Acute Plan Problem list: -Symptomatic severe aortic stenosis-a tick valve area 0.8 cm2 -NSTEMI-differential includes plaque rupture versus type 2 IN secondary to acute on chronic diastolic heart failure and/or worsening aortic stenosis ----chest discomfort and elevated troponin -Hypertension -Hyperlipidemia -Acute on chronic diastolic heart failure ----shortness of breath ----elevated BNP ----LVEF 65-70% by echo The Sepsis secondary to pneumonia on IV antibiotics Plan: -given symptomatic severe aortic stenosis, recommend CT surgery consult for evaluation of SAVR -troponin peaked -Recommend medical management for NSTEMI at the present time given patient is septic. Recommend cardiac catheterization to evaluate coronaries after she is treated for her sepsis -continue heparin drip for 48 hours and then stop -Continue aspirin 81 mg daily -Continue statin -Continue losartan -She is feeling much better after IV Lasix. Continue IV Lasix 40 mg today. Reassess fluid status in a.m. tomorrow and dose Lasix -Check weight, in and out, renal function daily -Check and replace electrolytes to keep potassium greater than 4 and magnesium greater than 2 Subjective Date/time seen: 09/10/24 10:54 Interval history: Reason for encounter: Severe aortic stenosis, acute on chronic diastolic heart failure Relevant history: 59-year-old female with past medical history of hyperl ipidemia, hypertension, aortic stenosis, chronic diastolic dysfunction, severe obstructive sleep apnea, hospitalization in December 2022 for respiratory failure requiring intubation,, vitamin-D deficiency, depression, Hodgkin's lymphoma, hypothyroidism presents with chief complaints of fatigue. She reports symptoms of shortness of breath, chest discomfort, racing heart for few days. She reports nausea but no vomiting. She has a mild nonproductive cough. In the ER she had a CTA chest which showed multifocal pneumonia in the left lung. She was started on IV antibiotics. An echo was done which showed severe aortic stenosis with aortic valve area of 0.8 cm2. BNP is elevated. Cardiology is consulted for further recommendations. Interval history: Patient has shortness of breath is much improved. No chest pain, lightheadedness, dizziness. Review of Systems Review of Systems: A complete review of systems was performed and negative other than those mentioned HPI Exam Narrative: General: Alert oriented x3, no acute distress Neck: Supple, no JVD Chest: Bilaterally clear to auscultation, no rales or rhonchi Cardiac: S1, S2 +, regular rate, regular rhythm, systolic murmur grade 3 x 6 best heard at right upper sternal border Extremities: No pedal edema, no skin rash Neurologic: Alert and oriented x3, no focal neurological deficits Objective Data Vital Signs Vital Signs: Vital Signs - 24 hr 09/09/24 11:47 09/09/24 12:00 09/09/24 14:00 Temperature 37.0 C Pulse Rate 117 H 117 H 110 H Respiratory Rate 18 Blood Pressure 96/52 L Pulse Oximetry 95 Oxygen Delivery 09/09/24 15:47 09/09/24 16:00 09/09/24 18:00 Temperature 37.5 C Pulse Rate 111 H 111 H 115 H Respiratory Rate 18 Blood Pressure 112/63 Pulse Oximetry 97 Oxygen Delivery 09/09/24 19:40 09/09/24 20:00 09/09/24 20:00 Temperature 37.1 C Pulse Rate 114 H 111 H Respiratory Rate 18 Blood Pressure 91/44 L Pulse Oximetry 96 Oxygen Delivery Room Air 09/09/24 22:00 09/09/24 23:31 09/09/24 23:33 Temperature 37.4 C Pulse Rate 110 H 109 H Respiratory Rate 16 Blood Pressure 124/63 Pulse Oximetry 92 Oxygen Delivery Room Air 09/10/24 00:00 09/10/24 02:00 09/10/24 03:37 Temperature 37.3 C Pulse Rate 109 H 110 H 110 H Respiratory Rate 18 Blood Pressure 143/70 H Pulse Oximetry 96 Oxygen Delivery 09/10/24 03:52 09/10/24 04:00 09/10/24 06:00 Temperature Pulse Rate 108 H 118 H Respiratory Rate Blood Pressure Pulse Oximetry Oxygen Delivery Room Air 09/10/24 07:46 09/10/24 08:00 09/10/24 10:00 Temperature 37.4 C Pulse Rate 108 H 107 H 117 H Respiratory Rate 20 Blood Pressure 128/66 Pulse Oximetry 93 Oxygen Delivery Intake/Output Intake/Output: Intake & Output 09/07/24 09/08/24 09/09/24 09/10/24 23:59 23:59 23:59 23:59 Intake Total 3530 354.7 Output Total 300 300 Balance 3230 54.7 Meds/Results Medications: Active Medications Generic Name Dose Route Start Last Admin Trade Name Freq PRN Reason Stop Dose Admin Aspirin 81 mg 09/09/24 11:50 09/10/24 08:37 Aspirin 81 Mg Enteric Tablet PO 81 mg QAM MARK Administration Atorvastatin Calcium 80 mg 09/09/24 11:50 09/10/24 08:37 Atorvastatin 40 Mg Tablet PO 80 mg DAILY MARK Administration Enoxaparin Sodium 40 mg 09/09/24 09:00 09/10/24 08:37 Enoxaparin 40 Mg/0.4 Ml Syringe SUB-Q Not Given DAILY MARK Heparin Sodium (Porcine) 4,000 units 09/09/24 17:38 09/10/24 08:35 Heparin Sodium 5,000 Units/Ml Vial IV PUSH 4,000 units PRN PRN Administration aPTT less than 55 seconds Heparin Sodium (Porcine) 2,500 units 09/09/24 17:38 Heparin Sodium 5,000 Units/Ml Vial IV PUSH PRN PRN aPTT 55 - 70 seconds Ceftriaxone Sodium 1 gm in 50 mls @ 100 mls/hr 09/10/24 08:00 09/10/24 08:36 Rocephin 1 Gm/Ns 50 Ml IVPB 100 mls/hr Q24H MARK Administration Doxycycline Hyclate 100 mg in 100 mls @ 100 mls/hr 09/09/24 12:00 09/10/24 08:36 Vibramycin 100 Mg/Ns 100 Ml IVPB 100 mls/hr Q12HR MARK Administration Heparin Sodium/Dextrose 25,000 units in 250 mls @ 10 mls/hr 09/09/24 17:50 09/10/24 08:35 Heparin Sodium/D5w 100 Units/Ml IV CONT 1,000 units/hr .Q24H MARK 10 mls/hr Administration Protocol 1,000 UNITS/HR Levothyroxine Sodium 50 mcg 09/09/24 11:50 09/10/24 06:19 Levothyroxine Sodium 50 Mcg Tablet PO 50 mcg DAILY@0630 MARK Administration Losartan Potassium 25 mg 09/09/24 11:50 09/10/24 08:37 Losartan Potassium 25 Mg Tablet PO 25 mg QAM MARK Administration Perflutren Lipid Microsphere 0 ml 09/09/24 06:45 Perflutren Lipid Microspheres 1.5 Ml Vial Diluted To 10 Ml Total Volume IV PUSH 09/12/24 06:45 ONCE PRN adequate visualization Protocol Vitamin D 5,000 units 09/09/24 11:50 09/10/24 08:36 Cholecalciferol 1,000 Units Tablet PO 5,000 units DAILY MARK Administration Radiology Results: ITS Impressions Chest X-Ray 09/09/24 06:27 IMPRESSION: 1. Multifocal pneumonia in the left lung. Chest CTA 09/09/24 07:01 IMPRESSION: 1. Multifocal pneumonia in the left lung with small left pleural effusion. 2. Small pericardial effusion. Suggestion of left ventricular hypertrophy. Labs Labs: Laboratory Results - last 24 hr 09/09/24 09/09/24 09/09/24 14:15 18:11 18:12 WBC 8.6 RBC 3.78 L Hgb 10.7 L Hct 33.4 L MCV 88.4 MCH 28.3 MCHC 32.0 RDW 12.9 Plt Count 131 L MPV 10.9 H Immature Gran % (Auto) 0.5 Neut % (Auto) 77.1 H Lymph % (Auto) 8.2 L [place] % (Auto) 12.6 H Eos % (Auto) 1.3 Baso % (Auto) 0.3 Lymph # (Auto) 0.70 L [place] # (Auto) 1.1 H Eos # (Auto) 0.1 Baso # (Auto) 0.0 Abs Immat Gran (auto) 0.04 H Absolute Neuts (auto) 6.6 Absolute Nucleated RBC 0.000 Nucleated RBC % 0.0 % Immature Plt Fraction 5.1 PT 16.1 H INR 1.2 APTT 38.5 H Sodium 135 L Potassium 3.4 Chloride 103 Carbon Dioxide 25 Anion Gap 7 BUN 22 H Creatinine 0.85 Estim Creat Clear Calc 66 Estimated GFR > 60 Glucose 111 H Lactic Acid 0.9 Calcium 8.6 Total Bilirubin 1.3 AST 26 ALT 16 Alkaline Phosphatase 89 Troponin I Total Protein 6.0 L Albumin 3.4 L Nasal MRSA (PCR) Not detected 09/10/24 09/10/24 09/10/24 00:45 03:53 07:35 WBC 6.7 RBC 3.78 L Hgb 10.7 L Hct 35.4 L MCV 93.7 D MCH 28.3 MCHC 30.2 L RDW 12.9 Plt Count 127 L MPV 11.6 H Immature Gran % (Auto) Neut % (Auto) Lymph % (Auto) [place] % (Auto) Eos % (Auto) Baso % (Auto) Lymph # (Auto) [place] # (Auto) Eos # (Auto) Baso # (Auto) Abs Immat Gran (auto) Absolute Neuts (auto) Absolute Nucleated RBC Nucleated RBC % % Immature Plt Fraction 5.5 PT INR APTT 124.3 H 49.6 H Sodium 138 Potassium 3.4 Chloride 103 Carbon Dioxide 25 Anion Gap 10 BUN 19 H Creatinine 0.60 L Estim Creat Clear Calc 91 Estimated GFR > 60 Glucose 89 Lactic Acid Calcium 8.4 Total Bilirubin 1.0 AST 25 ALT 14 Alkaline Phosphatase 93 Troponin I 0.180 H* Total Protein 6.0 L Albumin 3.1 L Nasal MRSA (PCR)
[2024-09-10 14:11] LABS: Partial Thromboplastin Time 73.7 Seconds (22.3-36.8)
[2024-09-10] MEDS: HEPARIN SOD/D5W 100 UNITS/ML 25,000 UNITS/250 ML BAG 13 UNITS IV CONT (21:32)
[2024-09-11] VITALS (19 sets, daily range): BP systolic 113–148; BP diastolic 54–74; PULSE 102–113; RESP 14–18; TEMP 36.3–37.4; O2SAT 92–98
[2024-09-11 02:50] LABS: Hematocrit 31.8 % (37.0-47.0); Hemoglobin 10.3 g/dL (12.0-15.0); Mean Corpuscular HGB Conc 32.4 g/dl (32-36); Mean Corpuscular Volume 89.6 fl (80-100); Mean Platelet Volume 11.7 fl (7.4-10.4); Platelet Count Result 163 k/mm3 (150-375); Red Blood Count 3.55 M/mm3 (4.2-5.4); Red Cell Distribution Width 13.2 % (11.5-14.5); White Blood Count 7.9 K/mm3 (4.5-10.0)
[2024-09-11 03:03] LABS: Partial Thromboplastin Time 139.3 Seconds (22.3-36.8)
[2024-09-11 03:42] LABS: Alanine Aminotransferase 15 U/L (6-35); Albumin Level 3.4 g/dL (3.5-5.1); Alkaline Phosphatase 91 U/L (38-126); Anion Gap 6 mmol/L (4-12); Aspartate Amino Transferase 31 U/L (14-36); Bilirubin,Total 0.9 mg/dL (0.2-1.3); Blood Urea Nitrogen 16 mg/dL (7-17); Calcium 8.4 mg/dL (8.4-10.2); Carbon Dioxide 27 mmol/L (22-30); Chloride 104 mmol/L (98-107); Estimated CRCL calculation 89 ml/min; Estimated Glomerular Filt Rate > 60; Glucose 100 mg/dL (65-110); Potassium 3.3 mmol/L (3.4-5.0); Sodium 137 mmol/L (137-145)
[2024-09-11] MEDS: LEVOTHYROXINE SODIUM 50 MCG TABLET PO (05:34)
[2024-09-11] MEDS: POTASSIUM CHLORIDE 20 MEQ PACKET (FOR LIQUID) 40 MEQ PO (10:11)
[2024-09-11] MEDS: ASPIRIN 81 MG ENTERIC TABLET PO (10:12)
[2024-09-11] MEDS: LOSARTAN POTASSIUM 25 MG TABLET PO (10:12)
[2024-09-11] MEDS: CHOLECALCIFEROL 1,000 UNITS TABLET 5000 UNITS PO (10:12)
[2024-09-11] MEDS: ATORVASTATIN 40 MG TABLET 80 MG PO (10:12)
[2024-09-11 10:37] LABS: Partial Thromboplastin Time 77.6 Seconds (22.3-36.8)
[2024-09-11 10:39] LABS: Magnesium 1.6 mg/dL (1.6-2.3)
[2024-09-11] MEDS: POTASSIUM CHLORIDE INJ 40 MEQ in SODIUM CHLORIDE 0.9% IV 500 ML 130 MEQ IVPB (12:21)
--- NOTE | 2024-09-11 13:22 | P.PNIM_ITS ---
Progress Note: A&P Assessment and Plan (1) Pneumonia: Qualifiers: Laterality: left Lung location: lower lobe of lung Pneumonia type: due to unspecified organism Qualified Code(s): J18.9 - Pneumonia, unspecified organism Code(s): J18.9 - Pneumonia, unspecified organism Status: Acute Assessment and Plan: Vital signs stable RSV COVID flu negative Started on ceftriaxone and doxycycline monitor cultures Nasal MRSA negative Obtain urine Legionella and urine pneumococcal antigen (2) Sepsis: Qualifiers: Acute respiratory failure type: with hypoxia Sepsis acute organ dysfunction status: with acute organ dysfunction Sepsis type: sepsis due to unspecified organism Severe sepsis acute organ dysfunction type: acute respiratory failure Severe sepsis shock status: without septic shock Qualified Code(s): A41.9 - Sepsis, unspecified organism; R65.20 - Severe sepsis without septic shock; J96.01 - Acute respiratory failure with hypoxia Code(s): A41.9 - Sepsis, unspecified organism Status: Acute Assessment and Plan: Will continue empiric antibiotic therapy with Rocephin and doxycycline. (3) Aortic stenosis: Qualifiers: Cardiac valve disease etiology: nonrheumatic Qualified Code(s): I35.0 - Nonrheumatic aortic (valve) stenosis Code(s): I35.0 - Nonrheumatic aortic (valve) stenosis Status: Acute Assessment and Plan: On heparin drip Repeat echo shows Left ventricular systolic function is normal, estimated at 65- 70%. Severe aortic valve stenosis Discussed with . She believes the ongoing symptoms possibly due to underlying coronary artery disease versus severe aortic stenosis. Patient will be started on heparin drip and treated as NSTEMI and troponin tomorrow a.m.. Since the patient follows with ,the shower room attendant wants him to be part of care when he is back on Wednesday and decide between transfer vs cath but if there is rise in troponin in the morning she may consider urgent cath. awaiting cardiology recommendation (4) Elevated troponin: Code(s): R79.89 - Other specified abnormal findings of blood chemistry Status: Acute Assessment and Plan: On heparin drip. Mentioned as above (5) Hypertension: Qualifiers: Hypertension type: primary hypertension Qualified Code(s): I10 - Essential (primary) hypertension Code(s): I10 - Essential (primary) hypertension Status: Acute Assessment and Plan: Will resume home losartan. (6) Obstructive sleep apnea: Code(s): G47.33 - Obstructive sleep apnea (adult) (pediatric) Status: Acute Assessment and Plan: Patient has history of severe obstructive sleep apnea. Will continue p.r.n. BiPAP at night. Plan DVT prophylaxis on heparin infusion awaiting cardiology recs Subjective Date/time seen: 09/11/24 13:22 Interval history: Comfortable at bedside Awaiting Cardiology plan Review of Systems Review of Systems: 12 systems were reviewed with pertinent positives and negatives per HPI. Except as documented in the HPI, all other systems were reviewed and are negative. Exam Narrative: Weight 77.2 kg BMI 27.5 Const: Other: No acute distress, sitting up in the ER stretcher with the head of bed completely upright, BiPAP in place, height and weight proportionate HENMT: Other: Mucous membranes are tacky, oral exam limited due to BiPAP, no scleral icterus, mild conjunctival pallor Eyes: Other: See above Neck: Other: No lymphadenopathy, no JVD although exam not ideal due to patient positioning Resp: Other: Crackles at the left lung base, no increased work of breathing Cardio: Other: 3 to 4/6 systolic murmur is had a right and left upper sternal borders heard best at the left upper sternal border radiating towards carotid, sinus tachycardia, 2+ bilateral radial pedal pulses, no JVD GI: Other: Soft, nontender, nondistended, positive bowel sounds Skin: Other: No jaundice, no pallor Neuro: Other: Alert oriented x4, speech is clear, no facial asymmetry, moves all extremities equally, no localizing neurologic deficits noted during the course of conversation Extrem: Other: No clubbing, cyanosis or edema Psych: Other: Appropriate mood and affect, cooperative, judgment and insight intact Objective Data Vital Signs Vital Signs: Vital Signs - 24 hr 09/10/24 14:00 09/10/24 16:00 09/10/24 16:00 Temperature 99.2 F Pulse Rate 110 H 105 H 108 H Respiratory Rate 20 Blood Pressure 123/61 Pulse Oximetry 93 Oxygen Delivery 09/10/24 19:00 09/10/24 20:00 09/10/24 20:00 Temperature 98.3 F Pulse Rate 111 H 109 H Respiratory Rate 16 Blood Pressure 124/61 Pulse Oximetry 97 Oxygen Delivery Room Air 09/10/24 22:00 09/10/24 23:36 09/11/24 00:00 Temperature 98.6 F Pulse Rate 110 H 108 H Respiratory Rate 16 Blood Pressure 130/63 Pulse Oximetry 93 Oxygen Delivery Room Air 09/11/24 00:00 09/11/24 02:00 09/11/24 03:21 Temperature 98.9 F Pulse Rate 103 H 109 H 110 H Respiratory Rate 16 Blood Pressure 115/55 L Pulse Oximetry 92 Oxygen Delivery 09/11/24 04:00 09/11/24 04:00 09/11/24 06:00 Temperature Pulse Rate 108 H 106 H Respiratory Rate Blood Pressure Pulse Oximetry Oxygen Delivery Room Air 09/11/24 07:34 09/11/24 08:00 09/11/24 10:00 Temperature 98.5 F Pulse Rate 109 H 106 H 102 H Respiratory Rate 18 Blood Pressure 136/73 Pulse Oximetry 95 Oxygen Delivery 09/11/24 11:21 09/11/24 12:00 09/11/24 12:00 Temperature 98.6 F Pulse Rate 108 H 113 H Respiratory Rate 18 Blood Pressure 148/73 H Pulse Oximetry 97 Oxygen Delivery Room Air Intake/Output Intake/Output: Intake & Output 09/08/24 09/09/24 09/10/24 09/11/24 23:59 23:59 23:59 23:59 Intake Total 3530 1716.3 622.2 Output Total 300 600 200 Balance 3230 1116.3 422.2 Meds/Results Medications: Active Medications Generic Name Dose Route Start Last Admin Trade Name Freq PRN Reason Stop Dose Admin Aspirin 81 mg 09/09/24 11:50 09/11/24 10:12 Aspirin 81 Mg Enteric Tablet PO 81 mg QAM MARK Administration Atorvastatin Calcium 80 mg 09/09/24 11:50 09/11/24 10:12 Atorvastatin 40 Mg Tablet PO 80 mg DAILY MARK Administration Heparin Sodium (Porcine) 4,000 units 09/09/24 17:38 09/10/24 20:47 Heparin Sodium 5,000 Units/Ml Vial IV PUSH 4,000 units PRN PRN Administration aPTT less than 55 seconds Heparin Sodium (Porcine) 2,500 units 09/09/24 17:38 Heparin Sodium 5,000 Units/Ml Vial IV PUSH PRN PRN aPTT 55 - 70 seconds Ceftriaxone Sodium 1 gm in 50 mls @ 100 mls/hr 09/10/24 08:00 09/11/24 10:12 Rocephin 1 Gm/Ns 50 Ml IVPB 100 mls/hr Q24H MARK Administration Doxycycline Hyclate 100 mg in 100 mls @ 100 mls/hr 09/09/24 12:00 09/10/24 22:57 Vibramycin 100 Mg/Ns 100 Ml IVPB Infused Q12HR MARK Infusion Heparin Sodium/Dextrose 25,000 units in 250 mls @ 11 mls/hr 09/09/24 17:50 09/11/24 11:21 Heparin Sodium/D5w 100 Units/Ml IV CONT 1,100 units/hr .[id number] MARK 11 mls/hr Titration Protocol 1,100 UNITS/HR Potassium Chloride 40 meq/ 520 mls @ 130 mls/hr 09/11/24 09:45 09/11/24 12:21 Sodium Chloride IVPB 09/11/24 13:44 130 mls/hr ONCE ONE Administration Levothyroxine Sodium 50 mcg 09/09/24 11:50 09/11/24 05:34 Levothyroxine Sodium 50 Mcg Tablet PO 50 mcg DAILY@0630 MARK Administration Losartan Potassium 25 mg 09/09/24 11:50 09/11/24 10:12 Losartan Potassium 25 Mg Tablet PO 25 mg QAM MARK Administration Perflutren Lipid Microsphere 0 ml 09/09/24 06:45 Perflutren Lipid Microspheres 1.5 Ml Vial Diluted To 10 Ml Total Volume IV PUSH 09/12/24 06:45 ONCE PRN adequate visualization Protocol Vitamin D 5,000 units 09/09/24 11:50 09/11/24 10:12 Cholecalciferol 1,000 Units Tablet PO 5,000 units DAILY MARK Administration Radiology Results: ITS Impressions Chest X-Ray 09/09/24 06:27 IMPRESSION: 1. Multifocal pneumonia in the left lung. Chest CTA 09/09/24 07:01 IMPRESSION: 1. Multifocal pneumonia in the left lung with small left pleural effusion. 2. Small pericardial effusion. Suggestion of left ventricular hypertrophy. Labs Labs: Laboratory Results - last 24 hr 09/10/24 09/10/24 09/11/24 13:54 20:24 02:37 WBC RBC Hgb Hct MCV MCH MCHC RDW Plt Count MPV APTT 73.7 H 50.0 H 139.3 H Sodium Potassium Chloride Carbon Dioxide Anion Gap BUN Creatinine Estim Creat Clear Calc Estimated GFR Glucose Calcium Magnesium Total Bilirubin AST ALT Alkaline Phosphatase Total Protein Albumin 09/11/24 09/11/24 09/11/24 02:38 03:24 10:15 WBC 7.9 RBC 3.55 L Hgb 10.3 L Hct 31.8 L MCV 89.6 MCH 29.0 MCHC 32.4 RDW 13.2 Plt Count 163 MPV 11.7 H APTT 77.6 H Sodium 137 Potassium 3.3 L Chloride 104 Carbon Dioxide 27 Anion Gap 6 BUN 16 Creatinine 0.62 L Estim Creat Clear Calc 89 Estimated GFR > 60 Glucose 100 Calcium 8.4 Magnesium Total Bilirubin 0.9 AST 31 ALT 15 Alkaline Phosphatase 91 Total Protein 6.0 L Albumin 3.4 L 09/11/24 10:16 WBC RBC Hgb Hct MCV MCH MCHC RDW Plt Count MPV APTT Sodium Potassium Chloride Carbon Dioxide Anion Gap BUN Creatinine Estim Creat Clear Calc Estimated GFR Glucose Calcium Magnesium 1.6 Total Bilirubin AST ALT Alkaline Phosphatase Total Protein Albumin Quality VTE Prophylaxis VTE prophylaxis: pharmacologic ordered (Lovenox 40 mg subQ daily)
[2024-09-11] MEDS: DOXYCYCLINE HYCLATE 100 MG TABLET PO ×2 (13:38→22:57)
[2024-09-11 17:42] LABS: Partial Thromboplastin Time 127.7 Seconds (22.3-36.8)
--- NOTE | 2024-09-11 18:37 | P.PNCA_ITS ---
Progress Note: A&P Assessment and Plan (1) Acute on chronic diastolic heart failure: Code(s): I50.33 - Acute on chronic diastolic (congestive) heart failure Status: Acute Plan -Symptomatic severe aortic stenosis with valve area 0.8 cm2 reviewed with her extensively today she has had a history of non-Hodgkin's lymphoma and had received radiation to the chest she will need to be evaluated by Cardiac Surgical Team to determine whether she is a candidate for SAVR or TAVR -NSTEMI-suspect that the elevated troponin is related to left ventricular strain on presentation have discussed with her that she will need a cardiac cath eterization to be done prior to planning out any surgical procedure suspect that this is type 2 PR secondary to acute on chronic diastolic heart failure and/or worsening aortic stenosis -chest discomfort and elevated troponin -Hypertension-on losartan 25 mg ultimately will need to add a low-dose of carvedilol help contain her tachycardia however do so after her respiratory status is stable by her respiratory status -Hyperlipidemia on Lipitor 80 mg daily -Acute on chronic diastolic heart failure secondary to aortic stenosis -shortness of breath likely attributable to valvular heart disease as the underlying cause of her shortness of breath -elevated BNP -LVEF 65-70% by echo -Sepsis secondary to pneumonia on IV antibiotics Recommendations: -given symptomatic severe aortic stenosis, recommend CT surgery consult for evaluation of SAVR versus TAVR prior history of non Hodgkin's lymphoma and chest radiation may make her other TAVR candidate instead however she is quite young. -she will need to get a CT scan of the chest done to evaluate valve morphology and or a transesophageal echo to evaluate and see whether not she has a bicuspid or tricuspid aortic valve since she has developed stenosis at young age I looked at the echocardiogram images that was done the resolution of the images is inadequate to exclude bicuspid -troponin peaked -Recommend medical management for NSTEMI at the present time given patient is septic. Recommend cardiac catheterization to evaluate coronaries after she is treated for her sepsis -continue heparin drip for 48 hours and then stop -Continue aspirin 81 mg daily -Continue statin -Continue losartan -She is feeling much better after IV Lasix. Continue IV Lasix 40 mg today. Reassess fluid status in a.m. tomorrow and dose Lasix -Check weight, in and out, renal function daily -Check and replace electrolytes to keep potassium greater than 4 and magnesium greater than 2 Would have her out of bed into chair and ambulate to see what her functional status is as she will need to be stable for discharge until she is seen by CT surgery Subjective Date/time seen: 09/11/24 18:37 Interval history: Currently feels well is at bedside reviewed with her regarding her echocardiogram that was performed demonstrating severe aortic stenosis and preserved LV function we also reviewed her troponin levels which were noted to be elevated on presentation likely related to the tachycardia and left ventricular strain from the aortic stenosis Exam Const: General: comfortable and no acute distress HENMT: Head: normal to inspection, normocephalic and atraumatic Neck: Carotids: other (Radiating sounds from the aortic stenosis to the carotids) Cardio: Rate: tachycardic Heart sounds: S1 normal heart sound present, S2 normal heart sound present and Murmur heart sound present systolic crescendo, III/, at the right sternal border and neck Neuro: General: patient oriented x3 Extrem: General: normal to inspection, no pedal edema and no calf tenderness Objective Data Vital Signs Vital Signs: Vital Signs - 24 hr 09/10/24 19:00 09/10/24 20:00 09/10/24 20:00 Temperature 36.8 C Pulse Rate 111 H 109 H Respiratory Rate 16 Blood Pressure 124/61 Pulse Oximetry 97 Oxygen Delivery Room Air 09/10/24 22:00 09/10/24 23:36 09/11/24 00:00 Temperature 37.0 C Pulse Rate 110 H 108 H Respiratory Rate 16 Blood Pressure 130/63 Pulse Oximetry 93 Oxygen Delivery Room Air 09/11/24 00:00 09/11/24 02:00 09/11/24 03:21 Temperature 37.2 C Pulse Rate 103 H 109 H 110 H Respiratory Rate 16 Blood Pressure 115/55 L Pulse Oximetry 92 Oxygen Delivery 09/11/24 04:00 09/11/24 04:00 09/11/24 06:00 Temperature Pulse Rate 108 H 106 H Respiratory Rate Blood Pressure Pulse Oximetry Oxygen Delivery Room Air 09/11/24 07:34 09/11/24 08:00 09/11/24 10:00 Temperature 36.9 C Pulse Rate 109 H 106 H 102 H Respiratory Rate 18 Blood Pressure 136/73 Pulse Oximetry 95 Oxygen Delivery 09/11/24 11:21 09/11/24 12:00 09/11/24 12:00 Temperature 37.0 C Pulse Rate 108 H 113 H Respiratory Rate 18 Blood Pressure 148/73 H Pulse Oximetry 97 Oxygen Delivery Room Air 09/11/24 14:00 09/11/24 15:46 09/11/24 16:00 Temperature 36.8 C Pulse Rate 111 H 113 H Respiratory Rate 14 Blood Pressure 148/74 H Pulse Oximetry 98 Oxygen Delivery Room Air 09/11/24 16:00 Temperature Pulse Rate 110 H Respiratory Rate Blood Pressure Pulse Oximetry Oxygen Delivery Intake/Output Intake/Output: Intake & Output 09/08/24 09/09/24 09/10/24 09/11/24 23:59 23:59 23:59 23:59 Intake Total 3530 1716.3 1283.0 Output Total 300 600 950 Balance 3230 1116.3 333.0 Meds/Results Medications: Active Medications Generic Name Dose Route Start Last Admin Trade Name Freq PRN Reason Stop Dose Admin Amoxicillin/Clavulanate Potassium 1 tablet 09/12/24 09:00 Amoxicillin/Clavulanate K 875-125 Mg Tab PO 09/15/24 21:01 Q12HR [facility] Aspirin 81 mg 09/09/24 11:50 09/11/24 10:12 Aspirin 81 Mg Enteric Tablet PO 81 mg QAM MARK Administration Atorvastatin Calcium 80 mg 09/09/24 11:50 09/11/24 10:12 Atorvastatin 40 Mg Tablet PO 80 mg DAILY MARK Administration Doxycycline Hyclate 100 mg 09/11/24 13:30 09/11/24 13:38 Doxycycline Hyclate 100 Mg Tablet PO 09/13/24 09:01 100 mg Q12HR MARK Administration Heparin Sodium (Porcine) 4,000 units 09/09/24 17:38 09/10/24 20:47 Heparin Sodium 5,000 Units/Ml Vial IV PUSH 4,000 units PRN PRN Administration aPTT less than 55 seconds Heparin Sodium (Porcine) 2,500 units 09/09/24 17:38 Heparin Sodium 5,000 Units/Ml Vial IV PUSH PRN PRN aPTT 55 - 70 seconds Heparin Sodium/Dextrose 25,000 units in 250 mls @ 10 mls/hr 09/09/24 17:50 09/11/24 17:47 Heparin Sodium/D5w 100 Units/Ml IV CONT 1,000 units/hr .Q24H MARK 10 mls/hr Titration Protocol 1,000 UNITS/HR Levothyroxine Sodium 50 mcg 09/09/24 11:50 09/11/24 05:34 Levothyroxine Sodium 50 Mcg Tablet PO 50 mcg DAILY@0630 MARK Administration Losartan Potassium 25 mg 09/09/24 11:50 09/11/24 10:12 Losartan Potassium 25 Mg Tablet PO 25 mg QAM MARK Administration Perflutren Lipid Microsphere 0 ml 09/09/24 06:45 Perflutren Lipid Microspheres 1.5 Ml Vial Diluted To 10 Ml Total Volume IV PUSH 09/12/24 06:45 ONCE PRN adequate visualization Protocol Vitamin D 5,000 units 09/09/24 11:50 09/11/24 10:12 Cholecalciferol 1,000 Units Tablet PO 5,000 units DAILY MARK Administration Radiology Results: ITS Impressions Chest X-Ray 09/09/24 06:27 IMPRESSION: 1. Multifocal pneumonia in the left lung. Chest CTA 09/09/24 07:01 IMPRESSION: 1. Multifocal pneumonia in the left lung with small left pleural effusion. 2. Small pericardial effusion. Suggestion of left ventricular hypertrophy. Labs Labs: Laboratory Results - last 24 hr 09/10/24 09/11/24 09/11/24 20:24 02:37 02:38 WBC 7.9 RBC 3.55 L Hgb 10.3 L Hct 31.8 L MCV 89.6 MCH 29.0 MCHC 32.4 RDW 13.2 Plt Count 163 MPV 11.7 H APTT 50.0 H 139.3 H Sodium Potassium Chloride Carbon Dioxide Anion Gap BUN Creatinine Estim Creat Clear Calc Estimated GFR Glucose Calcium Magnesium Total Bilirubin AST ALT Alkaline Phosphatase Total Protein Albumin 09/11/24 09/11/24 09/11/24 03:24 10:15 10:16 WBC RBC Hgb Hct MCV MCH MCHC RDW Plt Count MPV APTT 77.6 H Sodium 137 Potassium 3.3 L Chloride 104 Carbon Dioxide 27 Anion Gap 6 BUN 16 Creatinine 0.62 L Estim Creat Clear Calc 89 Estimated GFR > 60 Glucose 100 Calcium 8.4 Magnesium 1.6 Total Bilirubin 0.9 AST 31 ALT 15 Alkaline Phosphatase 91 Total Protein 6.0 L Albumin 3.4 L 09/11/24 17:04 WBC RBC Hgb Hct MCV MCH MCHC RDW Plt Count MPV APTT 127.7 H Sodium Potassium Chloride Carbon Dioxide Anion Gap BUN Creatinine Estim Creat Clear Calc Estimated GFR Glucose Calcium Magnesium Total Bilirubin AST ALT Alkaline Phosphatase Total Protein Albumin Imaging My impression: Echocardiogram demonstrates preserved left ventricle systolic function and severe Radiologist's impression: Summary 1. Complete two-dimensional, color flow and Doppler transthoracic echocardiogram is performed. 2. Left ventricular systolic function is normal, estimated at 65-70%. 3. There is moderately increased left ventricular wall thickness. 4. There is severe aortic valve stenosis with a peak velocity of 410 cm/s, mean gradient of 42 mmHg, and aortic valve area of 0.8 cm2. 5. There is mild aortic valve regurgitation. 6. There is moderate aortic valve calcification. 7. There is mild tricuspid valve regurgitation. 8. Mild pulmonary hypertension, estimated pulmonary arterial systolic pressure is 38 mmHg.
[2024-09-11] MEDS: HEPARIN SOD/D5W 100 UNITS/ML 25,000 UNITS/250 ML BAG 10 UNITS IV CONT (22:56)
[2024-09-12] VITALS (12 sets, daily range): BP systolic 121–137; BP diastolic 56–72; PULSE 93–112; RESP 16–18; TEMP 36.7–37.1; O2SAT 92–95
[2024-09-12 03:14] LABS: Basophils Absolute Auto 0.1 K/mm3 (0.0-0.1); Basophils Percent Auto 0.7 % (0.2-1.2); Eosinophils Absolute Auto 0.4 K/mm3 (0-0.3); Eosinophils Percent Auto 4.7 % (0-4.4); Hematocrit 33.4 % (37.0-47.0); Hemoglobin 10.3 g/dL (12.0-15.0); Immature Granulocyte Absolute 0.05 K/mm3 (0.00-0.031); Immature Granulocyte Percent A 0.7 % (0-0.5); Lymphocytes Absolute Auto 1.02 K/mm3 (0.9-3.2); Lymphocytes Percent Auto 13.4 % (18.3-44.2); Mean Corpuscular HGB Conc 30.8 g/dl (32-36); Mean Corpuscular Hemoglobin 27.9 pg (26-34); Mean Corpuscular Volume 90.5 fl (80-100); Mean Platelet Volume 11.2 fl (7.4-10.4); Monocytes Absolute Auto 0.7 K/mm3 (0.1-0.6); Monocytes Percent Auto 9.6 % (2.6-8.5); Neutrophils Absolute Auto 5.4 K/mm3 (1.3-6.7); Neutrophils Percent Auto 70.9 % (45.5-73.1); Platelet Count Result 179 k/mm3 (150-375); Red Blood Count 3.69 M/mm3 (4.2-5.4); White Blood Count 7.6 K/mm3 (4.5-10.0)
[2024-09-12 03:39] LABS: Alanine Aminotransferase 17 U/L (6-35); Albumin Level 3.3 g/dL (3.5-5.1); Alkaline Phosphatase 95 U/L (38-126); Anion Gap 7 mmol/L (4-12); Aspartate Amino Transferase 32 U/L (14-36); Bilirubin,Total 0.6 mg/dL (0.2-1.3); Blood Urea Nitrogen 14 mg/dL (7-17); Calcium 8.7 mg/dL (8.4-10.2); Carbon Dioxide 26 mmol/L (22-30); Chloride 104 mmol/L (98-107); Estimated CRCL calculation 87 ml/min; Estimated Glomerular Filt Rate > 60; Glucose 99 mg/dL (65-110); Magnesium 1.7 mg/dL (1.6-2.3); Potassium 3.7 mmol/L (3.4-5.0); Sodium 137 mmol/L (137-145)
[2024-09-12 04:18] LABS: Partial Thromboplastin Time > 200.0 Seconds (22.3-36.8)
[2024-09-12] MEDS: LEVOTHYROXINE SODIUM 50 MCG TABLET PO (05:20)
--- NOTE | 2024-09-12 06:53 | P.PNCROSS_ITS ---
Event Note Event Note Event Note: Patient had a nonsustained V-tach. Advised to give magnesium 1 g x 1 and metop rolol 2.5 mg x 1. Advised to notify Cardiology
--- NOTE | 2024-09-12 06:53 | PM.EVENT ---
Event Note Event Note Event Note: Patient had a nonsustained V-tach. Advised to give magnesium 1 g x 1 and metoprolol 2.5 mg x 1. Advised to notify Cardiology
[2024-09-12] MEDS: MAGNESIUM SULF 1 GM/D5W 100 ML 1 GM/100 ML BAG IVPB (07:50)
--- NOTE | 2024-09-12 07:52 | P.PNCA_ITS ---
Progress Note: A&P Assessment and Plan (1) Aortic stenosis: Qualifiers: Cardiac valve disease etiology: nonrheumatic Qualified Code(s): I35.0 - Nonrheumatic aortic (valve) stenosis Code(s): I35.0 - Nonrheumatic aortic (valve) stenosis Status: Acute Assessment and Plan: Will ultimately need right and left heart cath and TAMI, once pneumonia/sepsis resolves which could be in next 1-2 weeks. Will plan for workup as outpatient in near future. (2) HLD (hyperlipidemia): Code(s): E78.5 - Hyperlipidemia, unspecified Status: Acute Assessment and Plan: On Atorvastatin. (3) Elevated troponin: Code(s): R79.89 - Other specified abnormal findings of blood chemistry Status: Acute Assessment and Plan: Troponin peaked at 0.45 and went down to 0.18. Probably due to pneumonia. Doubt ACS without clinical chest pains or EKG changes. (4) Hypertension: Qualifiers: Hypertension type: primary hypertension Qualified Code(s): I10 - Essential (primary) hypertension Code(s): I10 - Essential (primary) hypertension Status: Acute Assessment and Plan: Stable. (5) Diastolic dysfunction: Code(s): I51.89 - Other ill-defined heart diseases Status: Acute Assessment and Plan: Stable. (6) Pneumonia: Qualifiers: Laterality: left Lung location: lower lobe of lung Pneumonia type: due to unspecified organism Qualified Code(s): J18.9 - Pneumonia, unspecified organism Code(s): J18.9 - Pneumonia, unspecified organism Status: Acute Assessment and Plan: Multifocal left lung pneumonia. On antibiotics. Managed by hospitalist. (7) PSVT (paroxysmal supraventricular tachycardia): Code(s): I47.10 - Supraventricular tachycardia, unspecified Status: Acute Assessment and Plan: Had short run of SVT on 09/12/24. Start Metoprolol Tartate 25 mg PO BID to prevent recurrence. Subjective Date/time seen: 09/12/24 07:52 Interval history: Has mild cough and fatigue and chills. No chest pain or sob. Exam Const: General: cooperative, healthy appearing and comfortable Resp: Auscultation: crackles (left base) and no wheezes Cardio: Rate: tachycardic Rhythm: regular rhythm Heart sounds: Murmur heart sound present (IV/ systolic murmur RICS) Peripheral pulses: dorsalis pedis present GI: GI Palp: No abdominal tenderness and Yes Soft to palpation Neuro: General: oriented to person, oriented to place and oriented to time Extrem: Right lower extremity: no edema Left lower extremity: no edema Objective Data Vital Signs Vital Signs: Vital Signs - 24 hr 09/11/24 08:00 09/11/24 10:00 09/11/24 11:21 Temperature 98.6 F Pulse Rate 106 H 102 H 108 H Respiratory Rate 18 Blood Pressure 148/73 H Pulse Oximetry 97 Oxygen Delivery Fraction of Inspired Oxygen 09/11/24 12:00 09/11/24 12:00 09/11/24 14:00 Temperature Pulse Rate 113 H 111 H Respiratory Rate Blood Pressure Pulse Oximetry Oxygen Delivery Room Air Fraction of Inspired Oxygen 09/11/24 15:46 09/11/24 16:00 09/11/24 16:00 Temperature 98.2 F Pulse Rate 113 H 110 H Respiratory Rate 14 Blood Pressure 148/74 H Pulse Oximetry 98 Oxygen Delivery Room Air Fraction of Inspired Oxygen 09/11/24 18:00 09/11/24 19:33 09/11/24 20:00 Temperature 99.3 F Pulse Rate 110 H 107 H Respiratory Rate 18 Blood Pressure 113/54 L Pulse Oximetry 94 Oxygen Delivery Room Air Fraction of Inspired Oxygen 09/11/24 20:00 09/11/24 22:00 09/11/24 22:55 Temperature Pulse Rate 111 H 111 H 106 H Respiratory Rate Blood Pressure Pulse Oximetry 93 Oxygen Delivery Room Air Fraction of Inspired Oxygen 09/11/24 22:55 09/11/24 23:23 09/12/24 00:00 Temperature 97.4 F L Pulse Rate 106 H 106 H Respiratory Rate 17 Blood Pressure 127/69 Pulse Oximetry 93 92 Oxygen Delivery Room Air Room Air Fraction of Inspired Oxygen 21 09/12/24 00:00 09/12/24 02:00 09/12/24 03:48 Temperature 98.0 F Pulse Rate 112 H 112 H 107 H Respiratory Rate 18 Blood Pressure 137/72 Pulse Oximetry 92 Oxygen Delivery Fraction of Inspired Oxygen 09/12/24 04:00 09/12/24 04:00 09/12/24 06:00 Temperature Pulse Rate 111 H 107 H Respiratory Rate Blood Pressure Pulse Oximetry Oxygen Delivery Room Air Fraction of Inspired Oxygen 09/12/24 07:50 Temperature 98.7 F Pulse Rate 104 H Respiratory Rate 18 Blood Pressure 133/68 Pulse Oximetry 94 Oxygen Delivery Fraction of Inspired Oxygen Intake/Output Intake/Output: Intake & Output 09/09/24 09/10/24 09/11/24 09/12/24 23:59 23:59 23:59 23:59 Intake Total 3530 1716.3 1310.0 53.5 Output Total 300 600 950 700 Balance 3230 1116.3 360.0 -646.5 Meds/Results Medications: Active Medications Generic Name Dose Route Start Last Admin Trade Name Freq PRN Reason Stop Dose Admin Amoxicillin/Clavulanate Potassium 1 tablet 09/12/24 09:00 Amoxicillin/Clavulanate K 875-125 Mg Tab PO 09/15/24 21:01 Q12HR [facility] Aspirin 81 mg 09/09/24 11:50 09/11/24 10:12 Aspirin 81 Mg Enteric Tablet PO 81 mg QAM MARK Administration Atorvastatin Calcium 80 mg 09/09/24 11:50 09/11/24 10:12 Atorvastatin 40 Mg Tablet PO 80 mg DAILY MARK Administration Doxycycline Hyclate 100 mg 09/11/24 13:30 09/11/24 22:57 Doxycycline Hyclate 100 Mg Tablet PO 09/13/24 09:01 100 mg Q12HR MARK Administration Heparin Sodium (Porcine) 4,000 units 09/09/24 17:38 09/10/24 20:47 Heparin Sodium 5,000 Units/Ml Vial IV PUSH 4,000 units PRN PRN Administration aPTT less than 55 seconds Heparin Sodium (Porcine) 2,500 units 09/09/24 17:38 Heparin Sodium 5,000 Units/Ml Vial IV PUSH PRN PRN aPTT 55 - 70 seconds Heparin Sodium/Dextrose 25,000 units in 250 mls @ 8 mls/hr 09/09/24 17:50 09/12/24 05:19 Heparin Sodium/D5w 100 Units/Ml IV CONT 800 units/hr .Q24H MARK 8 mls/hr Titration Protocol 800 UNITS/HR Levothyroxine Sodium 50 mcg 09/09/24 11:50 09/12/24 05:20 Levothyroxine Sodium 50 Mcg Tablet PO 50 mcg DAILY@0630 [facility] Administration Losartan Potassium 25 mg 09/09/24 11:50 09/11/24 10:12 Losartan Potassium 25 Mg Tablet PO 25 mg QAM MARK Administration Metoprolol Tartrate 25 mg 09/12/24 09:00 Metoprolol Tartrate 25 Mg Tablet PO Q12HR [facility] Vitamin D 5,000 units 09/09/24 11:50 09/11/24 10:12 Cholecalciferol 1,000 Units Tablet PO 5,000 units DAILY MARK Administration Radiology Results: ITS Impressions Chest X-Ray 09/09/24 06:27 IMPRESSION: 1. Multifocal pneumonia in the left lung. Chest CTA 09/09/24 07:01 IMPRESSION: 1. Multifocal pneumonia in the left lung with small left pleural effusion. 2. Small pericardial effusion. Suggestion of left ventricular hypertrophy. Labs Labs: Laboratory Results - last 24 hr 09/11/24 09/11/24 09/11/24 10:15 10:16 17:04 WBC RBC Hgb Hct MCV MCH MCHC RDW Plt Count MPV Immature Gran % (Auto) Neut % (Auto) Lymph % (Auto) [place] % (Auto) Eos % (Auto) Baso % (Auto) Lymph # (Auto) [place] # (Auto) Eos # (Auto) Baso # (Auto) Abs Immat Gran (auto) Absolute Neuts (auto) Absolute Nucleated RBC Nucleated RBC % APTT 77.6 H 127.7 H Sodium Potassium Chloride Carbon Dioxide Anion Gap BUN Creatinine Estim Creat Clear Calc Estimated GFR Glucose Calcium Magnesium 1.6 Total Bilirubin AST ALT Alkaline Phosphatase Total Protein Albumin 09/12/24 02:54 WBC 7.6 RBC 3.69 L Hgb 10.3 L Hct 33.4 L MCV 90.5 MCH 27.9 MCHC 30.8 L RDW 13.0 Plt Count 179 MPV 11.2 H Immature Gran % (Auto) 0.7 H Neut % (Auto) 70.9 Lymph % (Auto) 13.4 L [place] % (Auto) 9.6 H Eos % (Auto) 4.7 H Baso % (Auto) 0.7 Lymph # (Auto) 1.02 [place] # (Auto) 0.7 H Eos # (Auto) 0.4 H Baso # (Auto) 0.1 Abs Immat Gran (auto) 0.05 H Absolute Neuts (auto) 5.4 Absolute Nucleated RBC 0.000 Nucleated RBC % 0.0 APTT > 200.0 H* Sodium 137 Potassium 3.7 Chloride 104 Carbon Dioxide 26 Anion Gap 7 BUN 14 Creatinine 0.64 L Estim Creat Clear Calc 87 Estimated GFR > 60 Glucose 99 Calcium 8.7 Magnesium 1.7 Total Bilirubin 0.6 AST 32 ALT 17 Alkaline Phosphatase 95 Total Protein 6.0 L Albumin 3.3 L
[2024-09-12] MEDS: METOPROLOL TARTRATE 25 MG TABLET PO (08:08)
[2024-09-12] MEDS: ATORVASTATIN 40 MG TABLET 80 MG PO (08:09)
[2024-09-12] MEDS: DOXYCYCLINE HYCLATE 100 MG TABLET PO (08:09)
[2024-09-12] MEDS: LOSARTAN POTASSIUM 25 MG TABLET PO (08:09)
[2024-09-12] MEDS: AMOXICILLIN/CLAVULANATE K 875-125 MG TAB 1 TABLET PO (08:09)
[2024-09-12] MEDS: CHOLECALCIFEROL 1,000 UNITS TABLET 5000 UNITS PO (08:09)
[2024-09-12] MEDS: ASPIRIN 81 MG ENTERIC TABLET PO (08:09)
--- NOTE | 2024-09-12 12:20 | P.DS_ITS ---
DS: Admitting Diagnosis Discharge Date 09/12/24 Admitting Diagnosis Increased shortness of breath and chest discomfort DS: Discharge Diagnosis Discharge Diagnosis (1) Pneumonia: Qualifiers: Laterality: left Lung location: lower lobe of lung Pneumonia type: due to unspecified organism Qualified Code(s): J18.9 - Pneumonia, unspecified organism Code(s): J18.9 - Pneumonia, unspecified organism Status: Acute DS: Summary Hospital Course Hospital Course: 59-year-old female with a past medical history of moderate aortic stenosis, dyslipidemia, essential hypertension, severe obstructive sleep apnea, prior r hospitalization for respiratory failure December 2022 requiring intubation and distant history of Hodgkin's lymphoma who presented to the ER with shortness of breath and mild chest discomfort. ER eval on presentation showed MD 132, T 97.8, RR 20, initially requiring BIPAP, WBC 12.5, and CTA chest showed multifocal pneumonia. Patient was managed for sepsis, Pneumonia and today she is on room air and discharged on 5 more days of Doxycycline and Augmentin. Cardiology was consulted for elevated troponin, possible worsening of aortic stenosis and short run of VT. Noted that elevated troponin is from demand, and noted they will conduct outpatient cardiac cath, and further evaluate and follow up with aortic stenosis. Started patietn on Metoprolol 25mg bid for the short run of VT. Patient discharged on same dosage. F/u with PCP in 3-5 days, f/u with GI and cardiology as instructed. Time Spent with Patient Time attestation: Total time spent providing and/or coordinating discharge services: DS: Data Data Completed and Pending Labs on day of discharge: Labs from last 24 hours 09/12/24 09/11/24 02:54 17:04 WBC 7.6 RBC 3.69 L Hgb 10.3 L Hct 33.4 L MCV 90.5 MCH 27.9 MCHC 30.8 L RDW 13.0 Plt Count 179 MPV 11.2 H Immature Gran % (Auto) 0.7 H Neut % (Auto) 70.9 Lymph % (Auto) 13.4 L [place] % (Auto) 9.6 H Eos % (Auto) 4.7 H Baso % (Auto) 0.7 Lymph # (Auto) 1.02 [place] # (Auto) 0.7 H Eos # (Auto) 0.4 H Baso # (Auto) 0.1 Abs Immat Gran (auto) 0.05 H Absolute Neuts (auto) 5.4 Absolute Nucleated RBC 0.000 Nucleated RBC % 0.0 APTT > 200.0 H* 127.7 H Sodium 137 Potassium 3.7 Chloride 104 Carbon Dioxide 26 Anion Gap 7 BUN 14 Creatinine 0.64 L Estim Creat Clear Calc 87 Estimated GFR > 60 Glucose 99 Calcium 8.7 Magnesium 1.7 Total Bilirubin 0.6 AST 32 ALT 17 Alkaline Phosphatase 95 Total Protein 6.0 L Albumin 3.3 L Discharge Plan Discharge Attending physician on discharge: Raphael Guzmán Consulting providers: Loli Garber; Donna Tierney; Guido Sykes; Florentin Milner Discharging Clinician: Raphael Guzmán Anticipated Discharge Date/Time: 09/12/24 12:18 Patient Disposition: Home Activity: as tolerated Diet: as tolerated and heart healthy Patient Instructions: Antibiotic Form Patient Language: Palauan Stand Alone Forms: General Discharge Information Follow-up/Referrals: Alen Nava MD [Primary Care Provider] - (F/u with PCP in 3-5 days ) Florentin Milner DO [Physician] - (F/u with cardiology as instructed ) Discharge Medications: New doxycycline hyclate 100 mg Tablet 100 mg PO Q12HR 4 Days Qty: 8 0RF metoprolol tartrate 25 mg Tablet 25 mg PO Q12HR 30 Days Qty: 60 1RF amoxicillin-pot clavulanate 875-125 mg tablet 1 tablet PO Q12H 5 Days Qty: 10 0RF Continued cholecalciferol (vitamin D3) 125 mcg (5,000 unit) capsule 125 mcg PO DAILY Qty: 30 0RF aspirin 81 mg Tablet,Delayed Release (Dr/Ec) 81 mg PO QAM Qty: 30 0RF levothyroxine 50 mcg tablet 50 mcg PO DAILY Qty: 30 3RF atorvastatin 80 mg tablet 80 mg PO DAILY Qty: 90 1RF losartan 25 mg tablet See Rx Instructions .ROUTE .COMPLEX Qty: 30 5RF Dose Instruction: TAKE ONE TABLET (25MG) BY MOUTH DAILY Rx Instructions: TAKE ONE TABLET (25MG) BY MOUTH DAILY Date of admission: 09/09/24 03:06 Primary Care Provider: Alen Nava Admitting Provider: Krystal Chavez Attending physician on admission: Raphael Guzmán Condition: Stable
[2024-09-13 18:44] LABS: Pneumococcal Antigen Urine NOT DETECTED
[2024-09-13 18:53] LABS: Legionella pneumophila Ag Ur NOT DETECTED
[2024-09-14 00:53] LABS: C. pneumoniae Ab (IgM) <1:10 titer; C. psittaci Ab (IgM) <1:10 titer; C. trachomatis Ab (IgM) <1:10 titer
[2024-09-14 17:33] LABS: Mycoplasma IgM Antibody Titer 61 U/mL
== END 2024-09-12 13:02 | disposition home or self-care (01) | DRG 871 ==
LOC: ANHED 09-09 02:36 → ANH3MEDSUR 09-09 07:10 → ANHIMU 09-09 07:37
PROVIDERS: General Practice; Student in an Organized Health Care Education/Training Program; Admitting Provider Internal Medicine; Emergency Provider Emergency Medicine; PCP Family Medicine; Visit Provider Internal Medicine
DX: A41.9 Sepsis, unspecified organism (principal); I50.33 Acute on chronic diastolic (congestive) heart failure; J18.9 Pneumonia, unspecified organism; J96.01 Acute respiratory failure with hypoxia; I24.89 Other forms of acute ischemic heart disease; R65.20 Severe sepsis without septic shock; I10 Essential (primary) hypertension; I35.0 Nonrheumatic aortic (valve) stenosis; E03.9 Hypothyroidism, unspecified; E78.5 Hyperlipidemia, unspecified; G47.33 Obstructive sleep apnea (adult) (pediatric); F32.A Depression, unspecified; Z20.822 Contact with and (suspected) exposure to COVID-19; Z85.71 Personal history of Hodgkin lymphoma; Z79.82 Long term (current) use of aspirin
CPT/HCPCS: 36415; 71045; 71046; 71275; 80053; 83605; 83690; 83735; 83880; 84443; 84484; 85025; 85027; 85055; 85380; 85610; 85730; 86632; 86738; 87449; 87637; 87641; 87899; 93005; 93306; 94002; 96361; 96365; 96367; 97161; 99285; A9270; J0696; J1644; J1650; J2305; J3475; J3480; J7040; J7120; Q9967

== ENCOUNTER 2024-10-30 00:26 | Day surgery (SDC) | payer BC, SELFPAY ==
[2024-10-27 13:32] VITALS: BMI 25.9
[2024-10-30] VITALS (8 sets, daily range): BP systolic 137–182; BP diastolic 60–137; PULSE 88–111; RESP 15–119; TEMP 36.8; O2SAT 90–100; BMI 26.6
--- NOTE | 2024-10-30 08:00 | ECHO_ITS ---
Patient Info Name: Jose David Pacheco Age: 59 years : 1965 Gender: Female Ht: 66 in Wt: 160 lbs BSA: 1.85 m2 Technical Quality: Good Exam Date: 10/30/2024 7:56 AM Patient Status: O Admit Date: 10/30/2024 Exam Type: CA echo transesophageal Complete two-dimensional, color flow and Doppler transesophageal study is performed. Financial Reporting Specialist: Cheyenne De Attending Provider: Florentin Milner DO Summary 1. Transesophageal echocardiogram. 2. Left ventricular chamber dimension is normal. 3. Left ventricular systolic function is normal with an ejection fraction of 60-65% by visual estimation. 4. There is moderate concentric increased left ventricular wall thickness. 5. The left ventricular diastolic function is indeterminate as it was not assessed. 6. Left atrial chamber dimension is moderately enlarged. 7. There is severe aortic valve sclerosis. 8. There is severe aortic valve stenosis with valve area at 0.7 cm2 by planimetry. 9. There is mild to moderate aortic valve regurgitation. 10. There is moderate mitral valve regurgitation. Procedure Details Risks/benefits/alternative to TAMI discuss with patient and she gave informed consent. Patient monitored electrocardiographically, vitals and she was in sinus rhythm with BP 120/80, HR 70 bpm, pulse ox >95%. Cetacaine spray to back of throat x 2. Fentanly 25 mcg and Versed 1 mg IV for conscious sedation. Multiple images obtained. Agitated saline injection. TAMI probe withdrawn and no blood on TAMI probe tip. Patient tolerated procedure well, no complications. Left Ventricle Left ventricular chamber dimension is normal. Left ventricular systolic function is normal with an ejection fraction of 60-65% by visual estimation. There is moderate concentric increased left ventricular wall thickness. The left ventricular diastolic function is indeterminate as it was not assessed. Right Ventricle Right ventricular chamber dimension is normal. Right ventricular systolic function is normal. Left Atria Left atrial chamber dimension is moderately enlarged. Right Atria Right atrial chamber dimension is normal. Aortic Valve The aortic valve is trileaflet. There is severe aortic valve sclerosis. There is severe aortic valve stenosis with valve area at 0.7 cm2 by planimetry. There is mild to moderate aortic valve regurgitation. Pulmonic Valve There is no pulmonic regurgitation. Mitral Valve There is no mitral valve stenosis. There is moderate mitral valve regurgitation. Tricuspid Valve There is no tricuspid valve regurgitation. Pericardium/Pleural There is no pericardial effusion. Inferior Vena Cava Inferior vena cava is not well visualized. Aorta The aortic root size at the sinus of Valsalva is normal. Aortic Valve Name Value Normal AV 2D/MM AV Area (Planimetry) 0.7 cm2 Report Signatures
[2024-10-30] MEDS: MIDAZOLAM HCL (*CRX) 2 MG/2 ML VIAL 1 MG IV PUSH (08:06)
[2024-10-30] MEDS: fentaNYL CITRATE INJ (*CRX) 100 MCG/2 ML VIAL 25 MCG IV PUSH (08:06)
== END 2024-10-30 09:27 | disposition home or self-care (01) ==
PROVIDERS: PCP Family Medicine; Visit Provider Internal Medicine Cardiovascular Disease
PROC: (CPT 93312; principal; 2024-10-30 08:00)
DX: I35.0 Nonrheumatic aortic (valve) stenosis (principal); I35.8 Other nonrheumatic aortic valve disorders; I08.0 Rheumatic disorders of both mitral and aortic valves; I11.9 Hypertensive heart disease without heart failure; I47.10 Supraventricular tachycardia, unspecified
CPT/HCPCS: 93312; 93320; 93325; J2250; J3010; J7040

== ENCOUNTER 2024-11-09 01:24 | Day surgery (SDC) | payer BC, SELFPAY ==
[2024-11-08 07:52] VITALS: BMI 26.6
[2024-11-09] VITALS (10 sets, daily range): BP systolic 116–168; BP diastolic 67–105; PULSE 89–109; RESP 15–21; TEMP 36.2; O2SAT 90–100; BMI 29.2
--- OUTSIDE RECORDS SUMMARY | 2024-11-09 01:27 | XMS_ITS | Clinical Summary ---
Author Organization [facility] [address] [place] [address] [address] [facility] [address] [place] [address] Care Team Providers Care Adjuster Leader Name Role Phone Alen Nava MD Primary [...] on CAT scan 0 01/29/2023 Hypertension 01/29/2023 Encounters Date Type Department Care Team Description 10/19/2024 Telephone [facility] Cardiology [address] [facility] [address] [place] [address] Guido Sykes MD 09/14/2024 Orders Only [facility] Cardiology [address] [place] [address] [address] [place] [address] Loli Garber MD from Last 3 Months Surgical History Surgery Date Site/Laterality Comments BREAST [...] on file Legal Sex Female 2:14 AM RAILROAD FIRER Gender Identity Not on file Sexual Orientation Not on file Obstetrics History Last Filed Vital Signs Vital Sign Reading Time Taken Comments Blood Pressure 165/97 06/07/2023 3:08 PM RAILROAD FIRER Pulse 100 05/07/2023 8:45 AM RAILROAD FIRER Temperature - - Respiratory Rate - - Oxygen Saturation 99% 05/07/2023 8:45 AM RAILROAD FIRER Inhaled Oxygen Concentration - - Weight 73.9 kg (163 lb) 05/07/2023 8:45 AM RAILROAD FIRER Height 167.6 cm (5' 6) 05/07/2023 8:45 AM RAILROAD FIRER Body Mass Index 26.31 05/07/2023 8:45 AM RAILROAD FIRER Plan of Treatment Health Maintenance Due Date [...] 05/26/2021, Additional history exists Influenza Vaccine (#1) 2025 Procedures Procedure Name Priority Date/Time Associated Diagnosis Comments CARDIOLOGY DOCUMENT SCAN Routine 025 12:32 PM CDT CARDIOLOGY DOCUMENT SCAN Routine 025 12:30 PM CDT from Last 3 Months Results * Cardiology Document Scan (09/10/2024 12:32 PM CDT) Anatomical Region Laterality Modality Other us Loli Garber MD CV CARDIAC SERVICES PROCEDU RES Final Result * Cardiology Document Scan (09/09/2024 12:30 PM CDT) Anatomical Region Laterality Modality Other Loli Garber MD CV CARDIAC SERVICES PROCEDU RES Final Result from Last 3 Months Insurance [facility] [employer] Member Subscriber Plan / Payer (Ef fective 2016-Present) Name:Tej Pachecomarie Relation to Subscriber:Self Name:Jose David Pacheco Payer ID:[id number] (NAIC) Group ID:[id number] Type:damntheradio Address: [place] [address] [facility] [employer] Member Subscriber Plan / Payer (Ef fective 2016-Present) Name:Junior Jose David Relation to Subscriber:Self Name:Jose David Pacheco Payer ID:[id number] (NAIC) Group ID:[id number] Type:damntheradio Address: [address] [place] [address] Care Teams Adjuster Leader Relationship Specialty Start Date End Date Alen Nava MD [address] [facility] [address] [place] [address] PCP - General Family Medicine 01/29/23
--- OUTSIDE RECORDS SUMMARY | 2024-11-09 01:27 | XMS_ITS | Encounter Summary ---
Author Organization [facility] Address [address] [place] [address] Care Team Providers Care Track Layer Head Name Role Phone Lynette Michaud NP Primary Care Provider Unavail able Encounter Details Date Type Department Care Team (Latest Contact Info) Description 10/22/2003 Outpatient Historical [facility] Ring, [place] [address] [place] [address] H[place]GK[place] NOS UNSP XTRNODL/SOLID ORG (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)- Primary Hodgkin's disease, unspecified documented in this encounter Care Teams Track Layer Head Relationship Specialty Start Date End Date Lynette Michaud NP PCP - General NURSE PRACTITIONER 03/23/19 documented as of this encounter
--- OUTSIDE RECORDS SUMMARY | 2024-11-09 01:27 | XMS_ITS | Clinical Summary ---
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 Active Active Problems Patient Care Coordination No te Formatting of this note migh t be different from the original. Primary Care: Annika Ojeda MD Referring Provider: Marielos Hugo MD [address] [place] [address] Other: Dr Keely Huff Problem Noted Date Diagnosed Date Nonrheumatic aortic valve stenosis 05/17/2019 Mild mitral regurgitation 05/17/2019 At high risk for breast cancer 09/29/2018 Hypothyroidism Hodgkin's disease Resolved Problems Problem Noted Date Diagnosed Date Resolved Date Abnormal mammogram, unspecified 01/12/2012 03/11/2015 Encounters Date Type Department Care Team Description 10/18/2024 External Device Data [facility] ABSTRACTION Provider, Abstract 09/26/2024 3:32 PM CDT - 09/26/2024 11:59 PM CDT Hospital Encounter [facility] [address] [place] [phone] Alen Nava MD Discharge Disposition: Home or Self Care 09/22/2024 Transcribe Orders [facility] [address] [place] [address] Alen Nava MD Visit for screening mammogram (Primary Dx) 09/21/2024 External Device Data [facility] ABSTRACTION Provider, Abstract 09/20/2024 External Device Data [facility] ABSTRACTION Provider, Abstract [...] on file Legal Sex Female 2:50 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 MAKER Gender Identity Not on file Sexual Orientation Not on file Occupation Industry Job Start Date Job End Date Not on file Not on file Not on file Not on file Last Filed Vital Signs Vital Sign Reading Time Taken Comments Blood Pressure 148/84 05/17/2019 12:56 PM EARRING MAKER Pulse 101 05/17/2019 12:56 PM EARRING MAKER Temperature - - Respiratory Rate - - Oxygen Saturation 95% 05/17/2019 12:56 PM EARRING MAKER Inhaled Oxygen Concentration - - Weight 86.2 kg (190 lb) 05/17/2019 12:56 PM EARRING MAKER Height 167.6 cm (5' 6) 05/17/2019 12:56 PM EARRING MAKER Body Mass Index 30.67 05/17/2019 12:56 PM EARRING MAKER Plan of Treatment Health Maintenance Due Date Last Done Comments DTAP/TDAP/TD VACCINES (1 - Tdap) 09/06/1983 ZOSTER VACCINE (1 of 2) 09/06/1983 HPV/Cotest (21-29) 1985 HPV/Cotest (30-65) 1994 CERVICAL CANCER SCREENING 05/03/2001 PAP SMEAR 05/03/2001 05/03/1998 COLORECTAL SCREENING 2009 Colorectal Cancer Screening 2009 FIT-DNA Q 3 years 2009 FIT/FOBT Q 1 year 2009 Flex Sig/CT Colonography Q 5 years 2009 RSV VACCINE (60+ or ) (1 - Risk 60-74 years 1-dose series) 2024 INFLUENZA VACCINE (#1) 2024 BREAST CANCER SCREENING 09/26/2025 09/27/19 25, 09/15/2023, 10/14/2022, Additional history exists HEPATITIS B VACCINES Aged Out No long er eligible based on patient's age to complete this topic Procedures Procedure Name Priority Date/Time Associated Diagnosis Comments MAMMO 3D YODIT SCREEN BILAT W OR WO CAD Routine 09/26/2024 3:51 PM CDT Visit for screening mammogram from Last 3 Months Results * MAMMO 3D YODIT SCREEN BILAT W OR WO CAD (09/26/2024 3:51 PM CDT) Anatomical Region Laterality Modality Breast Bilateral Mammography 09/26/2024 3:52 PM CDT Impressions 09/26/2024 4:01 PM CDT IMPRESSION: Negative. RECOMMENDATIONS: Bilateral annual screening mammogram RIGHT BREAST FINAL ASSESSMENT: BI-RADS CATEGORY 1 - Negative LEFT BREAST FINAL ASSESSMENT: BI-RADS CATEGORY 1 - Negative DICTATION LOCATION: [facility] 09/26/2024 4:01 PM CDT BILATERAL SCREENING DIGITAL MAMMOGRAMS WITH COMPUTER ASSISTED DIAGNOSIS WITH TOMOGRAPHY DATE: 09/26/2024 3:51 PM HISTORY: Routine screening mammogram. . COMPARISON: 09/15/2023 and 10/14/2022. TECHNIQUE: A bilateral screening mammogram was performed. Low-dose full-field digital breast tomosynthesis examination was performed with 2D and 3D acquisitions. Examination is read in conjunction with computer aided detection. BREAST COMPOSITION: Scattered fibroglandular densities. FINDINGS: No new masses, suspicious calcifications or areas of asymmetry or distortion are identified. The images were reviewed using the CAD system. Alen Nava MD MAMMO ORDERABLES Final Result from Last 3 Months Insurance [facility] [employer] Member Subscriber Plan / Payer (Ef fective 2020-Present) Name:Jose David Pacheco Relation to Subscriber:Self Name:Jose David Pacheco Payer ID:[id number] (NAIC) Group ID:[id number] Type:PPO Care Teams Launch Steward Relationship Specialty Start Date End Date Lynette Michaud NP PCP - General NURSE PRACTITIONER 03/23/19
--- OUTSIDE RECORDS SUMMARY | 2024-11-09 01:27 | XMS_ITS | Encounter Summary ---
Author Organization [facility] Address [address] [place] [address] Care Team Providers Care Car Icer Name Role Phone Lynette Michaud NP Primary Care Provider Unavail able Encounter Details Date Type Department Care Team (Latest Contact Info) Description 10/12/2001 Outpatient Historical HIS [facility] [place] Ring, [place] [address] [place] [address] HODGKINS NOS UNSP XTRNODL/SOLID ORG ([facility]) (Primary Dx) Social History Tobacco Use Types Packs/Day Years Used Date Smoking Tobacco: Never Assessed Comments Unknown Sex and Gender Information Value Date Recorded Sex Assigned at Not on file 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
--- OUTSIDE RECORDS SUMMARY | 2024-11-09 01:27 | XMS_ITS | Referral Summary ---
Author Organization [facility] [address] Address [address] [place] [address] Care Team Providers Care Sweatband Separator Name Role Phone Alen Nava MD Primary Care Provider Encounters Date Type Department Care Team Description 10/19/2024 Telephone [facility] Cardiology [address] [place] [address] Guido Sykes MD 09/14/2024 Orders Only [facility] Medical [facility] Cardiology [address] [place] [address] Loli Garber MD from Last 3 Months Allergies No known active allergies Medications aspirin [...] on file 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 Gender Identity Not on file Sexual Orientation Not on file Last Filed Vital Signs Vital Sign Reading Time Taken Comments Blood Pressure 165/97 06/07/2023 3:08 PM FIREWORKS INSPECTOR Pulse 100 05/07/2023 8:45 AM FIREWORKS INSPECTOR Temperature - - Respiratory Rate - - Oxygen Saturation 99% 05/07/2023 8:45 AM FIREWORKS INSPECTOR Inhaled Oxygen Concentration - - Weight 73.9 kg (163 lb) 05/07/2023 8:45 AM FIREWORKS INSPECTOR Height 167.6 cm (5' 6) 05/07/2023 8:45 AM FIREWORKS INSPECTOR Body Mass Index 26.31 05/07/2023 8:45 AM FIREWORKS INSPECTOR Plan of Treatment Not on file Procedures Procedure Name Priority Date/Time Associated Diagnosis [...] CDT) Anatomical Region Laterality Modality Other Loli Gabrer MD CV CARDIAC SERVICES PROCEDU RES Final Result from Last 3 Months Insurance [facility] [employer] Member Subscriber Plan / Payer (Ef fective 2016-Present) Name:Jose David Pacheco Relation to Subscriber:Self Name:Jose David Pacheco Payer ID:[id number] (NAIC) Group ID:[id number] Type:[employer] Address: [address] [place] [address] [facility] [employer] Member Subscriber Plan / Payer (Ef fective 2016-Present) Name:Jose David Pacheco Relation to Subscriber:Self Name:Jose David Pacheco Payer ID:[id number] (NAIC) Group ID:[id number] Type:[employer] Address: [address] [place] [address] Care Teams Sweatband Separator Relationship Specialty Start Date End Date Alen Nava MD [address] [place] [address] PCP - General Family Medicine 01/29/23
--- OUTSIDE RECORDS SUMMARY | 2024-11-09 01:27 | XMS_ITS | Encounter Summary ---
Author Organization [facility] Address [address] [place] [address] Care Team Providers Care Drill Press Operator Helper Name Role Phone Lynette Michaud NP Primary Care Provider Unavail able Encounter Details Date Type Department Care Team (Latest Contact Info) Description 09/10/1998 Outpatient Historical HIS [facility] Ring, [place] [address] [place] [address] Hodgkin's disease, unspecified(201.90) (CMS/[facility]) (Primary Dx) Social History Tobacco Use Types Packs/Day Years Used Date Smoking Tobacco: Never Assessed Comments Unknown Sex and Gender Information Value Date Recorded Sex Assigned at Not on file 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
--- OUTSIDE RECORDS SUMMARY | 2024-11-09 01:27 | XMS_ITS | Encounter Summary ---
Author Organization [facility] Address [address] [place] [address] Care Team Providers Care Sliver Chopper Name Role Phone Lynette Michaud NP Primary Care Provider Unavail able Encounter Details Date Type Department Care Team (Latest Contact Info) Description 10/21/1999 Outpatient Historical HIS [place] [address] [place] [address] Hodgkin's disease, nodular sclerosis, unspecified site, extranodal and solid organ sites (CMS/HCC) (Primary Dx) Social History Tobacco Use Types Packs/Day Years Used Date Smoking Tobacco: Never Assessed Comments Unknown Sex and Gender Information Value Date Recorded Sex Assigned at Not on file 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
--- NOTE | 2024-11-09 10:59 | WPDHPUPDATE1 ---
History and Physical Update Update Date/Time: 11/09/24 10:59 History and Physical has been reviewed, including an updated exam of the patient. There are NO changes in the patient's condition. Risks, benefits, and alternatives have been discussed and questions answered. Patient agrees to proceed with procedure.
--- NOTE | 2024-11-09 11:00 | P.SEDATION_ITS ---
Moderate Sedation Note-Pt Data Patient Data Allergies Allergy/AdvReac Type Severity Reaction Status Date / Time No Known Allergies Allergy Verified 10/30/24 07:26 Home Medications ?Medication ?Instructions ?Recorded ?Confirmed ?Type aspirin 81 mg tablet,delayed 81 mg PO QAM #30 tabs 01/08/23 11/08/24 Rx release atorvastatin 80 mg tablet 80 mg PO DAILY #90 tabs 06/26/24 11/08/24 Rx metoprolol tartrate 25 mg tablet 12.5 mg (1/2 x 25 mg) PO Q12HR 30 09/28/24 11/08/24 Rx days #30 tabs levothyroxine 50 mcg tablet 50 mcg PO DAILY #30 tabs 10/02/24 11/08/24 Rx cholecalciferol (vitamin D3) 125 25 mcg PO DAILY 11/08/24 11/08/24 History mcg (5,000 unit) capsule losartan 25 mg tablet 25 mg PO DAILY 11/08/24 11/08/24 History Sedation/Anesthesia: No previous sedation/anesthesia problems (including family history). [facility] Past Medical History Medical History Aortic stenosis Diastolic dysfunction Vitamin D deficiency HLD (hyperlipidemia) Depression Hodgkin lymphoma In the . Hypothyroidism Chest pain Surgical History Surgical History No significant past surgical history Family History Family History Father Diabetes mellitus Hypertension Sibling Hypertension Mother Stomach cancer Social History Social History Social History: Surrogate medical decision maker: Jac Pacheco, spouse. Code status: Full code. Smoking status: Never smoker Second hand tobacco smoke exposure: No Alcohol intake: never Drinks per week: 0 Alcohol use details: occasional Substance use: never Substance use type: does not use Do You Feel Safe in your Home?: Yes Lack of Transportation: No Lack of Food: Never True Current Housing: I Have Housing Concerned About Future Housing: No Difficulty Paying Gas/Electric Bills: No Difficulty Paying for Meds: No Currently Unemployed: No Education: Master's Degree or Higher Difficulty w/ Childcare or Family Care: No Living arrangements: with family Additional living arrangements comments: She is . They have 1 grown daughter who lives in [place]. Daughter is healthy. She has 2 sisters who are healthy. Both parents are from old age. 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 Spiritual care concerns: No Mod Sed Physical Exam Physical Exam Pre Procedural Exam: Normal: Lungs, Heart Size, Heart Rate and Heart Rhythm Hours since solid foods: 15 Hours since liquid intake: 15 Mallampati Classification: class II Internal Medicine - PN: Obj Da Vital Signs Vital Signs: Vital Signs - 24 hr 11/09/24 10:32 Temperature 36.2 C L Pulse Rate 90 Respiratory Rate 16 Blood Pressure 162/88 H Pulse Oximetry 100 Oxygen Delivery Room Air ASA Classification/Sedation ASA Classification/Sedation ASA Class: III Emergent: No Risks: Risks, benefits and alternatives explained and patient/family accepted plan for sedation. Patient re-evaluated immediately prior to sedation.
[2024-11-09 11:44] LABS: Hematocrit 34.2 % (37.0-47.0); Hemoglobin 11.1 g/dL (12.0-15.0); Immature Granulocyte Percent A 0.4 % (0-0.5); Lymphocytes Absolute Auto 0.99 K/mm3 (0.9-3.2); Mean Corpuscular HGB Conc 32.5 g/dl (32-36); Mean Corpuscular Hemoglobin 28.8 pg (26-34); Mean Corpuscular Volume 88.8 fl (80-100); Nucleated Red Blood Cells Absolute Auto 0.000 K/mm3 (0.0-0.012); Nucleated Red Blood Cells Perc 0.0 % (0.0-0.2); Platelet Count Result 143 k/mm3 (150-375); Red Blood Count 3.85 M/mm3 (4.2-5.4); White Blood Count 4.8 K/mm3 (4.5-10.0)
[2024-11-09 12:11] LABS: Anion Gap 5 mmol/L (4-12); Blood Urea Nitrogen 21 mg/dL (7-17); Calcium 8.9 mg/dL (8.4-10.2); Carbon Dioxide 31 mmol/L (22-30); Chloride 105 mmol/L (98-107); Estimated CRCL calculation 68 ml/min; Estimated Glomerular Filt Rate > 60; Glucose 85 mg/dL (65-110); Potassium 3.8 mmol/L (3.4-5.0); Sodium 141 mmol/L (137-145)
--- NOTE | 2024-11-09 14:20 | P.PCNCC_ITS ---
Cardiac Cath Procedure Note Date of procedure:: 11/09/24 Performing physician:: CATHETERIZATION LABORATORY REPORT Procedure Date:11/09/2024 Referring Physician:Dr. Milner Anesthesia: Versed and Fentanyl were ordered and given in my presence at 1320, procedure ended at 1412. Supervision of nurse, Annika Machuca monitored moderate sedation with 2mg Versed and 50mcg Fentanyl was provided for 52 minutes. Pre-op Diagnosis: Severe aortic stenosis Post-op Diagnosis: Severe aortic stenosis Severe coronary artery disease Procedure(s): Left heart catheterization with coronary angiography Right heart catheterization Access Site: Right radial artery Right common femoral artery Right femoral vein Brief History and Clinical Indications: 59-year-old woman who previously presented with non ST elevation [place] found to have severe aortic stenosis is here for cardiac catheterization prior to SAVR All risks, benefits and alternatives to left heart catheterization with or without percutaneous coronary intervention was discussed at length with the patient. Risk of complications including but not limited to bleeding, infection, arrhythmia, stroke, worsening kidney function, blood loss, groin hematoma, limb loss, emergency coronary artery bypass grafting, and even were discussed with the patient and all questions were answered. The patient understood and wished to proceed. Time out called, patient name, date of , medical record number, allergies, procedure performed, identify Refinery Operator Crude Unit, patient and staff member concurred with accurate data, procedure carried on. Findings: LEFT HEART CATHETERIZATION FINDINGS: 1. Left main: The left main coronary artery in its distal body has 50% stenosis. 2. Left anterior descending: The LAD gives off 1 major diagonal branch. The ostial LAD has 50% stenosis. The remainder of the LAD and diagonal branch in luminal irregularities. 3. Left circumflex: The left circumflex artery and the main marginal branches have mild luminal irregularities. 4. Right coronary artery: The RCA is a large dominant vessel that is occluded in its proximal body. 5. Left ventricle: The aortic valve is not crossed due to known severe aortic stenosis 6. Opening AO pressure 145/104 and closing AO pressure 144/94 RIGHT HEART CATHETERIZATION FINDINGS: Pressures (mmHg): RA: 7 RV: 44/2 PA: 39/18 (28) PCWP: 22 (a 29, v 27) Saturations (%) on 2L O2: PA: 71 Arterial: 92 CO/CI: Santosh: 7.4/3.8 Description of Procedure: Informed consent signed and placed in the chart. Patient transferred to quality assurance qa lab analyst room. Prepped and draped in usual sterile fashion. 2% lidocaine injected subcutaneously in right antecubital area. Brachial vein was accessed using micropuncture technique.7FR sheath placed however J-wire was unable to be advanced and we switched over to right femoral approach. The right groin was injected with 2% lidocaine subcutaneously. Under ultrasound and fluoroscopy guidance, a micropuncture needle was advanced into the femoral vein and exchanged via micropuncture catheter to a 7 Stateless sheath. Similarly, under ultrasound and fluoroscopy guidance, a micropuncture needle was advanced into the right common femoral artery and exchanged via micropuncture catheter to a 5 Stateless sheath. Right iliofemoral angiogram demonstrated appropriate access for closure after the case. 7F [place] catheter was advanced root of 7 Stateless sheath into the right side of the heart chambers and pressures were measured. Blood oximetry was performed. A 5 Stateless JL4 diagnostic catheter was used to engage the left main coronary artery. A 5 Stateless JR4 diagnostic catheter was used to engage the right coronary artery. Multiple orthogonal angiogram was obtained and reviewed in its entirety. An Angio-Seal device was used to achieve hemostasis of the right common femoral artery. A Mynx device was used to achieve hemostasis of the right femoral vein. Manual pressure was held as the 7 Stateless sheath was removed from the right antecubital area. Assessment: Obstructive left main coronary artery disease. TECHNICIAN TELECOMMUNICATION SYSTEMS of the right coronary artery. Post Operative Condition: Stable No significant blood loss Disposition: Home Plan: The patient will be monitored in the recovery area. Continue aggressive medical therapy and risk factor modification. Recommend surgical evaluation for CABG plus VALENTIN Sykes Interventional Cardiology
--- NOTE | 2024-11-09 17:30 | SUR.PHASEII ---
Pt ambulated to bathroom and back at this time. Pt's groin checked at before and after for bleeding. No bleeding or hematomas present.
== END 2024-11-09 18:35 | disposition home or self-care (01) ==
PROVIDERS: PCP Family Medicine; Visit Provider Internal Medicine
PROC: 4A023N8 Measurement of Cardiac Sampling and Pressure, Bilateral, Percutaneous Approach (ICD-10-PCS; CPT 93453; principal; 2024-11-09 11:30)
DX: I35.0 Nonrheumatic aortic (valve) stenosis (principal); I25.10 Atherosclerotic heart disease of native coronary artery without angina pectoris; I47.10 Supraventricular tachycardia, unspecified; E78.5 Hyperlipidemia, unspecified; E03.9 Hypothyroidism, unspecified; G47.33 Obstructive sleep apnea (adult) (pediatric); E55.9 Vitamin D deficiency, unspecified; I11.0 Hypertensive heart disease with heart failure; I50.30 Unspecified diastolic (congestive) heart failure; F32.A Depression, unspecified; Z79.82 Long term (current) use of aspirin; Z85.71 Personal history of Hodgkin lymphoma; Z80.0 Family history of malignant neoplasm of digestive organs
CPT/HCPCS: 36415; 80048; 85025; 93460; C1760; C1769; C1887; C1894; G0269; J1644; J2003; J2250; J2305; J3010; J7040

== ENCOUNTER 2024-11-16 12:07 | Outpatient (CLI) | payer BC, SELFPAY ==
--- NOTE | ~2024-11-16 | DEXA_ITS ---
Bone Density Report Name: JAYCOB BAIG Age: 59 Sex: Female Ethnicity: White Date of : 1965 Indication: postmenopausal; screening for osteoporosis; height loss; cancer; Referring Provider: ALEJANDRO, TETE Mcdowell Study: Bone densitometry was performed. Exam Date: November 16, 2024 Accession number: [id number] Bone Density: Region BMD T-score Z-score Classification AP Spine(L1-L4) 0.769 -2.5 -1.1 Osteoporosis Femoral Neck (Left) 0.536 -2.8 -1.5 Osteoporosis Total Hip (Left) 0.651 -2.4 -1.4 Osteopenia Femoral Neck (Right) 0.602 -2.2 -0.9 Osteopenia Total Hip (Right) 0.708 -1.9 -1.0 Osteopenia Total Hip Mean 0.679 -2.2 -1.2 Osteopenia World Health Organization criteria for BMD impression classify patients as: Normal (T-score at or above -1.0), Osteopenia (T-score between -1.0 and -2.5), or Osteoporosis (T-score at or below -2.5). 10-year Fracture Risk: FRAX not reported because: Some T-score for Spine Total or Hip Total or Femoral Neck at or below -2.5 Clinical Information Provided by Patient: Has used the following medications: Vitamin D Has the following medical conditions: Cancer Patient maximum height was 66 Menopause Age: 47 Does not regularly consume dairy products Onset of menses at age 9 Number of children 1 Impression: The patient has osteoporosis, based on the Left Femoral Neck T-score. Discussion: INCREASED RISK OF FRACTURE. BONE DENSITY IS UNDESIRABLY LOW AT ONE OR MORE SKELETAL SITES, CONSISTENT WITH POSTMENOPAUSAL OSTEOPOROSIS. This patient's lowest T-score meets the World Health Organization's (WHO) criteria for osteoporosis at one or more sites (T-score -2.5 or below). In untreated patients, the risk of osteoporotic fracture increases approximately two-fold for each 1.0 SD decrease in T-score. Low bone density is not the only risk factor for fracture; also consider factors such as patient's age, frailty or poor health, risk of falling, risk of injury, previous osteoporotic fracture, family history of osteoporosis, cigarette smoking, low body weight, etc. Not everyone with low bone mineral density has osteoporosis; osteomalacia and other metabolic bone disorders should also be considered. Patients who have osteoporosis should be evaluated for specific diseases and conditions (secondary causes) that may cause or contribute to bone loss. The [place] Association of Clinical Endocrinologists (AACE) and National Osteoporosis Foundation (NOF) recommend pharmacologic intervention for all postmenopausal women whose T-score is in this range. The patient should follow a healthful lifestyle (good nutrition with adequate calcium and vitamin D, and appropriate weight-bearing exercise). Follow-Up: Consider a repeat BMD and Vertebral Fracture Assessment (VFA) exam in 2 years or sooner if medically necessary, to reassess this patient's status. Reported by: CHESTER on 11/16/2024 12:32:00 PM. Reviewed, dictated and finalized at location A.
== END 2024-11-16 12:08 | disposition home or self-care (01) ==
PROVIDERS: PCP Family Medicine; Visit Provider Student in an Organized Health Care Education/Training Program
DX: Z13.820 Encounter for screening for osteoporosis (principal); M81.0 Age-related osteoporosis without current pathological fracture; M85.89 Other specified disorders of bone density and structure, multiple sites
CPT/HCPCS: 77080

== ENCOUNTER 2024-12-12 09:25 | Outpatient (CLI) | payer BC, SELFPAY ==
--- OUTSIDE RECORDS SUMMARY | 2024-12-12 10:00 | XMS_ITS | Encounter Summary ---
Author Organization [facility] Address [address] [place] [address] Care Team Providers Care Litharge Supervisor Name Role Phone Lynette Michaud NP Primary Care Provider Unavail able Encounter Details Date Type Department Care Team (Latest Contact Info) Description 10/21/1999 Outpatient Historical [place] [address] [place] [address] Hodgkin's disease, nodular sclerosis, unspecified site, extranodal and solid organ sites (CMS/HCC) (Primary Dx) Social History Tobacco Use Types Packs/Day Years Used Date Smoking Tobacco: Never Assessed Comments Unknown Sex and Gender Information Value Date Recorded Sex Assigned at Not on file Legal Sex Female 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
--- OUTSIDE RECORDS SUMMARY | 2024-12-12 10:00 | XMS_ITS | Encounter Summary ---
Author Organization [facility] Address [address] [place] [address] Care Team Providers Care Metal Trim Erector Name Role Phone Lynette Michaud NP Primary Care Provider Unavail able Encounter Details Date Type Department Care Team (Latest Contact Info) Description 10/22/2003 Outpatient Historical HIS [facility] Ring, [place] [address] [place] [address] HODGKINS NOS UNSP XTRNODL/SOLID ORG ([facility]) (Primary Dx) Social History Tobacco Use Types Packs/Day Years Used Date Smoking Tobacco: Never Assessed Comments Unknown Sex and Gender Information Value Date Recorded Sex Assigned at Not on file Legal Sex Female 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
--- OUTSIDE RECORDS SUMMARY | 2024-12-12 10:00 | XMS_ITS | Encounter Summary ---
Author Organization [facility] Address [address] [place] [address] Care Team Providers Care Java Solutions Architect Name Role Phone Lynette Michaud NP Primary Care Provider Unavail able Encounter Details Date Type Department Care Team (Latest Contact Info) Description 10/12/2001 Outpatient Historical HIS [facility] Ring, [place] [address] [place] [address] HODGKINS NOS UNSP XTRNODL/SOLID ORG ([facility]) (Primary Dx) Social History Tobacco Use Types Packs/Day Years Used Date Smoking Tobacco: Never Assessed Comments Unknown Sex and Gender Information Value Date Recorded Sex Assigned at Not on file Legal Sex Female 2:50 AM MEDIA COORDINATOR Gender Identity Not on file Sexual Orientation Not on file documented as of this encounter Plan of Treatment Not on file documented as of this encounter Visit Diagnoses Diagnosis Hodgkin's disease, unspecified(201.90) ([facility])- Primary Hodgkin's disease, unspecified documented in this encounter Care Teams Java Solutions Architect Relationship Specialty Start Date End Date Lynette Michaud NP PCP - General NURSE PRACTITIONER 03/23/19 documented as of this encounter
--- OUTSIDE RECORDS SUMMARY | 2024-12-12 10:00 | XMS_ITS | Encounter Summary ---
Author Organization [facility] Address [address] [place] [address] Care Team Providers Care Marshmallow Maker Name Role Phone Lyentte Michaud NP Primary Care Provider Unavail able Encounter Details Date Type Department Care Team (Latest Contact Info) Description 09/10/1998 Outpatient Historical HIS [facility] Ring, [place] [address] [place] [address] Hodgkin's disease, unspecified(201.90) (CMS/[facility]) (Primary Dx) Social History Tobacco Use Types Packs/Day Years Used Date Smoking Tobacco: Never Assessed Comments Unknown Sex and Gender Information Value Date Recorded Sex Assigned at Not on file Legal Sex Female 2:50 AM CLOTH DOFFER Gender Identity Not on file Sexual Orientation Not on file documented as of this encounter Plan of Treatment Not on file documented as of this encounter Visit Diagnoses Diagnosis Hodgkin's disease, unspecified(201.90) (CMS/HCC)- Primary Hodgkin's disease, unspecified documented in this encounter Care Teams Marshmallow Maker Relationship Specialty Start Date End Date Lynette Michaud NP PCP - General NURSE PRACTITIONER 03/23/19 documented as of this encounter
--- OUTSIDE RECORDS SUMMARY | 2024-12-12 10:01 | XMS_ITS | Clinical Summary ---
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 Active Active Problems Patient Care Coordination No te Formatting of this note migh t be different from the original. Primary Care: Annika Ojeda MD Referring Provider: Marielos Hugo MD [address] [place] [address] Other: Dr Keely Huff Problem Noted Date Diagnosed Date Nonrheumatic aortic valve stenosis 05/17/2019 Mild mitral regurgitation 05/17/2019 At high risk for breast cancer 09/29/2018 Hypothyroidism Hodgkin's disease Resolved Problems Problem Noted Date Diagnosed Date Resolved Date Abnormal mammogram, unspecified 01/12/2012 03/11/2015 Encounters Date Type Department Care Team Description 12/06/2024 External Device Data [facility] ABSTRACTION Provider, Abstract 11/15/2024 External Device Data [facility]STRA[facility] Provider, Abstract 11/15/2024 External Device Data [facility] Provider, Abstract 10/18/2024 External Device Data [facility]STRA[facility] Provider, Abstract 09/26/2024 3:32 PM CDT - 09/26/2024 11:59 PM CDT Hospital Encounter [facility] [address] [address] [place] [id number] Alen Nava MD Discharge Disposition: Home or Self Care 09/22/2024 Transcribe Orders [facility] Ultrasound [address] [place] [address] Alen Nava MD Visit for [...] on file Legal Sex Female 2:50 AM MANAGER BRAND Gender Identity Not on file Sexual Orientation Not on file Occupation Industry Job Start Date Job End Date Not on file Not on file Not on file Not on file Last Filed Vital Signs Vital Sign Reading Time Taken Comments Blood Pressure 148/84 05/17/2019 12:56 PM MANAGER BRAND Pulse 101 05/17/2019 12:56 PM MANAGER BRAND Temperature - - Respiratory Rate - - Oxygen Saturation 95% 05/17/2019 12:56 PM MANAGER BRAND Inhaled Oxygen Concentration - - Weight 86.2 kg (190 lb) 05/17/2019 12:56 PM MANAGER BRAND Height 167.6 cm (5' 6) 05/17/2019 12:56 PM MANAGER BRAND Body Mass Index 30.67 05/17/2019 12:56 PM MANAGER BRAND Plan of Treatment Health Maintenance Due Date Last Done Comments DTAP/TDAP/TD VACCINES (1 - Tdap) 09/06/1983 ZOSTER VACCINE (1 of 2) 09/06/1983 HPV/Cotest (21-29) 1985 HPV/Cotest (30-65) 1994 CERVICAL CANCER SCREENING 05/03/2001 PAP SMEAR 05/03/2001 05/03/1998 COLORECTAL SCREENING 2009 Colorectal Cancer Screening 2009 FIT-DNA Q 3 years 2009 FIT/FOBT Q 1 year 2009 Flex Sig/CT Colonography Q 5 years 2009 INFLUENZA VACCINE (#1) 2024 BREAST CANCER SCREENING 09/26/2025 09/27/19 25, 09/15/2023, 10/14/2022, Additional history exists RSV VACCINE (60+ or ) (1 - 1-dose 75+ series) 09/06/2039 HEPATITIS B VACCINES Aged Out No long [...] 1 - Negative DICTATION LOCATION: [facility] 09/26/2024 4:01 PM CDT BILATERAL SCREENING DIGITAL [...] Final Result from Last 3 Months Insurance BS FEDERAL Member Subscriber Plan / Payer (Ef fective 2020-Present) Name:Jose David Pacheco Relation to Subscriber:Self Name:Jose Daivd Pacheco Payer ID:[id number] (NAIC) Group ID:[id number] Type:PPO Care Teams Fleet Technician Relationship Specialty Start Date End Date Lynette Michaud NP PCP - General NURSE PRACTITIONER 03/23/19
--- OUTSIDE RECORDS SUMMARY | 2024-12-12 10:01 | XMS_ITS | Clinical Summary ---
Author Organization [address] Address [address] [place] [address] Care Team Providers Care Import Coordination And Production Head Name Role Phone Alen Nava MD Primary [...] Encounters Date Type Department Care Team Description 11/15/2024 Orders Only [facility] Cardiology [address] [facility] [address] [place] [address] Guido Sykes MD 11/09/2024 Orders Only [facility] [place] [address] [place] [id number] Scanning, Provider 10/19/2024 Telephone [facility] Medical [facility] Cardiology [address] [facility] [address] [place] [address] Guido Sykes MD 09/14/2024 Orders Only [facility] Medical Group Cardiology [address] [facility] [address] [place] [address] Loli Garber MD from Last [...] on file Legal Sex Female 2:14 AM RADIO STATION ENGINEER Gender Identity Not on file Sexual Orientation Not on file Obstetrics History Last Filed Vital Signs Vital Sign Reading Time Taken Comments Blood Pressure 165/97 06/07/2023 3:08 PM RADIO STATION ENGINEER Pulse 100 05/07/2023 8:45 AM RADIO STATION ENGINEER Temperature - - Respiratory Rate - - Oxygen Saturation 99% 05/07/2023 8:45 AM RADIO STATION ENGINEER Inhaled Oxygen Concentration - - Weight 73.9 kg (163 lb) 05/07/2023 8:45 AM RADIO STATION ENGINEER Height 167.6 cm (5' 6) 05/07/2023 8:45 AM RADIO STATION ENGINEER Body Mass Index 26.31 05/07/2023 8:45 AM RADIO STATION ENGINEER Plan of Treatment Health Maintenance Due Date [...] Associated Diagnosis Comments CARDIOLOGY DOCUMENT SCAN Routine 11/09/2024 8:36 AM CDT CARDIOLOGY DOCUMENT SCAN 11/09/2024 SCAN - LABS 11/09/2024 from Last 3 Months Results * Cardiology Document Scan (11/09/2024 8:36 AM CDT) Anatomical Region Laterality Modality Other Guido Sykes MD CV CARDIAC SERVICES PROCEDURES F inal Result * SCAN - LABS (11/09/2024) Provider Scanning Final Result * Cardiology Document Scan (11/09/2024) Anatomical Region Laterality Modality Other Provider Scanning CV CARDIAC SERVICES PROCEDURES Final Result from Last 3 Months Insurance [id number] FEDERAL Member Subscriber Plan / Payer (Ef fective 2016-Present) Name:Jose David Pacheco Relation to Subscriber:Self Name:Jose David Pacheco Payer ID:[id number] (NAIC) Group ID:[id number] Type:OGSystems Address: [place] [address] Member Subscriber Plan / Payer (Ef fective 2016-Present) Name:Jose David Pacheco Relation to Subscriber:Self Name:Jose David Pacheco Payer ID:[id number] (NAIC) Group ID:[id number] Type:OGSystems Address: [facility] [id number] [place] [address] Care Teams Import Coordination And Production Head Relationship Specialty Start Date End Date Alen Nava MD [address] [facility] [address] [place] [address] PCP - General Family Medicine 01/29/23
[2024-12-12 10:37] LABS: Thyroid Stimulating Hormone 3.400 uIU/mL (0.465-4.680)
== END 2024-12-12 09:26 | disposition home or self-care (01) ==
LOC: ANHLAB 09:26
PROVIDERS: PCP Family Medicine; Visit Provider Family Medicine
DX: E55.9 Vitamin D deficiency, unspecified (principal); E03.9 Hypothyroidism, unspecified
CPT/HCPCS: 36415; 82306; 84443